=== PATIENT | female | born 1990 | race Caucasian/White ===

== ENCOUNTER 2020-04-24 14:05 | Outpatient (REF) | payer OTHER, SELFPAY ==
[2020-04-24 15:01] LABS: MANUAL DIFF FLAG NO
[2020-04-24 15:06] LABS: Basophils Absolute Auto 0.1 X10*3/uL (0.0-0.2); Basophils Percent Auto 0.7 % (0-2); Eosinophils Absolute Auto 0.4 X10*3/uL (0.0-0.4); Eosinophils Percent Auto 3.7 % (0-4); Hematocrit 41.1 % (37-47); Hemoglobin 13.4 g/dl (12.0-16.0); Imm Gran Abs Auto 0.06 X10*3/uL (0.00-0.03); Imm Gran Pct Auto 0.6 % (0.0-0.4); Lymphocytes Absolute Auto 2.8 X10*3/uL (1.2-4.9); Lymphocytes Percent Auto 29.5 % (20-40); Mean Corpuscular HGB Conc 32.6 g/dl (31.0-35.0); Mean Corpuscular Hemoglobin 29.7 pg (27.0-33.0); Mean Corpuscular Volume 91.1 fL (80-98); Mean Platelet Volume 9.8 fL (9.4-12.3); Monocytes Absolute Auto 0.6 X10*3/uL (0.1-1.2); Monocytes Percent Auto 6.4 % (2-11); Neutrophils Absolute Auto 5.5 X10*3/uL (2.0-8.3); Neutrophils Percent Auto 59.1 % (45-73); Platelet Count 357 X10*3/uL (160-400); Red Blood Count 4.51 X10*6/uL (4.20-5.50); Red Cell Distribution Width 13.2 % (11.0-16.0); White Blood Count 9.4 X10*3/uL (4.8-10.8)
[2020-04-24 15:32] LABS: Alanine Aminotransferase 37 U/L (0-31); Albumin Level 4.8 g/dL (3.5-5.0); Alkaline Phosphatase 95 U/L (39-117); Anion Gap 15 (12-20); Aspartate Amino Transferase 26 U/L (5-31); Bilirubin Total 0.5 mg/dL (0.0-1.0); Blood Urea Nitrogen 17 mg/dL (9-16); Calcium 9.4 mg/dL (8.4-10.2); Carbon Dioxide 27 mmol/L (22-29); Chloride 101 mmol/L (96-108); Estimated Glomerular Filt Rate 59; Glucose Random 101 mg/dL (60-115); Potassium 4.6 mmol/l (3.3-5.1); Sodium 138 mmol/L (135-145); Total Protein 7.6 g/dL (6.5-8.0)
[2020-04-24 15:53] LABS: TSH reflex Free T4 91.36 mIU/mL (0.32-4.0)
[2020-04-24 16:41] LABS: Free T4 (Free Thyroxine) 0.96 ng/dL (0.71-1.85)
== END 2020-04-24 14:06 | disposition home or self-care (01) ==
LOC: HO.LAB 14:05
PROVIDERS: PCP Nurse Practitioner Family; Visit Provider Nurse Practitioner Family
DX: L65.9 Nonscarring hair loss, unspecified (principal)
CPT/HCPCS: 36415; 80053; 84439; 84443; 85025

== ENCOUNTER 2020-05-12 08:46 | Outpatient (REF) | payer OTHER, SELFPAY ==
--- NOTE | 2020-05-12 09:09 | US_ITS ---
EXAMINATION: US SOFT TISSUE HEAD/NECK CLINICAL INFORMATION: Papillary microcarcinoma of thyroid. History of thyroidectomy. COMPARISON: Ultrasound thyroid soft tissue dated 08/04/2017 TECHNIQUE: Ultrasound of the thyroid bed FINDINGS: No residual thyroid tissue is identified in the region of the thyroid bed. No prominent or abnormal lymph nodes are seen within the neck. US/US soft tiss head and/or neck IMPRESSION: No residual thyroid tissue seen within the thyroid bed status post total thyroidectomy. No lymphadenopathy appreciated.
== END 2020-05-12 08:47 | disposition home or self-care (01) ==
LOC: HO.HMGCX 08:46
PROVIDERS: PCP Nurse Practitioner Family; Visit Provider Nurse Practitioner Family
DX: Z85.850 Personal history of malignant neoplasm of thyroid (principal)
CPT/HCPCS: 76536

== ENCOUNTER 2020-05-30 10:58 | Outpatient (REF) | payer OTHER, SELFPAY ==
[2020-05-30 12:47] LABS: TSH reflex Free T4 0.13 mIU/mL (0.32-4.0)
[2020-05-30 14:11] LABS: Free T4 (Free Thyroxine) 1.67 ng/dL (0.71-1.85)
== END 2020-05-30 10:59 | disposition home or self-care (01) ==
LOC: HO.LAB 10:58
PROVIDERS: PCP Nurse Practitioner Family; Visit Provider Nurse Practitioner Family
DX: R94.6 Abnormal results of thyroid function studies (principal)
CPT/HCPCS: 36415; 84439; 84443

== ENCOUNTER 2020-07-03 09:06 | Emergency (ER) | payer OTHER, SELFPAY ==
--- NOTE | ~2020-07-03 | XR_ITS ---
EXAMINATION: XR CHEST CLINICAL INFORMATION: Left upper quadrant pain. Possible pneumonia. COMPARISON: Chest radiographs 05/26/2019 TECHNIQUE: Portable upright AP view of the chest was obtained. FINDINGS: There are low lung volumes. The lungs are clear. The vascularity is normal. There is no airspace consolidation, groundglass opacity, or effusion. The heart is normal in size. The hilar and mediastinal contours and visualized bony structures are unremarkable. XR/XR chest 1V IMPRESSION: Unremarkable examination.
--- NOTE | ~2020-07-03 | CT_ITS ---
EXAMINATION: CT ABDOMEN AND PELVIS WITHOUT CONTRAST CLINICAL INFORMATION: Left upper quadrant abdominal pain/question mass COMPARISON: None TECHNIQUE: Multidetector volumetric imaging was performed from the superior aspect of the liver through the pubic symphysis. Sagittal and coronal reformatted images were obtained on the technologist's workstation. This CT examination was performed using dose optimization techniques as appropriate, variously including the following: *Automated exposure control *Adjustment of mA and/or kV according to patient size (this includes techniques or standardized protocols for targeted exams where dose is matched to indication/reason for exam; i.e. extremities or head) *Use of iterative reconstruction technique DLP: 1055 mGy-cm FINDINGS: LUNG BASES: The heart size is normal. The lung bases are clear. LIVER, GALLBLADDER, AND BILIARY TREE: The liver is normal in size, shape, and attenuation. No focal hepatic lesion or biliary ductal dilatation is present. The gallbladder has been surgically removed PANCREAS: Unremarkable. SPLEEN: Unremarkable. ADRENAL GLANDS: Unremarkable. KIDNEYS AND URETERS: The kidneys are normal in size, shape, and attenuation. No hydronephrosis, hydroureter, or calculi seen. No perinephric stranding. BLADDER: Unremarkable. GASTROINTESTINAL TRACT: There is scattered stool and gas seen throughout the colon without any significant distention. The small bowel loops are normal caliber. The stomach is nondistended. There is no free air or free fluid. Solitary surgical staple is seen in the lower anterior abdomen a clinical migrated stable from right upper quadrant ABDOMINAL WALL: No significant hernia is appreciated. LYMPH NODES: Normal. VASCULAR: Unremarkable. PELVIC VISCERA: There is a 2.7 x 2.8 cm left ovarian cyst. The uterus is anteverted and appears unremarkable. No free fluid seen. No abnormal pelvic or inguinal lymph nodes. OSSEOUS STRUCTURES: Unremarkable. CT/CT abdomen pelvis wo con IMPRESSION: No acute intra-abdominal process seen. Minimal constipation. No radiopaque urolith or hydroureteronephrosis.
[2020-07-03 09:10] VITALS: BP 129/83; PULSE 118; RESP 18; TEMP 36.4; O2SAT 98; BMI 49.6
--- NOTE | 2020-07-03 09:32 | ECG_ITS ---
Test Reason : ABDOMINAL PAIN Blood Pressure : / mmHG Vent. Rate : 099 BPM Atrial Rate : 099 BPM P-R Int : 148 ms QRS Dur : 078 ms QT Int : 370 ms P-R-T Axes : 047 024 018 degrees QTc Int : 474 ms Normal sinus rhythm Normal ECG When compared with ECG of 26-MAY-2019 13:32, Nonspecific T wave abnormality, improved in Anterior leads Referred By: Dino Mar Electronically Signed By:NILSA POLLARD MD
[2020-07-03 09:57] LABS: MANUAL DIFF FLAG NO
[2020-07-03 09:58] LABS: Basophils Percent Auto 0.3 % (0-2); Eosinophils Absolute Auto 0.1 X10*3/uL (0.0-0.4); Eosinophils Percent Auto 1.1 % (0-4); Hematocrit 37.6 % (37-47); Hemoglobin 12.6 g/dl (12.0-16.0); Imm Gran Abs Auto 0.01 X10*3/uL (0.00-0.03); Imm Gran Pct Auto 0.2 % (0.0-0.4); Lymphocytes Absolute Auto 1.5 X10*3/uL (1.2-4.9); Lymphocytes Percent Auto 23.3 % (20-40); Mean Corpuscular HGB Conc 33.5 g/dl (31.0-35.0); Mean Corpuscular Hemoglobin 27.6 pg (27.0-33.0); Mean Corpuscular Volume 82.5 fL (80-98); Mean Platelet Volume 9.4 fL (9.4-12.3); Monocytes Absolute Auto 0.6 X10*3/uL (0.1-1.2); Monocytes Percent Auto 9.2 % (2-11); Neutrophils Absolute Auto 4.2 X10*3/uL (2.0-8.3); Neutrophils Percent Auto 65.9 % (45-73); Platelet Count 313 X10*3/uL (160-400); Red Blood Count 4.56 X10*6/uL (4.20-5.50); Red Cell Distribution Width 11.7 % (11.0-16.0); White Blood Count 6.3 X10*3/uL (4.8-10.8)
[2020-07-03] MEDS: oxyCODONE HCl Immed Release 5 MG TABLET PO (10:01)
[2020-07-03 10:06] LABS: Prothrombin Time 12.1 SEC (10.8-13.0)
--- NOTE | 2020-07-03 10:07 | ED_ITS ---
HPI - General Adult General Chief complaint: General Medical Stated complaint: ABD PAIN Time Seen by Provider: 07/03/20 09:22 Source: patient Mode of arrival: ambulatory Limitations: no limitations History of Present Illness HPI narrative: Patient presents to ED for painful lump and left upper abdomen. Patient states this has been occurring for a while. Patient states sometime when she moved she see a bulging mass in left upper abdomen. Patient states no fever, chills, chest pain, or shortness of breath. Patient denies any recent trauma to the abdomen. Patient states no dysuria or hematuria. Patient denies any breast pain, breast swelling, or nipple discharge. Patient denies any chest pain on inspiration, leg swelling, calf pain, coughing up blood Related Data Home Medications Medication Instructions Recorded Confirmed amitriptyline 150 mg tablet 75 mg PO DAILY tab 07/02/20 07/02/20 cholecalciferol (vitamin D3) 50 50 mcg PO DAILY 07/02/20 07/02/20 mcg (2,000 unit) tablet Previous Rx's Medication Instructions Recorded amitriptyline 150 mg tablet 150 mg PO BEDTIME 90 Days #90 tab 03/10/20 tizanidine 4 mg tablet 4 mg PO BID PRN #60 tab 05/22/20 [id number]-xrpyyjvksbfrf-srrgkfat 1 cap PO .12 hrs PRN 15 Days #30 05/30/20 50 mg-300 mg-40 mg capsule cap cholecalciferol (vitamin D3) 50 50 mcg PO DAILY 90 Days #90 tab 06/23/20 mcg (2,000 unit) tablet clonazepam 1 mg tablet 1 mg PO BEDTIME PRN 30 Days #30 tab 07/02/20 levothyroxine 200 mcg capsule 200 mcg PO DAILY 90 Days #90 cap 07/02/20 levothyroxine 75 mcg capsule 75 mcg PO DAILY 90 Days #90 cap 07/02/20 oxycodone-acetaminophen [Percocet] 1 tab PO TID PRN #9 tab 07/03/20 Allergies Allergy/AdvReac Type Severity Reaction Status Date / Time bee pollen [BEE STINGS] Allergy Severe ANAPHYLAXIS Verified 07/02/20 16:25 NSAIDS (Non-Steroidal Allergy Intermediate HIVES Verified 07/02/20 16:25 Anti-Inflamma [NSAIDS (NON-STEROIDAL ANTI-INFLAMMA] Penicillins Allergy Intermediate HIVES Verified 07/02/20 16:25 ibuprofen Allergy Unknown unknown Verified 07/02/20 16:25 latex Allergy Unknown unknown Verified 07/02/20 16:25 Motrin Allergy Unknown hives Verified 07/02/20 16:25 penicillin V Allergy Unknown unknown Verified 07/02/20 16:25 latex [LATEX] AdvReac Intermediate RASH Verified 07/02/20 16:25 bee Allergy Unknown unknown Uncoded 07/02/20 16:25 bee sting Allergy Unknown unknown Uncoded 07/02/20 16:25 Penicillin Allergy Unknown unknown Uncoded 07/02/20 16:25 From Ortho Tri-Cyclen () AdvReac Intermediate DVT (BLOOD Uncoded 07/02/20 16:25 CLOT) Review of Systems Review of Systems: Yes all other systems are reviewed and are negative Constitutional: Constitutional: Reports as per HPI and Reports no additional constitutional complaints Eyes: Eyes: Reports as per HPI and Reports no additional eye complaints ENT: Reports system reviewed and no additional complaints, except as documented and Reports as per HPI Cardiovascular: Cardiovascular: Reports as per HPI and Reports no additional cardiovascular complaints Respiratory: Respiratory: Reports as per HPI and Reports no additional respiratory complaints Gastrointestinal: Gastrointestinal: Reports as per HPI, Reports no additional gastrointestinal complaints and Reports abdominal pain (Left upper abdominal pain) Genitourinary: Genitourinary: Reports no additional female genitourinary complaints and Reports as per HPI Musculoskeletal: Musculoskeletal: Reports no additional musculoskeletal complaints and Reports as per HPI Neurologic: Reports system reviewed and no additional complaints, except as documented and Reports as per HPI Psychiatric: Psychiatric: Reports no additional psychiatric complaints and Reports as per HPI [facility] Past Medical History Medical History (Updated 07/03/20 @ 12:45 by CAM Shannon) Hx of papillary thyroid carcinoma Social History Social History Alcohol intake: current Alcohol intake frequency: holidays/special occasions only Smoking Status: Never smoker Advance Directives: No Advance Directives Information Provided: No Physical Exam Vital Signs: Vital Signs: Last Vital Signs Temp 97.5 F 07/03/20 09:10 Pulse 118 H 07/03/20 09:10 Resp 18 07/03/20 09:10 BP 129/83 07/03/20 09:10 Pulse Ox 98 07/03/20 09:10 Body Mass Index 49.6 Const: General: cooperative, healthy appearing, comfortable, no acute distress, well developed, alert and awake Orientation/consciousness: patient oriented x3 HENMT: Head: Yes normal to inspection, Yes No palpable skull fracture present, Yes normocephalic, Yes atraumatic and No abrasion Eyes: General: appearance normal, both eyes and all related structures Neck: Neck: Yes normal visual inspection, Yes full ROM, Yes no lymphadenopathy, Yes no meningeal signs, Yes trachea midline, Yes supple and No tender Chest: Chest palpation & inspection: normal inspection of the chest and normal palpation of entire chest wall Breast/axilla inspection: normal inspection of the breasts Resp: Effort & Inspection: normal respiratory effort and able to speak in complete sentences Auscultation: clear to auscultation bilaterally Cardio: Jugular venous distension: no JVD Heart sounds: S1 normal heart sound present and S2 normal heart sound present GI: Other: Left upper abdomen is tender, but negative for any obvious lump, mass, erythema, or fluctuance. Patient is obese and have a large obese abdomen. Possible small hiatal hernia Inspection: Yes normal to inspection and No abdominal wall ecchymosis Palpation (GI): not soft, not firm, Tenderness to palpation present (GI) in the LUQ and no guarding : General: No CVA tenderness and Yes no CVA tenderness Back/Spine/Pelvis: Back: no CVA tenderness, No CVA tenderness and No back tenderness Skin: General skin exam: no rashes or lesions noted and elasticity normal Neuro: General: patient oriented x3, no meningeal signs and CN's II-XI intact bilaterally Cranial nerves: Yes CN's II-XII intact bilaterally Extrem: General: Yes normal to inspection and Yes full ROM Psych: Appearance: grossly normal, well kempt and not disheveled Course Course Course Narrative: Due to patient having left upper abdominal pain. Will do EKG and troponin to make sure there is no cardiac issue. Left upper abdominal pain could also be pneumonia patient will be sent for chest x-ray. Will send patient for abdominal CT scan to evaluate for possible hiatal hernia due to history of left upper abdominal pain with bulging mass. No indication for CT contrast with IV. Not suspecting incarcerated hernia. Pain is not out of proportion. Also negative for any palpable of visual mass on palpation Reevaluation(s) Reevaluation #1: Patient sleeping comfortably in bed and not in any distress. Awaiting results of abdominal CT scan. Time: 09:40 Reevaluation #2: Abdominal CT scan negative for any intra-abdominal process. Negative for any mass or hernia. Patient is safe for discharge. EKG normal. Chest x-ray normal. Troponin negative after having symptoms for 1 week. Patient passed p.o. challenge Time: 12:42 Medical Decision Making MDM Narrative Medical decision making narrative: Abdominal pain Lab Data Result diagrams: 07/03/20 09:48 07/03/20 09:48 Labs: Lab Results 07/03/20 07/03/20 07/03/20 Range/Units 09:43 09:48 09:48 WBC 6.3 (4.8-10.8) X10*3/uL RBC 4.56 (4.20-5.50) X10*6/uL Hgb 12.6 (12.0-16.0) g/dl Hct 37.6 (37-47) % MCV 82.5 (80-98) fL MCH 27.6 (27.0-33.0) pg MCHC 33.5 (31.0-35.0) g/dl RDW 11.7 (11.0-16.0) % Plt Count 313 (160-400) X10*3/uL MPV 9.4 (9.4-12.3) fL Immature Gran % (Auto) 0.2 (0.0-0.4) % Neut % (Auto) 65.9 (45-73) % Lymph % (Auto) 23.3 (20-40) % [place] % (Auto) 9.2 (2-11) % Eos % (Auto) 1.1 (0-4) % Baso % (Auto) 0.3 (0-2) % Lymph # (Auto) 1.5 (1.2-4.9) X10*3/uL [place] # (Auto) 0.6 (0.1-1.2) X10*3/uL Eos # (Auto) 0.1 (0.0-0.4) X10*3/uL Baso # (Auto) 0.0 (0.0-0.2) X10*3/uL Abs Immat Gran (auto) 0.01 (0.00-0.03) X10*3/uL Absolute Neuts (auto) 4.2 (2.0-8.3) X10*3/uL Absolute Nucleated RBC 0.000 (0.0-0.012) X10*3/uL Nucleated RBC % (auto) 0.0 (0.0-0.2) /100WBC PT (10.8-13.0) SEC INR (0.9-1.1) APTT (24.1-38.0) SEC Sodium 137 (135-145) mmol/L Potassium 4.1 (3.3-5.1) mmol/L Chloride 102 (96-108) mmol/L Carbon Dioxide 29 (22-29) mmol/L Anion Gap 10 L (12-20) BUN 15 (9-16) mg/dL Creatinine 0.66 (0.5-1.4) mg/dL Estim Creat Clear Calc 141.7 Estimated GFR > 60 Random Glucose 120 H (60-115) mg/dL Calcium 8.5 D (8.4-10.2) mg/dL Total Bilirubin 0.5 (0.0-1.0) mg/dL Direct Bilirubin 0.2 (0.0-0.5) mg/dL AST 21 (5-31) U/L ALT 37 H (0-31) U/L Alkaline Phosphatase 73 D (39-117) U/L Troponin I High Sens (<3.5-17.0) ng/L Total Protein 6.0 L D (6.5-8.0) g/dL Albumin 3.8 D (3.5-5.0) g/dL Urine Color COLORLESS Urine Appearance CLEAR Urine pH 7.0 (5.0-8.0) Ur Specific [place] <= 1.005 (1.005-1.025) Urine Protein NEG (NEG-TRACE) MG/DL Urine Glucose (UA) NEG (NEG) MG/DL Urine Ketones NEG (NEG) MG/DL Urine Blood NEG (NEG) Urine Nitrite NEG (NEG) Ur Leukocyte Esterase NEG (NEG) Urine Test NEGATIVE (NEGATIVE) 07/03/20 07/03/20 Range/Units 09:48 09:48 WBC (4.8-10.8) X10*3/uL RBC (4.20-5.50) X10*6/uL Hgb (12.0-16.0) g/dl Hct (37-47) % MCV (80-98) fL MCH (27.0-33.0) pg MCHC (31.0-35.0) g/dl RDW (11.0-16.0) % Plt Count (160-400) X10*3/uL MPV (9.4-12.3) fL Immature Gran % (Auto) (0.0-0.4) % Neut % (Auto) (45-73) % Lymph % (Auto) (20-40) % [place] % (Auto) (2-11) % Eos % (Auto) (0-4) % Baso % (Auto) (0-2) % Lymph # (Auto) (1.2-4.9) X10*3/uL [place] # (Auto) (0.1-1.2) X10*3/uL Eos # (Auto) (0.0-0.4) X10*3/uL Baso # (Auto) (0.0-0.2) X10*3/uL Abs Immat Gran (auto) (0.00-0.03) X10*3/uL Absolute Neuts (auto) (2.0-8.3) X10*3/uL Absolute Nucleated RBC (0.0-0.012) X10*3/uL Nucleated RBC % (auto) (0.0-0.2) /100WBC PT 12.1 (10.8-13.0) SEC INR 1.0 (0.9-1.1) APTT 31.7 (24.1-38.0) SEC Sodium (135-145) mmol/L Potassium (3.3-5.1) mmol/L Chloride (96-108) mmol/L Carbon Dioxide (22-29) mmol/L Anion Gap (12-20) BUN (9-16) mg/dL Creatinine (0.5-1.4) mg/dL Estim Creat Clear Calc Estimated GFR Random Glucose (60-115) mg/dL Calcium (8.4-10.2) mg/dL Total Bilirubin (0.0-1.0) mg/dL Direct Bilirubin (0.0-0.5) mg/dL AST (5-31) U/L ALT (0-31) U/L Alkaline Phosphatase (39-117) U/L Troponin I High Sens < 3.5 (<3.5-17.0) ng/L Total Protein (6.5-8.0) g/dL Albumin (3.5-5.0) g/dL Urine Color Urine Appearance Urine pH (5.0-8.0) Ur Specific [place] (1.005-1.025) Urine Protein (NEG-TRACE) MG/DL Urine Glucose (UA) (NEG) MG/DL Urine Ketones (NEG) MG/DL Urine Blood (NEG) Urine Nitrite (NEG) Ur Leukocyte Esterase (NEG) Urine Test (NEGATIVE) ECG Data Interpretation: Normal sinus rhythm. Normal EKG. Negative STEMI. Ventricular rate 99. SD interval 148. QRS 78. QTC 474 Discharge Plan Discharge Clinical Impression: Abdominal pain Patient Disposition: Home, Self-Care Instructions: Acute Abdominal Pain (ED) Additional Instructions: Return to the ED for chest pain, shortness of breath, worsening abdominal pain, nausea, vomiting, fever, chills, coughing up blood, chest pain on inspiration, calf pain, or any other concerning symptoms. Prescriptions: New oxycodone-acetaminophen [Percocet] 5-325 mg tablet 1 tab PO TID PRN (Reason: pain) Qty: 9 RF: 0 No Action amitriptyline 150 mg tablet 150 mg PO BEDTIME 90 Days Qty: 90 RF: 1 tizanidine 4 mg tablet 4 mg PO BID PRN (Reason: for muscle spasm) Qty: 60 RF: 1 jfycqcezru-tknfiokjbvsgv-vraf [Fioricet] 50-300-40 mg capsule 1 cap PO .12 hrs PRN (Reason: migraine) 15 Days Qty: 30 RF: 0 cholecalciferol (vitamin D3) 50 mcg (2,000 unit) tablet 50 mcg PO DAILY 90 Days Qty: 90 RF: 0 cholecalciferol (vitamin D3) 50 mcg (2,000 unit) tablet 50 mcg PO DAILY RF: 0 amitriptyline 150 mg tablet 75 mg PO DAILY RF: 0 clonazepam 1 mg tablet 1 mg PO BEDTIME PRN (Reason: anxiety) 30 Days Qty: 30 RF: 0 levothyroxine [Tirosint] 200 mcg capsule 200 mcg PO DAILY 90 Days Qty: 90 RF: 0 levothyroxine [Tirosint] 75 mcg capsule 75 mcg PO DAILY 90 Days Qty: 90 RF: 0 Referrals: Elan Terry, [employer] [facility] [Primary Care Provider] - 2 days (Abdominal CT scan n egative for any hernia or mass. Abdominal CT negative for any acute abdominal processes. Chest x-ray normal. Troponin was negative. EKG normal.) Interventions: ED Discharge Assessment Last Done: 07/03/20 12:57 Discharge Date/Time: 07/03/20 13:05 Print Language: Israeli
[2020-07-03 10:09] LABS: Partial Thromboplastin Time 31.7 SEC (24.1-38.0)
[2020-07-03 10:14] LABS: Glucose Urine UA NEG (NEG); Leukocyte Esterase Urine NEG (NEG); Nitrite Urine NEG (NEG); Specific Gravity - Urine <= 1.005 (1.005-1.025); Urine Blood NEG (NEG); Urine Ketones NEG (NEG); Urine Protein NEG (NEG-TRACE)
[2020-07-03 10:27] LABS: Alanine Aminotransferase 37 U/L (0-31); Albumin Level 3.8 g/dL (3.5-5.0); Alkaline Phosphatase 73 U/L (39-117); Anion Gap 10 (12-20); Aspartate Amino Transferase 21 U/L (5-31); Bilirubin Direct 0.2 mg/dL (0.0-0.5); Bilirubin Total 0.5 mg/dL (0.0-1.0); Blood Urea Nitrogen 15 mg/dL (9-16); Calcium 8.5 mg/dL (8.4-10.2); Carbon Dioxide 29 mmol/L (22-29); Chloride 102 mmol/L (96-108); Creatinine Clr Calc Pharmacy 141.7; Estimated Glomerular Filt Rate > 60; Glucose Random 120 mg/dL (60-115); Potassium 4.1 mmol/L (3.3-5.1); Sodium 137 mmol/L (135-145)
[2020-07-03 10:30] LABS: Troponin-I High Sensitivity < 3.5 ng/L (<3.5-17.0)
[2020-07-03 10:34] LABS: Appearance Urine CLEAR; Color Urine COLORLESS; UPreg QC Valid YES; Urine Pregnancy NEGATIVE (NEGATIVE)
== END 2020-07-03 13:05 | disposition home or self-care (01) ==
PROVIDERS: Physician Assistant; Emergency Provider Internal Medicine; PCP Nurse Practitioner Family
DX: R10.12 Left upper quadrant pain (principal); Z79.899 Other long term (current) drug therapy
CPT/HCPCS: 36415; 71045; 74176; 80053; 80076; 81003; 81025; 82248; 84484; 85025; 85610; 85730; 93005; 99284

== ENCOUNTER 2020-10-15 08:43 | Emergency (ER) | payer OTHER, SELFPAY ==
--- NOTE | ~2020-10-15 | CT_ITS ---
EXAMINATION: CT ANGIOGRAM OF THE CHEST WITH AND WITHOUT CONTRAST (CT PULMONARY ANGIOGRAM FOR PE) CLINICAL INFORMATION: Reason for Exam positive ddimer COMPARISON: Previous chest x-ray most recent June 2020 and CTA of the chest April 2017 TECHNIQUE: Prior to contrast administration, noncontrast localization images were obtained. Subsequently, multidetector volumetric imaging was performed from the thoracic inlet to below the diaphragms following the administration of 71 mL Omnipaque 350 intravenous contrast. No contrast reaction reported Sagittal, coronal, and MIP oblique sagittal reformatted images were obtained on the CT workstation, uploaded to PACS, and reviewed. This CT examination was performed using dose optimization techniques as appropriate, variously including the following: *Automated exposure control *Adjustment of mA and/or kV according to patient size (this includes techniques or standardized protocols for targeted exams where dose is matched to indication/reason for exam; i.e. extremities or head) *Use of iterative reconstruction technique Total exam dose-length product 475 mGy-cm FINDINGS: QUALITY OF STUDY/CONTRAST BOLUS: Satisfactory. PULMONARY ARTERIES: No central or segmental pulmonary emboli. THORACIC AORTA: No aneurysm or dissection. LUNG: No focal consolidation, nodules or masses. PLEURA: No pleural effusion or pneumothorax. MEDIASTINUM: Normal heart size. No pericardial effusion. No hilar or mediastinal lymphadenopathy. No evidence of septal bowing or right heart strain. CHEST WALL/AXILLA: No axillary or internal mammary lymphadenopathy. OSSEOUS STRUCTURES: No acute or suspicious osseous abnormality. UPPER ABDOMEN: Unremarkable. No reflux of contrast into the hepatic veins to suggest elevated right heart pressures. CT/CT angio chest PE protocol IMPRESSION: Unremarkable exam. No pulmonary embolism seen. VTE: negative
[2020-10-15 08:52] VITALS: BP 126/86; PULSE 101; RESP 16; TEMP 36.1; O2SAT 98; BMI 48.8
--- NOTE | 2020-10-15 08:59 | ED.GENADULT ---
HPI - General Adult General Chief complaint: General Medical Stated complaint: SOB Time Seen by Provider: 10/15/20 08:59 Source: patient Mode of arrival: ambulatory Limitations: no limitations History of Present Illness HPI narrative: patient feels short of breath with leg swelling ever since getting COVID shot. Patient had pfizer 2 weeks ago Onset (ago): week(s) Severity: mild Related Data Previous Rx's Medication Instructions Recorded levothyroxine 200 mcg capsule 200 mcg PO DAILY 90 Days #90 cap 07/02/20 levothyroxine 75 mcg capsule 75 mcg PO DAILY 90 Days #90 cap 07/02/20 oxycodone-acetaminophen [Percocet] 1 tab PO TID PRN #9 tab 07/03/20 ondansetron HCl 4 mg tablet 4 mg PO Q8H PRN #14 tab 07/04/20 clonazepam 1 mg tablet 1 mg PO BEDTIME PRN 30 Days #30 tab 07/24/20 tizanidine 4 mg tablet 4 mg PO BID PRN #60 tab 07/24/20 amitriptyline 150 mg tablet 150 mg PO BEDTIME #30 tab 09/19/20 cholecalciferol (vitamin D3) 50 50 mcg PO DAILY #30 tab 09/19/20 mcg (2,000 unit) tablet lgvwewugtl-qeuaxzlpdcwqg-spniocik 1 tab PO DAILY PRN 10 Days #10 tab 09/23/20 50 mg-325 mg-40 mg tablet levothyroxine 200 mcg tablet 200 mcg PO DAILY 90 Days #90 tab 09/23/20 levothyroxine 75 mcg tablet 75 mcg PO DAILY 90 Days #90 tab 09/23/20 suvorexant 10 mg tablet 10 mg PO BEDTIME 30 Days #30 tab 09/23/20 Allergies Allergy/AdvReac Type Severity Reaction Status Date / Time bee pollen [BEE STINGS] Allergy Severe ANAPHYLAXIS Verified 07/24/20 16:13 NSAIDS (Non-Steroidal Allergy Intermediate HIVES Verified 07/24/20 16:13 Anti-Inflamma [NSAIDS (NON-STEROIDAL ANTI-INFLAMMA] Penicillins Allergy Intermediate HIVES Verified 07/24/20 16:13 ibuprofen Allergy Unknown unknown Verified 07/24/20 16:13 latex Allergy Unknown unknown Verified 07/24/20 16:13 Motrin Allergy Unknown hives Verified 07/24/20 16:13 penicillin V Allergy Unknown unknown Verified 03/04/21 16:13 latex [LATEX] AdvReac Intermediate RASH Verified 07/24/20 16:13 From Ortho Tri-Cyclen (21) AdvReac Intermediate DVT (BLOOD Uncoded 07/24/20 16:13 CLOT) Review of Systems Constitutional: Constitutional: Reports no additional constitutional complaints Eyes: Eyes: Reports no additional eye complaints ENT: Denies dizziness Cardiovascular: Cardiovascular: Reports no additional cardiovascular complaints Respiratory: Respiratory: Reports as per HPI Gastrointestinal: Gastrointestinal: Reports no additional gastrointestinal complaints Genitourinary: Genitourinary: Reports no additional female genitourinary complaints Musculoskeletal: Musculoskeletal: Reports no additional musculoskeletal complaints Integumentary/Breasts: Skin/Breast: Denies rash Neurologic: Reports system reviewed and no additional complaints, except as documented, Denies dizziness and Denies Sensory deficit (Neuro) Psychiatric: Psychiatric: Denies anxiety PMFSH Past Medical History Medical History Hx of papillary thyroid carcinoma Surgical History Bilateral carpal tunnel syndrome History of section History of thyroidectomy History of tubal ligation History of umbilical hernia repair Hx of cholecystectomy Family History Family History Father History of heart attack Mother Hypothyroidism Sister Anxiety Migraine Low blood pressure Son Epilepsy Daughter No problems noted. Maternal Grandmother Breast cancer Paternal Grandmother Breast cancer Social History Social History Alcohol intake: current Alcohol intake frequency: holidays/special occasions only Advance Directives: Yes Advance Directives Information Provided: Yes Advance Directives on File: No Patient : No Physical Exam Vital Signs: Vital Signs: Last Vital Signs Temp 97.0 F 10/15/20 08:52 Pulse 98 10/15/20 12:20 Resp 18 10/15/20 12:20 BP 113/79 10/15/20 12:20 Pulse Ox 96 10/15/20 12:20 Body Mass Index 48.8 Const: Other: resting comfortably Nutritional Appearance: obese Orientation/consciousness: oriented to person and patient oriented x3 Limitations: no limitations HENMT: Head: Yes normal to inspection Ears: external ears normal General nose exam: Normal external nose present Mouth: Normal oral and palatal mucosa present and oropharynx normal Throat: Yes posterior oropharynx normal Eyes: General: appearance normal, both eyes and all related structures Neck: Other: supple Neck: Yes normal visual inspection Chest: Chest palpation & inspection: normal inspection of the chest Resp: Auscultation: clear to auscultation bilaterally Cardio: Jugular venous distension: no JVD Rate: regular rate Rhythm: regular rhythm Heart sounds: S1 normal heart sound present and S2 normal heart sound present GI: Inspection: Yes normal to inspection Palpation (GI): Soft to palpation, nontender and No hepatosplenomegaly present Auscultation: normal bowel sounds : General: Yes no CVA tenderness Back/Spine/Pelvis: Back: no CVA tenderness Skin: General skin exam: no rashes or lesions noted Neuro: General: oriented to person and patient oriented x3 Cranial nerves: Yes CN's II-XII intact bilaterally Motor exam (neuro): 5/5 motor strength present throughout Sensory Exam: No Sensory deficit (Neuro) Extrem: Other: obese legs no edema, good dp and PT pulses bilaterally Psych: Appearance: grossly normal Course Course Course Narrative: Labs, EKG, Chest CT all negative will dc home. No evidence of PE on CT Medical Decision Making Lab Data Result diagrams: 10/15/20 09:08 10/15/20 09:08 Labs: Lab Results 10/15/20 10/15/20 10/15/20 Range/Units 09:08 09:08 09:08 WBC 7.0 (4.8-10.8) X10*3/uL RBC 4.61 (4.20-5.50) X10*6/uL Hgb 13.2 (12.0-16.0) g/dl Hct 39.0 (37-47) % MCV 84.6 (80-98) fL MCH 28.6 (27.0-33.0) pg MCHC 33.8 (31.0-35.0) g/dl RDW 13.3 (11.0-16.0) % Plt Count 309 (160-400) X10*3/uL MPV 9.4 (9.4-12.3) fL Immature Gran % (Auto) 0.4 (0.0-0.4) % Neut % (Auto) 67.5 (45-73) % Lymph % (Auto) 22.3 (20-40) % [place] % (Auto) 8.3 (2-11) % Eos % (Auto) 0.9 (0-4) % Baso % (Auto) 0.6 (0-2) % Lymph # (Auto) 1.6 (1.2-4.9) X10*3/uL [place] # (Auto) 0.6 (0.1-1.2) X10*3/uL Eos # (Auto) 0.1 (0.0-0.4) X10*3/uL Baso # (Auto) 0.0 (0.0-0.2) X10*3/uL Abs Immat Gran (auto) 0.03 (0.00-0.03) X10*3/uL Absolute Neuts (auto) 4.8 (2.0-8.3) X10*3/uL Absolute Nucleated RBC 0.000 (0.0-0.012) X10*3/uL Nucleated RBC % (auto) 0.0 (0.0-0.2) /100WBC D-Dimer 248 NG/ML Sodium (135-145) mmol/L Potassium (3.3-5.1) mmol/L Chloride (96-108) mmol/L Carbon Dioxide (22-29) mmol/L Anion Gap (12-20) BUN (9-16) mg/dL Creatinine (0.5-1.4) mg/dL Estim Creat Clear Calc Estimated GFR Random Glucose (60-115) mg/dL Calcium (8.4-10.2) mg/dL Troponin I High Sens (<3.5-17.0) ng/L B-Natriuretic Peptide < 10 (<100) pg/mL Urine Test (NEGATIVE) 10/15/20 10/15/20 10/15/20 Range/Units 09:08 09:08 12:38 WBC (4.8-10.8) X10*3/uL RBC (4.20-5.50) X10*6/uL Hgb (12.0-16.0) g/dl Hct (37-47) % MCV (80-98) fL MCH (27.0-33.0) pg MCHC (31.0-35.0) g/dl RDW (11.0-16.0) % Plt Count (160-400) X10*3/uL MPV (9.4-12.3) fL Immature Gran % (Auto) (0.0-0.4) % Neut % (Auto) (45-73) % Lymph % (Auto) (20-40) % [place] % (Auto) (2-11) % Eos % (Auto) (0-4) % Baso % (Auto) (0-2) % Lymph # (Auto) (1.2-4.9) X10*3/uL [place] # (Auto) (0.1-1.2) X10*3/uL Eos # (Auto) (0.0-0.4) X10*3/uL Baso # (Auto) (0.0-0.2) X10*3/uL Abs Immat Gran (auto) (0.00-0.03) X10*3/uL Absolute Neuts (auto) (2.0-8.3) X10*3/uL Absolute Nucleated RBC (0.0-0.012) X10*3/uL Nucleated RBC % (auto) (0.0-0.2) /100WBC D-Dimer NG/ML Sodium 137 (135-145) mmol/L Potassium 4.5 (3.3-5.1) mmol/L Chloride 101 (96-108) mmol/L Carbon Dioxide 28 (22-29) mmol/L Anion Gap 13 (12-20) BUN 12 (9-16) mg/dL Creatinine 0.76 (0.5-1.4) mg/dL Estim Creat Clear Calc 121.9 Estimated GFR > 60 Random Glucose 120 H (60-115) mg/dL Calcium 9.0 (8.4-10.2) mg/dL Troponin I High Sens < 3.5 (<3.5-17.0) ng/L B-Natriuretic Peptide (<100) pg/mL Urine Test NEGATIVE (NEGATIVE) Imaging Data CT scan - chest: Radiologist's impression: IMPRESSION: Unremarkable exam. No pulmonary embolism seen. VTE: negative Discharge Plan Discharge Clinical Impression: Shortness of breath Patient Disposition: Home, Self-Care Instructions: Shortness of Breath (ED) Prescriptions: No Action ondansetron HCl 4 mg tablet 4 mg PO Q8H PRN (Reason: nausea and vomiting) Qty: 14 RF: 0 tizanidine 4 mg tablet 4 mg PO BID PRN (Reason: for muscle spasm) Qty: 60 RF: 1 cholecalciferol (vitamin D3) 50 mcg (2,000 unit) tablet 50 mcg PO DAILY Qty: 30 RF: 5 amitriptyline 150 mg tablet 150 mg PO BEDTIME Qty: 30 RF: 5 levothyroxine [Synthroid] 75 mcg tablet 75 mcg PO DAILY 90 Days Qty: 90 RF: 0 levothyroxine [Synthroid] 200 mcg tablet 200 mcg PO DAILY 90 Days Qty: 90 RF: 0 xltgdpjotb-cnjsleuqqbcth-xtow 50-325-40 mg tablet 1 tab PO DAILY PRN (Reason: pain) 10 Days Qty: 10 RF: 1 Belsomra 10 mg tablet 10 mg PO BEDTIME 30 Days Qty: 30 RF: 1 oxycodone-acetaminophen [Percocet] 5-325 mg tablet 1 tab PO TID PRN (Reason: pain) Qty: 9 RF: 0 clonazepam 1 mg tablet 1 mg PO BEDTIME PRN (Reason: anxiety) 30 Days Qty: 30 RF: 0 levothyroxine [Tirosint] 200 mcg capsule 200 mcg PO DAILY 90 Days Qty: 90 RF: 0 levothyroxine [Tirosint] 75 mcg capsule 75 mcg PO DAILY 90 Days Qty: 90 RF: 0 Referrals: Elan Terry, [facility] [Primary Care Provider] - 1 week
--- NOTE | 2020-10-15 09:02 | ECG_ITS ---
Test Reason : SOB Blood Pressure : / mmHG Vent. Rate : 098 BPM Atrial Rate : 098 BPM P-R Int : 138 ms QRS Dur : 082 ms QT Int : 362 ms P-R-T Axes : 031 029 014 degrees QTc Int : 462 ms Normal sinus rhythm Low voltage QRS Nonspecific ST and T wave abnormality Borderline ECG When compared with ECG of 03-JUL-2020 09:44, No significant change was found Referred By: Thom Campa Electronically Signed By:AMAURY JARAMILLO
[2020-10-15 09:19] LABS: Basophils Percent Auto 0.6 % (0-2); Eosinophils Absolute Auto 0.1 X10*3/uL (0.0-0.4); Eosinophils Percent Auto 0.9 % (0-4); Hemoglobin 13.2 g/dl (12.0-16.0); Imm Gran Abs Auto 0.03 X10*3/uL (0.00-0.03); Imm Gran Pct Auto 0.4 % (0.0-0.4); Lymphocytes Absolute Auto 1.6 X10*3/uL (1.2-4.9); Lymphocytes Percent Auto 22.3 % (20-40); MANUAL DIFF FLAG NO; Mean Corpuscular HGB Conc 33.8 g/dl (31.0-35.0); Mean Corpuscular Hemoglobin 28.6 pg (27.0-33.0); Mean Corpuscular Volume 84.6 fL (80-98); Mean Platelet Volume 9.4 fL (9.4-12.3); Monocytes Absolute Auto 0.6 X10*3/uL (0.1-1.2); Monocytes Percent Auto 8.3 % (2-11); Neutrophils Absolute Auto 4.8 X10*3/uL (2.0-8.3); Neutrophils Percent Auto 67.5 % (45-73); Platelet Count 309 X10*3/uL (160-400); Red Blood Count 4.61 X10*6/uL (4.20-5.50); Red Cell Distribution Width 13.3 % (11.0-16.0)
[2020-10-15 09:42] LABS: D Dimer 248 NG/ML
[2020-10-15 10:00] VITALS: BP 121/85; PULSE 98; RESP 20; O2SAT 96
[2020-10-15 10:08] LABS: Anion Gap 13 (12-20); Blood Urea Nitrogen 12 mg/dL (9-16); Carbon Dioxide 28 mmol/L (22-29); Chloride 101 mmol/L (96-108); Creatinine Clr Calc Pharmacy 121.9; Estimated Glomerular Filt Rate > 60; Glucose Random 120 mg/dL (60-115); Potassium 4.5 mmol/L (3.3-5.1); Sodium 137 mmol/L (135-145)
[2020-10-15 10:11] LABS: Troponin-I High Sensitivity < 3.5 ng/L (<3.5-17.0)
[2020-10-15 10:12] LABS: B Type Natriuretic Peptide < 10 pg/mL (<100)
[2020-10-15 12:20] VITALS: BP 113/79; PULSE 98; RESP 18; O2SAT 96
[2020-10-15] MEDS: LORazepam 1 MG TABLET PO (12:36)
[2020-10-15 12:49] LABS: UPreg QC Valid YES; Urine Pregnancy NEGATIVE (NEGATIVE)
[2020-10-15] MEDS: iohexoL 350 MG/ML 100 ML INFUS..BTL 71 ML IV (13:28)
--- NOTE | 2020-10-15 14:34 | ED.GENADULT ---
HPI - General Adult General Chief complaint: General Medical Stated complaint: SOB Time Seen by Provider: 10/15/20 08:59 Source: patient Mode of arrival: ambulatory Limitations: no limitations Related Data Previous Rx's Medication Instructions Recorded levothyroxine 200 mcg capsule 200 mcg PO DAILY 90 Days #90 cap 07/02/20 levothyroxine 75 mcg capsule 75 mcg PO DAILY 90 Days #90 cap 07/02/20 oxycodone-acetaminophen [Percocet] 1 tab PO TID PRN #9 tab 07/03/20 ondansetron HCl 4 mg tablet 4 mg PO Q8H PRN #14 tab 07/04/20 clonazepam 1 mg tablet 1 mg PO BEDTIME PRN 30 Days #30 tab 07/24/20 tizanidine 4 mg tablet 4 mg PO BID PRN #60 tab 07/24/20 amitriptyline 150 mg tablet 150 mg PO BEDTIME #30 tab 09/19/20 cholecalciferol (vitamin D3) 50 50 mcg PO DAILY #30 tab 09/19/20 mcg (2,000 unit) tablet qfpnupfusr-qmlrpiosgvqah-bubgwrao 1 tab PO DAILY PRN 10 Days #10 tab 09/23/20 50 mg-325 mg-40 mg tablet levothyroxine 200 mcg tablet 200 mcg PO DAILY 90 Days #90 tab 09/23/20 levothyroxine 75 mcg tablet 75 mcg PO DAILY 90 Days #90 tab 09/23/20 suvorexant 10 mg tablet 10 mg PO BEDTIME 30 Days #30 tab 09/23/20 Allergies Allergy/AdvReac Type Severity Reaction Status Date / Time bee pollen [BEE STINGS] Allergy Severe ANAPHYLAXIS Verified 07/24/20 16:13 NSAIDS (Non-Steroidal Allergy Intermediate HIVES Verified 07/24/20 16:13 Anti-Inflamma [NSAIDS (NON-STEROIDAL ANTI-INFLAMMA] Penicillins Allergy Intermediate HIVES Verified 07/24/20 16:13 ibuprofen Allergy Unknown unknown Verified 07/24/20 16:13 latex Allergy Unknown unknown Verified 07/24/20 16:13 Motrin Allergy Unknown hives Verified 07/24/20 16:13 penicillin V Allergy Unknown unknown Verified 07/24/20 16:13 latex [LATEX] AdvReac Intermediate RASH Verified 07/24/20 16:13 From Ortho Tri-Cyclen () AdvReac Intermediate DVT (BLOOD Uncoded 07/24/20 16:13 CLOT) PMFSH Past Medical History Medical History Hx of papillary thyroid carcinoma Surgical History Bilateral carpal tunnel syndrome History of section History of thyroidectomy History of tubal ligation History of umbilical hernia repair Hx of cholecystectomy Family History Family History Father History of heart attack Mother Hypothyroidism Sister Anxiety Migraine Low blood pressure Son Epilepsy Daughter No problems noted. Maternal Grandmother Breast cancer Paternal Grandmother Breast cancer Social History Social History Alcohol intake: current Alcohol intake frequency: holidays/special occasions only Advance Directives: Yes Advance Directives Information Provided: Yes Advance Directives on File: No Patient : No Physical Exam Vital Signs: Vital Signs: Last Vital Signs Temp 97.0 F 10/15/20 08:52 Pulse 98 10/15/20 12:20 Resp 18 10/15/20 12:20 BP 113/79 10/15/20 12:20 Pulse Ox 96 10/15/20 12:20 Body Mass Index 48.8 Medical Decision Making Lab Data Result diagrams: 10/15/20 09:08 10/15/20 09:08 Labs: Lab Results 10/15/20 10/15/20 10/15/20 Range/Units 09:08 09:08 09:08 WBC 7.0 (4.8-10.8) X10*3/uL RBC 4.61 (4.20-5.50) X10*6/uL Hgb 13.2 (12.0-16.0) g/dl Hct 39.0 (37-47) % MCV 84.6 (80-98) fL MCH 28.6 (27.0-33.0) pg MCHC 33.8 (31.0-35.0) g/dl RDW 13.3 (11.0-16.0) % Plt Count 309 (160-400) X10*3/uL MPV 9.4 (9.4-12.3) fL Immature Gran % (Auto) 0.4 (0.0-0.4) % Neut % (Auto) 67.5 (45-73) % Lymph % (Auto) 22.3 (20-40) % [place] % (Auto) 8.3 (2-11) % Eos % (Auto) 0.9 (0-4) % Baso % (Auto) 0.6 (0-2) % Lymph # (Auto) 1.6 (1.2-4.9) X10*3/uL [place] # (Auto) 0.6 (0.1-1.2) X10*3/uL Eos # (Auto) 0.1 (0.0-0.4) X10*3/uL Baso # (Auto) 0.0 (0.0-0.2) X10*3/uL Abs Immat Gran (auto) 0.03 (0.00-0.03) X10*3/uL Absolute Neuts (auto) 4.8 (2.0-8.3) X10*3/uL Absolute Nucleated RBC 0.000 (0.0-0.012) X10*3/uL Nucleated RBC % (auto) 0.0 (0.0-0.2) /100WBC D-Dimer 248 NG/ML Sodium (135-145) mmol/L Potassium (3.3-5.1) mmol/L Chloride (96-108) mmol/L Carbon Dioxide (22-29) mmol/L Anion Gap (12-20) BUN (9-16) mg/dL Creatinine (0.5-1.4) mg/dL Estim Creat Clear Calc Estimated GFR Random Glucose (60-115) mg/dL Calcium (8.4-10.2) mg/dL Troponin I High Sens (<3.5-17.0) ng/L B-Natriuretic Peptide < 10 (<100) pg/mL Urine Test (NEGATIVE) 10/15/20 10/15/20 10/15/20 Range/Units 09:08 09:08 12:38 WBC (4.8-10.8) X10*3/uL RBC (4.20-5.50) X10*6/uL Hgb (12.0-16.0) g/dl Hct (37-47) % MCV (80-98) fL MCH (27.0-33.0) pg MCHC (31.0-35.0) g/dl RDW (11.0-16.0) % Plt Count (160-400) X10*3/uL MPV (9.4-12.3) fL Immature Gran % (Auto) (0.0-0.4) % Neut % (Auto) (45-73) % Lymph % (Auto) (20-40) % [place] % (Auto) (2-11) % Eos % (Auto) (0-4) % Baso % (Auto) (0-2) % Lymph # (Auto) (1.2-4.9) X10*3/uL [place] # (Auto) (0.1-1.2) X10*3/uL Eos # (Auto) (0.0-0.4) X10*3/uL Baso # (Auto) (0.0-0.2) X10*3/uL Abs Immat Gran (auto) (0.00-0.03) X10*3/uL Absolute Neuts (auto) (2.0-8.3) X10*3/uL Absolute Nucleated RBC (0.0-0.012) X10*3/uL Nucleated RBC % (auto) (0.0-0.2) /100WBC D-Dimer NG/ML Sodium 137 (135-145) mmol/L Potassium 4.5 (3.3-5.1) mmol/L Chloride 101 (96-108) mmol/L Carbon Dioxide 28 (22-29) mmol/L Anion Gap 13 (12-20) BUN 12 (9-16) mg/dL Creatinine 0.76 (0.5-1.4) mg/dL Estim Creat Clear Calc 121.9 Estimated GFR > 60 Random Glucose 120 H (60-115) mg/dL Calcium 9.0 (8.4-10.2) mg/dL Troponin I High Sens < 3.5 (<3.5-17.0) ng/L B-Natriuretic Peptide (<100) pg/mL Urine Test NEGATIVE (NEGATIVE) ECG Data Attestation: I personally reviewed and interpreted this ECG as follows: Interpretation: normal sinus rate 95, no st or twave changes Discharge Plan Discharge Clinical Impression: Shortness of breath Patient Disposition: Home, Self-Care Instructions: Shortness of Breath (ED) Prescriptions: No Action ondansetron HCl 4 mg tablet 4 mg PO Q8H PRN (Reason: nausea and vomiting) Qty: 14 RF: 0 tizanidine 4 mg tablet 4 mg PO BID PRN (Reason: for muscle spasm) Qty: 60 RF: 1 cholecalciferol (vitamin D3) 50 mcg (2,000 unit) tablet 50 mcg PO DAILY Qty: 30 RF: 5 amitriptyline 150 mg tablet 150 mg PO BEDTIME Qty: 30 RF: 5 levothyroxine [Synthroid] 75 mcg tablet 75 mcg PO DAILY 90 Days Qty: 90 RF: 0 levothyroxine [Synthroid] 200 mcg tablet 200 mcg PO DAILY 90 Days Qty: 90 RF: 0 bancgvlmrc-bbmywhbnwkdlm-stah 50-325-40 mg tablet 1 tab PO DAILY PRN (Reason: pain) 10 Days Qty: 10 RF: 1 Belsomra 10 mg tablet 10 mg PO BEDTIME 30 Days Qty: 30 RF: 1 oxycodone-acetaminophen [Percocet] 5-325 mg tablet 1 tab PO TID PRN (Reason: pain) Qty: 9 RF: 0 clonazepam 1 mg tablet 1 mg PO BEDTIME PRN (Reason: anxiety) 30 Days Qty: 30 RF: 0 levothyroxine [Tirosint] 200 mcg capsule 200 mcg PO DAILY 90 Days Qty: 90 RF: 0 levothyroxine [Tirosint] 75 mcg capsule 75 mcg PO DAILY 90 Days Qty: 90 RF: 0 Referrals: Elan Terry, [employer]MINISTR[employer]-[facility] [Primary Care Provider] - 1 week
== END 2020-10-15 14:52 | disposition home or self-care (01) ==
PROVIDERS: Emergency Provider Emergency Medicine; PCP Nurse Practitioner Family
DX: R06.02 Shortness of breath (principal); Z79.899 Other long term (current) drug therapy
CPT/HCPCS: 36415; 71275; 80048; 81025; 83880; 84484; 85025; 85379; 93005; 99285; Q9967

== ENCOUNTER 2020-11-03 16:08 | Outpatient (REF) | payer OTHER, SELFPAY ==
--- NOTE | ~2020-11-03 | XR_ITS ---
EXAMINATION: XR FINGER, RIGHT CLINICAL INFORMATION: Pain right fifth finger. COMPARISON: Radiographs right hand 12/23/2016 TECHNIQUE: AP view right hand and 2 views right fifth finger are obtained for 3 views.. FINDINGS: There is no visible acute or healing fracture, dislocation, or destructive process. No gas tracking in soft tissues. No focal joint narrowing or erosive change. XR/XR finger RT min 2V IMPRESSION: Unremarkable exam.
== END 2020-11-03 16:09 | disposition home or self-care (01) ==
LOC: HO.HMGCX 16:08
PROVIDERS: PCP Nurse Practitioner Family; Visit Provider Hospitalist
DX: M79.645 Pain in left finger(s) (principal)
CPT/HCPCS: 73140

== ENCOUNTER 2020-12-31 16:31 | Outpatient (REF) | payer OTHER, SELFPAY | END 2020-12-31 16:32 | disposition home or self-care (01) | LOC: HO.LNP 16:31 | PROVIDERS: Visit Provider Internal Medicine | DX: Z20.822 Contact with and (suspected) exposure to COVID-19 (principal) | CPT/HCPCS: U0003; U0005 ==

== ENCOUNTER 2021-01-05 19:45 | Emergency (ER) | payer OTHER, SELFPAY ==
[2021-01-05 19:48] VITALS: BP 134/89; PULSE 120; RESP 22; TEMP 36.7; O2SAT 96; BMI 48.8
--- NOTE | 2021-01-05 20:06 | ED.ALLEREA ---
HPI - Allergic Reaction General Chief complaint: Allergic Reaction Stated complaint: Allergic reaction Time Seen by Provider: 01/05/21 20:01 Source: patient Mode of arrival: ambulatory Limitations: no limitations History of Present Illness MD complaint: allergic reaction Onset (ago): minute(s) Exposure: unknown Symptoms: itching, lip swelling, difficulty swallowing and difficulty breathing Severity: moderate Treatment prior to arrival: epinephrine Previous Allergic Reaction History: anaphylaxis Related Data Home Medications Medication Instructions Recorded Confirmed amitriptyline 150 mg tablet See Rx Instructions PO BEDTIME tab 11/06/20 11/06/20 Previous Rx's Medication Instructions Recorded oxycodone-acetaminophen 5 mg-325 1 tab PO TID PRN #9 tab 07/03/20 mg tablet (Percocet) ondansetron HCl 4 mg tablet 4 mg PO Q8H PRN #14 tab 07/04/20 cholecalciferol (vitamin D3) 50 50 mcg PO DAILY #30 tab 09/19/20 mcg (2,000 unit) tablet levothyroxine 75 mcg tablet 75 mcg PO DAILY 90 Days #90 tab 09/23/20 (Synthroid) oxycodone-acetaminophen 5 mg-325 1 tab PO Q6H PRN #14 tab 11/03/20 mg tablet (Percocet) prednisone 20 mg tablet 20 mg PO .COMPLEX #18 tab 11/03/20 duloxetine 40 mg capsule,delayed 40 mg PO DAILY 90 Days #90 cap 11/06/20 release prazosin 2 mg capsule 2 mg PO BEDTIME 90 Days #90 cap 11/06/20 tizanidine 4 mg tablet 4 mg PO BID PRN #60 tab 11/06/20 dnbbjsdspu-juttrzvrtcgqv-jwoumhvg 1 tab PO DAILY PRN 10 Days #10 tab 12/20/20 50 mg-325 mg-40 mg tablet clonazepam 1 mg tablet 1 mg PO BEDTIME PRN 30 Days #30 tab 12/20/20 levothyroxine 200 mcg tablet 200 mcg PO DAILY 90 Days #90 tab 12/20/20 (Synthroid) suvorexant 10 mg tablet (Belsomra) 10 mg PO BEDTIME 30 Days #30 tab 12/20/20 epinephrine 0.3 mg/0.3 mL 0.3 mg IM Q10M PRN #2 ea 01/05/21 injection, auto-injector prednisone 20 mg tablet 40 mg PO DAILY 4 Days #8 tab 01/05/21 Allergies Allergy/AdvReac Type Severity Reaction Status Date / Time bee pollen [BEE STINGS] Allergy Severe ANAPHYLAXIS Verified 01/05/21 19:47 NSAIDS (Non-Steroidal Allergy Intermediate HIVES Verified 01/05/21 19:47 Anti-Inflamma [NSAIDS (NON-STEROIDAL ANTI-INFLAMMA] Penicillins Allergy Intermediate HIVES Verified 01/05/21 19:47 ibuprofen Allergy Unknown unknown Verified 01/05/21 19:47 latex Allergy Unknown unknown Verified 01/05/21 19:47 Motrin Allergy Unknown hives Verified 01/05/21 19:47 penicillin V Allergy Unknown unknown Verified 01/05/21 19:47 latex [LATEX] AdvReac Intermediate RASH Verified 01/05/21 19:47 From Ortho Tri-Cyclen () AdvReac Intermediate DVT (BLOOD Uncoded 11/06/20 17:54 CLOT) Review of Systems Review of Systems: Constitutional : No Fever, No Chills ENT/Mouth : positive oral tingling, No Hoarseness, No Swallowing Difficulty Eyes: No Eye Pain, No Swelling, No Redness Cardiovascular : No Chest Pain, No SOB Respiratory : No Cough, No Sputum, No Wheezing, No Smoke Exposure, pos Dyspnea Gastrointestinal : No Nausea, No Vomiting, No Diarrhea, No abdominal Pain Genitourinary : No Dysuria, No Urinary Frequency, No Hematuria Musculoskeletal : No joint pain, No Myalgias, No Joint Swelling Skin : No Skin Lesions, positive rash Neuro : No Weakness, No Numbness, No Headache Psych : No Anxiety/Panic, No Depression Heme/Lymph: No Bruising, No Lymphadenopathy Endocrine : No Polyuria, No Polydipsia All other systems reviewed and are negative PMFSH Past Medical History Attestation statement: The following information was validated with the patient. Medical History Hx of papillary thyroid carcinoma Surgical History Bilateral carpal tunnel syndrome History of section History of thyroidectomy History of tubal ligation History of umbilical hernia repair Hx of cholecystectomy Family History Family History Father History of heart attack Mental health disorder Mother Hypothyroidism Sister Anxiety Migraine Low blood pressure Mental health disorder Son Epilepsy Daughter No problems noted. Maternal Grandmother Breast cancer Paternal Grandmother Breast cancer Social History Social History Housing: Apartment Alcohol intake: current Alcohol intake frequency: holidays/special occasions only Patient Tobacco Use Status: Never used Tobacco e-Cigarette/Vaping Use: Never Used Second Hand Smoke Exposure: Yes Advance Directives: No Current occupational status: employed Physical Exam Vital Signs: Vital Signs: Last Vital Signs Temp 98.6 F 01/05/21 22:00 Pulse 107 H 01/05/21 22:00 Resp 18 01/05/21 22:00 BP 126/71 01/05/21 22:00 Pulse Ox 98 01/05/21 22:00 Body Mass Index 48.8 Appearance: Alert. Oriented X3. No acute distress. Anxiety Eyes: Pupils equal, round and reactive to light. ENT: Pharynx normal. No swelling no stridor Neck: Normal inspection. Neck supple. CVS: tachycardic heart rate and rhythm. Pulses normal. Respiratory: No respiratory distress. Breath sounds normal. Abdomen: Soft and nontender. Skin: Skin warm and dry. Normal skin color. Normal skin turgor. Extremities: No lower extremity edema. No calf ttp Neuro: Oriented X 3. No motor deficit. No sensory deficit. Course Course Course Narrative: observed for almost 2 hours doing well symptoms resolved. MDM - Allergic Reaction MDM Narrative Medical decision making narrative: 30 yo female with hx of unknown precipiting anaphylactic type reactions - today felt short of breath, throat closing, swelling of hands - self administered IM epi currently normal sats, no airway swelling, will give steroids/benadryl and reassess. Discharge Plan Discharge Clinical Impression: Anaphylaxis Qualifiers: Encounter type: initial encounter Qualified Code(s): T78.2XXA - Anaphylactic shock, unspecified, initial encounter Patient Disposition: Home, Self-Care Instructions: Anaphylaxis (ED) Additional Instructions: return to ED for any worsening symptoms or concerns you should see an administrative assistant office manager at this point given unknown allergy Prescriptions: New prednisone 20 mg tablet 40 mg PO DAILY 4 Days Qty: 8 RF: 0 epinephrine 0.3 mg/0.3 mL auto-injector 0.3 mg IM Q10M PRN (Reason: anaphylaxis) Qty: 2 RF: 0 No Action ondansetron HCl 4 mg tablet 4 mg PO Q8H PRN (Reason: nausea and vomiting) Qty: 14 RF: 0 cholecalciferol (vitamin D3) 50 mcg (2,000 unit) tablet 50 mcg PO DAILY Qty: 30 RF: 5 levothyroxine [Synthroid] 75 mcg tablet 75 mcg PO DAILY 90 Days Qty: 90 RF: 0 levothyroxine [Synthroid] 200 mcg tablet 200 mcg PO DAILY 90 Days Qty: 90 RF: 0 dvdmautdpq-ljdewtwbjpfos-jbwc 50-325-40 mg tablet 1 tab PO DAILY PRN (Reason: pain) 10 Days Qty: 10 RF: 1 clonazepam 1 mg tablet 1 mg PO BEDTIME PRN (Reason: anxiety) 30 Days Qty: 30 RF: 0 Belsomra 10 mg tablet 10 mg PO BEDTIME 30 Days Qty: 30 RF: 1 oxycodone-acetaminophen [Percocet] 5-325 mg tablet 1 tab PO TID PRN (Reason: pain) Qty: 9 RF: 0 amitriptyline 150 mg tablet See Rx Instructions PO BEDTIME RF: 0 prazosin 2 mg capsule 2 mg PO BEDTIME 90 Days Qty: 90 RF: 1 duloxetine 40 mg capsule,delayed release(DR/EC) 40 mg PO DAILY 90 Days Qty: 90 RF: 1 tizanidine 4 mg tablet 4 mg PO BID PRN (Reason: for muscle spasm) Qty: 60 RF: 1 prednisone 20 mg tablet 20 mg PO .COMPLEX Qty: 18 RF: 0 oxycodone-acetaminophen [Percocet] 5-325 mg tablet 1 tab PO Q6H PRN (Reason: pain) Qty: 14 RF: 0 Interventions: ED Discharge Assessment Last Done: 01/05/21 22:15 Discharge Date/Time: 01/05/21 22:15
[2021-01-05] MEDS: diphenhydrAMINE HCL 25 MG TABLET PO (20:33)
[2021-01-05] MEDS: predniSONE 20 MG TABLET 60 MG PO (20:33)
[2021-01-05] MEDS: Famotidine 20 MG TABLET PO (20:33)
[2021-01-05 22:00] VITALS: BP 126/71; PULSE 101; PULSE 107; RESP 18; TEMP 37; O2SAT 98
--- NOTE | 2021-01-05 22:13 | PC.NURSE ---
pt is talking in full sentences, no resp distress, oral away no swelling, pt is alert and orientedx3 with steady gait.
== END 2021-01-05 22:15 | disposition home or self-care (01) ==
LOC: HO.ED 20:12
PROVIDERS: Emergency Provider Emergency Medicine; PCP Nurse Practitioner Family
DX: T78.2XXA Anaphylactic shock, unspecified, initial encounter (principal); X58.XXXA Exposure to other specified factors, initial encounter
CPT/HCPCS: 99283; Q0163

== ENCOUNTER 2021-01-07 08:02 | Outpatient (REF) | payer OTHER, SELFPAY ==
--- NOTE | 2021-01-07 15:21 | MHC.AU.AEV ---
Adult Audiological Evaluation Date of Visit: 01/07/21 Reason for Appointment: Patient has been experiencing increased hearing difficulty since her last evaluation in 2018. Since then, she has developed constant tinnitus in both ears which sounds like when a seashell is held up to the ear. She reports that she is always saying what? and has difficulty following along in conversation. She feels the hearing difficulty is affecting daily quality of life. Has hearing been tested previously?: Yes Previous Hearing Test Results: At this clinic on 01/24/2018- Mostly normal hearing bilaterally, with a dip to mild sensorineural hearing loss at 6000 Hz bilaterally. Patient had pronounced difficulty understanding speech in noise. She was able to repeat 92% of words presented in quiet bilaterally. In noise, she was able to repeat 56% in the right ear and 72% in the left ear. Ear History: Ear Deformity: None Reported Recent Ear Infections: None Reported Ear Infections in Childhood: Both Ears History of Ear Wax Buildup: None Reported Previous Ear Surgery: None Reported Bothersome Tinnitus/Ringing/Noises in Ears: Both Ears Medical History: Medical History: Thyroid Cancer, which was treated with surgical removal of the thyroid. Fibromyalgia, Vitiligo, Migraines, IBS, Asthma Otoscopy: Right Ear: Unremarkable Left Ear: Unremarkable Tympanometry: Tympanometry performed due to: To assess integrity of the middle ear system Right Ear: Hypercompliant Middle Ear System (Type Ad) Left Ear: Normal Middle Ear System (Type A) Otoacoustic Emissions Frequency Range Used: 1.6-8 kHz Right Ear Results: Present 8843-3441 Hz, Reduced 4373-4626 Hz Analysis: Reduced/Absent emissions suggest cochlear dysfunction Left Ear Results: Present 1236-0919 Hz, Reduced 8000 Hz Analysis: Reduced/Absent emissions suggest cochlear dysfunction Hearing Evaluation: Transducer(s) Used: Insert Earphones Method: Conventional Audiometry Stimuli Used: Pure Tones Right Ear: Description of Hearing: Overall mild sensorineural hearing loss Left Ear: Description of Hearing: Overall mild sensorineural hearing loss Speech Recognition Threshold (SRT): Method Used: Recorded Lists Stimuli Used: Spondee Words Right Ear: 40 dBHL Left Ear: 45 dBHL Word Discrimination: Method: Recorded Lists Word Lists Used:: W-22 Right Ear: 68% at 70 dBHL Left Ear: 88% at 70 dBHL Most Comfortable Level (MCL): Right Ear: 70 dBHL Left Ear: 70 dBHL Comparison: Compared to the most recent evaluation: Thresholds have decreased bilaterally. Recommendations: Audiological re-evaluation in one year. Trial with amplification is recommended. Medical clearance from a physician is required before fitting. See Hearing Aid Evaluation report for more information. Referral to Ear, Nose, and Throat may be warranted to discuss change in hearing, as well as newly developed tinnitus. Diagnosis: Primary Diagnosis: H90.3 Bilateral Sensorineural Hearing Loss Signature: Provider: Meli Meeks, TRISHA-A
--- NOTE | 2021-01-07 15:35 | MHC.AU.HAS ---
Hearing Aid Evaluation Date of Visit: 01/07/21 Historical Information: Description of Hearing: Overall mild sensorineural hearing loss bilaterally Summary: Patient was seen today for audiological evaluation (see separate report for details). Her hearing difficulties have been impacting her daily life, and she feels she is ready to try amplification. Hearing Aid Prescription: Based on the individual?s shared listening needs, communication environments, dexterity, desire for connectivity, and personal preferences, the following prescription for amplification has been made: Right ear: Automation Technician: Phonak Model: Audeo P70-R Battery Size: Rechargeable Color: P8 Safety Patrol Officer: 1M Left ear: Automation Technician: Phonak Model: Audeo P70-R Battery Size: Rechargeable Color: P8 Safety Patrol Officer: 1M Action Taken/Action Needed: Medical Clearance to be requested from PCP/ENT Hearing Instrument Fitting to be scheduled when materials arrive Primary Diagnosis: H90.3 Bilateral Sensorineural Hearing Loss Signature: Provider: Meli Meeks, TRISHA-A
--- NOTE | 2021-01-07 15:36 | MHC.AU.MED ---
Medical Clearance for Hearing Instrumentation Date: 01/07/21 Patient Name: Jing Guillory Date of : 1990 Referring Provider: [facility]an Terry [facility] We have seen your patient on 01/07/21 and have determined that they are a candidate for amplification (See accompanying report). Specifically, they would benefit from: Hearing aid use in both ears There is a statute that addresses Medical Evaluation Requirements prior to fitting a patient with a hearing aid. According to [place] statute 265 CMR:6.03(1), (a) General. Except as provided in 265 CMR 6.03(1)(b), a laborer concrete plant shall not sell a hearing aid unless the prospective user has presented to the laborer concrete plant a written statement signed by a licensed physician that states that the patient's hearing loss has been medically evaluated and the patient may be considered a candidate for a hearing aid. The medical evaluation must have taken place within the preceding six months. Please note: Due to the [place] Statute referenced above, we cannot accept a signature other than that of a licensed physician. DOG OBEDIENCE INSTRUCTOR and PA signatures cannot be accepted. I am in agreement with the above recommendation. There is no medical contraindication for hearing instrumentation. Physician Signature Date Physician Name (Printed)
== END 2021-01-07 08:03 | disposition home or self-care (01) ==
LOC: HO.SH 08:02
PROVIDERS: Visit Provider Nurse Practitioner Family
DX: Z46.1 Encounter for fitting and adjustment of hearing aid (principal); H90.3 Sensorineural hearing loss, bilateral
CPT/HCPCS: 92557; 92567; 92587; 92591

== ENCOUNTER 2021-02-11 14:33 | Outpatient (REF) | payer OTHER, SELFPAY ==
--- NOTE | 2021-02-13 08:03 | MHC.AU.HFA ---
Hearing Instrument Fitting- Adult- Binaural Date of Visit: 02/04/21 Hearing Instruments Dispensed: Right Ear: Account Development Specialist: Phonak Model: Audeo P70-R Serial Number: [id number] Repair Warranty: 05/05/2024 Loss and Damage Warranty: 05/05/2024 Battery Size: Rechargeable Color: P8 Potato Chip Packaging Machine Operator: 1M Type of Dome: Small Open Dome Type of Wax Guard: CeruShield Left Ear: Account Development Specialist: Phonak Model: Audeo P70-R Serial Number: [id number] Repair Warranty: 05/05/2024 Loss and Damage Warranty: 05/05/2024 Battery Size: Rechargeable Color: P8 Potato Chip Packaging Machine Operator: 1M Type of Dome: Small Open Dome Type of Wax Guard: CeruShield Summary of Fitting: Feedback radiation oncology manager run. Verifit performed and levels adjusted to better reach targets. Patient initially felt sound was too loud. Target gain lowered to 85%, which improved the perception of her voice. She reported that the sound quality was good. Tap control deactivated. Volume control switch activated. Hearing aid care and maintenance were discussed and practiced. Hearing aids paired to the phone and nathalia. Recommendations: A hearing instrument follow-up was scheduled. Please call our clinic with any questions or concerns. Diagnosis Code(s): Primary Diagnosis: H90.3 Bilateral Sensorineural Hearing Loss Signature: Provider: Meli Meeks, [facility]
== END 2021-02-11 14:34 | disposition home or self-care (01) ==
LOC: HO.HAP 14:33
PROVIDERS: Visit Provider Nurse Practitioner Family
DX: Z46.1 Encounter for fitting and adjustment of hearing aid (principal); H90.3 Sensorineural hearing loss, bilateral
CPT/HCPCS: V5011; V5020; V5160; V5261

== ENCOUNTER → 2021-02-13 11:13 | Outpatient (REF) | payer OTHER, SELFPAY ==
--- NOTE | 2021-02-13 11:18 | ECG_ITS ---
Hook-up date: 2021-02-13 11:25:00 Duration: 47:59:00 Test Indications: PALPITATIONS Medications: [id number] QRS complexes 1 Ventricular ectopics which represent <1 % of total QRS comp. 19 Supraventricular ectopics which represent <1 % of total QRS comp. * Paced QRS complexs which represent % of total QRS comp. VENTRICULAR ECTOPY 1 Isolated 0 Bigeminal Cycles 0 Couplets 0 Runs 0 Beats in Runs * Beats LONGEST at * BPM at :: -- * Beats FASTEST at * BPM at :: -- SUPRAVENTRICULAR ECTOPY 34 Isolated 2 Couplets 0 Runs 0 Beats in Runs * Beats LONGEST at * BPM at :: -- * Beats FASTEST at * BPM at :: -- HEART RATES 65 MIN at 17:26:59 2021-02-13 94 AVG 149 MAX at 21:48:44 2021-02-13 LONGEST RR 0.8480 secs at 06:24:22 2021-02-14 S-T LEVELS Channel 1 - 128 mm at 11:25:00 2021-02-13 - 128 mm at 11:25:00 2021-02-13 Channel 2 - 128 mm at 11:25:00 2021-02-13 - 128 mm at 11:25:00 2021-02-13 Channel 3 - 128 mm at 03:04:41 -- - 128 mm at 03:04:41 Basic rhythm Normal sinus rhythm No long pause or profound bradycardia Frequent Sinus tachycardia , 27% of total time HR > 100 bpm Rare Premature atrial complexes Patient did not report any symptoms in the diary Referred By: Elan Terry Overread By: NILSA POLLARD MD
== END ==
LOC: HO.CARD 11:13
PROVIDERS: Visit Provider Nurse Practitioner Family
DX: R00.2 Palpitations (principal)
CPT/HCPCS: 93225; 93226

== ENCOUNTER 2021-03-06 11:51 | Outpatient (REF) | payer OTHER, SELFPAY ==
--- NOTE | 2021-03-06 14:47 | MHC.AU.HFU ---
Hearing Instrument Follow-Up- Binaural Date of Visit: 03/06/21 Right Ear: Termite Control Technician: Phonak Model: Audeo P70-R Serial Number: [id number] Repair Warranty: 05/05/2024 Loss and Damage Warranty: 05/05/2024 Battery Size: Rechargeable Color: P8 Manufacturing Leader: 1M Type of Dome: Small Open Dome Type of Wax Guard: CeruShield Dispensed By: [facility] Date of Fittin02/11/2021 Left Ear: Termite Control Technician: Phonak Model: Audeo P70-R Serial Number: [id number] Repair Warranty: 05/05/2024 Loss and Damage Warranty: 05/05/2024 Battery Size: Rechargeable Color: P8 Manufacturing Leader: 1M Type of Dome: Small Open Dome Type of Wax Guard: CeruShield Dispensed By: [facility] Date of Fittin02/11/2021 Follow-Up Summary: Patient was scheduled for remote support follow-up. Upon attempting to initiate the call, patient discovered her normalizer had become unplugged, and the hearing aids were . Tried to let them charge for 15 minutes and call back. The charge was not enough for the nathalia to detect them. Patient discussed over the phone that it's been a process adjusting to the sound. She feels she has a headache most days by the end of the day. At the next appointment, adjustments can be made to help with comfort. Recommendations: Patient was transferred to the desktop support associate to schedule remote follow-up. Diagnosis Code(s): Primary Diagnosis: H90.3 Bilateral Sensorineural Hearing Loss Signature: Provider: Meli Meeks, [facility]
== END 2021-03-06 11:52 | disposition home or self-care (01) ==
LOC: HO.HAP 11:51
PROVIDERS: Visit Provider Nurse Practitioner Family
DX: Z13.89 Encounter for screening for other disorder (principal)

== ENCOUNTER 2021-08-04 19:30 | Emergency (ER) | payer OTHER, SELFPAY ==
--- NOTE | 2021-08-04 | ECG_ITS ---
Test Reason : CHEST PAIN Blood Pressure : / mmHG Vent. Rate : 092 BPM Atrial Rate : 092 BPM P-R Int : 146 ms QRS Dur : 082 ms QT Int : 364 ms P-R-T Axes : 029 022 005 degrees QTc Int : 450 ms Normal sinus rhythm Low voltage QRS Nonspecific T wave abnormality Abnormal ECG When compared with ECG of 15-OCT-2020 09:13, No significant change was found Referred By: Corry Parmar Electronically Signed By:AMAURY JARAMILLO
[2021-08-04 19:39] VITALS: BP 131/52; PULSE 96; PULSE 98; RESP 16; TEMP 37.1; O2SAT 97; O2SAT 98
[2021-08-04 20:06] LABS: MANUAL DIFF FLAG NO
[2021-08-04 20:08] LABS: Basophils Percent Auto 0.3 % (0-2); Eosinophils Absolute Auto 0.1 X10*3/uL (0.0-0.4); Eosinophils Percent Auto 0.7 % (0-4); Hematocrit 39.2 % (37.0-47.0); Hemoglobin 13.6 g/dl (12.0-16.0); Imm Gran Abs Auto 0.02 X10*3/uL (0.00-0.03); Imm Gran Pct Auto 0.2 % (0.0-0.4); Lymphocytes Percent Auto 23.1 % (20-40); Mean Corpuscular HGB Conc 34.7 g/dl (31.0-35.0); Mean Corpuscular Hemoglobin 28.9 pg (27.0-33.0); Mean Corpuscular Volume 83.4 fL (80.0-98.0); Mean Platelet Volume 9.6 fL (9.4-12.3); Monocytes Absolute Auto 0.7 X10*3/uL (0.1-1.2); Monocytes Percent Auto 7.7 % (2-11); Platelet Count 329 X10*3/uL (160-400); White Blood Count 8.8 X10*3/uL (4.8-10.8)
[2021-08-04 20:23] LABS: Anion Gap 12 (12-20); Blood Urea Nitrogen 13 mg/dL (9-16); Calcium 8.7 mg/dL (8.4-10.2); Carbon Dioxide 26 mmol/L (22-29); Chloride 103 mmol/L (96-108); Creatinine Clr Calc Pharmacy 3.7; Estimated Glomerular Filt Rate > 60; Glucose Random 162 mg/dL (60-115); Potassium 3.9 mmol/L (3.3-5.1); Sodium 137 mmol/L (135-145)
[2021-08-04 20:26] LABS: Troponin-I High Sensitivity < 3.5 ng/L (<3.5-17.0)
--- NOTE | 2021-08-04 20:26 | ED.CHESTPAIN ---
HPI - Chest Pain General Chief Complaint: Chest Pain Stated Complaint: CHEST PAIN Time Seen by Provider: 08/04/21 19:39 Source: patient Mode of arrival: ambulatory Limitations: no limitations History of Present Illness HPI narrative: Patient comes to emergency room complaining of chest pain. Patient states that earlier today she had a panic attack, took clonidine, the chest pain did not subside. Patient states that she is feeling very anxious at this time. Related Data Previous Rx's Medication Instructions Recorded ondansetron HCl 4 mg tablet 4 mg PO Q8H PRN #14 tab 07/04/20 cholecalciferol (vitamin D3) 50 50 mcg PO DAILY #30 tab 09/19/20 mcg (2,000 unit) tablet levothyroxine 75 mcg tablet 75 mcg PO DAILY 90 Days #90 tab 09/23/20 (Synthroid) prednisone 20 mg tablet 20 mg PO .COMPLEX #18 tab 11/03/20 epinephrine 0.3 mg/0.3 mL 0.3 mg (0.3 mL) IM Q10M PRN #2 ea 01/05/21 injection, auto-injector prednisone 20 mg tablet 40 mg PO DAILY 4 Days #8 tab 01/05/21 duloxetine 40 mg capsule,delayed 40 mg PO DAILY 90 Days #90 cap 04/30/21 release prazosin 2 mg capsule 2 mg PO BEDTIME 90 Days #90 cap 04/30/21 cvwghmyykx-tgakkmrhdjyem-xxqgzbxz 1 tab PO BID PRN 10 Days #20 tab 06/25/21 50 mg-325 mg-40 mg tablet clonazepam 1 mg tablet 1 mg PO BEDTIME PRN 30 Days #30 tab 07/23/21 suvorexant 10 mg tablet (Belsomra) 10 mg PO BEDTIME 30 Days #30 tab 07/23/21 tizanidine 4 mg tablet 4 mg PO BID PRN #60 tab 07/26/21 amitriptyline 150 mg tablet 150 mg PO BEDTIME 90 Days #90 tab 07/28/21 levothyroxine 200 mcg tablet 200 mcg PO DAILY 90 Days #90 tab 07/28/21 (Synthroid) Allergies Allergy/AdvReac Type Severity Reaction Status Date / Time bee pollen [BEE STINGS] Allergy Severe ANAPHYLAXIS Verified 01/05/21 19:47 NSAIDS (Non-Steroidal Allergy Intermediate HIVES Verified 01/05/21 19:47 Anti-Inflamma [NSAIDS (NON-STEROIDAL ANTI-INFLAMMA] Penicillins Allergy Intermediate HIVES Verified 01/05/21 19:47 ibuprofen Allergy Unknown unknown Verified 01/05/21 19:47 latex Allergy Unknown unknown Verified 01/05/21 19:47 Motrin Allergy Unknown hives Verified 01/05/21 19:47 penicillin V Allergy Unknown unknown Verified 01/05/21 19:47 latex [LATEX] AdvReac Intermediate RASH Verified 01/05/21 19:47 From Ortho Tri-Cyclen (21) AdvReac Intermediate DVT (BLOOD Uncoded 11/06/20 17:54 CLOT) Review of Systems Review of Systems: Constitutional : No Weight loss, No Fever, No Chills, No Night Sweats, No Fatigue, No Malaise ENT/Mouth : No Hearing loss, No Ear Pain, No Nasal Congestion, No Sinus Pain, No Hoarseness, No sore throat, No Rhinorrhea, No Swallowing Difficulty Eyes: No Eye Pain, No Swelling, No Redness, No Foreign Body, No Discharge, No Vision Changes Cardiovascular : Complaining of Chest Pain, No SOB, No Dyspnea on Exertion, No Orthopnea, No Edema, No Palpitations Respiratory : No Cough, No Sputum, No Wheezing, No Smoke Exposure, No Dyspnea Gastrointestinal : No Nausea, No Vomiting, No Diarrhea, No Constipation, No abdominal Pain, No Hematochezia, No Melena Genitourinary : no irregular bleeding, No Dysuria, No Urinary Frequency, No Hematuria, No Urinary Incontinence, No Urgency, No Flank Pain, No Urinary Flow Changes, No Hesitancy Musculoskeletal : No joint pain, No Myalgias, No Joint Swelling Skin : No Skin Lesions, No rash Neuro : No Weakness, No Numbness, No Paresthesias, No Loss of Consciousness, No Dizziness, No Headache Psych : No Anxiety/Panic, No Depression, No SI/HI/AH/VH, No Social Issues, Heme/Lymph: No Bruising, No Bleeding,No Lymphadenopathy Endocrine : No Polyuria, No Polydipsia, No Temperature Intolerance PMFSH Past Medical History Medical History Hx of papillary thyroid carcinoma Surgical History Bilateral carpal tunnel syndrome History of section History of thyroidectomy History of tubal ligation History of umbilical hernia repair Hx of cholecystectomy Family History Family History Father History of heart attack Mental health disorder Mother Hypothyroidism Sister Anxiety Migraine Low blood pressure Mental health disorder Son Epilepsy Daughter No problems noted. Maternal Grandmother Breast cancer Paternal Grandmother Breast cancer Social History Social History Housing: Apartment Alcohol intake: current Alcohol intake frequency: holidays/special occasions only Patient Tobacco Use Status: Never used Tobacco e-Cigarette/Vaping Use: Never Used Second Hand Smoke Exposure: Yes Advance Directives: No Advance Directives Information Provided: No Patient : No Current occupational status: employed Physical Exam Vital Signs: Vital Signs: Last Vital Signs Temp 98.8 F 08/04/21 19:39 Pulse 96 08/04/21 19:39 Resp 16 08/04/21 19:39 Pulse Ox 98 08/04/21 19:39 BMI result Body Mass Index 0.9 Const: Other: Appearance: Alert. Oriented X3. No acute distress. Anxious, well-appearing Eyes: Pupils equal, round and reactive to light. ENT: Pharynx normal. Neck: Normal inspection. Neck supple. No lymph nodes noted. No crepitus CVS: Normal heart rate and rhythm. Pulses normal. Normal S1 and S2, reproducible chest pain to palpation Respiratory: No respiratory distress. Breath sounds normal. No Wheezing. No rales Abdomen: Soft and nontender. No rigidity. No distention. Skin: Skin warm and dry. Normal skin color. Normal skin turgor. Extremities: No lower extremity edema. No Lacerations. No Rash Neuro: Oriented X 3. No motor deficit. No sensory deficit. Moving all extremities. No slurred speech. CN 2 through 12 grossly intact Psych: calm, cooperative, normal affect Course Course Course Narrative: Patient's EKG shows nonspecific T-wave abnormalities. However, these are old, no EKG changes since 2020. I discussed the labs with the patient, no acute findings. Patient states that she feels very anxious, requesting Ativan. Patient's chest pain likely musculoskeletal versus anxiety driven. Patient states she has enough Klonopin tablets at home. Patient was given 1 dose of lorazepam in the emergency room p.o. MDM - Chest Pain Lab Data Result diagrams: 08/04/21 20:02 08/04/21 20:02 Labs: Lab Results 08/04/21 08/04/21 08/04/21 Range/Units 20:02 20:02 20:02 WBC 8.8 (4.8-10.8) X10*3/uL RBC 4.70 (4.20-5.50) X10*6/uL Hgb 13.6 (12.0-16.0) g/dl Hct 39.2 (37.0-47.0) % MCV 83.4 (80.0-98.0) fL MCH 28.9 (27.0-33.0) pg MCHC 34.7 (31.0-35.0) g/dl RDW 12.0 (11.0-16.0) % Plt Count 329 (160-400) X10*3/uL MPV 9.6 (9.4-12.3) fL Immature Gran % (Auto) 0.2 (0.0-0.4) % Neut % (Auto) 68.0 (45-73) % Lymph % (Auto) 23.1 (20-40) % [place] % (Auto) 7.7 (2-11) % Eos % (Auto) 0.7 (0-4) % Baso % (Auto) 0.3 (0-2) % Lymph # (Auto) 2.0 (1.2-4.9) X10*3/uL [place] # (Auto) 0.7 (0.1-1.2) X10*3/uL Eos # (Auto) 0.1 (0.0-0.4) X10*3/uL Baso # (Auto) 0.0 (0.0-0.2) X10*3/uL Abs Immat Gran (auto) 0.02 (0.00-0.03) X10*3/uL Absolute Neuts (auto) 6.0 (2.0-8.3) x10*3/uL Absolute Nucleated RBC 0.000 (0.0-0.012) X10*3/uL Nucleated RBC % (auto) 0.0 (0.0-0.2) /100WBC Sodium 137 (135-145) mmol/L Potassium 3.9 (3.3-5.1) mmol/L Chloride 103 (96-108) mmol/L Carbon Dioxide 26 (22-29) mmol/L Anion Gap 12 (12-20) BUN 13 (9-16) mg/dL Creatinine 0.76 (0.5-1.4) mg/dL Estim Creat Clear Calc 3.7 Estimated GFR > 60 Random Glucose 162 H (60-115) mg/dL Calcium 8.7 (8.4-10.2) mg/dL Troponin I High Sens < 3.5 (<3.5-17.0) ng/L ECG Data ECG #1: Attestation: I personally reviewed and interpreted this ECG as follows: (Sinus rhythm, heart rate 92, nonspecific T-wave abnormalities, QTC 450, no EKG changes since 2020) Discharge Plan Discharge Clinical Impression: Anxiety, Atypical chest pain Patient Disposition: Home, Self-Care Instructions: Chest Pain (ED), Anxiety (ED) Additional Instructions: Please follow-up with your primary care physician tomorrow. If you have any worsening or new symptoms, please return to the emergency room or call 911 Prescriptions: No Action ondansetron HCl 4 mg tablet 4 mg PO Q8H PRN (Reason: nausea and vomiting) Qty: 14 0RF cholecalciferol (vitamin D3) 50 mcg (2,000 unit) tablet 50 mcg PO DAILY Qty: 30 5RF levothyroxine [Synthroid] 75 mcg tablet 75 mcg PO DAILY 90 Days Qty: 90 0RF duloxetine 40 mg capsule,delayed release(DR/EC) 40 mg PO DAILY 90 Days Qty: 90 1RF prazosin 2 mg capsule 2 mg PO BEDTIME 90 Days Qty: 90 1RF vothtlgwta-ekaerwlpshutc-rszy 50-325-40 mg tablet 1 tab PO BID PRN (Reason: pain) 10 Days Qty: 20 1RF clonazepam 1 mg tablet 1 mg PO BEDTIME PRN (Reason: anxiety) 30 Days Qty: 30 2RF Rx Instructions: administer 30 minutes before bedtime Belsomra 10 mg tablet 10 mg PO BEDTIME 30 Days Qty: 30 2RF tizanidine 4 mg tablet 4 mg PO BID PRN (Reason: for muscle spasm) Qty: 60 1RF levothyroxine [Synthroid] 200 mcg tablet 200 mcg PO DAILY 90 Days Qty: 90 0RF amitriptyline 150 mg tablet 150 mg PO BEDTIME 90 Days Qty: 90 0RF prednisone 20 mg tablet 40 mg PO DAILY 4 Days Qty: 8 0RF epinephrine 0.3 mg/0.3 mL auto-injector 0.3 mg IM Q10M PRN (Reason: anaphylaxis) Qty: 2 0RF Rx Instructions: for 2 doses prednisone 20 mg tablet 20 mg PO .COMPLEX Qty: 18 0RF Rx Instructions: 20 mg PO 3 p.o. daily for 3 days followed by 2 p.o. daily for 3 days followed by 1 p.o. daily for 3 days;
[2021-08-04] MEDS: LORazepam 1 MG TABLET PO (21:40)
[2021-08-04 21:42] VITALS: BP 141/92; PULSE 87; RESP 20; TEMP 37.3; O2SAT 97
--- NOTE | 2021-08-04 21:52 | PC.NURSE ---
Pt a&o, no sob or chest pain . Pt medicated per Jul. Reviewed discharge instructions . Pt verbalized understanding.
== END 2021-08-04 21:56 | disposition home or self-care (01) ==
PROVIDERS: Emergency Provider Emergency Medicine; PCP Nurse Practitioner Family
DX: F41.9 Anxiety disorder, unspecified (principal); R07.89 Other chest pain
CPT/HCPCS: 36415; 80048; 84484; 85025; 93005; 99283; 99285

== ENCOUNTER → 2021-08-27 09:43 | Outpatient (BNVA) | payer OTHER, SELFPAY | PROVIDERS: PCP Nurse Practitioner Family; Visit Provider Nurse Practitioner Family | DX: G43.909 Migraine, unspecified, not intractable, without status migrainosus (principal); M54.2 Cervicalgia; R06.83 Snoring; R53.83 Other fatigue; G47.19 Other hypersomnia; Z88.0 Allergy status to penicillin; Z88.8 Allergy status to other drugs, medicaments and biological substances; Z88.6 Allergy status to analgesic agent; Z88.1 Allergy status to other antibiotic agents; Z91.030 Bee allergy status; Z91.040 Latex allergy status; Z79.899 Other long term (current) drug therapy | CPT/HCPCS: 99202 ==

== ENCOUNTER 2021-09-14 18:39 | Outpatient (REF) | payer OTHER, SELFPAY | END 2021-09-14 18:40 | disposition home or self-care (01) | LOC: HO.MRI 18:39 | PROVIDERS: Visit Provider Nurse Practitioner Family | DX: Z13.89 Encounter for screening for other disorder (principal) ==

== ENCOUNTER 2021-09-25 18:39 | Outpatient (REF) | payer OTHER, SELFPAY ==
--- NOTE | ~2021-09-25 | MR_ITS ---
EXAMINATION: MR BRAIN WITHOUT AND WITH CONTRAST CLINICAL INFORMATION: Migraine. COMPARISON: Head CT August 11, 2017. TECHNIQUE: Multiplanar, multisequence imaging of the brain was performed before and after the intravenous administration of 10 mL of Gadavist. FINDINGS: There is no acute infarction, mass, hemorrhage, or extra-axial collection. No abnormal or unexpected intracranial enhancement is seen. The ventricles, sulci, and basilar cisterns are normal in size and configuration. The cerebellar tonsils are normally positioned above the foramen magnum. The flow voids of the major intracranial arteries appear intact. The bones and extracranial soft tissues are within normal limits. The orbital contents are normal. MR/MR head/brain wo/w con IMPRESSION: No mass lesion, acute infarction, or abnormal intracranial enhancement.
== END 2021-09-25 18:40 | disposition home or self-care (01) ==
LOC: HO.MRI 18:39
PROVIDERS: PCP Nurse Practitioner Family; Visit Provider Nurse Practitioner Family
DX: G43.909 Migraine, unspecified, not intractable, without status migrainosus (principal); H91.90 Unspecified hearing loss, unspecified ear; R53.1 Weakness
CPT/HCPCS: 70553; A9585

== ENCOUNTER 2022-02-02 11:22 | Outpatient (REF) | payer OTHER, SELFPAY ==
[2022-02-02 13:45] LABS: MANUAL DIFF FLAG NO
[2022-02-02 13:53] LABS: Appearance Urine Clear; Color Urine Yellow; Glucose Urine UA Negative (Negative); Leukocyte Esterase Urine Small (1+) (Negative); Nitrite Urine Negative (Negative); PH 6.5 (5.0-9.0); Specific Gravity - Urine <= 1.005 (1.005-1.025); UMIC TRIGGER UACC YES; Urine Blood Negative (Negative); Urine Ketones Negative (Negative); Urine Protein Negative (Neg-Trace)
[2022-02-02 14:01] LABS: Bacteria Urine Trace (None Seen); Basophils Percent Auto 0.2 % (0-2); Eosinophils Absolute Auto 0.1 X10*3/uL (0.0-0.4); Eosinophils Percent Auto 1.6 % (0-4); Hematocrit 40.3 % (37.0-47.0); Hemoglobin 13.8 g/dl (12.0-16.0); Hyaline Casts Urine 0-2 /LPF (0-2); Imm Gran Abs Auto 0.02 X10*3/uL (0.00-0.03); Imm Gran Pct Auto 0.3 % (0.0-0.4); Lymphocytes Absolute Auto 1.8 X10*3/uL (1.2-4.9); Lymphocytes Percent Auto 28.3 % (20-40); Mean Corpuscular HGB Conc 34.2 g/dl (31.0-35.0); Mean Corpuscular Hemoglobin 29.8 pg (27.0-33.0); Mean Platelet Volume 10.3 fL (9.4-12.3); Monocytes Absolute Auto 0.4 X10*3/uL (0.1-1.2); Monocytes Percent Auto 6.9 % (2-11); Neutrophils Percent Auto 62.7 % (45-73); Platelet Count 341 X10*3/uL (160-400); RBC Urine 0-2 /HPF (0-2); Red Blood Count 4.63 X10*6/uL (4.20-5.50); Red Cell Distribution Width 12.3 % (11.0-16.0); Squamous Epithelial Cell Urine 0-2 /HPF (0-2); UACC Culture Trigger YES; WBC Urine 0-5 /HPF (0-5); White Blood Count 6.4 X10*3/uL (4.8-10.8)
[2022-02-02 14:07] LABS: Cholesterol 169 mg/dL; HDL Cholesterol 32 mg/dL; LDL Cholesterol Calculated 61 mg/dl; Triglycerides 384 mg/dL
[2022-02-02 14:30] LABS: TSH reflex Free T4 0.35 uIU/mL (0.32-4.0)
[2022-02-07 03:57] LABS: Thyroglobulin Antibody <1 IU/mL (<=1); Thyroglobulin Level <0.1 ng/mL
== END 2022-02-02 11:23 | disposition home or self-care (01) ==
LOC: HO.HMGCLDS 11:22
PROVIDERS: PCP Nurse Practitioner Family; Visit Provider Nurse Practitioner Family
DX: M79.7 Fibromyalgia (principal); R79.89 Other specified abnormal findings of blood chemistry
CPT/HCPCS: 36415; 80061; 81001; 84432; 84443; 85025; 86800; 87086

== ENCOUNTER 2022-05-27 13:01 | Outpatient (REF) | payer OTHER, SELFPAY ==
[2022-05-27 14:13] LABS: Appearance Urine Clear; Color Urine Yellow; Glucose Urine UA Negative (Negative); Leukocyte Esterase Urine Moderate (2+) (Negative); Nitrite Urine Negative (Negative); PH 5.5 (5.0-9.0); UMIC TRIGGER UACC YES; Urine Blood Negative (Negative); Urine Ketones Negative (Negative); Urine Protein Negative (Neg-Trace)
[2022-05-27 14:19] LABS: Bacteria Urine None Seen (None Seen); Hyaline Casts Urine 0-2 /LPF (0-2); RBC Urine 0-2 /HPF (0-2); UACC Culture Trigger YES
== END 2022-05-27 13:02 | disposition home or self-care (01) ==
LOC: HO.HMGCLDS 13:01
PROVIDERS: PCP Nurse Practitioner Family; Visit Provider Nurse Practitioner Family
DX: R30.0 Dysuria (principal)
CPT/HCPCS: 81001; 87086

== ENCOUNTER 2022-12-07 19:35 | Emergency (ER) | payer OTHER, SELFPAY ==
--- NOTE | ~2022-12-07 | XR_ITS ---
EXAMINATION: XR WRIST, LEFT XR HAND, LEFT CLINICAL INFORMATION: Fall with hand pain COMPARISON: None available. TECHNIQUE: PA, lateral, and oblique views of the left wrist and PA, lateral, and oblique views of the left hand FINDINGS: LEFT WRIST: The bones and soft tissues are normal. No fracture. Alignment is anatomic. Joint spaces are maintained. No erosions or soft tissue calcifications. LEFT HAND: The bones and soft tissues are normal. No fracture. Alignment is anatomic. Joint spaces are maintained. No erosions or soft tissue calcifications. XR/XR hand wrist LT IMPRESSION: Normal left hand and wrist.
[2022-12-07 20:07] VITALS: BP 144/84; PULSE 87; RESP 18; TEMP 36.1; O2SAT 100; BMI 49.6
--- NOTE | 2022-12-07 21:46 | ED.UPPEXIN ---
HPI - Extremity Injury (Upper) General Chief Complaint: Extremity Injury, Lower Stated Complaint: left hand wrist broken? Time Seen by Provider: 12/07/22 20:39 Source: patient Mode of arrival: ambulatory Limitations: no limitations History of Present Illness HPI narrative: Patient comes to the emergency room complaining of left wrist pain. Patient states that she was at work, fell forward with both extended arms. Patient denies any other injuries, denies hitting her head or lost consciousness, not on blood thinners. Related Data Previous Rx's Medication Instructions Recorded epinephrine 0.3 mg/0.3 mL 0.3 mg (0.3 mL) IM Q10M PRN 01/05/21 injection, auto-injector anaphylaxis #2 ea magnesium oxide 400 mg (241.3 mg 400 mg PO BEDTIME 30 days #30 tabs 08/27/21 magnesium) tablet riboflavin (vitamin B2) 400 mg 400 mg PO DAILY 30 days #30 tabs 08/27/21 tablet rizatriptan 10 mg tablet 5 - 10 mg PO Q2H PRN migraine 08/27/21 headache 30 days #12 tabs fremanezumab-vfrm 225 mg/1.5 mL 675 mg (4.5 mL) subcut [id number] 12/03/21 subcutaneous auto-injector (Ajovy) days #4.5 mL zolmitriptan 5 mg tablet 5 mg PO Q2H PRN migraine headache 01/01/22 30 days #12 tabs albuterol sulfate 90 mcg/actuation 2 puff inhalation Q6H PRN 03/04/22 aerosol inhaler shortness of breath or wheezing #8.5 grams prednisone 50 mg tablet 50 mg PO DAILY 6 days #6 tabs 03/04/22 Ventolin HFA 90 mcg/actuation 2 puff inhalation Q6H PRN 03/08/22 aerosol inhaler (albuterol sulfate) shortness of breath or wheezing #18 grams phenazopyridine 200 mg tablet 200 mg PO TID PRN pain 4 days #12 05/28/22 (Pyridium) tabs duloxetine 40 mg capsule,delayed 40 mg PO DAILY 90 days #90 caps 06/17/22 release eluhhvhbpw-wqqgwdrjjinny-vauwfmpr 1 tab PO BID PRN pain 10 days #20 07/29/22 50 mg-325 mg-40 mg tablet tabs suvorexant 10 mg tablet (Belsomra) 10 mg PO BEDTIME 30 days #30 tabs 08/04/22 carvedilol 3.125 mg tablet (Coreg) 3.125 mg PO BID #180 tabs 08/21/22 prazosin 2 mg capsule 2 mg PO BEDTIME 90 days #90 caps 09/09/22 tizanidine 4 mg tablet 4 mg PO BID PRN for muscle spasm 11/14/22 #60 tabs clonazepam 1 mg tablet 1 mg PO BEDTIME PRN anxiety 30 11/18/22 days #30 tabs fluoxetine 10 mg tablet 10 mg PO DAILY #90 tabs 11/18/22 levothyroxine 200 mcg tablet 200 mcg PO DAILY 90 days #90 tabs 11/18/22 (Synthroid) acetaminophen 500 mg tablet 500 mg PO Q6H PRN fever or pain 12/07/22 #14 tabs Allergies Allergy/AdvReac Type Severity Reaction Status Date / Time bee pollen [BEE STINGS] Allergy Severe ANAPHYLAXIS Verified 09/08/21 07:56 NSAIDS (Non-Steroidal Allergy Intermediate HIVES Verified 09/08/21 07:56 Anti-Inflamma [NSAIDS (NON-STEROIDAL ANTI-INFLAMMA] Penicillins Allergy Intermediate HIVES Verified 09/08/21 07:56 ibuprofen [From Motrin] Allergy Unknown Hives Verified 06/25/22 12:39 penicillin V Allergy Unknown unknown Verified 09/08/21 07:56 latex [LATEX] AdvReac Intermediate RASH Verified 09/08/21 07:56 sulfamethoxazole AdvReac Hives Verified 06/25/22 12:39 [From Bactrim] trimethoprim [From Bactrim] AdvReac Hives Verified 06/25/22 12:39 From Ortho Tri-Cyclen (21) AdvReac Intermediate DVT (BLOOD Uncoded 09/08/21 07:56 CLOT) Review of Systems Review of Systems: Constitutional : No Weight loss, No Fever, No Chills, No Night Sweats, No Fatigue, No Malaise ENT/Mouth : No Hearing loss, No Ear Pain, No Nasal Congestion, No Sinus Pain, No Hoarseness, No sore throat, No Rhinorrhea, No Swallowing Difficulty Eyes: No Eye Pain, No Swelling, No Redness, No Foreign Body, No Discharge, No Vision Changes Cardiovascular : No Chest Pain, No SOB, No Dyspnea on Exertion, No Orthopnea, No Edema, No Palpitations Respiratory : No Cough, No Sputum, No Wheezing, No Smoke Exposure, No Dyspnea Gastrointestinal : No Nausea, No Vomiting, No Diarrhea, No Constipation, No abdominal Pain, No Hematochezia, No Melena Genitourinary : no irregular bleeding, No Dysuria, No Urinary Frequency, No Hematuria, No Urinary Incontinence, No Urgency, No Flank Pain, No Urinary Flow Changes, No Hesitancy Musculoskeletal : Complaining of left wrist pain, No Myalgias, No Joint Swelling Skin : No Skin Lesions, No rash Neuro : No Weakness, No Numbness, No Paresthesias, No Loss of Consciousness, No Dizziness, No Headache Psych : No Anxiety/Panic, No Depression, No SI/HI/AH/VH, No Social Issues, Heme/Lymph: No Bruising, No Bleeding,No Lymphadenopathy Endocrine : No Polyuria, No Polydipsia, No Temperature Intolerance PMFSH Past Medical History Medical History Hx of papillary thyroid carcinoma Surgical History Bilateral carpal tunnel syndrome History of section History of thyroidectomy History of tubal ligation History of umbilical hernia repair Hx of cholecystectomy Family History Family History Father History of heart attack Mental health disorder Mother Hypothyroidism Sister Anxiety Migraine Low blood pressure Mental health disorder Son Epilepsy Daughter No problems noted. Maternal Grandmother Breast cancer Paternal Grandmother Breast cancer Social History Social History Housing: Apartment Alcohol intake: current Alcohol intake frequency: does not drink Patient Tobacco Use Status: Never used Tobacco e-Cigarette/Vaping Use: Never Used Second Hand Smoke Exposure: Yes Advance Directives: No Advance Directives Information Provided: No Current occupational status: employed Cognitive needs: No Hearing needs: No Vision needs: No Physical Exam Vital Signs: Vital Signs: Last Vital Signs Temp 97.0 F 12/07/22 20:07 Pulse 87 12/07/22 20:07 Resp 18 12/07/22 20:07 BP 144/84 H 12/07/22 20:07 Pulse Ox 100 12/07/22 20:07 O2 Del Method Room Air 12/07/22 20:07 BMI result Body Mass Index 49.6 Const: Other: Appearance: Alert. Oriented X3. No acute distress. Eyes: Pupils equal, round and reactive to light. ENT: Pharynx normal. Neck: Normal inspection. Neck supple. No lymph nodes noted. No crepitus CVS: Normal heart rate and rhythm. Pulses normal. Normal S1 and S2 Respiratory: No respiratory distress. Breath sounds normal. No Wheezing. No rales Abdomen: Soft and nontender. No rigidity. No distention. Skin: Skin warm and dry. Normal skin color. Normal skin turgor. Extremities: No lower extremity edema. No Lacerations. No Rash, patient able to flex and extend all fingers of the hand, oppose the thumb, pain with flexion extension of the wrist. No deformity, no ecchymosis, normal alignment Neuro: Oriented X 3. No motor deficit. No sensory deficit. Moving all extremities. No slurred speech. CN 2 through 12 grossly intact Psych: calm, cooperative, normal affect Medical Decision Making Medical Decision Making MDM Narrative: -my interpretation of x-ray of the wrist: No fracture, normal alignment -patient's arm has been Bhupinder wrapped, given p.o. Tylenol. -patient likely has a wrist sprain. Patient will follow up with work connections Differential Diagnosis Differential Diagnoses: The differential diagnosis associated with the presentation includes (Wrist contusion, sprain, fracture) Independent Interpretation I performed an independent interpretation of an: Plain X-Ray Radiology Impression Discussion of test interpretation with radiology: I have reviewed the radiologist's reading. Radiologist Impression: FINDINGS: LEFT WRIST: The bones and soft tissues are normal. No fracture. Alignment is anatomic. Joint spaces are maintained. No erosions or soft tissue calcifications.? LEFT HAND: The bones and soft tissues are normal. No fracture. Alignment is anatomic. Joint spaces are maintained. No erosions or soft tissue calcifications.? XR/XR hand wrist LT IMPRESSION: Normal left hand and wrist. Discharge Plan Discharge Clinical Impression: Sprain of left wrist Patient Disposition: Home, Self-Care Instructions: Wrist Sprain (ED) Additional Instructions: Please follow-up with your primary care physician tomorrow. If you have any worsening or new symptoms, please return to the emergency room or call 911 Prescriptions: New acetaminophen 500 mg tablet 500 mg PO Q6H PRN (Reason: fever or pain) Qty: 14 0RF No Action Ajovy Autoinjector 225 mg/1.5 mL auto-injector 675 mg subcut [id number] 90 Days Qty: 4.5 1RF Rx Instructions: administer as 3 consecutive 225 mg injections zolmitriptan 5 mg tablet 5 mg PO Q2H PRN (Reason: migraine headache) 30 Days Qty: 12 3RF Rx Instructions: do not exceed 2 doses per 24 hrs prednisone 50 mg tablet 50 mg PO DAILY 6 Days Qty: 6 0RF albuterol sulfate 90 mcg/actuation HFA aerosol inhaler 2 puff inhalation Q6H PRN (Reason: shortness of breath or wheezing) Qty: 8.5 0RF albuterol sulfate [Ventolin HFA] 90 mcg/actuation HFA aerosol inhaler 2 puff inhalation Q6H PRN (Reason: shortness of breath or wheezing) Qty: 18 2RF phenazopyridine [Pyridium] 200 mg tablet 200 mg PO TID PRN (Reason: pain) 4 Days Qty: 12 0RF duloxetine 40 mg capsule,delayed release(DR/EC) 40 mg PO DAILY 90 Days Qty: 90 1RF pwgqynwggy-taykweiwcqtvw-lisz 50-325-40 mg tablet 1 tab PO BID PRN (Reason: pain) 10 Days Qty: 20 1RF Belsomra 10 mg tablet 10 mg PO BEDTIME 30 Days Qty: 30 2RF carvedilol [Coreg] 3.125 mg tablet 3.125 mg PO BID Qty: 180 1RF Rx Instructions: must administer with a meal/food prazosin 2 mg capsule 2 mg PO BEDTIME 90 Days Qty: 90 1RF tizanidine 4 mg tablet 4 mg PO BID PRN (Reason: for muscle spasm) Qty: 60 1RF levothyroxine [Synthroid] 200 mcg tablet 200 mcg PO DAILY 90 Days Qty: 90 1RF fluoxetine 10 mg tablet 10 mg PO DAILY Qty: 90 1RF clonazepam 1 mg tablet 1 mg PO BEDTIME PRN (Reason: anxiety) 30 Days Qty: 30 0RF Rx Instructions: administer 30 minutes before bedtime epinephrine 0.3 mg/0.3 mL auto-injector 0.3 mg IM Q10M PRN (Reason: anaphylaxis) Qty: 2 0RF Rx Instructions: for 2 doses magnesium oxide 400 mg (241.3 mg magnesium) tablet 400 mg PO BEDTIME 30 Days Qty: 30 0RF riboflavin (vitamin B2) 400 mg tablet 400 mg PO DAILY 30 Days Qty: 30 6RF rizatriptan 10 mg tablet 5 - 10 mg PO Q2H PRN (Reason: migraine headache) 30 Days Qty: 12 6RF Rx Instructions: max 2 tabs per day or 4 tabs per week Referrals: Niraj Boyd MD [Physician] - 12/08/22 Stand Alone Forms: Work/School Release
[2022-12-07] MEDS: Acetaminophen 325 MG TABLET 975 MG PO (21:55)
[2022-12-07 21:57] VITALS: BP 122/81; PULSE 72; RESP 16; TEMP 36.9; O2SAT 98
== END 2022-12-07 22:05 | disposition home or self-care (01) ==
PROVIDERS: Emergency Provider Emergency Medicine; PCP Nurse Practitioner Family
DX: S63.502A Unspecified sprain of left wrist, initial encounter (principal); M25.532 Pain in left wrist; X58.XXXA Exposure to other specified factors, initial encounter; Y93.9 Activity, unspecified; Y92.9 Unspecified place or not applicable; Y99.9 Unspecified external cause status
CPT/HCPCS: 73110; 73130; 99283; 99284

== ENCOUNTER → 2022-12-28 12:30 | Outpatient (BNVA) | payer OTHER, SELFPAY | PROVIDERS: PCP Nurse Practitioner Family; Visit Provider Physician Assistant Medical | DX: S70.371A Other superficial bite of right thigh, initial encounter (principal); W54.0XXA Bitten by dog, initial encounter; Z20.3 Contact with and (suspected) exposure to rabies | CPT/HCPCS: 90715; 99203 ==

== ENCOUNTER → 2022-12-30 11:14 | Outpatient (BNVA) | payer OTHER, SELFPAY | PROVIDERS: PCP Nurse Practitioner Family; Visit Provider Physician Assistant | DX: S80.871A Other superficial bite, right lower leg, initial encounter (principal); W54.0XXA Bitten by dog, initial encounter; R50.9 Fever, unspecified; R11.2 Nausea with vomiting, unspecified | CPT/HCPCS: 99214 ==

== ENCOUNTER 2022-12-30 11:55 | Emergency (ER) | payer OTHER, SELFPAY ==
[2022-12-30 12:10] VITALS: BP 123/94; PULSE 90; RESP 18; TEMP 37; O2SAT 98; BMI 44.9
--- NOTE | 2022-12-30 12:17 | ED.GENADULT ---
HPI - General Adult General Chief complaint: Animal Bite Stated complaint: dog bite Time Seen by Provider: 12/30/22 18:42 Source: patient, RN notes reviewed and old records reviewed Mode of arrival: ambulatory Limitations: no limitations History of Present Illness HPI narrative: 32-year-old male presents for evaluation of a dog bite to the right calf. Patient reports that she was bit by a dog 2 days ago on the right calf. She went to work connections the same day and was prescribed doxycycline but no other medications She did not get rabies vaccine at the time The patient has not been able to determine the rabies status of the dog in question The patient reports that she has had fevers at home but did not take a temperature She reports oozing from the right calf Related Data Previous Rx's Medication Instructions Recorded epinephrine 0.3 mg/0.3 mL 0.3 mg (0.3 mL) IM Q10M PRN 01/05/21 injection, auto-injector anaphylaxis #2 ea magnesium oxide 400 mg (241.3 mg 400 mg PO BEDTIME 30 days #30 tabs 08/27/21 magnesium) tablet riboflavin (vitamin B2) 400 mg 400 mg PO DAILY 30 days #30 tabs 08/27/21 tablet rizatriptan 10 mg tablet 5 - 10 mg PO Q2H PRN migraine 08/27/21 headache 30 days #12 tabs fremanezumab-vfrm 225 mg/1.5 mL 675 mg (4.5 mL) subcut [id number] 12/03/21 subcutaneous auto-injector (Ajovy) days #4.5 mL zolmitriptan 5 mg tablet 5 mg PO Q2H PRN migraine headache 01/01/22 30 days #12 tabs albuterol sulfate 90 mcg/actuation 2 puff inhalation Q6H PRN 03/04/22 aerosol inhaler shortness of breath or wheezing #8.5 grams prednisone 50 mg tablet 50 mg PO DAILY 6 days #6 tabs 03/04/22 Ventolin HFA 90 mcg/actuation 2 puff inhalation Q6H PRN 03/08/22 aerosol inhaler (albuterol sulfate) shortness of breath or wheezing #18 grams phenazopyridine 200 mg tablet 200 mg PO TID PRN pain 4 days #12 05/28/22 (Pyridium) tabs duloxetine 40 mg capsule,delayed 40 mg PO DAILY 90 days #90 caps 06/17/22 release aadwxzyavu-gniiypaujfzkz-fvqtmchc 1 tab PO BID PRN pain 10 days #20 07/29/22 50 mg-325 mg-40 mg tablet tabs suvorexant 10 mg tablet (Belsomra) 10 mg PO BEDTIME 30 days #30 tabs 08/04/22 carvedilol 3.125 mg tablet (Coreg) 3.125 mg PO BID #180 tabs 08/21/22 prazosin 2 mg capsule 2 mg PO BEDTIME 90 days #90 caps 09/09/22 tizanidine 4 mg tablet 4 mg PO BID PRN for muscle spasm 11/14/22 #60 tabs clonazepam 1 mg tablet 1 mg PO BEDTIME PRN anxiety 30 11/18/22 days #30 tabs fluoxetine 10 mg tablet 10 mg PO DAILY #90 tabs 11/18/22 levothyroxine 200 mcg tablet 200 mcg PO DAILY 90 days #90 tabs 11/18/22 (Synthroid) acetaminophen 500 mg tablet 500 mg PO Q6H PRN fever or pain 12/07/22 #14 tabs doxycycline monohydrate 100 mg 100 mg PO BID 5 days #10 caps 12/28/22 capsule ondansetron 4 mg disintegrating 4 mg PO TID PRN nausea and 12/28/22 tablet vomiting #30 tabs metronidazole 500 mg tablet 500 mg PO TID #20 tabs 12/30/22 Allergies Allergy/AdvReac Type Severity Reaction Status Date / Time bee pollen [BEE STINGS] Allergy Severe ANAPHYLAXIS Verified 09/08/21 07:56 NSAIDS (Non-Steroidal Allergy Intermediate HIVES Verified 09/08/21 07:56 Anti-Inflamma [NSAIDS (NON-STEROIDAL ANTI-INFLAMMA] Penicillins Allergy Intermediate HIVES Verified 09/08/21 07:56 ibuprofen [From Motrin] Allergy Unknown Hives Verified 06/25/22 12:39 penicillin V Allergy Unknown unknown Verified 09/08/21 07:56 latex [LATEX] AdvReac Intermediate RASH Verified 09/08/21 07:56 sulfamethoxazole AdvReac Hives Verified 06/25/22 12:39 [From Bactrim] trimethoprim [From Bactrim] AdvReac Hives Verified 06/25/22 12:39 From Ortho Tri-Cyclen (21) AdvReac Intermediate DVT (BLOOD Uncoded 09/08/21 07:56 CLOT) Review of Systems Constitutional: Constitutional: Reports body ache(s), Reports chills, Reports fever(s) and Reports malaise Cardiovascular: Cardiovascular: Denies chest pain and Denies dyspnea Respiratory: Respiratory: Denies dyspnea Gastrointestinal: Gastrointestinal: Denies abdominal pain, Reports nausea and Reports vomiting Musculoskeletal: Comments: Right calf pain PMFSH Past Medical History Medical History Hx of papillary thyroid carcinoma Surgical History Bilateral carpal tunnel syndrome History of section History of thyroidectomy History of tubal ligation History of umbilical hernia repair Hx of cholecystectomy Family History Family History Father History of heart attack Mental health disorder Mother Hypothyroidism Sister Anxiety Migraine Low blood pressure Mental health disorder Son Epilepsy Daughter No problems noted. Maternal Grandmother Breast cancer Paternal Grandmother Breast cancer Social History Social History Housing: Apartment Alcohol intake: current Alcohol intake frequency: does not drink Patient Tobacco Use Status: Never used Tobacco e-Cigarette/Vaping Use: Never Used Second Hand Smoke Exposure: Yes Advance Directives: No Current occupational status: employed Cognitive needs: No Hearing needs: No Vision needs: No Physical Exam ED Vital Signs: Vital Signs - 24 hr 12/30/22 12:10 Temperature 98.6 F Pulse Rate 90 Respiratory Rate 18 Blood Pressure 123/94 H Pulse Oximetry 98 Oxygen Delivery Method Room Air BMI result Body Mass Index 44.9 Const General: healthy appearing, comfortable, no acute distress, alert and awake Nutritional Appearance: well nourished Orientation/consciousness: patient oriented x3 HENMT Head: Yes normocephalic and Yes atraumatic Eyes Eyelids: Yes eyelids normal Conjunctivae: conjunctivae normal Sclerae: sclerae normal Corneas: corneas normal Pupils: Equal, round and reactive pupils present EOM: EOMs intact bilaterally Neck Neck: Yes full ROM Resp Effort & Inspection: normal respiratory effort, able to speak in complete sentences and not labored Skin General skin exam: elasticity normal Neuro General: patient oriented x3 Cranial nerves: Yes Equal, round and reactive pupils present and Yes Bilaterally intact EOM present Cognition (Neuro): normal cognition Extrem Other: Moving all extremities well without any obvious deformities. Patient has 1 small healing puncture wound to the right posterior calf. There are surrounding ecchymotic changes but no erythema, no fluctuance compilation, no drainage from the wound Course Course Course Narrative: This is an RME: Additional HPI, ROS, PE not included below will be deferred to primary provider. This is a 32-year-old female presenting to the emergency department with complaints of dog bite. Patient states that 2 days ago she was bit by a friend's dog in the back of her leg. She states that that evening she developed fevers of 101 it through 102. She states that she has had intermittent nausea and 2 episodes of vomiting. She was seen by work connection and was started on doxycycline 2 days ago which she has been taking. She is unsure the vaccine status of this dog. She did not get the rabies series. She does report that she has been go bowling her symptoms and appears anxious in triage. She admits to having a headache, and reports that this morning she felt as though she was confused. She is fully neurologically intact. Vital signs stable. Plan: Start with labs, viral swabs Medications Administered Discontinued Medications Generic Name Dose Route Start Last Admin Trade Name Bernadette PRN Reason Stop Dose Admin Acetaminophen 650 mg 12/30/22 18:52 12/30/22 20:13 Acetaminophen 325 Mg Tablet PO 12/30/22 18:53 650 mg ONCE ONE Administration Metronidazole 500 mg 12/30/22 18:52 12/30/22 20:15 Metronidazole 500 Mg Tablet PO 12/30/22 18:53 500 mg ONCE ONE Administration Oxycodone HCl 5 mg 12/30/22 18:52 12/30/22 20:13 Oxycodone Hcl Immed Release 5 Mg Tablet PO 12/30/22 18:53 5 mg ONCE ONE Administration Rabies Immune Globulin 2,086.52 unit 12/30/22 18:52 12/30/22 20:12 Rabies Immune Globulin/Pf 900 Unit/3 Ml Vial 20 unit/kg (2086.52 unit) 12/30/22 18:53 2,086.52 unit IM Administration ONCE ONE Rabies Vaccine Human Diploid Cell 1 ml 12/30/22 18:52 12/30/22 20:14 Rabies Vaccine, Human Diploid (Imovax) 1 Ml Vial IM 12/30/22 18:53 1 ml .ONCE ONE Administration Medical Decision Making Medical Decision Making [facility] Narrative: 32-year-old female presents for evaluation of dog bite to her right calf. She is already on doxycycline, it is unclear why she was not prescribed Flagyl or clindamycin in addition she has a penicillin allergy cannot take Augmentin. Will add Flagyl as she is reporting subjective fevers but she is afebrile here, she has no leukocytosis and her wound does not appear to show any evidence of active infection or abscess. The patient is requesting rabies vaccine which will be administered Differential Diagnosis Differential Diagnoses: The differential diagnosis associated with the presentation includes Dog bite Cellulitis Abscess Rabies exposure Reviewed vaccine Lab Data [facility] Lab Attestation statement: I reviewed the patient's lab results. No leukocytosis with a white count of 8.2, no significant anemia with a hemoglobin of 14.5 and hematocrit 42.6. Normal platelet count. Electrolytes within normal limits. Renal function within normal limits. 12/30/22 12:55 12/30/22 12:55 Labs: Lab Results 12/30/22 12/30/22 12/30/22 Range/Units 12:55 12:55 12:55 WBC 8.2 (4.8-10.8) X10*3/uL RBC 4.87 (4.20-5.50) X10*6/uL Hgb 14.5 (12.0-16.0) g/dl Hct 42.6 (37.0-47.0) % MCV 87.5 (80.0-98.0) fL MCH 29.8 (27.0-33.0) pg MCHC 34.0 (31.0-35.0) g/dl RDW 12.0 (11.0-16.0) % Plt Count 287 (160-400) X10*3/uL MPV 9.8 (9.4-12.3) fL Immature Gran % (Auto) 0.4 (0.0-0.4) % Neut % (Auto) 66.5 (45-73) % Lymph % (Auto) 22.3 (20-40) % [place] % (Auto) 9.9 (2-11) % Eos % (Auto) 0.7 (0-4) % Baso % (Auto) 0.2 (0-2) % Lymph # (Auto) 1.8 (1.2-4.9) X10*3/uL [place] # (Auto) 0.8 (0.1-1.2) X10*3/uL Eos # (Auto) 0.1 (0.0-0.4) X10*3/uL Baso # (Auto) 0.0 (0.0-0.2) X10*3/uL Abs Immat Gran (auto) 0.03 (0.00-0.03) X10*3/uL Absolute Neuts (auto) 5.4 (2.0-8.3) x10*3/uL Absolute Nucleated RBC 0.000 (0.0-0.012) X10*3/uL Nucleated RBC % (auto) 0.0 (0.0-0.2) /100WBC Sodium 138 (135-145) mmol/L Potassium 3.9 (3.3-5.1) mmol/L Chloride 104 (96-108) mmol/L Carbon Dioxide 26 (22-29) mmol/L Anion Gap 12 (12-20) BUN 14 (9-16) mg/dL Creatinine 0.78 (0.5-1.4) mg/dL Estim Creat Clear Calc 110.7 Estimated GFR > 60 Random Glucose 136 H (60-115) mg/dL Calcium 8.9 (8.4-10.2) mg/dL Magnesium 1.9 (1.6-2.6) mg/dL Total Bilirubin 0.6 (0.0-1.0) mg/dL Direct Bilirubin 0.2 (0.0-0.5) mg/dL AST 11 (5-31) U/L ALT 19 (0-31) U/L Alkaline Phosphatase 91 (39-117) U/L Total Protein 6.8 (6.5-8.0) g/dL Albumin 4.1 (3.5-5.0) g/dL COVID-19 ([facility]) (Negative) COVID-19 Clin Com Influenza Type A ([facility]ENIA) Negative (Negative) Influenza Type B ([facility]) Negative (Negative) Influenza A & B Note See Note 12/30/22 Range/Units 12:55 WBC (4.8-10.8) X10*3/uL RBC (4.20-5.50) X10*6/uL Hgb (12.0-16.0) g/dl Hct (37.0-47.0) % MCV (80.0-98.0) fL MCH (27.0-33.0) pg MCHC (31.0-35.0) g/dl RDW (11.0-16.0) % Plt Count (160-400) X10*3/uL MPV (9.4-12.3) fL Immature Gran % (Auto) (0.0-0.4) % Neut % (Auto) (45-73) % Lymph % (Auto) (20-40) % [place] % (Auto) (2-11) % Eos % (Auto) (0-4) % Baso % (Auto) (0-2) % Lymph # (Auto) (1.2-4.9) X10*3/uL [place] # (Auto) (0.1-1.2) X10*3/uL Eos # (Auto) (0.0-0.4) X10*3/uL Baso # (Auto) (0.0-0.2) X10*3/uL Abs Immat Gran (auto) (0.00-0.03) X10*3/uL Absolute Neuts (auto) (2.0-8.3) x10*3/uL Absolute Nucleated RBC (0.0-0.012) X10*3/uL Nucleated RBC % (auto) (0.0-0.2) /100WBC Sodium (135-145) mmol/L Potassium (3.3-5.1) mmol/L Chloride (96-108) mmol/L Carbon Dioxide (22-29) mmol/L Anion Gap (12-20) BUN (9-16) mg/dL Creatinine (0.5-1.4) mg/dL Estim Creat Clear Calc Estimated GFR Random Glucose (60-115) mg/dL Calcium (8.4-10.2) mg/dL Magnesium (1.6-2.6) mg/dL Total Bilirubin (0.0-1.0) mg/dL Direct Bilirubin (0.0-0.5) mg/dL AST (5-31) U/L ALT (0-31) U/L Alkaline Phosphatase (39-117) U/L Total Protein (6.5-8.0) g/dL Albumin (3.5-5.0) g/dL COVID-19 ([facility]) Negative (Negative) COVID-19 Clin Com See Note Influenza Type A ([facility]IA) (Negative) Influenza Type B ([facility]) (Negative) Influenza A & B Note Discharge Plan Discharge Clinical Impression: Dog bite of right calf Patient Disposition: Home, Self-Care Instructions: Animal Bite (ED) Additional Instructions: Your wound does not appear acutely infected. However to adequately treat for a dog bite, you to start taking metronidazole as well in addition to the doxycycline You were given your 1st dose of the rabies series and will have to return in 3, 7 and 14 days for the remainder of the rabies vaccine series Take the antibiotics with food as they are likely to cause upset stomach. You may use the Zofran you have at home prior to taking the antibiotic Prescriptions: New metronidazole 500 mg tablet 500 mg PO TID Qty: 20 0RF No Action Ajovy Autoinjector 225 mg/1.5 mL auto-injector 675 mg subcut [id number] 90 Days Qty: 4.5 1RF Rx Instructions: administer as 3 consecutive 225 mg injections zolmitriptan 5 mg tablet 5 mg PO Q2H PRN (Reason: migraine headache) 30 Days Qty: 12 3RF Rx Instructions: do not exceed 2 doses per 24 hrs prednisone 50 mg tablet 50 mg PO DAILY 6 Days Qty: 6 0RF albuterol sulfate 90 mcg/actuation HFA aerosol inhaler 2 puff inhalation Q6H PRN (Reason: shortness of breath or wheezing) Qty: 8.5 0RF albuterol sulfate [Ventolin HFA] 90 mcg/actuation HFA aerosol inhaler 2 puff inhalation Q6H PRN (Reason: shortness of breath or wheezing) Qty: 18 2RF phenazopyridine [Pyridium] 200 mg tablet 200 mg PO TID PRN (Reason: pain) 4 Days Qty: 12 0RF duloxetine 40 mg capsule,delayed release(DR/EC) 40 mg PO DAILY 90 Days Qty: 90 1RF rjxsekrzlk-nunjsmrcnozsu-dvpy 50-325-40 mg tablet 1 tab PO BID PRN (Reason: pain) 10 Days Qty: 20 1RF Belsomra 10 mg tablet 10 mg PO BEDTIME 30 Days Qty: 30 2RF carvedilol [Coreg] 3.125 mg tablet 3.125 mg PO BID Qty: 180 1RF Rx Instructions: must administer with a meal/food prazosin 2 mg capsule 2 mg PO BEDTIME 90 Days Qty: 90 1RF tizanidine 4 mg tablet 4 mg PO BID PRN (Reason: for muscle spasm) Qty: 60 1RF levothyroxine [Synthroid] 200 mcg tablet 200 mcg PO DAILY 90 Days Qty: 90 1RF fluoxetine 10 mg tablet 10 mg PO DAILY Qty: 90 1RF clonazepam 1 mg tablet 1 mg PO BEDTIME PRN (Reason: anxiety) 30 Days Qty: 30 0RF Rx Instructions: administer 30 minutes before bedtime epinephrine 0.3 mg/0.3 mL auto-injector 0.3 mg IM Q10M PRN (Reason: anaphylaxis) Qty: 2 0RF Rx Instructions: for 2 doses acetaminophen 500 mg tablet 500 mg PO Q6H PRN (Reason: fever or pain) Qty: 14 0RF magnesium oxide 400 mg (241.3 mg magnesium) tablet 400 mg PO BEDTIME 30 Days Qty: 30 0RF riboflavin (vitamin B2) 400 mg tablet 400 mg PO DAILY 30 Days Qty: 30 6RF rizatriptan 10 mg tablet 5 - 10 mg PO Q2H PRN (Reason: migraine headache) 30 Days Qty: 12 6RF Rx Instructions: max 2 tabs per day or 4 tabs per week ondansetron 4 mg tablet,disintegrating 4 mg PO TID PRN (Reason: nausea and vomiting) Qty: 30 2RF doxycycline monohydrate 100 mg capsule 100 mg PO BID 5 Days Qty: 10 0RF
[2022-12-30 13:18] LABS: MANUAL DIFF FLAG NO
[2022-12-30 13:32] LABS: COVID-19 Test Negative (Negative); IDNOW Serial# 08D9AD1C; IDNOW Serial# BCCEAD1C; Influenza A Negative (Negative); Influenza B2 Negative (Negative)
[2022-12-30 13:36] LABS: Basophils Percent Auto 0.2 % (0-2); Eosinophils Absolute Auto 0.1 X10*3/uL (0.0-0.4); Eosinophils Percent Auto 0.7 % (0-4); Hematocrit 42.6 % (37.0-47.0); Hemoglobin 14.5 g/dl (12.0-16.0); Imm Gran Abs Auto 0.03 X10*3/uL (0.00-0.03); Imm Gran Pct Auto 0.4 % (0.0-0.4); Lymphocytes Absolute Auto 1.8 X10*3/uL (1.2-4.9); Lymphocytes Percent Auto 22.3 % (20-40); Mean Corpuscular Hemoglobin 29.8 pg (27.0-33.0); Mean Corpuscular Volume 87.5 fL (80.0-98.0); Mean Platelet Volume 9.8 fL (9.4-12.3); Monocytes Absolute Auto 0.8 X10*3/uL (0.1-1.2); Monocytes Percent Auto 9.9 % (2-11); Neutrophils Absolute Auto 5.4 x10*3/uL (2.0-8.3); Neutrophils Percent Auto 66.5 % (45-73); Platelet Count 287 X10*3/uL (160-400); Red Blood Count 4.87 X10*6/uL (4.20-5.50); White Blood Count 8.2 X10*3/uL (4.8-10.8)
[2022-12-30 13:45] LABS: Alanine Aminotransferase 19 U/L (0-31); Albumin Level 4.1 g/dL (3.5-5.0); Alkaline Phosphatase 91 U/L (39-117); Anion Gap 12 (12-20); Aspartate Amino Transferase 11 U/L (5-31); Bilirubin Direct 0.2 mg/dL (0.0-0.5); Bilirubin Total 0.6 mg/dL (0.0-1.0); Blood Urea Nitrogen 14 mg/dL (9-16); Calcium 8.9 mg/dL (8.4-10.2); Carbon Dioxide 26 mmol/L (22-29); Chloride 104 mmol/L (96-108); Creatinine Clr Calc Pharmacy 110.7; Estimated Glomerular Filt Rate > 60; Glucose Random 136 mg/dL (60-115); Magnesium 1.9 mg/dL (1.6-2.6); Potassium 3.9 mmol/L (3.3-5.1); Sodium 138 mmol/L (135-145); Total Protein 6.8 g/dL (6.5-8.0)
[2022-12-30] MEDS: Rabies Immune Globulin/PF 900 UNIT/3 ML VIAL 2086.52 UNIT IM (20:12)
[2022-12-30] MEDS: Acetaminophen 325 MG TABLET 650 MG PO (20:13)
[2022-12-30] MEDS: oxyCODONE HCl Immed Release 5 MG TABLET PO (20:13)
[2022-12-30] MEDS: Rabies Vaccine, Human Diploid (Imovax) 1 ML VIAL IM (20:14)
[2022-12-30] MEDS: metroNIDAZOLE 500 MG TABLET PO (20:15)
== END 2022-12-30 21:03 | disposition home or self-care (01) ==
PROVIDERS: Physician Assistant Medical; Emergency Provider Emergency Medicine Emergency Medical Services; PCP Nurse Practitioner Family
DX: S81.851A Open bite, right lower leg, initial encounter (principal); M79.604 Pain in right leg; W54.0XXA Bitten by dog, initial encounter; Y93.9 Activity, unspecified; Y92.9 Unspecified place or not applicable; Y99.9 Unspecified external cause status; R50.9 Fever, unspecified; R11.2 Nausea with vomiting, unspecified; Z20.822 Contact with and (suspected) exposure to COVID-19; Z20.828 Contact with and (suspected) exposure to other viral communicable diseases; Z20.3 Contact with and (suspected) exposure to rabies; Z29.14 Encounter for prophylactic rabies immune globulin; Z79.899 Other long term (current) drug therapy; Z23 Encounter for immunization
CPT/HCPCS: 36415; 80048; 80076; 83735; 85025; 87502; 87635; 90375; 90471; 90675; 96372; 99283; 99284

== ENCOUNTER 2023-01-02 09:08 | Outpatient (REF) | payer OTHER, SELFPAY | END 2023-01-02 09:09 | disposition home or self-care (01) | LOC: HO.MDS 09:08 | PROVIDERS: Visit Provider Physician Assistant | DX: Z20.3 Contact with and (suspected) exposure to rabies (principal); S81.851D Open bite, right lower leg, subsequent encounter; W54.0XXD Bitten by dog, subsequent encounter | CPT/HCPCS: 90471; 90675 ==

== ENCOUNTER → 2023-01-06 14:00 | Outpatient (BNVA) | payer OTHER, SELFPAY | PROVIDERS: PCP Nurse Practitioner Family; Visit Provider Physician Assistant | DX: S80.871A Other superficial bite, right lower leg, initial encounter (principal); W54.0XXA Bitten by dog, initial encounter; Z23 Encounter for immunization | CPT/HCPCS: 99214 ==

== ENCOUNTER → 2023-01-13 14:05 | Outpatient (BNVA) | payer OTHER, SELFPAY | PROVIDERS: PCP Nurse Practitioner Family; Visit Provider Internal Medicine | DX: S80.871A Other superficial bite, right lower leg, initial encounter (principal); W54.0XXA Bitten by dog, initial encounter; Z20.3 Contact with and (suspected) exposure to rabies | CPT/HCPCS: 99213 ==

== ENCOUNTER 2023-01-18 07:29 | Outpatient (REF) | payer OTHER, SELFPAY ==
[2023-01-18 11:31] LABS: MANUAL DIFF FLAG NO
[2023-01-18 11:35] LABS: Appearance Urine Cloudy; Color Urine Yellow; Glucose Urine UA Negative (Negative); Leukocyte Esterase Urine Small (1+) (Negative); Nitrite Urine Negative (Negative); Specific Gravity - Urine 1.025 (1.005-1.025); UMIC TRIGGER UA YES; UMIC TRIGGER UACC YES; Urine Blood Negative (Negative); Urine Ketones Negative (Negative); Urine Protein Negative (Neg-Trace)
[2023-01-18 11:52] LABS: Bacteria Urine 1+ (None Seen); Calcium Oxalate Crystals Urine Present; Hyaline Casts Urine 0-2 /LPF (0-2); UACC Culture Trigger YES; WBC Urine 21-50 /HPF (0-5)
[2023-01-18 11:55] LABS: Basophils Percent Auto 0.4 % (0-2); Eosinophils Absolute Auto 0.2 X10*3/uL (0.0-0.4); Eosinophils Percent Auto 2.4 % (0-4); Hematocrit 40.8 % (37.0-47.0); Hemoglobin 13.8 g/dl (12.0-16.0); Imm Gran Abs Auto 0.03 X10*3/uL (0.00-0.03); Imm Gran Pct Auto 0.4 % (0.0-0.4); Lymphocytes Absolute Auto 1.9 X10*3/uL (1.2-4.9); Lymphocytes Percent Auto 23.8 % (20-40); Mean Corpuscular HGB Conc 33.8 g/dl (31.0-35.0); Mean Corpuscular Hemoglobin 30.1 pg (27.0-33.0); Mean Corpuscular Volume 89.1 fL (80.0-98.0); Mean Platelet Volume 9.9 fL (9.4-12.3); Monocytes Absolute Auto 0.6 X10*3/uL (0.1-1.2); Monocytes Percent Auto 7.2 % (2-11); Neutrophils Absolute Auto 5.2 x10*3/uL (2.0-8.3); Neutrophils Percent Auto 65.8 % (45-73); Platelet Count 372 X10*3/uL (160-400); Red Blood Count 4.58 X10*6/uL (4.20-5.50); Red Cell Distribution Width 12.5 % (11.0-16.0); White Blood Count 7.8 X10*3/uL (4.8-10.8)
[2023-01-18 12:06] LABS: Estimated Average Glucose 103 mg/dL; Hemoglobin A1c % 5.2 % (<6.0)
[2023-01-18 12:13] LABS: Alanine Aminotransferase 20 U/L (0-31); Alkaline Phosphatase 82 U/L (39-117); Anion Gap 12 (12-20); Aspartate Amino Transferase 14 U/L (5-31); Bilirubin Total 0.4 mg/dL (0.0-1.0); Blood Urea Nitrogen 15 mg/dL (9-16); Calcium 9.1 mg/dL (8.4-10.2); Carbon Dioxide 26 mmol/L (22-29); Chloride 105 mmol/L (96-108); Cholesterol 147 mg/dL (<200); Estimated Glomerular Filt Rate > 60; Glucose Fasting 127 mg/dL (60-99); HDL Cholesterol 34 mg/dL (>40); LDL Cholesterol Calculated 66 mg/dL (<100); Potassium 4.1 mmol/L (3.3-5.1); Sodium 139 mmol/L (135-145); Total Protein 6.4 g/dL (6.5-8.0); Triglycerides 236 mg/dL (<150)
[2023-01-18 12:30] LABS: TSH reflex Free T4 0.13 uIU/mL (0.32-4.0)
[2023-01-18 13:02] LABS: Free T4 (Free Thyroxine) 1.15 ng/dL (0.71-1.85)
== END 2023-01-18 07:30 | disposition home or self-care (01) ==
LOC: HO.HMGCLDS 07:29
PROVIDERS: PCP Nurse Practitioner Family; Visit Provider Nurse Practitioner Family
DX: R30.0 Dysuria (principal); F32.A Depression, unspecified; R73.01 Impaired fasting glucose; R79.89 Other specified abnormal findings of blood chemistry
CPT/HCPCS: 36415; 80053; 80061; 81001; 81003; 83036; 84439; 84443; 85025; 87086

== ENCOUNTER 2023-02-05 11:08 | Emergency (ER) | payer OTHER, SELFPAY ==
[2023-02-05 11:12] VITALS: BP 90/50; PULSE 82; O2SAT 97
[2023-02-05 11:16] VITALS: BP 139/90; PULSE 75; RESP 11; TEMP 36.9; O2SAT 99; BMI 50.2
--- NOTE | 2023-02-05 11:41 | ED.ALLEREA ---
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 She reports she has had bad anaphylactic reactions to bees in the past so she is afraid it might happen again. Patient states the stinger is still inside. Denies chest pain, nausea, vomiting, abdominal pain, headache, vision changes, dizziness and weakness. There is no epi administered prior to arrival. Doesnt have an epipen at home Related Data Previous Rx's Medication Instructions Recorded epinephrine 0.3 mg/0.3 mL 0.3 mg (0.3 mL) IM Q10M PRN 01/05/21 injection, auto-injector anaphylaxis #2 ea magnesium oxide 400 mg (241.3 mg 400 mg PO BEDTIME 30 days #30 tabs 08/27/21 magnesium) tablet riboflavin (vitamin B2) 400 mg 400 mg PO DAILY 30 days #30 tabs 08/27/21 tablet rizatriptan 10 mg tablet 5 - 10 mg (0.5 - 1 x 10 mg) PO Q2H 08/27/21 PRN migraine headache 30 days #12 tabs fremanezumab-vfrm 225 mg/1.5 mL 675 mg (4.5 mL) subcut [id number] 12/03/21 subcutaneous auto-injector (Ajovy) days #4.5 mL zolmitriptan 5 mg tablet 5 mg PO Q2H PRN migraine headache 01/01/22 30 days #12 tabs albuterol sulfate 90 mcg/actuation 2 puff inhalation Q6H PRN 03/04/22 aerosol inhaler shortness of breath or wheezing #8.5 grams prednisone 50 mg tablet 50 mg PO DAILY 6 days #6 tabs 03/04/22 Ventolin HFA 90 mcg/actuation 2 puff inhalation Q6H PRN 10/17/22 aerosol inhaler (albuterol sulfate) shortness of breath or wheezing #18 grams phenazopyridine 200 mg tablet 200 mg PO TID PRN pain 4 days #12 05/28/22 (Pyridium) tabs prazosin 2 mg capsule 2 mg PO BEDTIME 90 days #90 caps 09/09/22 clonazepam 1 mg tablet 1 mg PO BEDTIME PRN anxiety 30 11/18/22 days #30 tabs levothyroxine 200 mcg tablet 200 mcg PO DAILY 90 days #90 tabs 11/18/22 (Synthroid) acetaminophen 500 mg tablet 500 mg PO Q6H PRN fever or pain 12/07/22 #14 tabs doxycycline monohydrate 100 mg 100 mg PO BID 5 days #10 caps 12/28/22 capsule ondansetron 4 mg disintegrating 4 mg PO TID PRN nausea and 12/28/22 tablet vomiting #30 tabs metronidazole 500 mg tablet 500 mg PO TID #20 tabs 12/30/22 qxmeryvvfw-arbkwubwqaxlx-cxwoorsf 1 tab PO BID PRN pain 10 days #20 01/15/23 50 mg-325 mg-40 mg tablet tabs suvorexant 10 mg tablet (Belsomra) 10 mg PO BEDTIME 30 days #30 tabs 01/15/23 tizanidine 4 mg tablet 4 mg PO BID PRN for muscle spasm 01/15/23 #60 tabs carvedilol 3.125 mg tablet (Coreg) 3.125 mg PO BID #180 tabs 01/16/23 fluoxetine 20 mg tablet 20 mg PO DAILY 90 days #90 tabs 01/17/23 phenazopyridine 100 mg tablet 100 mg PO TID PRN pain 4 days #12 01/17/23 (Pyridium) tabs Alcohol Pads (alcohol swabs) 1 pad topical .TID #100 ea 01/19/23 FreeStyle Lancets 28 gauge #100 ea 01/19/23 (lancets) FreeStyle Lite Meter #1 ea 01/19/23 (blood-glucose meter) FreeStyle Lite Strips (blood sugar #100 ea 01/19/23 diagnostic) nitrofurantoin macrocrystal 100 mg 100 mg PO BID 5 days #10 caps 01/19/23 capsule amitriptyline 50 mg tablet 50 mg PO BEDTIME #30 tabs 01/20/23 diphenhydramine HCl 25 mg capsule 25 mg PO TID PRN allergic reaction 02/05/23 (Benadryl) #20 caps epinephrine 0.3 mg/0.3 mL 0.3 mg (0.3 mL) IM Q4H PRN 02/05/23 injection, auto-injector (EpiPen anaphylaxis #2 ea 2-Lee) prednisone 50 mg tablet 50 mg PO DAILY 5 days #5 tabs 02/05/23 Allergies Allergy/AdvReac Type Severity Reaction Status Date / Time bee pollen [BEE STINGS] Allergy Severe ANAPHYLAXIS Verified 09/08/21 07:56 NSAIDS (Non-Steroidal Allergy Intermediate HIVES Verified 09/08/21 07:56 Anti-Inflamma [NSAIDS (NON-STEROIDAL ANTI-INFLAMMA] Penicillins Allergy Intermediate HIVES Verified 09/08/21 07:56 ibuprofen [From Motrin] Allergy Unknown Hives Verified 06/25/22 12:39 penicillin V Allergy Unknown unknown Verified 09/08/21 07:56 latex [LATEX] AdvReac Intermediate RASH Verified 09/08/21 07:56 sulfamethoxazole AdvReac Hives Verified 06/25/22 12:39 [From Bactrim] trimethoprim [From Bactrim] AdvReac Hives Verified 06/25/22 12:39 From Ortho Tri-Cyclen (21) AdvReac Intermediate DVT (BLOOD Uncoded 09/08/21 07:56 CLOT) Review of Systems Review of Systems: Constitutional : No Weight loss, No Fever, No Chills, No Fatigue, No Malaise ENT/Mouth : No sore throat, No Rhinorrhea Eyes: No Eye Pain, No Swelling, No Redness Cardiovascular : No Chest Pain, + SOB, No Dyspnea on Exertion, No Orthopnea, No Edema, No Palpitations Respiratory : No Cough, No Sputum, No Wheezing Gastrointestinal : No Nausea, No Vomiting, No Diarrhea, No Constipation, No abdominal Pain, No Hematochezia, No Melena Genitourinary : No Dysuria, No Urinary Frequency, No Hematuria, Musculoskeletal : No joint pain, No Myalgias, No Joint Swelling Skin : No Skin Lesions, + rash Neuro : No Weakness, No Numbness, No Dizziness, No Headache Psych : No Anxiety/Panic, No Depression All other systems reviewed and are negative Yes all other systems are reviewed and are negative PMFSH Past Medical History Attestation statement: The following information was validated with the patient. Source: old records reviewed and nursing notes reviewed Medical History Insomnia Hx of papillary thyroid carcinoma Surgical History History of umbilical hernia repair Bilateral carpal tunnel syndrome Hx of cholecystectomy History of tubal ligation History of section History of thyroidectomy Family History Family History Father History of heart attack Mental health disorder Mother Hypothyroidism Sister Anxiety Migraine Low blood pressure Mental health disorder Son Epilepsy Daughter No problems noted. Maternal Grandmother Breast cancer Paternal Grandmother Breast cancer Social History Social History Housing: Apartment Alcohol intake: current Alcohol intake frequency: does not drink Patient Tobacco Use Status: Never used Tobacco e-Cigarette/Vaping Use: Never Used Second Hand Smoke Exposure: Yes Advance Directives: No Advance Directives Information Provided: Yes Current occupational status: employed Cognitive needs: No Hearing needs: No Vision needs: No Physical Exam ED Vital Signs: Vital Signs - 24 hr 02/05/23 11:16 02/05/23 13:09 02/05/23 14:24 Temperature 98.4 F 98.4 F 98.0 F Pulse Rate 75 73 75 Respiratory Rate 11 L 14 15 Blood Pressure 139/90 H 113/62 115/71 Pulse Oximetry 99 97 97 Oxygen Delivery Method Room Air Room Air Room Air BMI result Body Mass Index 50.2 vss Appearance: Alert.? Oriented X3.? No acute distress.? Head: Normocephalic, atraumatic, no step-offs or deformities. Flushed cheeks b/l. Throat: patent airway, midline uvula w/o edema. No edema to hard/soft palate, tongue, uvula, tonsils, lips or face. Eyes: Pupils equal, round and reactive to light.? CVS: Normal heart rate and rhythm.? Pulses normal.? Respiratory: No respiratory distress.? Breath sounds normal.?No stridor Abdomen: Soft and nontender.? Skin: Skin warm and dry.? Normal skin color.? Normal skin turgor.? + urticaria / sting site to R axilla w/ overlying errythema Extremities: No lower extremity edema.? No calf ttp. 5/5 strength to bilateral upper and lower extremities Back: No midline tenderness, no C-spine tenderness, full range of motion, no CVA tenderness bilaterally Neuro: Oriented X 3.? No motor deficit.? No sensory deficit. CN 2-12 intact Course Reevaluation(s) Reevaluation #1: Patient feeling much better. No longer having itchiness, she is no longer feeling short of breath. Vital signs are stable, the airway remains patent, patient is saturating 99% on room air. Patient feeling well will discharge her home with an EpiPen and allergy follow-up as patient does not have an EpiPen and has not been seen by an allergy doctor. Educated patient on diagnosis and treatment plan, answered all question, patient verbalizes understanding. At this time patient will be discharged home, advised to return with new or worsening symptoms. Educated on worrisome signs and symptoms and when to return. At this time I feel comfortable discharge home. Time: 14:32 Medications Administered Discontinued Medications Generic Name Dose Route Start Last Admin Trade Name Freq PRN Reason Stop Dose Admin Dexamethasone Sodium Phosphate 10 mg 02/05/23 11:30 02/05/23 11:48 Dexamethasone Sod Phosphate 10 Mg/Ml Vial IVPUSH 02/05/23 11:31 10 mg ONCE ONE Administration Famotidine 20 mg 02/05/23 11:30 02/05/23 11:48 Famotidine/Pf 20 Mg/2 Ml Vial IVPUSH 02/05/23 11:31 20 mg ONCE ONE Administration Medical Decision Making Medical Decision Making [facility] Narrative: 1151 33 yo f presents w/ bee sting to r. axilla now complaining of wierd sensation in throat and sob PE- benign Likely allergic reaction, at this time no signs of anaphylaxis, airway compromise. Plan close observation will give Decadron, Pepcid, patient just received 50 mg of IV Benadryl will hold on Benadryl at this time. No indication for epinephrine. 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 Differential Diagnosis Differential Diagnoses: The differential diagnosis associated with the presentation includes Likely allergic reaction, at this time no signs of anaphylaxis, airway compromise. Admission/Observation Consideration of admission/observation: Escalation of care including admission/observation considered Critical Care Time Critical Care Time Critical Care Time: No Discharge Plan Discharge Clinical Impression: Allergic reaction Patient Disposition: Home, Self-Care Instructions: Epinephrine (By injection), General Allergic Reaction (ED), Allergy Testing (ED) Additional Instructions: Take your medications as prescribed. If you were prescribed antibiotics today, it is important that you take your medication to their entirety, do not skip any doses, do not finish them early. Follow-up with your primary care provider this week. Return to the emergency department with new or worsening symptoms. Such as fevers, chills, chest pain, shortness of breath, nausea, vomiting, dizziness, headache, vision changes, lethargy In case of emergency call 911 If you use your EpiPen you should seek medical attention immediately after. Please follow-up with an allergy doctor information below. Prescriptions: New diphenhydramine HCl [Benadryl] 25 mg capsule 25 mg PO TID PRN (Reason: allergic reaction) Qty: 20 0RF epinephrine [EpiPen 2-Lee] 0.3 mg/0.3 mL auto-injector 0.3 mg IM Q4H PRN (Reason: anaphylaxis) Qty: 2 0RF prednisone 50 mg tablet 50 mg PO DAILY 5 Days Qty: 5 0RF No Action Ajovy Autoinjector 225 mg/1.5 mL auto-injector 675 mg subcut [id number] 90 Days Qty: 4.5 1RF Rx Instructions: administer as 3 consecutive 225 mg injections zolmitriptan 5 mg tablet 5 mg PO Q2H PRN (Reason: migraine headache) 30 Days Qty: 12 3RF Rx Instructions: do not exceed 2 doses per 24 hrs prednisone 50 mg tablet 50 mg PO DAILY 6 Days Qty: 6 0RF albuterol sulfate 90 mcg/actuation HFA aerosol inhaler 2 puff inhalation Q6H PRN (Reason: shortness of breath or wheezing) Qty: 8.5 0RF albuterol sulfate [Ventolin HFA] 90 mcg/actuation HFA aerosol inhaler 2 puff inhalation Q6H PRN (Reason: shortness of breath or wheezing) Qty: 18 2RF phenazopyridine [Pyridium] 200 mg tablet 200 mg PO TID PRN (Reason: pain) 4 Days Qty: 12 0RF prazosin 2 mg capsule 2 mg PO BEDTIME 90 Days Qty: 90 1RF levothyroxine [Synthroid] 200 mcg tablet 200 mcg PO DAILY 90 Days Qty: 90 1RF clonazepam 1 mg tablet 1 mg PO BEDTIME PRN (Reason: anxiety) 30 Days Qty: 30 0RF Rx Instructions: administer 30 minutes before bedtime tizanidine 4 mg tablet 4 mg PO BID PRN (Reason: for muscle spasm) Qty: 60 1RF mdaoverham-zksajkhclvyao-mxci 50-325-40 mg tablet 1 tab PO BID PRN (Reason: pain) 10 Days Qty: 20 1RF Belsomra 10 mg tablet 10 mg PO BEDTIME 30 Days Qty: 30 2RF carvedilol [Coreg] 3.125 mg tablet 3.125 mg PO BID Qty: 180 1RF Rx Instructions: must administer with a meal/food phenazopyridine [Pyridium] 100 mg tablet 100 mg PO TID PRN (Reason: pain) 4 Days Qty: 12 0RF fluoxetine 20 mg tablet 20 mg PO DAILY 90 Days Qty: 90 2RF alcohol swabs [Alcohol Pads] Pads, Medicated 1 pad topical .TID Qty: 100 0RF (DME) lancets [FreeStyle Lancets] 28 gauge misc See Rx Instructions .Route Qty: 100 0RF Rx Instructions: TID testing (DME) blood-glucose meter [FreeStyle Lite Meter] Kit See Rx Instructions .Route Qty: 1 0RF Rx Instructions: TID testing (DME) FreeStyle Lite Strips Strip See Rx Instructions .Route Qty: 100 0RF Rx Instructions: TID testing nitrofurantoin macrocrystal 100 mg capsule 100 mg PO BID 5 Days Qty: 10 0RF Rx Instructions: must administer with a meal/food amitriptyline 50 mg tablet 50 mg PO BEDTIME Qty: 30 1RF epinephrine 0.3 mg/0.3 mL auto-injector 0.3 mg IM Q10M PRN (Reason: anaphylaxis) Qty: 2 0RF Rx Instructions: for 2 doses acetaminophen 500 mg tablet 500 mg PO Q6H PRN (Reason: fever or pain) Qty: 14 0RF metronidazole 500 mg tablet 500 mg PO TID Qty: 20 0RF magnesium oxide 400 mg (241.3 mg magnesium) tablet 400 mg PO BEDTIME 30 Days Qty: 30 0RF riboflavin (vitamin B2) 400 mg tablet 400 mg PO DAILY 30 Days Qty: 30 6RF rizatriptan 10 mg tablet 5 - 10 mg PO Q2H PRN (Reason: migraine headache) 30 Days Qty: 12 6RF Rx Instructions: max 2 tabs per day or 4 tabs per week ondansetron 4 mg tablet,disintegrating 4 mg PO TID PRN (Reason: nausea and vomiting) Qty: 30 2RF doxycycline monohydrate 100 mg capsule 100 mg PO BID 5 Days Qty: 10 0RF Referrals: [facility] [Outside] - 2 days ED Physician,Generic [Physician] - 2 days Stand Alone Forms: Work/School Release
[2023-02-05] MEDS: Famotidine/PF 20 MG/2 ML VIAL IVPUSH (11:48)
[2023-02-05] MEDS: dexAMETHasone sod phosphate 10 MG/ML VIAL IVPUSH (11:48)
[2023-02-05 13:09] VITALS: BP 113/62; PULSE 73; RESP 14; TEMP 36.9; O2SAT 97
--- NOTE | 2023-02-05 13:39 | PC.NURSE ---
PT WITHOUT AIRWAY INVOLVEMENT , SHE HAS TOLERATED PO INTAKE, REPORTS FEELING TIRED FROM BENADRYL OTHERWISE NO COMPLAINTS
[2023-02-05 14:24] VITALS: BP 115/71; PULSE 75; RESP 15; TEMP 36.7; O2SAT 97
== END 2023-02-05 14:50 | disposition home or self-care (01) ==
PROVIDERS: Emergency Provider Student in an Organized Health Care Education/Training Program; PCP Nurse Practitioner Family
DX: T63.441A Toxic effect of venom of bees, accidental (unintentional), initial encounter (principal); R07.0 Pain in throat; R21 Rash and other nonspecific skin eruption; R06.02 Shortness of breath; Y92.9 Unspecified place or not applicable
CPT/HCPCS: 96374; 96375; 99284; J1100

== ENCOUNTER 2023-02-05 20:47 | Emergency (ER) | payer OTHER, SELFPAY ==
--- NOTE | ~2023-02-05 | XR_ITS ---
EXAMINATION: PORTABLE CHEST 1 VIEW CLINICAL INFORMATION: SOB. COMPARISON: 07/03/2020. TECHNIQUE: Portable frontal view of the chest was obtained. FINDINGS: The lungs are well expanded. No focal infiltrate, effusion, edema, or pneumothorax. Cardiac and mediastinal silhouettes are within normal limits for technique. No acute bony abnormality seen. XR/XR chest 1V IMPRESSION: No evidence of acute disease.
--- NOTE | 2023-02-05 20:55 | ECG_ITS ---
Test Reason : CP Blood Pressure : / mmHG Vent. Rate : 080 BPM Atrial Rate : 080 BPM P-R Int : 148 ms QRS Dur : 086 ms QT Int : 396 ms P-R-T Axes : 053 025 011 degrees QTc Int : 456 ms Normal sinus rhythm Low voltage QRS Borderline ECG When compared with ECG of 04-AUG-2021 19:42, No significant change was found Referred By: Zayra Ye Electronically Signed By:ILDA BEARDEN
[2023-02-05 21:11] VITALS: BP 122/75; BP 134/86; PULSE 86; PULSE 90; RESP 18; TEMP 37.2; O2SAT 96; O2SAT 98; BMI 49.3
[2023-02-05 21:48] LABS: Hematocrit 40.6 % (37.0-47.0); Hemoglobin 14.6 g/dl (12.0-16.0); Mean Corpuscular Volume 86.2 fL (80.0-98.0); Mean Platelet Volume 9.6 fL (9.4-12.3); Platelet Count 387 X10*3/uL (160-400); Red Blood Count 4.71 X10*6/uL (4.20-5.50); Red Cell Distribution Width 12.4 % (11.0-16.0); White Blood Count 11.2 X10*3/uL (4.8-10.8)
[2023-02-05 22:03] LABS: Alanine Aminotransferase 24 U/L (0-31); Albumin Level 4.2 g/dL (3.5-5.0); Alkaline Phosphatase 84 U/L (39-117); Anion Gap 13 (12-20); Aspartate Amino Transferase 16 U/L (5-31); Bilirubin Total 0.3 mg/dL (0.0-1.0); Blood Urea Nitrogen 12 mg/dL (9-16); Carbon Dioxide 21 mmol/L (22-29); Chloride 110 mmol/L (96-108); Creatinine Clr Calc Pharmacy 124.1; Estimated Glomerular Filt Rate > 60; Glucose Random 153 mg/dL (60-115); Potassium 4.3 mmol/L (3.3-5.1); Sodium 140 mmol/L (135-145); Total Protein 6.8 g/dL (6.5-8.0)
[2023-02-05 22:10] LABS: Troponin-I High Sensitivity < 2.7 ng/L (<3.5-17.0)
--- NOTE | 2023-02-05 22:49 | ED.GENADULT ---
HPI - General Adult General Chief complaint: General Medical Stated complaint: chest pain Time Seen by Provider: 02/05/23 21:55 History of Present Illness HPI narrative: Patient is a 33-year-old female with a history borderline diabetes history of palpitation patient had some nonspecific chest pain was seen earlier today for an allergic reaction to bees. Had some tingling sensation to her lips. Patient denies any diaphoresis. Denies any fever chills. Denies any coughing congestion. Denies any abdominal pain nausea vomiting. Denies any rash. Denies any leg swelling. Denies any history of blood clots. Denies any history of being on control pills. No history of traveling. Related Data Previous Rx's Medication Instructions Recorded epinephrine 0.3 mg/0.3 mL 0.3 mg (0.3 mL) IM Q10M PRN 01/05/21 injection, auto-injector anaphylaxis #2 ea magnesium oxide 400 mg (241.3 mg 400 mg PO BEDTIME 30 days #30 tabs 08/27/21 magnesium) tablet riboflavin (vitamin B2) 400 mg 400 mg PO DAILY 30 days #30 tabs 08/27/21 tablet rizatriptan 10 mg tablet 5 - 10 mg (0.5 - 1 x 10 mg) PO Q2H 08/27/21 PRN migraine headache 30 days #12 tabs fremanezumab-vfrm 225 mg/1.5 mL 675 mg (4.5 mL) subcut [id number] 90 12/03/21 subcutaneous auto-injector (Ajovy) days #4.5 mL zolmitriptan 5 mg tablet 5 mg PO Q2H PRN migraine headache 01/01/22 30 days #12 tabs albuterol sulfate 90 mcg/actuation 2 puff inhalation Q6H PRN 03/04/22 aerosol inhaler shortness of breath or wheezing #8.5 grams prednisone 50 mg tablet 50 mg PO DAILY 6 days #6 tabs 03/04/22 Ventolin HFA 90 mcg/actuation 2 puff inhalation Q6H PRN 03/08/22 aerosol inhaler (albuterol sulfate) shortness of breath or wheezing #18 grams phenazopyridine 200 mg tablet 200 mg PO TID PRN pain 4 days #12 05/28/22 (Pyridium) tabs prazosin 2 mg capsule 2 mg PO BEDTIME 90 days #90 caps 09/09/22 clonazepam 1 mg tablet 1 mg PO BEDTIME PRN anxiety 30 11/18/22 days #30 tabs levothyroxine 200 mcg tablet 200 mcg PO DAILY 90 days #90 tabs 11/18/22 (Synthroid) acetaminophen 500 mg tablet 500 mg PO Q6H PRN fever or pain 12/07/22 #14 tabs doxycycline monohydrate 100 mg 100 mg PO BID 5 days #10 caps 12/28/22 capsule ondansetron 4 mg disintegrating 4 mg PO TID PRN nausea and 12/28/22 tablet vomiting #30 tabs metronidazole 500 mg tablet 500 mg PO TID #20 tabs 12/30/22 qplpecphae-bvcibwsbczzkp-gvfpucug 1 tab PO BID PRN pain 10 days #20 01/15/23 50 mg-325 mg-40 mg tablet tabs suvorexant 10 mg tablet (Belsomra) 10 mg PO BEDTIME 30 days #30 tabs 01/15/23 tizanidine 4 mg tablet 4 mg PO BID PRN for muscle spasm 01/15/23 #60 tabs carvedilol 3.125 mg tablet (Coreg) 3.125 mg PO BID #180 tabs 01/16/23 fluoxetine 20 mg tablet 20 mg PO DAILY 90 days #90 tabs 01/17/23 phenazopyridine 100 mg tablet 100 mg PO TID PRN pain 4 days #12 01/17/23 (Pyridium) tabs Alcohol Pads (alcohol swabs) 1 pad topical .TID #100 ea 01/19/23 FreeStyle Lancets 28 gauge #100 ea 01/19/23 (lancets) FreeStyle Lite Meter #1 ea 01/19/23 (blood-glucose meter) FreeStyle Lite Strips (blood sugar #100 ea 01/19/23 diagnostic) nitrofurantoin macrocrystal 100 mg 100 mg PO BID 5 days #10 caps 01/19/23 capsule amitriptyline 50 mg tablet 50 mg PO BEDTIME #30 tabs 01/20/23 diphenhydramine HCl 25 mg capsule 25 mg PO TID PRN allergic reaction 02/05/23 (Benadryl) #20 caps epinephrine 0.3 mg/0.3 mL 0.3 mg (0.3 mL) IM Q4H PRN 02/05/23 injection, auto-injector (EpiPen anaphylaxis #2 ea 2-Lee) prednisone 50 mg tablet 50 mg PO DAILY 5 days #5 tabs 02/05/23 Allergies Allergy/AdvReac Type Severity Reaction Status Date / Time bee pollen [BEE STINGS] Allergy Severe ANAPHYLAXIS Verified 02/05/23 21:28 NSAIDS (Non-Steroidal Allergy Intermediate HIVES Verified 02/05/23 21:28 Anti-Inflamma [NSAIDS (NON-STEROIDAL ANTI-INFLAMMA] Penicillins Allergy Intermediate HIVES Verified 02/05/23 21:28 ibuprofen [From Motrin] Allergy Unknown Hives Verified 02/05/23 21:28 penicillin V Allergy Unknown unknown Verified 02/05/23 21:28 latex [LATEX] AdvReac Intermediate RASH Verified 02/05/23 21:28 sulfamethoxazole AdvReac Hives Verified 02/05/23 21:28 [From Bactrim] trimethoprim [From Bactrim] AdvReac Hives Verified 02/05/23 21:28 From Ortho Tri-Cyclen (21) AdvReac Intermediate DVT (BLOOD Uncoded 02/05/23 21:28 CLOT) Review of Systems Review of Systems: Positive chest pain Yes all other systems are reviewed and are negative PMFSH Past Medical History Attestation statement: The following information was validated with the patient. Medical History Insomnia Hx of papillary thyroid carcinoma Surgical History History of umbilical hernia repair Bilateral carpal tunnel syndrome Hx of cholecystectomy History of tubal ligation History of section History of thyroidectomy Family History Family History Father History of heart attack Mental health disorder Mother Hypothyroidism Sister Anxiety Migraine Low blood pressure Mental health disorder Son Epilepsy Daughter No problems noted. Maternal Grandmother Breast cancer Paternal Grandmother Breast cancer Social History Social History Housing: Apartment Alcohol intake: current Alcohol intake frequency: holidays/special occasions only Patient Tobacco Use Status: Never used Tobacco Smoked in Last 30 Days: No e-Cigarette/Vaping Use: Never Used Second Hand Smoke Exposure: Yes Use of substances other than those prescribed or required for medical reasons: No Advance Directives: No Advance Directives Information Provided: No Patient : No Current occupational status: employed Cognitive needs: No Hearing needs: No Vision needs: No Physical Exam ED Vital Signs: Vital Signs - 24 hr 02/05/23 21:11 Temperature 98.9 F Pulse Rate 86 Respiratory Rate 18 Blood Pressure 122/75 Pulse Oximetry 96 Oxygen Delivery Method Room Air BMI result Body Mass Index 49.3 Appearance: Alert. Oriented X3. No acute distress. Eyes: Pupils equal, round and reactive to light. ENT: Pharynx normal. Neck: Normal inspection. Neck supple. No lymph nodes noted. No crepitus CVS: Normal heart rate and rhythm. Pulses normal. Normal S1 and S2 Respiratory: No respiratory distress. Breath sounds normal. No Wheezing. No rales Abdomen: Soft and nontender. No rigidity. No distention. good BS x4 Skin: Skin warm and dry. Normal skin color. Normal skin turgor. Extremities: No lower extremity edema. Neurovascular intact to all extremities. No Lacerations. No Rash Neuro: Oriented X 3. No motor deficit. No sensory deficit. Moving all extermities. No slurred speech Medical Decision Making Medical Decision Making [facility] Narrative: the patient's chest pain atypical. Cardiac enzymes negative. O2 sat is normal . History and exam not consistent with PE. Symptom has since resolved. Patient given reassurance will have patient follow-up on an outpatient basis Differential Diagnosis Differential Diagnoses: The differential diagnosis associated with the presentation includes chest pain, pneumonia, ACS, PE, pneumothorax Admission/Observation Consideration of admission/observation: Escalation of care including admission/observation considered heart score is less than 3 patient well-appearing will d Lab Data [facility] Lab Attestation statement: I reviewed the patient's lab results. 02/05/23 21:41 02/05/23 21:41 Labs: Lab Results 02/05/23 Range/Units 21:41 WBC 11.2 H (4.8-10.8) X10*3/uL RBC 4.71 (4.20-5.50) X10*6/uL Hgb 14.6 (12.0-16.0) g/dl Hct 40.6 (37.0-47.0) % MCV 86.2 (80.0-98.0) fL MCH 31.0 (27.0-33.0) pg MCHC 36.0 H (31.0-35.0) g/dl RDW 12.4 (11.0-16.0) % Plt Count 387 (160-400) X10*3/uL MPV 9.6 (9.4-12.3) fL Absolute Nucleated RBC 0.000 (0.0-0.012) X10*3/uL Nucleated RBC % (auto) 0.0 (0.0-0.2) /100WBC Sodium 140 (135-145) mmol/L Potassium 4.3 (3.3-5.1) mmol/L Chloride 110 H (96-108) mmol/L Carbon Dioxide 21 L (22-29) mmol/L Anion Gap 13 (12-20) BUN 12 (9-16) mg/dL Creatinine 0.73 (0.5-1.4) mg/dL Estim Creat Clear Calc 124.1 Estimated GFR > 60 Random Glucose 153 H (60-115) mg/dL Calcium 9.0 (8.4-10.2) mg/dL Total Bilirubin 0.3 (0.0-1.0) mg/dL AST 16 (5-31) U/L ALT 24 (0-31) U/L Alkaline Phosphatase 84 (39-117) U/L Troponin I High Sens < 2.7 (<3.5-17.0) ng/L Total Protein 6.8 (6.5-8.0) g/dL Albumin 4.2 (3.5-5.0) g/dL Independent Interpretation I performed an independent interpretation of an: EKG ( sinus heart rate is 80 DC QRS QTC within normal limits there is no acute ST segment elevation noted.) and Plain X-Ray ( The my interpretation patient's chest x-ray showed no focal infiltrates. No pneumothorax) Radiology Impression Discussion of test interpretation with radiology: I have reviewed the radiologist's reading. External Record Review External record reviewed: Inpatient record previous inpatient record review Chronic Conditions Patient?s care impacted by: Diabetes Discharge Plan Discharge Clinical Impression: Chest pain Patient Disposition: Home, Self-Care Instructions: Chest Pain (ED) Prescriptions: No Action Ajovy Autoinjector 225 mg/1.5 mL auto-injector 675 mg subcut [id number] 90 Days Qty: 4.5 1RF Rx Instructions: administer as 3 consecutive 225 mg injections zolmitriptan 5 mg tablet 5 mg PO Q2H PRN (Reason: migraine headache) 30 Days Qty: 12 3RF Rx Instructions: do not exceed 2 doses per 24 hrs prednisone 50 mg tablet 50 mg PO DAILY 6 Days Qty: 6 0RF albuterol sulfate 90 mcg/actuation HFA aerosol inhaler 2 puff inhalation Q6H PRN (Reason: shortness of breath or wheezing) Qty: 8.5 0RF albuterol sulfate [Ventolin HFA] 90 mcg/actuation HFA aerosol inhaler 2 puff inhalation Q6H PRN (Reason: shortness of breath or wheezing) Qty: 18 2RF phenazopyridine [Pyridium] 200 mg tablet 200 mg PO TID PRN (Reason: pain) 4 Days Qty: 12 0RF prazosin 2 mg capsule 2 mg PO BEDTIME 90 Days Qty: 90 1RF levothyroxine [Synthroid] 200 mcg tablet 200 mcg PO DAILY 90 Days Qty: 90 1RF clonazepam 1 mg tablet 1 mg PO BEDTIME PRN (Reason: anxiety) 30 Days Qty: 30 0RF Rx Instructions: administer 30 minutes before bedtime tizanidine 4 mg tablet 4 mg PO BID PRN (Reason: for muscle spasm) Qty: 60 1RF ccxabqbjkq-kuhjjnrihjlmb-ksah 50-325-40 mg tablet 1 tab PO BID PRN (Reason: pain) 10 Days Qty: 20 1RF Belsomra 10 mg tablet 10 mg PO BEDTIME 30 Days Qty: 30 2RF carvedilol [Coreg] 3.125 mg tablet 3.125 mg PO BID Qty: 180 1RF Rx Instructions: must administer with a meal/food phenazopyridine [Pyridium] 100 mg tablet 100 mg PO TID PRN (Reason: pain) 4 Days Qty: 12 0RF fluoxetine 20 mg tablet 20 mg PO DAILY 90 Days Qty: 90 2RF alcohol swabs [Alcohol Pads] Pads, Medicated 1 pad topical .TID Qty: 100 0RF (DME) lancets [FreeStyle Lancets] 28 gauge misc See Rx Instructions .Route Qty: 100 0RF Rx Instructions: TID testing (DME) blood-glucose meter [FreeStyle Lite Meter] Kit See Rx Instructions .Route Qty: 1 0RF Rx Instructions: TID testing (DME) FreeStyle Lite Strips Strip See Rx Instructions .Route Qty: 100 0RF Rx Instructions: TID testing nitrofurantoin macrocrystal 100 mg capsule 100 mg PO BID 5 Days Qty: 10 0RF Rx Instructions: must administer with a meal/food amitriptyline 50 mg tablet 50 mg PO BEDTIME Qty: 30 1RF epinephrine 0.3 mg/0.3 mL auto-injector 0.3 mg IM Q10M PRN (Reason: anaphylaxis) Qty: 2 0RF Rx Instructions: for 2 doses acetaminophen 500 mg tablet 500 mg PO Q6H PRN (Reason: fever or pain) Qty: 14 0RF metronidazole 500 mg tablet 500 mg PO TID Qty: 20 0RF diphenhydramine HCl [Benadryl] 25 mg capsule 25 mg PO TID PRN (Reason: allergic reaction) Qty: 20 0RF epinephrine [EpiPen 2-Lee] 0.3 mg/0.3 mL auto-injector 0.3 mg IM Q4H PRN (Reason: anaphylaxis) Qty: 2 0RF prednisone 50 mg tablet 50 mg PO DAILY 5 Days Qty: 5 0RF magnesium oxide 400 mg (241.3 mg magnesium) tablet 400 mg PO BEDTIME 30 Days Qty: 30 0RF riboflavin (vitamin B2) 400 mg tablet 400 mg PO DAILY 30 Days Qty: 30 6RF rizatriptan 10 mg tablet 5 - 10 mg PO Q2H PRN (Reason: migraine headache) 30 Days Qty: 12 6RF Rx Instructions: max 2 tabs per day or 4 tabs per week ondansetron 4 mg tablet,disintegrating 4 mg PO TID PRN (Reason: nausea and vomiting) Qty: 30 2RF doxycycline monohydrate 100 mg capsule 100 mg PO BID 5 Days Qty: 10 0RF Referrals: Elan Terry, [employer] [Primary Care Provider] - 02/07/23
== END 2023-02-05 23:02 | disposition home or self-care (01) ==
PROVIDERS: Emergency Provider Emergency Medicine Emergency Medical Services; PCP Nurse Practitioner Family
DX: R07.9 Chest pain, unspecified (principal); Z79.899 Other long term (current) drug therapy
CPT/HCPCS: 36415; 71045; 80053; 84484; 85027; 93005; 99284

== ENCOUNTER 2023-02-08 09:10 | Emergency (ER) | payer OTHER, SELFPAY ==
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
[2023-02-08 09:16] VITALS: BP 110/70; PULSE 87; RESP 18; TEMP 36.7; O2SAT 97; BMI 49.0
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
[2023-02-08] MEDS: Cyclobenzaprine HCl 10 MG TABLET PO (10:59)
[2023-02-08] MEDS: Lidocaine 4 % Patch ADH..PATCH 1 PATCH TRANSDERMA (10:59)
--- NOTE | 2023-02-08 11:03 | PC.NURSE ---
Re: late admin of lido 4% patch and flexeril 10mg: this nurse assumed care of pt at 1057- med administered for 8/10 mid back and left arm pain
== END 2023-02-08 11:06 | disposition home or self-care (01) ==
PROVIDERS: Emergency Provider Emergency Medicine; PCP Nurse Practitioner Family
DX: Z04.1 Encounter for examination and observation following transport accident (principal); M54.50 Low back pain, unspecified; M79.632 Pain in left forearm
CPT/HCPCS: 72100; 73090; 99283

== ENCOUNTER 2023-02-22 07:35 | Outpatient (AMB) | payer OTHER, SELFPAY ==
[2023-02-22 07:56] VITALS: BP 100/68; PULSE 96; O2SAT 97; BMI 49.6
--- NOTE | 2023-02-22 07:56 | MHC.PC.OV ---
Vital Signs 02/22/23 07:56 Height 5 ft Weight 254 lb 4 oz BMI 49.6 BP 100/68 Blood Pressure Location Rt brachial Position Sitting Pulse 96 Pulse Source Pulse Oximeter Pulse Oximetry (%) 97 Oxygen Delivery Method Room Air Intake Visit Reasons: PE Allergies bee pollen [BEE STINGS] Allergy (Severe, Verified 02/22/23 12:32) ANAPHYLAXIS NSAIDS (Non-Steroidal Anti-Inflamma [NSAIDS (NON-STEROIDAL ANTI-INFLAMMA] Allergy (Intermediate, Verified 02/22/23 12:32) HIVES Penicillins Allergy (Intermediate, Verified 02/22/23 12:32) HIVES ibuprofen [From Motrin] Allergy (Unknown, Verified 02/22/23 12:32) Hives penicillin V Allergy (Unknown, Verified 02/22/23 12:32) unknown latex [LATEX] Adverse Reaction (Intermediate, Verified 02/22/23 12:32) RASH sulfamethoxazole [From Bactrim] Adverse Reaction (Verified 02/22/23 12:32) Hives trimethoprim [From Bactrim] Adverse Reaction (Verified 02/22/23 12:32) Hives From Ortho Tri-Cyclen (21) Adverse Reaction (Intermediate, Uncoded 02/22/23 12:32) DVT (BLOOD CLOT) Medication List - Last Reconciled 02/22/23 by CARLOTA Harrell- acetaminophen 500 mg PO Q6H PRN acetaminophen (Tylenol Extra Strength) 500 mg PO Q6H PRN Alcohol Pads (alcohol swabs) 1 pad topical .TID NS amitriptyline 50 mg PO DAILY 90 days dtjtexvffe-xzazdevpbakxp-glth 50-325-40 mg 1 tab PO BID PRN 10 days carvedilol (Coreg) 3.125 mg PO BID clonazepam 1 mg PO BID PRN 30 days diphenhydramine HCl (Benadryl) 25 mg PO TID PRN epinephrine (EpiPen 2-Lee) 0.3 mg (0.3 mL) IM Q4H PRN fluoxetine 20 mg PO DAILY 90 days FreeStyle Lancets (lancets) TID testing NS FreeStyle Lite Meter (blood-glucose meter) TID testing NS FreeStyle Lite Strips (blood sugar diagnostic) TID testing NS levothyroxine (Synthroid) 200 mcg PO DAILY 90 days lidocaine 5% (Lidoderm) 1 patch topical DAILY PRN MDD remove after 12 hours Tobacco use date assessed: 02/22/23 Dental Screening Dental Screen Date: 02/22/23 Did you have a dental visit in the last 12 months?: No Did you have a dental problem in the last 6 months where you did not have access to dental care?: No Was dental information given to patient?: Patient has dentist HPI PE HPI Details Pt is here for a PE. 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 Will order labs. Pt is a newly-diagnosed diabetic, last A1C was 5.2. Due for microalbumin, will order. Denies polyuria, polydipsia, and neuropathy. Pt denies any signs and symptoms of hypoglycemia and does know how to correct it. She has been working on her diet. Pt will schedule her own eye exam. Will start atorvastatin 10mg. Pt is interested in a glucose sensor/transmitter. Will work on this. Will not start KAIA/ARB due to low blood pressure. low tsh recently, will recheck [facility] Medical History Insomnia Hx of papillary thyroid carcinoma Surgical History History of umbilical hernia repair Bilateral carpal tunnel syndrome Hx of cholecystectomy History of tubal ligation History of section History of thyroidectomy Family History Father History of heart attack Mental health disorder Mother Hypothyroidism Sister Anxiety Migraine Low blood pressure Mental health disorder Son Epilepsy Daughter No problems noted. Maternal Grandmother Breast cancer Paternal Grandmother Breast cancer Social History Housing: Apartment Alcohol intake: current Alcohol intake frequency: holidays/special occasions only Patient Tobacco Use Status: Never used Tobacco e-Cigarette/Vaping Use: Never Used Second Hand Smoke Exposure: Yes Current occupational status: employed Cognitive needs: No Hearing needs: No Vision needs: No Questionnaire Thrive Questionnaire Date Thrive assessed: 09/08/21 LISSETH-7 AMB Questionnaire LISSETH-7 Date LISSETH - 7 assessed: 09/08/21 Source: Developed by Drs. Keven Salas, Christina Lake, Jeffrey Landis and colleagues, with an educational carlos from [employer]. Review of Systems Const Denies chills and Denies fever(s) Eyes Denies blurry vision ENT Denies vertigo, Denies dizziness and Denies sore throat Card Denies chest pain at rest, Denies chest pain with activity, Denies diaphoresis, Denies dyspnea and Denies dyspnea on exertion Resp Denies cough, Denies dyspnea, Denies dyspnea on exertion and Denies wheezing GI Denies abdominal pain, Denies melena, Denies hematochezia, Denies constipation, Denies diarrhea and Denies loose stools Denies hematuria Musc Denies numbness and Denies tingling Skin/Breast Denies lesions Neuro Denies vertigo, Denies dizziness, Denies numbness and Denies tingling Psych Denies anxiety, Denies depression, Denies homicidal ideation, Denies suicidal ideation and Denies other (substance abuse) Aller/Immun Denies wheezing Physical exam (Primary Care) Vital Signs: Last Vital Signs Pulse 96 02/22/23 07:56 BP 100/68 02/22/23 07:56 Pulse Ox 97 02/22/23 07:56 Oxygen Delivery Method Room Air 02/22/23 07:56 BMI result Body Mass Index 49.6 Tobacco/Smoking Status: Tobacco use Status Tobacco use date assessed 02/22/23 02/22/23 08:04 Patient Tobacco Use Status Never used Tobacco 02/22/23 08:04 e-Cigarette/Vaping Use Never Used 02/22/23 08:04 Thrive Assessment: Date of Thrive Assessment Date Thrive assessed 09/08/21 02/22/23 08:04 Const General: cooperative Nutritional Appearance: obese morbidly obese Orientation/consciousness: patient oriented x3 HENMT Head: Yes normal to inspection, Yes normocephalic and Yes atraumatic Ears: TM's normal bilaterally Eyes General: appearance normal, both eyes and all related structures Alignment and Position: alignment normal and position normal Neck Neck: Yes normal visual inspection and Yes no lymphadenopathy Thyroid: Thyroid normal Resp Effort & Inspection: normal respiratory effort Auscultation: clear to auscultation bilaterally Cardio Rate: regular rate Rhythm: regular rhythm Heart sounds: S1 normal heart sound present, S2 normal heart sound present and no murmurs GI Palpation (GI): Soft to palpation and nontender Auscultation: normal bowel sounds Skin Other: vitiligo noted throughout Rashes: no rashes Neuro General: patient oriented x3, moves all extremities, no focal motor deficits and deep tendon reflexes 2+ bilaterally Romberg Test: Negative Extrem Other: bilat feet: + sensation with use of monofilament, feet intact without lesions, onychomycosis noted to left big toenail Psych Appearance: grossly normal Mental Status: mental status grossly normal Speech and movement: Normal speech and movement present Affect: normal affect Attitude: cooperative Thought process: Normal thought process present Thought content: Normal thought content present Insight: Good insight present (Psych) Judgement: Good judgement present (Psych) Assessment and Plan Assessment & Plan (1) Newly diagnosed diabetes: Code(s): E11.9 - Type 2 diabetes mellitus without complications Plan: Labs ordered (2) Low TSH level: Code(s): R79.89 - Other specified abnormal findings of blood chemistry Plan: Labs ordered Plan The patient agreed to the use of a medical lab director for this encounter. Scribed for CARLOTA Ascencio-BC by Maryan Angela medical lab director, on 02/22/2023 at 08:05 EST Orders: Orders UA CC w/rflx Micro + Cult Today E11.9 - Type 2 diabetes mellitus without complications, R79.89 - Other specified abnormal findings of blood chemistry Complete Blood Count Auto Diff Today E11.9 - Type 2 diabetes mellitus without complications, R79.89 - Other specified abnormal findings of blood chemistry Comprehensive Met. Panel Today E11.9 - Type 2 diabetes mellitus without complications, R79.89 - Other specified abnormal findings of blood chemistry TSH reflex Free T4 Today E11.9 - Type 2 diabetes mellitus without complications, R79.89 - Other specified abnormal findings of blood chemistry Medications: New atorvastatin 10 mg PO BEDTIME 90 tabs 0RF Coding Level of Care Code Est Pt Prev Care 18-39y(39556) Diagnoses Newly diagnosed diabetes E11.9 Low TSH level R79.89
== END 2023-02-22 08:35 | disposition home or self-care (01) ==
PROVIDERS: Visit Provider Nurse Practitioner Family
DX: Z00.00 Encounter for general adult medical examination without abnormal findings (principal); E11.9 Type 2 diabetes mellitus without complications; R79.89 Other specified abnormal findings of blood chemistry
CPT/HCPCS: 99395

== ENCOUNTER 2023-03-15 11:34 | Outpatient (REF) | payer OTHER, SELFPAY ==
[2023-03-15 13:29] LABS: Appearance Urine Cloudy; Color Urine Yellow; Glucose Urine UA Negative (Negative); Leukocyte Esterase Urine Large (3+) (Negative); Nitrite Urine Negative (Negative); PH 5.5 (5.0-9.0); UMIC TRIGGER UACC YES; Urine Blood Trace (Negative); Urine Ketones Negative (Negative); Urine Protein Negative (Neg-Trace)
[2023-03-15 13:34] LABS: MANUAL DIFF FLAG NO
[2023-03-15 13:38] LABS: Bacteria Urine None Seen (None Seen); Hyaline Casts Urine 0-2 /LPF (0-2); RBC Urine 0-2 /HPF (0-2); UACC Culture Trigger YES; WBC Urine >50 /HPF (0-5)
[2023-03-15 13:53] LABS: Basophils Percent Auto 0.3 % (0-2); Eosinophils Absolute Auto 0.2 X10*3/uL (0.0-0.4); Eosinophils Percent Auto 1.9 % (0-4); Hematocrit 42.2 % (37.0-47.0); Hemoglobin 14.6 g/dl (12.0-16.0); Imm Gran Abs Auto 0.05 X10*3/uL (0.00-0.03); Imm Gran Pct Auto 0.6 % (0.0-0.4); Lymphocytes Absolute Auto 2.4 X10*3/uL (1.2-4.9); Lymphocytes Percent Auto 26.8 % (20-40); Mean Corpuscular HGB Conc 34.6 g/dl (31.0-35.0); Mean Corpuscular Hemoglobin 30.4 pg (27.0-33.0); Mean Corpuscular Volume 87.9 fL (80.0-98.0); Mean Platelet Volume 9.5 fL (9.4-12.3); Monocytes Absolute Auto 0.7 X10*3/uL (0.1-1.2); Monocytes Percent Auto 7.7 % (2-11); Neutrophils Absolute Auto 5.6 x10*3/uL (2.0-8.3); Neutrophils Percent Auto 62.7 % (45-73); Platelet Count 392 X10*3/uL (160-400); Red Cell Distribution Width 12.2 % (11.0-16.0); White Blood Count 8.9 X10*3/uL (4.8-10.8)
[2023-03-15 14:36] LABS: Alanine Aminotransferase 26 U/L (0-31); Albumin Level 4.4 g/dL (3.5-5.0); Alkaline Phosphatase 99 U/L (39-117); Anion Gap 13 (12-20); Aspartate Amino Transferase 19 U/L (5-31); Bilirubin Total 0.4 mg/dL (0.0-1.0); Blood Urea Nitrogen 11 mg/dL (9-16); Calcium 9.5 mg/dL (8.4-10.2); Carbon Dioxide 28 mmol/L (22-29); Chloride 103 mmol/L (96-108); Estimated Glomerular Filt Rate > 60; Glucose Random 121 mg/dL (60-115); Iron 80 mcg/dL (30-160); Percent Iron Saturation 28 % (15-50); Potassium 3.9 mmol/L (3.3-5.1); Sodium 140 mmol/L (135-145); Total Iron Binding Capacity 282 mcg/dL (228-428); Total Protein 7.1 g/dL (6.5-8.0); Unsaturated Iron Binding 202 ug/dL
[2023-03-15 14:44] LABS: Folate 11.6 ng/mL (> or = 4.0); Vitamin B12 < 148 pg/mL (200-900)
[2023-03-15 14:54] LABS: Ferritin 104 ng/mL (10-122); TSH reflex Free T4 0.32 uIU/mL (0.32-4.0)
== END 2023-03-15 11:35 | disposition home or self-care (01) ==
LOC: HO.HMGCLDS 11:34
PROVIDERS: PCP Nurse Practitioner Family; Visit Provider Nurse Practitioner Family
DX: R94.6 Abnormal results of thyroid function studies (principal)
CPT/HCPCS: 36415; 80053; 81001; 82607; 82728; 82746; 83540; 84443; 85025; 87086

== ENCOUNTER 2023-06-08 08:12 | Outpatient (AMB) | payer OTHER, SELFPAY ==
--- NOTE | 2023-06-08 08:20 | MHC.PC.OV ---
Vital Signs 06/08/23 08:23 Height 5 ft Weight 259 lb BMI 50.6 BP 114/78 Blood Pressure Location Rt brachial Position Sitting Pulse 78 Pulse Source Pulse Oximeter Pulse Oximetry (%) 98 Oxygen Delivery Method Room Air Intake Visit Reasons: 3 month fu Intake Note: Patient here for diabetes F/U. Pt states sugars at home have been fine . would like to talk about feet turning blue Allergies bee pollen [BEE STINGS] Allergy (Severe, Verified 06/08/23 08:24) ANAPHYLAXIS NSAIDS (Non-Steroidal Anti-Inflamma [NSAIDS (NON-STEROIDAL ANTI-INFLAMMA] Allergy (Intermediate, Verified 06/08/23 08:24) HIVES Penicillins Allergy (Intermediate, Verified 06/08/23 08:24) HIVES ibuprofen [From Motrin] Allergy (Unknown, Verified 06/08/23 08:24) Hives penicillin V Allergy (Unknown, Verified 06/08/23 08:24) unknown latex [LATEX] Adverse Reaction (Intermediate, Verified 06/08/23 08:24) RASH sulfamethoxazole [From Bactrim] Adverse Reaction (Verified 06/08/23 08:24) Hives trimethoprim [From Bactrim] Adverse Reaction (Verified 06/08/23 08:24) Hives From Ortho Tri-Cyclen (21) Adverse Reaction (Intermediate, Uncoded 06/08/23 08:24) DVT (BLOOD CLOT) Medication List - Last Reconciled 06/08/23 by CARLOTA Harrell- acetaminophen (Tylenol Extra Strength) 500 mg PO Q6H PRN Alcohol Pads (alcohol swabs) 1 pad topical .TID NS amitriptyline 50 mg PO DAILY 90 days atorvastatin 10 mg PO BEDTIME pyknfwdqfc-kmqhqzatoeeoq-gzgy 50-325-40 mg 1 tab PO BID PRN 10 days carvedilol (Coreg) 3.125 mg PO BID clonazepam 1 mg PO BID PRN 30 days cyanocobalamin (vitamin B-12) 1,000 mcg IM QWEEK 4 weeks diphenhydramine HCl (Benadryl) 25 mg PO TID PRN epinephrine (EpiPen 2-Lee) 0.3 mg (0.3 mL) IM Q4H PRN fluoxetine 20 mg PO DAILY 90 days FreeStyle Lancets (lancets) TID testing NS FreeStyle Lite Meter (blood-glucose meter) TID testing NS FreeStyle Lite Strips (blood sugar diagnostic) TID testing NS levothyroxine (Synthroid) 200 mcg PO DAILY 90 days lidocaine 5% (Lidoderm) 1 patch topical DAILY PRN MDD remove after 12 hours syringe with needle (BD SafetyGlide Syringe) As directed to injection B-12 weekly tizanidine 4 mg PO BID PRN 90 days Tobacco use date assessed: 06/08/23 Dental Screening Dental Screen Date: 06/08/23 Did you have a dental visit in the last 12 months?: Yes Did you have a dental problem in the last 6 months where you did not have access to dental care?: No Was dental information given to patient?: Patient has dentist HPI 3 month fu HPI Details Pt is a diabetic, on a statin. A1C in office today is 5.8. Due for microalbumin, will order. Denies polyuria, polydipsia, and neuropathy. Pt denies any signs and symptoms of hypoglycemia and does know how to correct it. Pt reports that her blood sugar has been under 200. Pt has a B12 deficiency. She is receiving injections at home. Will order labs (repeat b12 with intrinsic/paretial cell Ab). Pt c/o left foot pain (mostly to heal). She is wearing unsupportive footwear, highly recommend she starts wearing sneakers. Will order XR, recommended looking up [employer] on you tube for exercises. [facility] Medical History Insomnia Hx of papillary thyroid carcinoma Surgical History History of umbilical hernia repair Bilateral carpal tunnel syndrome Hx of cholecystectomy History of tubal ligation History of section History of thyroidectomy Family History Father History of heart attack Mental health disorder Mother Hypothyroidism Sister Anxiety Migraine Low blood pressure Mental health disorder Son Epilepsy Daughter No problems noted. Maternal Grandmother Breast cancer Paternal Grandmother Breast cancer Social History Housing: Apartment Alcohol intake: current Alcohol intake frequency: holidays/special occasions only Patient Tobacco Use Status: Never used Tobacco e-Cigarette/Vaping Use: Never Used Second Hand Smoke Exposure: Yes Current occupational status: employed Cognitive needs: No Hearing needs: No Vision needs: Yes Questionnaire PHQ-9 Over the last 2 weeks, how often have you been bothered by any of the following problems? 54115 - PHQ-9 Billing: Patient declined-do not bill Source: Developed by Drs. Keven Salas, Christina Lake, Jeffrey Landis and colleagues, with an educational carlos from [employer]. Thrive Questionnaire Date Thrive assessed: 06/08/23 What is your living situation today?: I choose not to answer this question Within the past 12 months, did the food you bought not last and you didn't have the money to get more?: I choose not to answer this question Within the past 12 months, did you worry whether your food would run out before you got money to buy more?: I choose not to answer this question Do you have trouble paying for medicines?: I choose not to answer this question Do you have trouble getting transportation to medical appointments?: I choose not to answer this question Do you have trouble paying your heating and electricity bill?: I choose not to answer this question Do you have trouble taking care of your child, family member or friend?: I choose not to answer this question Do you have trouble with day-to-day activities such as bathing, preparing meals, shopping, managing finances, etc.?: I choose not to answer this question Are you currently unemployed and looking for a job?: I choose not to answer this question Are you interested in more education?: I choose not to answer this question LISSETH-7 AMB Questionnaire LISSETH-7 Date LISSETH - 7 assessed: 06/08/23 Source: Developed by Drs. Keven Salas, Christina Lake, Jeffrey Landis and colleagues, with an educational carlos from [employer]. LISSETH-7 Assessment Billing LISSETH-7 Assessment Tool: pt declined-do not bill Review of Systems Const Reports as per HPI Physical exam (Primary Care) Vital Signs: Last Vital Signs Pulse 78 06/08/23 08:23 BP 114/78 06/08/23 08:23 Pulse Ox 98 06/08/23 08:23 Oxygen Delivery Method Room Air 06/08/23 08:23 BMI result Body Mass Index 50.6 Tobacco/Smoking Status: Tobacco use Status Tobacco use date assessed 06/08/23 06/08/23 08:30 Patient Tobacco Use Status Never used Tobacco 06/08/23 08:22 e-Cigarette/Vaping Use Never Used 06/08/23 08:22 Thrive Assessment: Date of Thrive Assessment Date Thrive assessed 06/08/23 06/08/23 08:35 Const General: cooperative Nutritional Appearance: obese morbidly obese Orientation/consciousness: patient oriented x3 Resp Effort & Inspection: normal respiratory effort Auscultation: clear to auscultation bilaterally Cardio Rate: regular rate Rhythm: regular rhythm Heart sounds: S1 normal heart sound present and S2 normal heart sound present Neuro General: patient oriented x3 Extrem Other: left foot lack of sensation with use of monofilament, pain noted with dorsi flexion of toes and palpation of heel, right foot + sensation, weak DP bilat Psych Appearance: grossly normal Mental Status: mental status grossly normal Speech and movement: Normal speech and movement present Affect: normal affect Attitude: cooperative Thought process: Normal thought process present Thought content: Normal thought content present Insight: Good insight present (Psych) Judgement: Good judgement present (Psych) Results AMB Hemoglobin A1c AMB Hemoglobin A1c 5.8 % Last Edit by TOSHIA Calvillo on 06/08/23 08:59 Results Reviewed Results Reviewed: Laboratory Last Values Hgb A1c (Clinic) 5.8 % (4.0-6.0) 06/08/23 08:58 Assessment and Plan Assessment & Plan (1) B12 deficiency: Code(s): E53.8 - Deficiency of other specified B group vitamins Plan: Labs ordered (2) Intractable left heel pain: Code(s): M79.672 - Pain in left foot Plan: XR ordered exercises (3) Newly diagnosed diabetes: Code(s): E11.9 - Type 2 diabetes mellitus without complications Plan: continue working on diet, DM stable currently Plan The patient agreed to the use of a director biomedical engineering for this encounter. Scribed for UMBERTO Ascencio by Maryan Angela director biomedical engineering, on 06/08/2023 at 08:40 EST. Orders: Orders Transglutaminase IgA Today E53.8 - Deficiency of other specified B group vitamins Microalbumin, Random (w Creat) Today E11.9 - Type 2 diabetes mellitus without complications Vitamin B12 and Folate Today E53.8 - Deficiency of other specified B group vitamins Endomysial IgA rflx Titer Today E53.8 - Deficiency of other specified B group vitamins XR foot LT 2V Today M79.672 - Pain in left foot AMB Hemoglobin A1c Today Z13.9 - Encounter for screening, unspecified Medications: Refilled cyanocobalamin (vitamin B-12) 1,000 mcg IM QWEEK 4 mL 3RF 4 weeks Coding Level of Care Code Est Pt Level 3 ([id number]) Diagnoses B12 deficiency E53.8 Intractable left heel pain M79.672 Newly diagnosed diabetes E11.9
[2023-06-08 08:23] VITALS: BP 114/78; PULSE 78; O2SAT 98; BMI 50.6
== END 2023-06-08 09:26 | disposition home or self-care (01) ==
PROVIDERS: PCP Nurse Practitioner Family; Visit Provider Nurse Practitioner Family
DX: E11.9 Type 2 diabetes mellitus without complications (principal); M79.672 Pain in left foot; E53.8 Deficiency of other specified B group vitamins
CPT/HCPCS: 83036; 99213

== ENCOUNTER 2023-08-02 10:17 | Observation (INO) | payer OTHER, SELFPAY ==
[2023-08-02] VITALS (7 sets, daily range): BP systolic 104–118; BP diastolic 73–82; PULSE 79–110; RESP 14–21; TEMP 36.9; O2SAT 90–98; BMI 44.9
--- NOTE | ~2023-08-02 | XR_ITS ---
EXAMINATION: XR CHEST CLINICAL INFORMATION: Shortness of breath COMPARISON: 02/05/2023 TECHNIQUE: Frontal view of the chest was obtained. FINDINGS: No significant abnormality is noted involving the heart, lungs, mediastinum, bony thorax or soft tissues. XR/XR chest 1V IMPRESSION: Unremarkable examination with no interval change.
[2023-08-02 10:56] LABS: MANUAL DIFF FLAG NO
[2023-08-02 10:57] LABS: Basophils Percent Auto 0.4 % (0-2); Eosinophils Absolute Auto 0.1 X10*3/uL (0.0-0.4); Hematocrit 37.8 % (37.0-47.0); Hemoglobin 13.3 g/dl (12.0-16.0); Imm Gran Abs Auto 0.03 X10*3/uL (0.00-0.03); Imm Gran Pct Auto 0.4 % (0.0-0.4); Lymphocytes Percent Auto 23.9 % (20-40); Mean Corpuscular HGB Conc 35.2 g/dl (31.0-35.0); Mean Corpuscular Hemoglobin 29.6 pg (27.0-33.0); Mean Corpuscular Volume 84.2 fL (80.0-98.0); Mean Platelet Volume 9.4 fL (9.4-12.3); Monocytes Absolute Auto 0.5 X10*3/uL (0.1-1.2); Monocytes Percent Auto 6.1 % (2-11); Neutrophils Absolute Auto 5.7 x10*3/uL (2.0-8.3); Neutrophils Percent Auto 68.2 % (45-73); Platelet Count 328 X10*3/uL (160-400); Red Blood Count 4.49 X10*6/uL (4.20-5.50); Red Cell Distribution Width 11.4 % (11.0-16.0); White Blood Count 8.4 X10*3/uL (4.8-10.8)
--- NOTE | 2023-08-02 11:00 | ED_ITS ---
HPI - SOB/Dyspnea General Chief Complaint: Dyspnea Stated Complaint: LOW ABD PAIN,N/V,NO BM X4 DAYS PER EMS Time Seen by Provider: 08/02/23 10:42 Source: patient and EMS Mode of arrival: EMS Limitations: no limitations History of Present Illness HPI Narrative: This is a 33-year-old female history of obesity, migraine with aura, fibromyalgia, diabetes, atrial fibrillation, presenting to the emergency department from work with complaints of shortness of breath, wheezing, fatigue, malaise, dry cough ongoing for the past week. Patient feels like it has been worsening over the past day. Initially thought this was just asthma however this feels different and is not going away. No known sick contacts. Patient was given Solu-Medrol, 100 of IV fluids and DuoNeb prior to arrival she was saturating 90% on room air is now on 3 L on arrival. Patient denies chest pain, fevers, chills, nausea, vomiting, diarrhea, abdominal pain, headache, vision changes, dizziness and weakness Related Data Previous Rx's Medication Instructions Recorded Alcohol Pads (alcohol swabs) 1 pad topical .TID #100 ea 01/19/23 FreeStyle Lite Meter #1 ea 01/19/23 (blood-glucose meter) diphenhydramine HCl 25 mg capsule 25 mg PO TID PRN allergic reaction 02/05/23 (Benadryl) #20 caps epinephrine 0.3 mg/0.3 mL 0.3 mg (0.3 mL) IM Q4H PRN 02/05/23 injection, auto-injector (EpiPen anaphylaxis #2 ea 2-Ele) acetaminophen 500 mg tablet 500 mg PO Q6H PRN fever or pain 02/08/23 (Tylenol Extra Strength) #14 tabs lidocaine 5 % topical patch 1 patch topical DAILY PRN pain #30 02/08/23 (Lidoderm) ea FreeStyle Lite Strips (blood sugar #100 ea 02/16/23 diagnostic) FreeStyle Lancets 28 gauge #300 ea 04/06/23 (lancets) atorvastatin 10 mg tablet 10 mg PO BEDTIME #90 tabs 04/06/23 bloisxngto-ruiheyeqowbbg-dxjaiysq 1 tab PO BID PRN pain 10 days #20 04/26/23 50 mg-325 mg-40 mg tablet tabs clonazepam 1 mg tablet 1 mg PO BID PRN anxiety 30 days 04/26/23 #60 tabs syringe with needle 3 mL 23 x 1 #50 ea 04/26/23 (BD SafetyGlide Syringe) tizanidine 4 mg capsule 4 mg PO BID PRN muscle spasticity 04/26/23 90 days #180 caps cyanocobalamin (vitamin B-12) 1,000 mcg IM .Q month 3 months #10 06/17/23 1,000 mcg/mL injection solution mL levothyroxine 200 mcg tablet 200 mcg PO DAILY 90 days #90 tabs 07/17/23 (Synthroid) amitriptyline 50 mg tablet 50 mg PO DAILY 90 days #90 tabs 07/25/23 carvedilol 3.125 mg tablet (Coreg) 3.125 mg PO BID #180 tabs 07/25/23 fluoxetine 20 mg tablet 20 mg PO DAILY 90 days #90 tabs 07/25/23 Allergies Allergy/AdvReac Type Severity Reaction Status Date / Time bee pollen [BEE STINGS] Allergy Severe ANAPHYLAXIS Verified 06/08/23 08:24 NSAIDS (Non-Steroidal Allergy Intermediate HIVES Verified 06/08/23 08:24 Anti-Inflamma [NSAIDS (NON-STEROIDAL ANTI-INFLAMMA] Penicillins Allergy Intermediate HIVES Verified 06/08/23 08:24 ibuprofen [From Motrin] Allergy Unknown Hives Verified 06/08/23 08:24 penicillin V Allergy Unknown unknown Verified 06/08/23 08:24 latex [LATEX] AdvReac Intermediate RASH Verified 06/08/23 08:24 sulfamethoxazole AdvReac Hives Verified 06/08/23 08:24 [From Bactrim] trimethoprim [From Bactrim] AdvReac Hives Verified 06/08/23 08:24 From Ortho Tri-Cyclen (21) AdvReac Intermediate DVT (BLOOD Uncoded 06/08/23 08:24 CLOT) Review of Systems 2 Review of Systems: Yes all other systems are reviewed and are negative PMFSH Past Medical History Attestation statement: The following information was validated with the patient. Source: old records reviewed and nursing notes reviewed Medical History Insomnia Hx of papillary thyroid carcinoma Surgical History History of umbilical hernia repair Bilateral carpal tunnel syndrome Hx of cholecystectomy History of tubal ligation History of section History of thyroidectomy Family History Family History Father History of heart attack Mental health disorder Mother Hypothyroidism Sister Anxiety Migraine Low blood pressure Mental health disorder Son Epilepsy Daughter No problems noted. Maternal Grandmother Breast cancer Paternal Grandmother Breast cancer Social History Social History Housing: Apartment Alcohol intake: current Alcohol intake frequency: holidays/special occasions only Patient Tobacco Use Status: Never used Tobacco e-Cigarette/Vaping Use: Never Used Second Hand Smoke Exposure: Yes Advance Directives: No Advance Directives Information Provided: Yes Current occupational status: employed Cognitive needs: No Hearing needs: No Vision needs: Yes Physical Exam 2 Vital Signs: Vital Signs: Last Vital Signs Temp 98.5 F 08/02/23 10:37 Pulse 94 08/02/23 12:50 Resp 17 08/02/23 12:50 BP 104/82 08/02/23 10:37 Pulse Ox 94 08/02/23 12:55 O2 Del Method Room Air 08/02/23 12:55 Oxygen Flow Rate 2 08/02/23 10:37 BMI result Body Mass Index 44.9 vss Appearance: Alert.? Oriented X3.? No acute distress.? Head: Normocephalic, atraumatic, no step-offs or deformities Eyes: Pupils equal, round and reactive to light.? CVS: Normal heart rate and rhythm.? Pulses normal.? Respiratory: No respiratory distress.? Breath sounds normal.? Abdomen: Soft and nontender.? Skin: Skin warm and dry.? Normal skin color.? Normal skin turgor.? Extremities: No lower extremity edema.? No calf ttp. 5/5 strength to bilateral upper and lower extremities Back: No midline tenderness, no C-spine tenderness, full range of motion, no CVA tenderness bilaterally Neuro: Oriented X 3.? No motor deficit.? No sensory deficit. CN 2-12 intact Course Reevaluation(s) Reevaluation #1: Patient's CBC unremarkable. Chemistry no acute findings requiring intervention. Influenza, RSV and COVID negative. Time: 11:00 Reevaluation #2: Chest x-ray unremarkable. Patient did have an ambulatory trial patient went from 96% on room air to 92% with ambulation. Time: 12:40 Reevaluation #3: I did go in to re-evaluate patient she still tells me she is having significant discomfort with breathing, still having wheezing bilateral lung morrissey. She is 90% on room air. Time: 13:32 Medications Administered Discontinued Medications Generic Name Dose Route Start Last Admin Trade Name Bernadette PRN Reason Stop Dose Admin Albuterol Sulfate 2.5 mg 08/02/23 12:44 08/02/23 12:50 Albuterol Sulfate (0.083%) 2.5 Mg/3 Ml Vial.Neb INHALE 08/02/23 12:45 2.5 mg ONCE ONE Administration Albuterol Sulfate 2.5 mg/ 0 mg 08/02/23 11:50 08/02/23 11:55 Albuterol/Ipratropium 3 ml INHALE 08/02/23 11:51 5 dose ONCE ONE Administration Magnesium Sulfate 2 gm in 50 mls @ 25 mls/hr 08/02/23 11:09 08/02/23 11:36 Magnesium Sulfate/H2o IV 08/02/23 13:08 25 mls/hr ONCE ONE Administration Medical Decision Making Medical Decision Making [facility] Narrative: 1103 33 year old female presents w/ uri sx X 1 week PE wheezing on expiration b/l. Hx and pe concerning for asthma versus COPD versus viral illness. Unlikely pneumonia, PE, ACS, dissection, pneumothorax. Plan at this time viral test, x-ray, basic labs. Differential Diagnosis Differential Diagnoses: The differential diagnosis associated with the presentation includes Hx and pe concerning for asthma versus COPD versus viral illness. Unlikely pneumonia, PE, ACS, dissection, pneumothorax. Admission/Observation Consideration of admission/observation: Escalation of care including admission/observation considered Lab Data [facility] Lab Attestation statement: I reviewed the patient's lab results. 08/02/23 10:51 08/02/23 10:51 Labs: Lab Results 08/02/23 08/02/23 Range/Units 10:49 10:51 WBC 8.4 (4.8-10.8) X10*3/uL RBC 4.49 (4.20-5.50) X10*6/uL Hgb 13.3 (12.0-16.0) g/dl Hct 37.8 (37.0-47.0) % MCV 84.2 (80.0-98.0) fL MCH 29.6 (27.0-33.0) pg MCHC 35.2 H (31.0-35.0) g/dl RDW 11.4 (11.0-16.0) % Plt Count 328 (160-400) X10*3/uL MPV 9.4 (9.4-12.3) fL Immature Gran % (Auto) 0.4 (0.0-0.4) % Neut % (Auto) 68.2 (45-73) % Lymph % (Auto) 23.9 (20-40) % [place] % (Auto) 6.1 (2-11) % Eos % (Auto) 1.0 (0-4) % Baso % (Auto) 0.4 (0-2) % Lymph # (Auto) 2.0 (1.2-4.9) X10*3/uL [place] # (Auto) 0.5 (0.1-1.2) X10*3/uL Eos # (Auto) 0.1 (0.0-0.4) X10*3/uL Baso # (Auto) 0.0 (0.0-0.2) X10*3/uL Abs Immat Gran (auto) 0.03 (0.00-0.03) X10*3/uL Absolute Neuts (auto) 5.7 (2.0-8.3) x10*3/uL Absolute Nucleated RBC 0.000 (0.0-0.012) X10*3/uL Nucleated RBC % (auto) 0.0 (0.0-0.2) /100WBC Sodium 138 (135-145) mmol/L Potassium 4.1 (3.3-5.1) mmol/L Chloride 105 (96-108) mmol/L Carbon Dioxide 27 (22-29) mmol/L Anion Gap 10 L (12-20) BUN 10 (9-16) mg/dL Creatinine 0.68 (0.5-1.4) mg/dL Estim Creat Clear Calc 125.8 Estimated GFR > 60 Random Glucose 151 H (60-115) mg/dL Calcium 8.7 D (8.4-10.2) mg/dL Magnesium 2.1 (1.6-2.6) mg/dL Total Bilirubin 0.4 (0.0-1.0) mg/dL AST 13 (5-31) U/L ALT 26 (0-31) U/L Alkaline Phosphatase 98 (39-117) U/L Total Protein 6.8 (6.5-8.0) g/dL Albumin 3.9 (3.5-5.0) g/dL Influenza Type A (PCR) NEGATIVE (Negative) Influenza Type B (PCR) NEGATIVE (Negative) RSV RNA Qual (PCR) NEGATIVE (Negative) SARS-CoV-2 RNA (RT-PCR) NEGATIVE (Negative) Independent Interpretation I performed an independent interpretation of an: EKG and Plain X-Ray Radiology Impression Discussion of test interpretation with radiology: I have reviewed the radiologist's reading. External Record Review External record reviewed: Inpatient record, Office record, Outpatient record, Prior outpatient labs, Prior outpatient radiology, Primary care record and Outside ED record Critical Care Time Critical Care Time Critical Care Time: Yes Total Critical Care Time: 35 Attestation: I attest to this time spent taking care of the patient, obtaining history, physical, reviewing labs, imaging, IV meds Discharge Plan Discharge Clinical Impression: Viral illness, Asthma, Hypoxia Patient Disposition: Admitted As Inpatient Prescriptions: No Action alcohol swabs [Alcohol Pads] Pads, Medicated 1 pad topical .TID Qty: 100 0RF (DME) blood-glucose meter [FreeStyle Lite Meter] Kit See Rx Instructions .Route Qty: 1 0RF Rx Instructions: TID testing (DME) FreeStyle Lite Strips Strip See Rx Instructions .Route Qty: 100 5RF Rx Instructions: TID testing atorvastatin 10 mg tablet 10 mg PO BEDTIME Qty: 90 1RF (DME) lancets [FreeStyle Lancets] 28 gauge misc See Rx Instructions .Route Qty: 300 1RF Rx Instructions: TID testing dxnnsfslsr-irmvbvaaeelae-usyv 50-325-40 mg tablet 1 tab PO BID PRN (Reason: pain) 10 Days Qty: 20 1RF clonazepam 1 mg tablet 1 mg PO BID PRN (Reason: anxiety) 30 Days Qty: 60 0RF tizanidine 4 mg capsule 4 mg PO BID PRN (Reason: muscle spasticity) 90 Days Qty: 180 0RF Rx Instructions: DO NOT TAKE CONCURRENTLY WITH CIPRO (DME) BD SafetyGlide Syringe 3 mL 23 x 1 syringe See Rx Instructions .Route Qty: 50 0RF Rx Instructions: As directed to injection B-12 weekly cyanocobalamin (vitamin B-12) 1,000 mcg/mL solution 1,000 mcg IM .Q month 90 Days Qty: 10 0RF levothyroxine [Synthroid] 200 mcg tablet 200 mcg PO DAILY 90 Days Qty: 90 1RF carvedilol [Coreg] 3.125 mg tablet 3.125 mg PO BID Qty: 180 1RF Rx Instructions: must administer with a meal/food amitriptyline 50 mg tablet 50 mg PO DAILY 90 Days Qty: 90 1RF fluoxetine 20 mg tablet 20 mg PO DAILY 90 Days Qty: 90 1RF diphenhydramine HCl [Benadryl] 25 mg capsule 25 mg PO TID PRN (Reason: allergic reaction) Qty: 20 0RF epinephrine [EpiPen 2-Lee] 0.3 mg/0.3 mL auto-injector 0.3 mg IM Q4H PRN (Reason: anaphylaxis) Qty: 2 0RF acetaminophen [Tylenol Extra Strength] 500 mg tablet 500 mg PO Q6H PRN (Reason: fever or pain) Qty: 14 0RF lidocaine [Lidoderm] 5 % adhesive patch,medicated 1 patch topical DAILY MDD remove after 12 hours PRN (Reason: pain) Qty: 30 0RF Rx Instructions: leave on most painful area for up to 12 hrs
--- NOTE | 2023-08-02 11:04 | ECG_ITS ---
Test Reason : dyspnea Blood Pressure : / mmHG Vent. Rate : 088 BPM Atrial Rate : 088 BPM P-R Int : 144 ms QRS Dur : 092 ms QT Int : 382 ms P-R-T Axes : 050 031 007 degrees QTc Int : 462 ms Normal sinus rhythm Low voltage QRS Nonspecific T wave abnormality Prolonged QT Abnormal ECG When compared with ECG of 05-FEB-2023 21:24, No significant change was found Referred By: Trace Sanchez Electronically Signed By:NILSA POLLARD MD
[2023-08-02 11:19] LABS: Alanine Aminotransferase 26 U/L (0-31); Albumin Level 3.9 g/dL (3.5-5.0); Alkaline Phosphatase 98 U/L (39-117); Anion Gap 10 (12-20); Aspartate Amino Transferase 13 U/L (5-31); Bilirubin Total 0.4 mg/dL (0.0-1.0); Blood Urea Nitrogen 10 mg/dL (9-16); Calcium 8.7 mg/dL (8.4-10.2); Carbon Dioxide 27 mmol/L (22-29); Chloride 105 mmol/L (96-108); Creatinine Clr Calc Pharmacy 125.8; Estimated Glomerular Filt Rate > 60; Glucose Random 151 mg/dL (60-115); Magnesium 2.1 mg/dL (1.6-2.6); Potassium 4.1 mmol/L (3.3-5.1); Sodium 138 mmol/L (135-145); Total Protein 6.8 g/dL (6.5-8.0)
[2023-08-02] MEDS: Magnesium Sulfate/H2O 2 GM/50 ML PIGGYBACK IV (11:36)
[2023-08-02] MEDS: Albuterol Sulfate 2.5 MG, Albuterol/Iprat 2.5/0.5MG 3 ML 3 ML INHALE (11:55)
[2023-08-02 12:33] LABS: Influenza A PCR NEGATIVE (Negative); Influenza B PCR NEGATIVE (Negative); Resp Syncy Virus RNA Qual PCR NEGATIVE (Negative); SARS COV2 PCR INHOUSE NEGATIVE (Negative)
[2023-08-02] MEDS: Albuterol Sulfate (0.083%) 2.5 MG/3 ML VIAL.NEB INHALE (12:50)
--- NOTE | 2023-08-02 13:42 | PC.NURSE ---
pt a&o x4 pleasant, calm, and cooperative. pt sts has been sick x1 week with no improvement. while at work today felt worsening sob and called 911. pt given duoneb and solumedrol per EMS with little improvement. pt medicated with magnesium in [facility], ambulation trial. pt sating 90% on room air. was placed on 2L O2 via NC with EMS sating 96%. pt with hx of asthma. pt currently resting quietly on stretcher. rr even/unlabored. on bedside monitor. labs drawn and sent, breathing treatment completed. pt pending admission. ambulatory, 20G IV to LAC. call sr within reach. plan of care ongoing.
--- NOTE | 2023-08-02 14:03 | P.HPHOSP_ITS ---
<Statement entered by Mikki Jack MD - 08/02/23 17:36> The patient was seen and evaluated with CAM Sargent. I agree with her note, assessment and plan with the following. A 33 years old male with intermittent asthma presenting with SOB and wheezing. # Asthma exacerbation Viral panel Steroids Albuterol O2 as needed Rest of evaluations by PA note. 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 Reports productive cough with yellow sputum production, wheezing, dyspnea, nausea, pleuritic chest pain ongoing for the last 4 days. Denies any fevers, shaking chills, sore throat, congestion, abdominal pain, vomiting, urinary symptoms, lightheadedness, chest pressure. sick with similar symptoms. Has been using albuterool q4h with limited relief. Per EMS, desatted to 90% on RA, but on exam patient is 95% on RA and O2 is removed. Vitals otherwise stable. Renal function electrolyte levels normal. Negative for influenza, RSV chest x-ray unremarkable. Given IV Solu-Medrol, and multiple DuoNeb treatments without improvement in the ED. Review of Systems 2 Review of Systems: General: No fevers, malaise, unintentional weight loss HEENT: No blurred vision, diplopia. No sore throat, nasal congestion, rhinorrhea, sinus pain, ear pain Cardiovascular: +chest pain. No palpitations, or leg edema Respiratory: +shortness of breath, +wheezing, +cough GI: No abdominal pain, nausea, vomiting, diarrhea, constipation, melena, hematochezia : No dysuria, hematuria, increased urinary frequency, decreased urinary output MSK: No myalgia, back pain Neuro: No headaches, weakness, paresthesias Skin: No rashes or lesions [facility] Medical History HLD (hyperlipidemia) HTN (hypertension) Type 2 diabetes mellitus Depression Migraine with aura Fibromyalgia Insomnia Hx of papillary thyroid carcinoma Family History Father History of heart attack Mental health disorder Mother Hypothyroidism Sister Anxiety Migraine Low blood pressure Mental health disorder Son Epilepsy Daughter No problems noted. Maternal Grandmother Breast cancer Paternal Grandmother Breast cancer Surgical History History of umbilical hernia repair Bilateral carpal tunnel syndrome Hx of cholecystectomy History of tubal ligation History of section History of thyroidectomy Social History Housing: Apartment Alcohol intake: current Alcohol intake frequency: holidays/special occasions only Patient Tobacco Use Status: Never used Tobacco Smoked in Last 30 Days: No e-Cigarette/Vaping Use: Never Used Second Hand Smoke Exposure: Yes Advance Directives: No Advance Directives Information Provided: Yes Current occupational status: employed Cognitive needs: No Hearing needs: No Vision needs: Yes Meds Allergies Allergy/AdvReac Type Severity Reaction Status Date / Time bee pollen [BEE STINGS] Allergy Severe ANAPHYLAXIS Verified 06/08/23 08:24 NSAIDS (Non-Steroidal Allergy Intermediate HIVES Verified 06/08/23 08:24 Anti-Inflamma [NSAIDS (NON-STEROIDAL ANTI-INFLAMMA] Penicillins Allergy Intermediate HIVES Verified 06/08/23 08:24 ibuprofen [From Motrin] Allergy Unknown Hives Verified 06/08/23 08:24 penicillin V Allergy Unknown unknown Verified 06/08/23 08:24 latex [LATEX] AdvReac Intermediate RASH Verified 06/08/23 08:24 sulfamethoxazole AdvReac Hives Verified 06/08/23 08:24 [From Bactrim] trimethoprim [From Bactrim] AdvReac Hives Verified 06/08/23 08:24 From Ortho Tri-Cyclen (21) AdvReac Intermediate DVT (BLOOD Uncoded 06/08/23 08:24 CLOT) Home Medications Medication Instructions Recorded Confirmed Last Taken Type albuterol sulfate 90 mcg/actuation 2 puff inhalation Q6H wheezing 08/02/23 08/02/23 08/02/23 History aerosol inhaler (Ventolin HFA) amitriptyline 50 mg tablet 50 mg PO BEDTIME 03/05/1508/02/23 08/01/23 History carvedilol 3.125 mg tablet (Coreg) 6.25 mg PO BEDTIME 08/02/23 08/02/23 08/01/23 History fluoxetine 20 mg tablet 20 mg PO BEDTIME 08/02/23 08/02/23 08/01/23 History levothyroxine 200 mcg tablet 200 mcg PO BEDTIME 08/02/23 08/02/23 08/01/23 History (Synthroid) tizanidine 4 mg capsule 4 mg PO BID PRN muscle spasticity 08/02/23 08/02/23 08/01/23 History Physical Exam 2 Vital Signs and Narrative: Vital Signs: Last Vital Signs Temp 98.5 F 08/02/23 10:37 Pulse 110 H 08/02/23 13:40 Resp 17 08/02/23 12:50 BP 104/82 08/02/23 10:37 Pulse Ox 90 L 08/02/23 13:40 O2 Del Method Room Air 08/02/23 13:40 Oxygen Flow Rate 2 08/02/23 10:37 BMI result Body Mass Index 44.9 Constitutional - Awake and Alert, No apparent distress Eyes - PERRL Cardiovascular - S1S2, RRR, No edema Respiratory - Normal lung expansion, Normal respiratory effort, No respiratory distress, diminished bilaterally with scattered faint expiratory wheezing Gastrointestinal - NT / ND; +BS; No rebound or guarding Extremities - no calf tenderness bilaterally, no swelling Skin - Warm/Dry Neurological - Alert & oriented x3 Psychological - Appropriate affect Results Labs 08/02/23 10:51 08/02/23 10:51 Labs: Laboratory Results - last 24 hr 08/02/23 08/02/23 10:49 10:51 MCV 84.2 MCH 29.6 MCHC 35.2 H RDW 11.4 Plt Count 328 MPV 9.4 Immature Gran % (Auto) 0.4 Neut % (Auto) 68.2 Lymph % (Auto) 23.9 [place] % (Auto) 6.1 Eos % (Auto) 1.0 Baso % (Auto) 0.4 Lymph # (Auto) 2.0 [place] # (Auto) 0.5 Eos # (Auto) 0.1 Baso # (Auto) 0.0 Abs Immat Gran (auto) 0.03 Absolute Neuts (auto) 5.7 Absolute Nucleated RBC 0.000 Nucleated RBC % (auto) 0.0 Anion Gap 10 L Estim Creat Clear Calc 125.8 Estimated GFR > 60 Random Glucose 151 H Calcium 8.7 D Magnesium 2.1 Total Bilirubin 0.4 AST 13 ALT 26 Alkaline Phosphatase 98 Total Protein 6.8 Albumin 3.9 Influenza Type A (PCR) NEGATIVE Influenza Type B (PCR) NEGATIVE RSV RNA Qual (PCR) NEGATIVE SARS-CoV-2 RNA (RT-PCR) NEGATIVE Imaging Radiologist's Impressions: Impressions Chest X-Ray 08/02/23 11:03 IMPRESSION: Unremarkable examination with no interval change. 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, history of thyroid cancer s/p total thyroidectomy, mild intermittent asthma, oif-freygal-lsuwsnsvw type 2 diabetes, anxiety, fibromyalgia who is morbidly obese with BMI greater than 44 to be observed for acute asthma exacerbation secondary to URI #Acute asthma exacerbation due to presumed viral URI -CXR negative, negative for Covid fly rsv -Check viral respiratory panel -iv solumedrol 40mg bid -duonebs q4h while awake, albuterol prn -robittusin ac prn -no hypoxia # [id number]-qsjmylmbf type 2 diabetes -POC glucose, diabetic diet -Humalog on sliding scale # hypertension -continue carvedilol # postoperative hypothyroidism -history of papillary thyroid cancer -continue levothyroxine # mood disorder -continue fluoxetine, clonazepam #Morbid obesity with BMI greater than 45 -weight loss efforts encouraged DVT prophylaxis-early ambulation, SCPs Full code Quality Stroke Does the patient have a stroke diagnosis?: No VTE Prior VTE?: No VTE Risk Level:: Medical - low VTE Device Contraindication: N/A - Device Ordered VTE Drug Contraindication: Treatment Not Indicated
--- NOTE | 2023-08-02 14:23 | PHA.MEDREC ---
Addendum entered by Rosie Enrique RPh 08/02/23 14:30: Informed Sandra about the carvedilol, per provider request put in home list as how patient should be taking it (3.125 mg BID) instead of how she is taking it (2 tablets at bedime) Original Note: Pharmacy Consult ? Medication Reconciliation Pharmacy has completed the medication reconciliation.Confirmed medication with patient and through claim history. Patient reports she takes most of her medication at night including both doses of carvedilol.
[2023-08-02] MEDS: guaiFEN/Codeine SF 200/20/10ML 10 ML LIQUID PO ×2 (15:02→19:32)
[2023-08-02 19:02] LABS: Glucose, Whole Blood 259 mg/dL (60-115)
[2023-08-02] MEDS: Insulin Lispro 100 UNIT/ML 3 ML VIAL SUBCUT ×2 (19:15→21:35)
[2023-08-02] MEDS: Acetaminophen 325 MG TABLET 650 MG PO (19:32)
[2023-08-02] MEDS: Albuterol/Iprat 2.5/0.5MG 3 ML AMPUL.NEB INHALE (20:22)
[2023-08-02 21:08] LABS: Glucose, Whole Blood 286 mg/dL (60-115)
[2023-08-02] MEDS: carvediloL 3.125 MG TABLET PO (21:21)
[2023-08-02] MEDS: FLUoxetine HCl 20 MG CAPSULE PO (21:22)
[2023-08-02] MEDS: Butalb/Acetamin/Caff 50/325/40 TABLET 1 TAB PO (21:22)
[2023-08-02] MEDS: clonazePAM 1 MG TABLET PO (21:22)
[2023-08-02] MEDS: Atorvastatin Calcium 10 MG TABLET PO (21:22)
[2023-08-02] MEDS: diphenhydrAMINE HCL 25 MG CAPSULE PO (21:22)
[2023-08-02] MEDS: Prazosin HCL 1 MG CAPSULE 2 MG PO (21:22)
[2023-08-02] MEDS: TiZANidine HCL 4 MG TABLET PO (21:22)
[2023-08-02] MEDS: Amitriptyline HCl 50 MG TABLET PO (21:22)
[2023-08-02] MEDS: methylPREDNISolone Sod Succ 40 MG/ML VIAL IVPUSH (21:23)
--- NOTE | 2023-08-02 21:36 | PC.NURSE ---
1630 iNSULIN DOSE GIVEN BY PRIOR rn LATE, VERIFIED 2100 DOSE OPK TO GIVE PER md Tanner
[2023-08-02] MEDS: Levothyroxine Sodium 200 MCG TABLET PO (21:42)
[2023-08-02] MEDS: Albuterol Sulfate 90 MCG 8 GM INHALER 2 PUFF INHALE (22:55)
--- NOTE | 2023-08-03 03:07 | PC.NURSE ---
Resumed care of pt. Pt eyes closed, respirations even and unlabored, no acute distress. Continuing plan of care.
[2023-08-03 05:40] VITALS: BP 116/58; PULSE 80; RESP 19; TEMP 36.7; O2SAT 93
[2023-08-03 06:49] LABS: MANUAL DIFF FLAG NO
[2023-08-03 07:05] LABS: Basophils Percent Auto 0.2 % (0-2); Hematocrit 37.1 % (37.0-47.0); Hemoglobin 13.2 g/dl (12.0-16.0); Imm Gran Abs Auto 0.09 X10*3/uL (0.00-0.03); Imm Gran Pct Auto 0.7 % (0.0-0.4); Lymphocytes Absolute Auto 1.7 X10*3/uL (1.2-4.9); Lymphocytes Percent Auto 12.6 % (20-40); Mean Corpuscular HGB Conc 35.6 g/dl (31.0-35.0); Mean Corpuscular Hemoglobin 29.8 pg (27.0-33.0); Mean Corpuscular Volume 83.7 fL (80.0-98.0); Mean Platelet Volume 9.5 fL (9.4-12.3); Monocytes Absolute Auto 0.6 X10*3/uL (0.1-1.2); Monocytes Percent Auto 4.4 % (2-11); Neutrophils Absolute Auto 10.9 x10*3/uL (2.0-8.3); Neutrophils Percent Auto 82.1 % (45-73); Platelet Count 389 X10*3/uL (160-400); Red Blood Count 4.43 X10*6/uL (4.20-5.50); Red Cell Distribution Width 11.2 % (11.0-16.0); White Blood Count 13.3 X10*3/uL (4.8-10.8)
[2023-08-03 07:11] LABS: Anion Gap 11 (12-20); Blood Urea Nitrogen 11 mg/dL (9-16); Calcium 8.6 mg/dL (8.4-10.2); Carbon Dioxide 25 mmol/L (22-29); Chloride 105 mmol/L (96-108); Creatinine Clr Calc Pharmacy 127.7; Estimated Glomerular Filt Rate > 60; Glucose Random 173 mg/dL (60-115); Potassium 4.3 mmol/L (3.3-5.1); Sodium 137 mmol/L (135-145)
[2023-08-03] MEDS: Albuterol/Iprat 2.5/0.5MG 3 ML AMPUL.NEB INHALE ×2 (07:53→11:26)
[2023-08-03 07:54] VITALS: PULSE 80; RESP 19; O2SAT 95
[2023-08-03 08:05] VITALS: BP 108/64; PULSE 88; RESP 20; TEMP 36.4; O2SAT 91
[2023-08-03] MEDS: Insulin Lispro 100 UNIT/ML 3 ML VIAL SUBCUT ×2 (08:09→12:02)
[2023-08-03] MEDS: methylPREDNISolone Sod Succ 40 MG/ML VIAL IVPUSH (08:10)
[2023-08-03] MEDS: carvediloL 3.125 MG TABLET PO (08:10)
[2023-08-03] MEDS: guaiFEN/Codeine SF 200/20/10ML 10 ML LIQUID PO (08:14)
--- NOTE | 2023-08-03 08:16 | PC.NURSE ---
patient sitting up in bed, eating breakfast. respirations equal and unlabored, patient has non productive cough, requested cough medicine, medicated per mar with prn. patient VSS, skin PWD and intact. alert and oriented x 3.
[2023-08-03 08:40] LABS: Glucose, Whole Blood 162 mg/dL (60-115)
--- NOTE | 2023-08-03 10:00 | PC.NURSE ---
patient ambulated with steady gait to the bathroom
[2023-08-03 10:13] LABS: Adenovirus PCR Not Detected (Not Detect.); Bordetella parapertussis PCR Not Detected (Not Detect.); Bordetella pertussis PCR Not Detected (Not Detect.); Chlamydia pneumoniae PCR Not Detected (Not Detect.); Coronavirus 229E PCR Not Detected (Not Detect.); Coronavirus HKU1 PCR Not Detected (Not Detect.); Coronavirus NL63 PCR Not Detected (Not Detect.); Coronavirus OC43 PCR Not Detected (Not Detect.); Human metapneumovirus PCR Not Detected (Not Detect.); Influenza A PCR Not Detected (Not Detect.); Influenza B PCR Not Detected (Not Detect.); Mycoplasma pneumoniae PCR Not Detected (Not Detect.); Parainfluenza 1 PCR Not Detected (Not Detect.); Parainfluenza 2 PCR Not Detected (Not Detect.); Parainfluenza 3 PCR Not Detected (Not Detect.); Parainfluenza 4 PCR Not Detected (Not Detect.); RSV PCR Not Detected (Not Detect.); Rhino/Enterovirus PCR Not Detected (Not Detect.)
[2023-08-03 10:59] LABS: SARS-CoV-2 PCR Not Detected (Not Detect.)
--- NOTE | 2023-08-03 11:07 | P.DS_ITS ---
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 Reports productive cough with yellow sputum production, wheezing, dyspnea, nausea, pleuritic chest pain ongoing for the last 4 days. Denies any fevers, shaking chills, sore throat, congestion, abdominal pain, vomiting, urinary symptoms, lightheadedness, chest pressure. sick with similar symptoms. Has been using albuterool q4h with limited relief. Per EMS, desatted to 90% on RA, but on exam patient is 95% on RA and O2 is removed. Vitals otherwise stable. Renal function electrolyte levels normal. Negative for influenza, RSV chest x-ray unremarkable. Given IV Solu-Medrol, and multiple DuoNeb treatments without improvement in the ED. hospital course: Patient was admitted for mild intermittent asthma complicated by acute decompensation of the due viral upper respiratory tract infection. She was treated with IV steroids and bronchodilators. Symptoms significantly. Patient was able to ambulate with minimal shortness breath, she is good air entry bilaterally and is no longer wheezing. Viral positive. She will be discharged home on 5 more days of prednisone. For diabetes was continued on insulin slid ing scale. For hypertension continue on carvedilol. For postoperative hypothyroidism was continued on levothyroxine. For mood disorder was continue fluoxetine and clonazepam. Morbid obesity weight loss is recommended. Patient is feeling better will be discharged home. Time Attestation Discharge Coordination Time (in mins): 35 Quality: Safe Use of Opioids Does Pt have an Active Cancer Diagnosis on the Problem List?: No Quality: Stroke Does the patient have a stroke diagnosis?: No Physical Exam Vital Signs: Vital Signs: Last Vital Signs Temp 97.6 F 08/03/23 08:05 Pulse 88 08/03/23 08:05 Resp 20 08/03/23 08:05 BP 108/64 08/03/23 08:05 Pulse Ox 91 L 08/03/23 08:05 O2 Del Method Room Air 08/03/23 08:05 Oxygen Flow Rate 2 08/02/23 10:37 BMI result Body Mass Index 44.9 General: AO X 3, no acute distress Resp: CTA bilateral, no accessory muscles used CVS: S1,S2,RRR GI: soft, non tender, non distended Neuro: motor grossly intact, alert Psych: appropriate affect, appropriate insight DS: Data Data Completed and Pending Labs on day of discharge: Laboratory Results - last 24 hr 08/02/23 08/02/23 08/02/23 10:49 10:51 18:57 WBC RBC Hgb Hct MCV MCH MCHC RDW Plt Count MPV Immature Gran % (Auto) Neut % (Auto) Lymph % (Auto) [place] % (Auto) Eos % (Auto) Baso % (Auto) Lymph # (Auto) [place] # (Auto) Eos # (Auto) Baso # (Auto) Abs Immat Gran (auto) Absolute Neuts (auto) Absolute Nucleated RBC Nucleated RBC % (auto) Sodium 138 Potassium 4.1 Chloride 105 Carbon Dioxide 27 Anion Gap 10 L BUN 10 Creatinine 0.68 Estim Creat Clear Calc 125.8 Estimated GFR > 60 POC Glucose 259 H Random Glucose 151 H Calcium 8.7 D Magnesium 2.1 Total Bilirubin 0.4 AST 13 ALT 26 Alkaline Phosphatase 98 Total Protein 6.8 Albumin 3.9 Respiratory Panel Rodriguez Adenovirus (Rapid PCR) B.pert (TEM-PCR) B.parapertussis DNA PCR C. pneumoniae DNA (PCR) Coronavirus OC43 (PCR) Coronavirus HKU1 (PCR) Coronavirus 229E (PCR) Coronavirus NL63 (PCR) Human Metapneumovir PCR Influenza A (RT-PCR) Influenza Type A (PCR) NEGATIVE Influenza B (RT-PCR) Influenza Type B (PCR) NEGATIVE M. pneumoniae (PCR) Parainfluenza 1 (PCR) Parainfluenza 2 (PCR) Parainfluenza 3 (PCR) Parainfluenza 4 (PCR) RSV (PCR) RSV RNA Qual (PCR) NEGATIVE Entero/Rhino (PCR) SARS-CoV-2 RNA (RT-PCR) NEGATIVE 03/05/1508/02/23 08/03/23 19:16 21:02 06:36 WBC 13.3 H RBC 4.43 Hgb 13.2 Hct 37.1 MCV 83.7 MCH 29.8 MCHC 35.6 H RDW 11.2 Plt Count 389 MPV 9.5 Immature Gran % (Auto) 0.7 H Neut % (Auto) 82.1 H Lymph % (Auto) 12.6 L [place] % (Auto) 4.4 Eos % (Auto) 0.0 Baso % (Auto) 0.2 Lymph # (Auto) 1.7 [place] # (Auto) 0.6 Eos # (Auto) 0.0 Baso # (Auto) 0.0 Abs Immat Gran (auto) 0.09 H Absolute Neuts (auto) 10.9 H Absolute Nucleated RBC 0.000 Nucleated RBC % (auto) 0.0 Sodium 137 Potassium 4.3 Chloride 105 Carbon Dioxide 25 Anion Gap 11 L BUN 11 Creatinine 0.67 Estim Creat Clear Calc 127.7 Estimated GFR > 60 POC Glucose 286 H Random Glucose 173 H Calcium 8.6 Magnesium Total Bilirubin AST ALT Alkaline Phosphatase Total Protein Albumin Respiratory Panel Rodriguez See Note Adenovirus (Rapid PCR) Not Detected B.pert (TEM-PCR) Not Detected B.parapertussis DNA PCR Not Detected C. pneumoniae DNA (PCR) Not Detected Coronavirus OC43 (PCR) Not Detected Coronavirus HKU1 (PCR) Not Detected Coronavirus 229E (PCR) Not Detected Coronavirus NL63 (PCR) Not Detected Human Metapneumovir PCR Not Detected Influenza A (RT-PCR) Not Detected Influenza Type A (PCR) Influenza B (RT-PCR) Not Detected Influenza Type B (PCR) M. pneumoniae (PCR) Not Detected Parainfluenza 1 (PCR) Not Detected Parainfluenza 2 (PCR) Not Detected Parainfluenza 3 (PCR) Not Detected Parainfluenza 4 (PCR) Not Detected RSV (PCR) Not Detected RSV RNA Qual (PCR) Entero/Rhino (PCR) Not Detected SARS-CoV-2 RNA (RT-PCR) Not Detected 08/03/23 07:42 WBC RBC Hgb Hct MCV MCH MCHC RDW Plt Count MPV Immature Gran % (Auto) Neut % (Auto) Lymph % (Auto) [place] % (Auto) Eos % (Auto) Baso % (Auto) Lymph # (Auto) [place] # (Auto) Eos # (Auto) Baso # (Auto) Abs Immat Gran (auto) Absolute Neuts (auto) Absolute Nucleated RBC Nucleated RBC % (auto) Sodium Potassium Chloride Carbon Dioxide Anion Gap BUN Creatinine Estim Creat Clear Calc Estimated GFR POC Glucose 162 H Random Glucose Calcium Magnesium Total Bilirubin AST ALT Alkaline Phosphatase Total Protein Albumin Respiratory Panel Rodriguez Adenovirus (Rapid PCR) B.pert (TEM-PCR) B.parapertussis DNA PCR C. pneumoniae DNA (PCR) Coronavirus OC43 (PCR) Coronavirus HKU1 (PCR) Coronavirus 229E (PCR) Coronavirus NL63 (PCR) Human Metapneumovir PCR Influenza A (RT-PCR) Influenza Type A (PCR) Influenza B (RT-PCR) Influenza Type B (PCR) M. pneumoniae (PCR) Parainfluenza 1 (PCR) Parainfluenza 2 (PCR) Parainfluenza 3 (PCR) Parainfluenza 4 (PCR) RSV (PCR) RSV RNA Qual (PCR) Entero/Rhino (PCR) SARS-CoV-2 RNA (RT-PCR) Discharge Plan Discharge Anticipated Discharge Date/Time: 08/03/23 11:03 Patient Disposition: Home, Self-Care Discharge Diagnosis: asthma Referrals: Elan Terry [employer] [facility] [Primary Care Provider] - 1 Week Discharge Medications: New codeine-guaifenesin 10-100 mg/5 mL Liquid 10 ml PO Q6H PRN (Reason: Cough) 10 Days Qty: 118 0RF prednisone 20 mg tablet 40 mg PO DAILY Qty: 10 0RF Continued (DME) blood-glucose meter [FreeStyle Lite Meter] Kit See Rx Instructions .Route Qty: 1 0RF Rx Instructions: TID testing (DME) FreeStyle Lite Strips Strip See Rx Instructions .Route Qty: 100 5RF Rx Instructions: TID testing atorvastatin 10 mg tablet 10 mg PO BEDTIME Qty: 90 1RF (DME) lancets [FreeStyle Lancets] 28 gauge misc See Rx Instructions .Route Qty: 300 1RF Rx Instructions: TID testing bddgawcffu-ruiwiphcsouep-hici 50-325-40 mg tablet 1 tab PO BID PRN (Reason: pain) 10 Days Qty: 20 1RF clonazepam 1 mg tablet 1 mg PO BID PRN (Reason: anxiety) 30 Days Qty: 60 0RF (DME) BD SafetyGlide Syringe 3 mL 23 x 1 syringe See Rx Instructions .Route Qty: 50 0RF Rx Instructions: As directed to injection B-12 weekly cyanocobalamin (vitamin B-12) 1,000 mcg/mL solution 1,000 mcg IM .Q month 90 Days Qty: 10 0RF Rx Instructions: of the month diphenhydramine HCl [Benadryl] 25 mg capsule 25 mg PO TID PRN (Reason: allergic reaction) Qty: 20 0RF epinephrine [EpiPen 2-Lee] 0.3 mg/0.3 mL auto-injector 0.3 mg IM Q4H PRN (Reason: anaphylaxis) Qty: 2 0RF albuterol sulfate [Ventolin HFA] 90 mcg/actuation HFA aerosol inhaler 2 puff INHALATION Q6H PRN (Reason: wheezing) amitriptyline 50 mg tablet 50 mg PO BEDTIME carvedilol [Coreg] 3.125 mg tablet 3.125 mg PO BID Rx Instructions: must administer with a meal/food fluoxetine 20 mg tablet 20 mg PO BEDTIME levothyroxine [Synthroid] 200 mcg tablet 200 mcg PO BEDTIME tizanidine 4 mg capsule 4 mg PO BID PRN (Reason: muscle spasticity) Rx Instructions: DO NOT TAKE CONCURRENTLY WITH CIPRO prazosin 2 mg capsule 2 mg PO BEDTIME acetaminophen [Tylenol Extra Strength] 500 mg tablet 500 mg PO Q6H PRN (Reason: fever or pain) Qty: 14 0RF Discharge Orders: Discharge Order (Routine); Ordered 08/03/23 Ordered By: Jozef Nguyen Diet: Advance to usual diet Activity on Discharge: As tolerated Stand Alone Forms: Patient Portal Discharge page, Work/School Release Care Plan Goals: recovery Health Concerns: asthma Plan of Treatment: 5 days prednsione Assessment: see above
[2023-08-03 11:26] VITALS: PULSE 88; RESP 20; O2SAT 96
[2023-08-03 11:33] LABS: Glucose, Whole Blood 204 mg/dL (60-115)
[2023-08-03 11:40] VITALS: BP 91/51; PULSE 86; RESP 20; TEMP 36.6; O2SAT 91
--- NOTE | 2023-08-03 13:31 | MHC.CM.PN ---
Patient d/c'd home before being seen by case management.
== END 2023-08-03 12:44 | disposition home or self-care (01) ==
LOC: HO.ED 13:34 → HO.EDOVER 14:07
PROVIDERS: Physician Assistant; Student in an Organized Health Care Education/Training Program; Admitting Provider Physician Assistant; Emergency Provider Emergency Medicine Emergency Medical Services; PCP Nurse Practitioner Family; Visit Provider Internal Medicine
DX: J45.901 Unspecified asthma with (acute) exacerbation (principal); B34.9 Viral infection, unspecified; R06.02 Shortness of breath; M79.7 Fibromyalgia; I48.91 Unspecified atrial fibrillation; R05.9 Cough, unspecified; R53.83 Other fatigue; E11.9 Type 2 diabetes mellitus without complications; R09.02 Hypoxemia; I10 Essential (primary) hypertension; E66.01 Morbid (severe) obesity due to excess calories; Z68.41 Body mass index [BMI] 40.0-44.9, adult; F39 Unspecified mood [affective] disorder; E89.0 Postprocedural hypothyroidism; Z86.16 Personal history of COVID-19; Z11.52 Encounter for screening for COVID-19; Z20.828 Contact with and (suspected) exposure to other viral communicable diseases
CPT/HCPCS: 0241U; 36415; 71045; 80048; 80053; 82947; 83735; 85025; 87633; 93005; 94640; 96365; 96366; 96375; 99221; 99285; J2920; J3475

== ENCOUNTER → 2023-08-02 11:04 | Outpatient (BNV) | payer OTHER, SELFPAY | PROVIDERS: Admitting Provider Physician Assistant; Emergency Provider Emergency Medicine Emergency Medical Services; PCP Nurse Practitioner Family; Visit Provider Internal Medicine Cardiovascular Disease | DX: R06.00 Dyspnea, unspecified (principal) | CPT/HCPCS: 93010 ==

== ENCOUNTER → 2023-08-02 14:00 | Outpatient (BNV) | payer OTHER, SELFPAY | PROVIDERS: Admitting Provider Physician Assistant; Emergency Provider Emergency Medicine Emergency Medical Services; PCP Nurse Practitioner Family; Visit Provider Physician Assistant | DX: J45.21 Mild intermittent asthma with (acute) exacerbation (principal); J06.9 Acute upper respiratory infection, unspecified | CPT/HCPCS: 99222; 99239 ==

== ENCOUNTER 2023-09-06 08:32 | Outpatient (REF) | payer OTHER, SELFPAY ==
--- NOTE | ~2023-09-06 | MM_ITS ---
EXAMINATION: MM DIAGNOSTIC DIGITAL BREAST TOMOSYNTHESIS, BILATERAL US BREAST LIMITED, LEFT MAMMOGRAPHY: CLINICAL INFORMATION: The patient presents for evaluation of a palpable lump in the 3:00 position of the left breast. COMPARISON: Mammography: There are no prior mammograms for comparison. This is a baseline mammogram. TECHNIQUE: Digital breast tomosynthesis is performed in both the craniocaudal and mediolateral oblique views along with computer-aided detection (CAD). Synthesized 2D images are generated from the tomosynthesis. CC and MLO spot compression of the left breast and a full lateral view of the left breast are obtained. FINDINGS: There are scattered areas of fibroglandular density (ACR BI-RADS breast composition Category b). There are no significant masses, abnormal calcifications, or other abnormalities. There is no mammographic abnormality in the area of patient concern at the 3:00 region of the left breast. ULTRASOUND: CLINICAL INFORMATION: The patient presents for evaluation of a palpable lump in the 3:00 position of the left breast. COMPARISON: None TECHNIQUE: Targeted sonographic evaluation of the 1-5 o'clock regions of the left breast was performed using a high frequency linear transducer. Selected archived documentation. FINDINGS: LEFT BREAST: No suspicious mass is seen. There is no pathologic acoustic shadowing. MM/MM tomosynthesis diagnostic BI IMPRESSION: There are no significant changes from prior study. OVERALL ASSESSMENT: Mammography: BI-RADS 1 - Negative Ultrasound: BI-RADS 1 - Negative RECOMMENDATION: 1. Patient should be managed based on the clinical impression. 2. Otherwise, routine annual screening mammography. Results were provided to the patient at time of visit by the technologist. This patient's information was entered into a reminder system with a target due date for their next mammogram.
== END 2023-09-06 08:33 | disposition home or self-care (01) ==
LOC: HO.MAMMO 08:32
PROVIDERS: PCP Nurse Practitioner Family; Visit Provider Nurse Practitioner Family
DX: N63.25 Unspecified lump in the left breast, overlapping quadrants (principal)
CPT/HCPCS: 76642; 77062; 77066

== ENCOUNTER → 2023-09-06 09:00 | Outpatient (BNV) | payer OTHER, SELFPAY | PROVIDERS: PCP Nurse Practitioner Family; Visit Provider Radiology Diagnostic Radiology | DX: N63.25 Unspecified lump in the left breast, overlapping quadrants (principal) | CPT/HCPCS: 76642; 77062; 77066 ==

== ENCOUNTER 2023-11-22 06:53 | Outpatient (REF) | payer OTHER, SELFPAY ==
[2023-11-22 11:52] LABS: Estimated Average Glucose 117 mg/dL; Hemoglobin A1c % 5.7 % (<6.0)
[2023-11-22 11:53] LABS: Alanine Aminotransferase 24 U/L (0-31); Albumin Level 4.1 g/dL (3.5-5.0); Alkaline Phosphatase 80 U/L (39-117); Anion Gap 13 (12-20); Aspartate Amino Transferase 20 U/L (5-31); Bilirubin Total 0.4 mg/dL (0.0-1.0); Blood Urea Nitrogen 15 mg/dL (9-16); Calcium 9.4 mg/dL (8.4-10.2); Carbon Dioxide 26 mmol/L (22-29); Chloride 101 mmol/L (96-108); Cholesterol 189 mg/dL (<200); Estimated Glomerular Filt Rate > 60; Glucose Fasting 133 mg/dL (60-99); HDL Cholesterol 34 mg/dL (>40); Potassium 3.9 mmol/L (3.3-5.1); Sodium 136 mmol/L (135-145); Total Protein 6.8 g/dL (6.5-8.0); Triglycerides 541 mg/dL (<150)
[2023-11-22 12:08] LABS: Creatinine Urine 176.35 mg/dL; Microalbum/Creatinine Ratio Ur 4.5 ug/mg cr (<30)
[2023-11-22 12:48] LABS: Folate 8.6 ng/mL (> or = 4.0); Vitamin B12 < 148 pg/mL (200-900)
[2023-11-24 00:03] LABS: Transglutaminase IgA <1.0 U/mL
[2023-12-01 12:27] LABS: Endomysial IgA Antibody Negative (Negative)
== END 2023-11-22 06:54 | disposition home or self-care (01) ==
LOC: HO.HMGCLDS 06:53
PROVIDERS: PCP Nurse Practitioner Family; Visit Provider Nurse Practitioner Family
DX: E11.9 Type 2 diabetes mellitus without complications (principal); E53.8 Deficiency of other specified B group vitamins
CPT/HCPCS: 36415; 80053; 80061; 82043; 82570; 82607; 82746; 83036; 86231; 86364

== ENCOUNTER 2023-11-23 07:46 | Outpatient (AMB) | payer OTHER, SELFPAY ==
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
== END 2023-11-23 08:14 | disposition home or self-care (01) ==
LOC: HO.HMGC 07:46
PROVIDERS: PCP Nurse Practitioner Family; Visit Provider Nurse Practitioner Family
DX: E78.1 Pure hyperglyceridemia (principal); R13.10 Dysphagia, unspecified; F43.9 Reaction to severe stress, unspecified; F32.A Depression, unspecified; F41.9 Anxiety disorder, unspecified; Z23 Encounter for immunization
CPT/HCPCS: 90471; 90677; 99214

== ENCOUNTER 2023-12-06 10:11 | Outpatient (REF) | payer OTHER, SELFPAY ==
--- NOTE | ~2023-12-06 | US_ITS ---
EXAMINATION: US SOFT TISSUE HEAD/NECK CLINICAL INFORMATION: Dysphagia, unspecified. History of thyroid cancer. Thyroidectomy 2015. COMPARISON: Ultrasound soft tissue head/neck 05/12/2020 and 08/04/2017. TECHNIQUE: Linear transducer leigh-scale and color Doppler examination with attention to the region of the thyroid bed and surrounding tissue. FINDINGS: Within the thyroidectomy bed, no residual or recurrent lesion is seen. Within the left submandibular region, a 0.9 x 0.9 x 0.6 cm reniform lymph node is seen, with normal architectural features. In the mid left cervical region, a 0.7 x 0.3 x 0.3 cm reniform lymph node is seen, with normal architectural features. In the upper right cervical region, a 1.7 x 0.6 x 0.9 cm reniform lymph node is seen, with normal architectural features. No sizable lymphadenopathy is seen. There is no mass or fluid collection. US/US soft tiss head and/or neck IMPRESSION: 1. The thyroid gland is surgically absent. No abnormal mass or fluid collection is seen within the former thyroid bed. 2. There are nonpathologically enlarged bilateral cervical lymph nodes, as detailed. No sizable lymphadenopathy is noted.
== END 2023-12-06 10:12 | disposition home or self-care (01) ==
LOC: HO.HMGCX 10:11
PROVIDERS: PCP Nurse Practitioner Family; Visit Provider Nurse Practitioner Family
DX: R13.10 Dysphagia, unspecified (principal)
CPT/HCPCS: 76536

== ENCOUNTER 2023-12-20 12:06 | Outpatient (REF) | payer OTHER, SELFPAY ==
[2023-12-20 13:31] LABS: MANUAL DIFF FLAG NO
[2023-12-20 13:37] LABS: Appearance Urine Clear; Color Urine Yellow; Glucose Urine UA Negative (Negative); Leukocyte Esterase Urine Trace (Negative); Nitrite Urine Negative (Negative); Specific Gravity - Urine <= 1.005 (1.005-1.025); UMIC TRIGGER UACC YES; Urine Blood Negative (Negative); Urine Ketones Negative (Negative); Urine Protein Negative (Neg-Trace)
[2023-12-20 13:47] LABS: Bacteria Urine 1+ (None Seen); Hyaline Casts Urine 0-2 /LPF (0-2); RBC Urine 0-2 /HPF (0-2); UACC Culture Trigger YES
[2023-12-20 13:58] LABS: Creatinine Urine 25.09 mg/dL; Microalbumin Urine < 5.0 mg/L
[2023-12-20 14:12] LABS: Basophils Absolute Auto 0.1 X10*3/uL (0.0-0.2); Basophils Percent Auto 0.6 % (0-2); Eosinophils Absolute Auto 0.1 X10*3/uL (0.0-0.4); Eosinophils Percent Auto 1.3 % (0-4); Hematocrit 43.6 % (37.0-47.0); Hemoglobin 15.2 g/dl (12.0-16.0); Imm Gran Abs Auto 0.03 X10*3/uL (0.00-0.03); Imm Gran Pct Auto 0.4 % (0.0-0.4); Lymphocytes Percent Auto 23.6 % (20-40); Mean Corpuscular HGB Conc 34.9 g/dl (31.0-35.0); Mean Corpuscular Hemoglobin 29.2 pg (27.0-33.0); Mean Corpuscular Volume 83.7 fL (80.0-98.0); Mean Platelet Volume 9.7 fL (9.4-12.3); Monocytes Absolute Auto 0.6 X10*3/uL (0.1-1.2); Monocytes Percent Auto 6.6 % (2-11); Neutrophils Absolute Auto 5.7 x10*3/uL (2.0-8.3); Neutrophils Percent Auto 67.5 % (45-73); Platelet Count 373 X10*3/uL (160-400); Red Blood Count 5.21 X10*6/uL (4.20-5.50); White Blood Count 8.5 X10*3/uL (4.8-10.8)
[2023-12-20 14:55] LABS: TSH reflex Free T4 1.06 uIU/mL (0.32-4.0)
[2023-12-20 15:16] LABS: Erythrocyte Sedimentation Rate 5 MM/HR (0-20)
[2023-12-22 01:18] LABS: A. Phagocytphilium DNA,RT-PCR NOT DETECTED (NOT DETECTED); Babesia Microti DNA, RT-PCR NOT DETECTED (NOT DETECTED); Borrelia Miyamotoi,DNA RT-PCR NOT DETECTED (NOT DETECTED); E.Chaffeensis DNA RT-PCR NOT DETECTED (NOT DETECTED); Lyme(Borrelia ssp)DNA RT-PCR NOT DETECTED (NOT DETECTED)
[2023-12-23 15:58] LABS: Intrinsic Factor Antibodies Equivocal (Negative)
[2023-12-30 15:37] LABS: Parietal Cell Antibody 24.2 Unit (<=20.0)
== END 2023-12-20 12:07 | disposition home or self-care (01) ==
LOC: HO.HMGCLDS 12:06
PROVIDERS: PCP Nurse Practitioner Family; Visit Provider Nurse Practitioner Family
DX: M79.7 Fibromyalgia (principal); E53.8 Deficiency of other specified B group vitamins; E11.9 Type 2 diabetes mellitus without complications; R79.89 Other specified abnormal findings of blood chemistry
CPT/HCPCS: 36415; 81001; 82570; 83516; 84443; 85025; 85652; 86140; 86340; 87086; 87468; 87469; 87478; 87484; 87798

== ENCOUNTER 2023-12-21 07:44 | Outpatient (AMB) | payer OTHER, SELFPAY ==
--- NOTE | 2023-12-21 07:11 | MHC.PC.OV ---
Intake Visit Reasons: FMLA for mental health-[employer] Allergies bee pollen [BEE STINGS] Allergy (Severe, Verified 12/21/23 07:58) ANAPHYLAXIS NSAIDS (Non-Steroidal Anti-Inflamma [NSAIDS (NON-STEROIDAL ANTI-INFLAMMA] Allergy (Intermediate, Verified 12/21/23 07:58) HIVES Penicillins Allergy (Intermediate, Verified 12/21/23 07:58) HIVES ibuprofen [From Motrin] Allergy (Unknown, Verified 12/21/23 07:58) Hives penicillin V Allergy (Unknown, Verified 12/21/23 07:58) unknown latex [LATEX] Adverse Reaction (Intermediate, Verified 12/21/23 07:58) RASH sulfamethoxazole [From Bactrim] Adverse Reaction (Verified 12/21/23 07:58) Hives trimethoprim [From Bactrim] Adverse Reaction (Verified 12/21/23 07:58) Hives From Ortho Tri-Cyclen (21) Adverse Reaction (Intermediate, Uncoded 12/21/23 07:58) DVT (BLOOD CLOT) Medication List - Last Reconciled 12/21/23 by CARLOTA Harrell- acetaminophen (Tylenol Extra Strength) 500 mg PO Q6H PRN albuterol sulfate 90 mcg/actuation (Ventolin HFA) 2 puffs inhalation Q6H PRN amitriptyline 50 mg PO BEDTIME atorvastatin 10 mg PO BEDTIME azvbtnsikt-asbubtcgxapow-aatx 50-325-40 mg 1 tab PO BID PRN 10 days carvedilol (Coreg) 3.125 mg PO BID clonazepam 1 mg PO BID PRN 30 days codeine-guaifenesin 10-100 mg/5 mL 10 mL PO Q6H PRN 10 days cyanocobalamin (vitamin B-12) 1,000 mcg IM QWEEK 1 month diphenhydramine HCl (Benadryl) 25 mg PO TID PRN epinephrine (EpiPen 2-Lee) 0.3 mg (0.3 mL) IM Q4H PRN fenofibrate 54 mg PO DAILY fluoxetine 20 mg PO BEDTIME FreeStyle Lancets (lancets) TID testing NS FreeStyle Lite Meter (blood-glucose meter) TID testing NS FreeStyle Lite Strips (blood sugar diagnostic) TID testing NS levothyroxine (Synthroid) 200 mcg PO BEDTIME prazosin 2 mg PO BEDTIME prednisone 40 mg (2 x 20 mg) PO DAILY syringe with needle (BD SafetyGlide Syringe) As directed to injection B-12 weekly tizanidine 4 mg PO BID PRN 30 days Tobacco use date assessed: 06/08/23 Dental Screening Dental Screen Date: 06/08/23 HPI [place] for mental health-[place] HPI Details Pt c/o ongoing dysphagia. She reports difficulty swallowing liquids and solids. She reports choking on air as well. Pt reports sore throat as well. She feels like there is a lump in her throat. Pt had an US which showed: The thyroid gland is surgically absent. No abnormal mass or fluid collection is seen within the former thyroid bed. There are nonpathologically enlarged bilateral cervical lymph nodes, as detailed. No sizable lymphadenopathy is noted. Barium swallow study was ordered earlier this month but pt has not hear anything, will check on this. Will also order CT. No leukocytosis on lab work, pt denies swollen tonsils. fevers (up to 100.0), does get the chills, and denies dizziness. She denies any hot potato voice. Pt knows to go to the ER with any worsening symptoms or seek urgent care. [facility] Medical History HLD (hyperlipidemia) HTN (hypertension) Type 2 diabetes mellitus Depression Migraine with aura Fibromyalgia Insomnia Hx of papillary thyroid carcinoma Surgical History History of umbilical hernia repair Bilateral carpal tunnel syndrome Hx of cholecystectomy History of tubal ligation History of section History of thyroidectomy Family History Father History of heart attack Mental health disorder Mother Hypothyroidism Sister Anxiety Migraine Low blood pressure Mental health disorder Son Epilepsy Daughter No problems noted. Maternal Grandmother Breast cancer Paternal Grandmother Breast cancer Social History Housing: Apartment Alcohol intake: current Alcohol intake frequency: holidays/special occasions only Patient Tobacco Use Status: Never used Tobacco e-Cigarette/Vaping Use: Never Used Second Hand Smoke Exposure: Yes Current occupational status: employed Cognitive needs: No Hearing needs: No Vision needs: Yes Questionnaire Thrive Questionnaire Date Thrive assessed: 06/08/23 LISSETH-7 AMB Questionnaire LISSETH-7 Date LISSETH - 7 assessed: 06/08/23 Source: Developed by Drs. Keven Salas, Christina Lake, Jeffrey Landis and colleagues, with an educational carlos from [employer]. Review of Systems Const Reports as per HPI Physical exam (Primary Care) Tobacco/Smoking Status: Tobacco use Status Tobacco use date assessed 06/08/23 12/21/23 07:12 Patient Tobacco Use Status Never used Tobacco 12/21/23 07:12 e-Cigarette/Vaping Use Never Used 12/21/23 07:12 Thrive Assessment: Date of Thrive Assessment Date Thrive assessed 06/08/23 12/21/23 07:12 Const General: cooperative Orientation/consciousness: patient oriented x3 Neuro General: patient oriented x3 Psych Appearance: grossly normal Mental Status: mental status grossly normal Speech and movement: Clear speech present Affect: normal affect Attitude: cooperative Thought process: Normal thought process present Thought content: Normal thought content present Insight: Good insight present (Psych) Judgement: Good judgement present (Psych) Telehealth Telehealth Telehealth Platform: [facility] Location of provider rendering services: practice address Location of patient: address on file Patient Identification confirmed using: Name, : Yes Telehealth method: video Patient verbally consented to treatment: Yes Patient verbally consented to billing insurance company: Yes Patient informed of any privacy concerns related to visit: Yes Minutes spent on Phone/Video with Pt.: 10 Assessment and Plan Assessment & Plan (1) Dysphagia: Code(s): R13.10 - Dysphagia, unspecified Plan: Will check on barium swallow study, CT ordered (2) Hoarseness of voice: Code(s): R49.0 - Dysphonia Plan: CT ordered (3) Cervical lymphadenopathy: Code(s): R59.0 - Localized enlarged lymph nodes Plan: CT ordered Plan The patient agreed to the use of a durable medical equipment repairer for this encounter. Scribed for UMBERTO Ascencio by Maryan Angela durable medical equipment repairer, on 12/21/2023 at 07:15 EST. Orders: Orders CT soft tissue neck wo/w IVcon Today R13.10 - Dysphagia, unspecified, R49.0 - Dysphonia, R59.0 - Localized enlarged lymph nodes Coding Level of Care Code Tele Est Pt Level 3 (77077) Diagnoses Dysphagia R13.10 Hoarseness of voice R49.0 Cervical lymphadenopathy R59.0
== END 2023-12-21 09:22 | disposition home or self-care (01) ==
LOC: HO.HMGC 07:44
PROVIDERS: PCP Nurse Practitioner Family; Visit Provider Nurse Practitioner Family
DX: R13.10 Dysphagia, unspecified (principal); R49.0 Dysphonia; R59.0 Localized enlarged lymph nodes
CPT/HCPCS: 99213

== ENCOUNTER 2024-01-03 08:00 | Outpatient (AMB) | payer OTHER, SELFPAY ==
--- NOTE | 2024-01-03 07:48 | A.OFFPC_ITS ---
Intake Visit Reasons: questions about labs Allergies bee pollen [BEE STINGS] Allergy (Severe, Verified 12/21/23 07:58) ANAPHYLAXIS NSAIDS (Non-Steroidal Anti-Inflamma [NSAIDS (NON-STEROIDAL ANTI-INFLAMMA] Allergy (Intermediate, Verified 12/21/23 07:58) HIVES Penicillins Allergy (Intermediate, Verified 12/21/23 07:58) HIVES ibuprofen [From Motrin] Allergy (Unknown, Verified 12/21/23 07:58) Hives penicillin V Allergy (Unknown, Verified 12/21/23 07:58) unknown latex [LATEX] Adverse Reaction (Intermediate, Verified 12/21/23 07:58) RASH sulfamethoxazole [From Bactrim] Adverse Reaction (Verified 12/21/23 07:58) Hives trimethoprim [From Bactrim] Adverse Reaction (Verified 12/21/23 07:58) Hives From Ortho Tri-Cyclen (21) Adverse Reaction (Intermediate, Uncoded 12/21/23 07:58) DVT (BLOOD CLOT) Tobacco use date assessed: 06/08/23 Dental Screening Dental Screen Date: 06/08/23 HPI questions about labs HPI Details Dyslipidemia: Pt is taking atorvastatin 10mg and fenofibrate 54mg. Will repeat labs in approximately 1 month from now. Denies chest pain, shortness of breath, and dizziness. Hx of B12 deficiency. She is having B12 injections. Does report fatigue. [facility] Medical History HLD (hyperlipidemia) HTN (hypertension) Type 2 diabetes mellitus Depression Migraine with aura Fibromyalgia Insomnia Hx of papillary thyroid carcinoma Surgical History History of umbilical hernia repair Bilateral carpal tunnel syndrome Hx of cholecystectomy History of tubal ligation History of section History of thyroidectomy Family History Father History of heart attack Mental health disorder Mother Hypothyroidism Sister Anxiety Migraine Low blood pressure Mental health disorder Son Epilepsy Daughter No problems noted. Maternal Grandmother Breast cancer Paternal Grandmother Breast cancer Social History Housing: Apartment Alcohol intake: current Alcohol intake frequency: holidays/special occasions only Patient Tobacco Use Status: Never used Tobacco e-Cigarette/Vaping Use: Never Used Second Hand Smoke Exposure: Yes Current occupational status: employed Cognitive needs: No Hearing needs: No Vision needs: Yes Questionnaire Thrive Questionnaire Date Thrive assessed: 06/08/23 LISSETH-7 AMB Questionnaire LISSETH-7 Date LISSETH - 7 assessed: 06/08/23 Source: Developed by Drs. Keven Salas, Christina Lake, Jeffrey Landis and colleagues, with an educational carlos from [employer]. Review of Systems Const Reports as per HPI Physical exam (Primary Care) Tobacco/Smoking Status: Tobacco use Status Tobacco use date assessed 06/08/23 01/03/24 07:51 Patient Tobacco Use Status Never used Tobacco 01/03/24 07:51 e-Cigarette/Vaping Use Never Used 01/03/24 07:51 Thrive Assessment: Date of Thrive Assessment Date Thrive assessed 06/08/23 01/03/24 07:51 Const General: cooperative Orientation/consciousness: patient oriented x3 Neuro General: patient oriented x3 Psych Appearance: grossly normal Mental Status: mental status grossly normal Speech and movement: Clear speech present Affect: normal affect Attitude: cooperative Thought process: Normal thought process present Thought content: Normal thought content present Insight: Good insight present (Psych) Judgement: Good judgement present (Psych) Telehealth Telehealth Telehealth Platform: [facility] Location of provider rendering services: practice address Location of patient: address on file Patient Identification confirmed using: Name, : Yes Telehealth method: video Patient verbally consented to treatment: Yes Patient verbally consented to billing insurance company: Yes Patient informed of any privacy concerns related to visit: Yes Minutes spent on Phone/Video with Pt.: 10 Assessment and Plan Assessment & Plan (1) B12 deficiency: Code(s): E53.8 - Deficiency of other specified B group vitamins Plan: cont injections (2) Dyslipidemia: Code(s): E78.5 - Hyperlipidemia, unspecified Plan: will cont to monitor, statin and fenofibrate recently started. Plan The patient agreed to the use of a medical operations supervisor for this encounter. Scribed for UMBERTO Ascencio by chang Hall scribe, on 01/03/2024 at 07:45 EST. Coding Level of Care Code Tele Est Pt Level 3 (89342) Diagnoses B12 deficiency E53.8 Dyslipidemia E78.5
== END 2024-01-03 09:14 | disposition home or self-care (01) ==
LOC: HO.HMGC 08:00
PROVIDERS: PCP Nurse Practitioner Family; Visit Provider Nurse Practitioner Family
DX: E53.8 Deficiency of other specified B group vitamins (principal); E78.5 Hyperlipidemia, unspecified
CPT/HCPCS: 99213

== ENCOUNTER 2024-01-18 10:22 | Outpatient (REF) | payer OTHER, SELFPAY ==
--- NOTE | ~2024-01-18 | FL_ITS ---
EXAMINATION: Modified Barium Swallow CLINICAL INFORMATION: Dysphagia COMPARISON: None TECHNIQUE: Modified barium swallow was performed under lateral fluoroscopy with patient in standing position. Barium mixed with solids and liquids of different consistencies was administered by the speech pathologist. Examination was recorded in the fluoroscopy suite. FINDINGS: No laryngeal penetration or aspiration was observed during this examination. FLUOROSCOPY TIME: 44 seconds Number of Spot Images: N/A DOSE AREA PRODUCT: 397.2 uGy-m2 (microgray-meter squared) FL/FL Modified Barium Swallow IMPRESSION: No laryngeal penetration or aspiration was observed during this examination. Refer to the speech therapy report for further clarification This procedure was performed by Kiran Ramsey PA-C, and supervised by Dr. Knight Electronically signed by: Lionel Knight MD 01/19/2024 03:44 PM EDT
--- NOTE | 2024-02-01 13:03 | MHC.SL.IMP ---
Date of Plan of Treatment: 01/18/24 Onset of Symptoms/Illness: 12/21/23 Date Treatment Started: 01/18/24 Admitting Diagnosis: Dysphagia Primary Speech & Language Diagnosis: R13.19 Other Dysphagia Secondary Speech & Language Diagnosis: Reason for Today's Visit: 56052 Modified Barium Swallow Study Comments: Pre-evaluation Dietary Consistencies: Regular Pre-evaluation Liquid Consistency: Thin Pre-evaluation Medication Administration: Whole with Liquid Medical History: HLD (hyperlipidemia) HTN (hypertension) Health Information Management [id number] [facility] Patient name: Jing Guillory Type 2 diabetes mellitus Depression Migraine with aura Fibromyalgia Insomnia Hx of papillary thyroid carcinoma Surgical History History of umbilical hernia repair Bilateral carpal tunnel syndrome Hx of cholecystectomy History of tubal ligation History of section History of thyroidectomy [facility] Fall Risk Assessment Score: Low risk Oral Motor Exam Facial Symmetry: Normal for Patient Symmetrical Mouth Occlusion: Normal Oral-Facial Teeth Characteristics: Intact/Normal Oral-Facial Teeth Miscellaneous Observation: Oral Expression Ability: No Impairment Is patient able to manage secretions?: Yes Is patient able to produce volitional cough?: Yes Food and Liquid Trials: Oral Impairment: Lip Closure: 1=Interlabial escape; no progression to anterior tip Oral Impairment: Tongue Control During Bolus Hold: 0=Cohesive bolus between tongue to palatal seal Oral Impairment: Bolus Preparation/Mastication: 0=Timely and efficient chewing and mashing Oral Impairment: Bolus Transport/Lingual Motion: 0=Brisk tongue motion Oral Impairment: Oral Residue: 0=Complete oral clearance Oral Impairment:Initiation of Pharyngeal Swallow: 1=Bolus head in valleculae Pharyngeal Impairment: Soft Palate Elevation: 0=No bolus between soft palate (SP)/pharyngeal wall (PW) Pharyngeal Impairment: Laryngeal Elevation: 0=Complete superior movement of thyroid cartilage (see description) Pharyngeal Impairment: Anterior Hyoid Excursion: 0=Complete anterior movement Pharyngeal Impairment: Epiglottic Movement: 0=Complete inversion Pharyngeal Impairment: Laryngeal Vestibular Closure:: 0=Complete: no air/contrast in laryngeal vestibule Pharyngeal Impairment: Pharyngeal Stripping Wave: 0=Present: complete Pharyngeal Impairment: Pharyngeal Contraction: 0=Complete Pharyngeal Impairment: Pharyngoesophageal Segment Openin=Complete distension and complete duration: no obstruction of flow Pharyngeal Impairment: Tongue Base (TB) Retraction: 1=Trace column of contrast/air between TB and posterior PW Pharyngeal Impairment: Pharyngeal Residue: 1=Trace residue within or on pharyngeal structures Pharyngeal Impairment: Esophageal Clearance Upright Position: 0=Complete clearance: esophageal coating Impressions and Recommendations Current (pre-evaluation) Intake/Diet: Route: PO Diet Grade: Regular Liquid Consistencies: Thin Pre-Study Functional Oral Intake Scale (FOIS): 7- Total oral intake with no restrictions Pain: None reported at time of study SUBJECTIVE: Pt c/o ongoing dysphagia. She reports difficulty swallowing liquids and solids. She reports choking on air as well. Pt reports sore throat as well. She feels like there is a lump in her throat. Recent ultrasound of the head and neck found: ? 1. The thyroid gland is surgically absent. No abnormal mass or fluid collection is seen within the former thyroid bed. 2. There are nonpathologically enlarged bilateral cervical lymph nodes, as detailed. No sizable lymphadenopathy is noted.? On the day of the study she presents as cooperative and well-kempt, but anxious about the possible results. OBJECTIVE: Time-out: performed at 10:25 Evaluation Start: 10:30; Stop: 10:45 Patient Positioning: Standing Viewing Planes: LATERAL ONLY Contrast: MBSImP? Standardized Protocol using commercially prepared, standardized Barium viscosities, including: Varibar? THIN LIQUID (40% w/v, <15 cps) , Varibar? PUDDING (40% w/v, <9615-0572 cps) , 1/2 Shortbread Cookie (1 x1 x.25 ) MBSImP ID: [id number] MBSImP Results: Lip closure for intraoral bolus containment resulted in interlabial escape, without progression to the anterior lip. Tongue control during bolus hold maintained a cohesive bolus held between tongue to palate seal. Bolus preparation and mastication resulted in timely and efficient chewing and mashing. Bolus transport/lingual motion was with brisk tongue motion. Oral residue was not observed. There was complete oral clearance. Initiation of the pharyngeal swallow occurred when the bolus head was in the valleculae. Soft palate elevation resulted in no bolus between the soft palate and the pharyngeal wall. Laryngeal elevation demonstrated complete superior movement of the thyroid cartilage with complete approximation of the arytenoids to the epiglottic petiole. Anterior hyoid excursion demonstrated complete anterior movement. Epiglottic movement resulted in complete inversion. Laryngeal vestibular closure was complete, as indicated by no air or contrast within the laryngeal vestibule at the height of the swallow. Pharyngeal stripping wave was present and complete. Pharyngeal contraction could not be determined due to logistical reasons not related to physiologic impairment. Pharyngoesophageal segment opening was completely distended for complete duration with no obstruction of bolus flow. Tongue base retraction allowed a trace column of contrast or air between the retracted tongue base and the posterior pharyngeal wall. Pharyngeal residue was a trace within or on pharyngeal structures. Esophageal clearance in the upright position was complete, with only a coating of contrast, if any. Oral Impairment Score: 1 Pharyngeal Impairment Score: 0 (absence of score, component 13) Esophageal Impairment Score: 0 Laryngeal Penetration and Aspiration: Neither penetration nor aspiration was observed in today's study with Cookie, Pudding-thick, Thin. ASSESSMENT: No discernable difficulty swallowing observed. No residue present in the larynx or pharynx across consistencies. This is in contrast to her report of feeling a lump at the base of her neck. Recommend she follow-up with PCP and GI. Pt counselled that globus pharyngus can also have a mental health component. Pt verbalized understanding and exited without further questions. Liquid Intake Recommendation: Thin Liquid Intake Strategies: Unrestricted Dietary Recommendations: Regular Medication Administration: Whole with Liquid Please contact the pharmacy regarding appropriate crushable or liquid drug formulations that are available whenever modified delivery is recommended. Compensatory Strategies Recommended: Sitting Upright (90 deg) Small Bites and Sips Alternate Liquids/Solids Rate of Ingestion Change Supervision during eating and or drinking: None Needed Recommended Treatments: Compens. Strategy Educat. Recommendation for Speech Therapy: NA:Typical Evaluation Timeline to reassess: PRN Top Spotter Clinician/Clinical Fellow: No Supervisory Statement: N/A Speech Language Pathologist: Santino Lopez M.A., CCC-BOTTLER
== END 2024-01-18 10:23 | disposition home or self-care (01) ==
LOC: HO.XRAY 10:22
PROVIDERS: Visit Provider Nurse Practitioner Family
DX: R13.10 Dysphagia, unspecified (principal)
CPT/HCPCS: 74230; 92611

== ENCOUNTER → 2024-01-18 10:30 | Outpatient (BNV) | payer OTHER, SELFPAY | PROVIDERS: Visit Provider Radiology Diagnostic Radiology | DX: R13.10 Dysphagia, unspecified (principal) | CPT/HCPCS: 74230 ==

== ENCOUNTER 2024-03-23 07:52 | Outpatient (REF) | payer OTHER, SELFPAY ==
[2024-03-23 11:37] LABS: Alanine Aminotransferase 42 U/L (0-31); Albumin Level 4.2 g/dL (3.5-5.0); Alkaline Phosphatase 80 U/L (39-117); Anion Gap 14 (12-20); Aspartate Amino Transferase 34 U/L (5-31); Bilirubin Total 0.4 mg/dL (0.0-1.0); Blood Urea Nitrogen 14 mg/dL (9-16); Calcium 9.2 mg/dL (8.4-10.2); Carbon Dioxide 25 mmol/L (22-29); Chloride 105 mmol/L (96-108); Cholesterol 191 mg/dL (<200); Estimated Glomerular Filt Rate > 60; Glucose Fasting 129 mg/dL (60-99); Glucose Random 129 mg/dL (60-115); HDL Cholesterol 42 mg/dL (>40); LDL Cholesterol Calculated 74 mg/dL (<100); Potassium 4.5 mmol/L (3.3-5.1); Sodium 139 mmol/L (135-145); Total Protein 6.8 g/dL (6.5-8.0); Triglycerides 375 mg/dL (<150)
[2024-03-23 11:40] LABS: Folate 8.7 ng/mL (> or = 4.0); Vitamin B12 295 pg/mL (200-900)
== END 2024-03-23 07:53 | disposition home or self-care (01) ==
LOC: HO.HMGCLDS 07:52
PROVIDERS: PCP Nurse Practitioner Family; Visit Provider Nurse Practitioner Family
DX: Z00.00 Encounter for general adult medical examination without abnormal findings (principal); E78.5 Hyperlipidemia, unspecified; G43.109 Migraine with aura, not intractable, without status migrainosus; E07.9 Disorder of thyroid, unspecified; E66.01 Morbid (severe) obesity due to excess calories; Z68.43 Body mass index [BMI] 50.0-59.9, adult; R60.0 Localized edema; E53.8 Deficiency of other specified B group vitamins; E78.1 Pure hyperglyceridemia
CPT/HCPCS: 36415; 80053; 80061; 82607; 82746; 96127

== ENCOUNTER 2024-03-23 15:19 | Outpatient (AMB) | payer OTHER, SELFPAY ==
[2024-03-23 15:23] VITALS: BP 112/66; PULSE 86; O2SAT 96; BMI 55.1
--- NOTE | 2024-03-23 15:23 | A.OFFPC_ITS ---
Vital Signs 03/23/24 15:23 Height 5 ft Weight 282 lb BMI 55.1 BP 112/66 Blood Pressure Location Rt brachial Position Sitting Pulse 86 Pulse Source Pulse Oximeter Pulse Oximetry (%) 96 Intake Visit Reasons: Annual PE Intake Note: pt is here for annual exam Spindle Tester Required: No Accompanied by: Self / Same As Patient Allergies bee pollen [BEE STINGS] Allergy (Severe, Verified 03/23/24 15:23) ANAPHYLAXIS NSAIDS (Non-Steroidal Anti-Inflamma [NSAIDS (NON-STEROIDAL ANTI-INFLAMMA] Allergy (Intermediate, Verified 03/23/24 15:23) HIVES Penicillins Allergy (Intermediate, Verified 03/23/24 15:23) HIVES ibuprofen [From Motrin] Allergy (Unknown, Verified 03/23/24 15:23) Hives penicillin V Allergy (Unknown, Verified 03/23/24 15:23) unknown latex [LATEX] Adverse Reaction (Intermediate, Verified 03/23/24 15:23) RASH sulfamethoxazole [From Bactrim] Adverse Reaction (Verified 03/23/24 15:23) Hives trimethoprim [From Bactrim] Adverse Reaction (Verified 03/23/24 15:23) Hives From Ortho Tri-Cyclen (21) Adverse Reaction (Intermediate, Uncoded 03/23/24 15:23) DVT (BLOOD CLOT) Medication List - Last Reconciled 03/23/24 by Alexandrea Galicia NP acetaminophen (Tylenol Extra Strength) 500 mg PO Q6H PRN albuterol sulfate 90 mcg/actuation (Ventolin HFA) 2 puffs inhalation Q6H PRN amitriptyline 50 mg PO BEDTIME atorvastatin 10 mg PO BEDTIME ujpcffdmog-qjmasgvusfkna-lzuu 50-325-40 mg 1 tab PO BID PRN 10 days carvedilol (Coreg) 3.125 mg PO BID clonazepam 1 mg PO BID PRN 30 days compr.stocking,knee,long,x-lrg KNEE HIGH EXTRA LARGE STOCKING X 2 20-30 MMHG cyanocobalamin (vitamin B-12) 1,000 mcg IM QWEEK 1 month epinephrine (EpiPen 2-Lee) 0.3 mg (0.3 mL) IM Q4H PRN fenofibrate 54 mg PO DAILY fluoxetine 20 mg PO BEDTIME FreeStyle Lancets (lancets) TID testing NS FreeStyle Lite Meter (blood-glucose meter) TID testing NS FreeStyle Lite Strips (blood sugar diagnostic) TID testing NS levothyroxine (Synthroid) 200 mcg PO BEDTIME prazosin 2 mg PO BEDTIME syringe with needle (BD SafetyGlide Syringe) As directed to injection B-12 weekly tizanidine 4 mg PO BID PRN 30 days Tobacco use date assessed: 03/23/24 Dental Screening Dental Screen Date: 06/08/23 HPI HPI Comments History of Present Illness Details 34 y/o female patient who presents to [facility] today for PE. Patient of Elan Julycedric. Pmhx significant for Migraines, Dyslipidemia, HTN, Anxiety, Morbid obesity. Pt c/o Bilateral LE swelling and B/L knee pain due to her weight. Pt is morbid obese, asking if there is anything she can do to help loose weight. States that whatever she is doing currently is not working. Asking to be referred for weight management. HCM: PAP: Needs to make an appointment. Mammo: Had Dx 2023. BI-RADS 1 Negative. PFSH Medical History HLD (hyperlipidemia) HTN (hypertension) Type 2 diabetes mellitus Depression Migraine with aura Fibromyalgia Insomnia Hx of papillary thyroid carcinoma Surgical History History of umbilical hernia repair Bilateral carpal tunnel syndrome Hx of cholecystectomy History of tubal ligation History of section History of thyroidectomy Family History Father History of heart attack Mental health disorder Mother Hypothyroidism Sister Anxiety Migraine Low blood pressure Mental health disorder Son Epilepsy Daughter No problems noted. Maternal Grandmother Breast cancer Paternal Grandmother Breast cancer Social History Housing: Apartment Alcohol intake: current Alcohol intake frequency: holidays/special occasions only Patient Tobacco Use Status: Never used Tobacco e-Cigarette/Vaping Use: Never Used Second Hand Smoke Exposure: Yes Current occupational status: employed Cognitive needs: No Hearing needs: No Vision needs: Yes Questionnaire PHQ-9 Over the last 2 weeks, how often have you been bothered by any of the following problems? 1. Little interest or pleasure in doing things: several days 2. Feeling down, depressed, or hopeless: several days 3. Trouble falling or staying asleep, or sleeping too much: several days 4. Feeling tired or having little energy: more than half the days 5. Poor appetite or overeating: several days 6. Feeling bad about yourself - or that you are a failure or have let yourself or your family down: not at all 7. Trouble concentrating on things, such as reading the newspaper or watching television: not at all 8. Moving or speaking so slowly that other people could have noticed. Or the opposite - being so fidgety or restless that you have been moving around a lot more than usual: several days 9. Thoughts that you would be better off or of hurting yourself in some way: not at all Total score: 7 Depression Screening Interpretation: Negative Depression Screening Done: Yes 35802 - PHQ-9 Billing: Yes Source: Developed by Drs. Keven Salas, Christina Lake, Jeffrey Landis and colleagues, with an educational carlos from [employer] Thrive Questionnaire Date Thrive assessed: 03/23/24 I am a: Patient What is your living situation today?: I have a steady place to live Within the past 12 months, did the food you bought not last and you didn't have the money to get more?: Never true Within the past 12 months, did you worry whether your food would run out before you got money to buy more?: Never true Do you have trouble paying for medicines?: No Do you have trouble getting transportation to medical appointments?: No Do you have trouble paying your heating and electricity bill?: No Do you have trouble taking care of your child, family member or friend?: No Do you have trouble with day-to-day activities such as bathing, preparing meals, shopping, managing finances, etc.?: No Are you currently unemployed and looking for a job?: No Are you interested in more education?: No Please select the resources that you would like help with: None Currently or been in a relationship where the following occur: No concerns reported THRIVE Score: 0 AUDIT C Alcohol Use Questionnaire (AUDIT-C) 1. How often do you have a drink containing alcohol?: Never 3. How often do you have six or more drinks on one occasion?: Never Total Score: 0 Score Reviewed/Action Taken: Yes LISSETH-7 AMB Questionnaire LISSETH-7 Date LISSETH - 7 assessed: 03/23/24 Feeling nervous, anxious, or on edge: 1 = Several days Not being able to stop or control worryin = Not at all Worrying too much about different things: 0 = Not at all Trouble relaxin = Several days Being so restless that it is hard to sit still: 0 = Not at all Becoming easily annoyed or irritable: 2 = More than half the days Feeling afraid as if something awful might happen: 0 = Not at all Total LISSETH-7 score (0-4 normal; 5-9 mild; 10-14 moderate; 15-21 severe): 4 Source: Developed by Drs. Keven Salas, Christina Lake, Jeffrey Landis and colleagues, with an educational carlos from [employer]. LISSETH-7 Assessment Billing LISSETH-7 Assessment Tool: LISSETH-7 Assessment 39420 Review of Systems Const All systems reviewed & are unremarkable except as noted in HPI and below Physical exam (Primary Care) Vital Signs: Last Vital Signs Pulse 86 03/23/24 15:23 BP 112/66 03/23/24 15:23 Pulse Ox 96 03/23/24 15:23 BMI result Body Mass Index 55.1 Tobacco/Smoking Status: Tobacco use Status Tobacco use date assessed 03/23/24 03/23/24 15:24 Patient Tobacco Use Status Never used Tobacco 03/23/24 15:24 e-Cigarette/Vaping Use Never Used 03/23/24 15:24 PHQ-9: PHQ-9 Score PHQ-9: Total score 7 03/23/24 15:40 Depression Screening Interpretation: Negative Thrive Assessment: Date of Thrive Assessment Date Thrive assessed 03/23/24 03/23/24 15:24 Currently or been in a relationship where the following occur: No concerns reported Const General: cooperative, comfortable and no acute distress Orientation/consciousness: patient oriented x3 HENMT Head: Yes normocephalic Ears: external ears normal and TM's normal bilaterally General nose exam: Normal external nose present and Normal nasal mucous membranes and turbinates present Face and sinus: Yes sinuses nontender Mouth: moist mucous membranes Throat: Yes tonsils normal and Yes uvula midline Eyes Pupils: Equal, round and reactive pupils present EOM: EOMs intact bilaterally Neck Neck: Yes full ROM and Yes no lymphadenopathy Resp Effort & Inspection: normal respiratory effort and able to speak in complete sentences Auscultation: clear to auscultation bilaterally, no crackles, no rales, no rhonchi and no wheezes Percussion: percussion normal Cardio Heart sounds: S1 normal heart sound present and S2 normal heart sound present GI Inspection: Yes Abdominal panniculus present and Yes obesity Palpation (GI): Soft to palpation, not firm, nontender, no guarding, not rigid and No hepatosplenomegaly present Auscultation: normal bowel sounds Rectal Exam - Female: deferred General: Yes no CVA tenderness Back/Spine/Pelvis Back: no CVA tenderness Skin General skin exam: no rashes or lesions noted Neuro General: patient oriented x3, gait normal and moves all extremities Cranial nerves: Yes Equal, round and reactive pupils present and Yes Bilaterally intact EOM present Motor exam (neuro): 5/5 motor strength present throughout Extrem Right upper extremity: normal to inspection and full ROM Left upper extremity: normal to inspection and full ROM Right lower extremity: lower leg Details: non-pitting edema; no ecchymosis and no crepitus Left lower extremity: lower leg Details: non-pitting edema Details: 1+; no erythema, no tenderness and no crepitus Psych Speech and movement: Normal speech and movement present Coding Level of Care Code Est Pt Prev Care 18-39y(13417) Diagnoses Dyslipidemia E78.5 Encounter for routine adult health examination without abnormal findings Z00.00 Migraine with aura and without status migrainosus, not intractable G43.109 Status migrainosus presence: without status migrainosus Intractability: not intractable Thyroid disease E07.9 Morbid obesity due to excess calories E66.01 Peripheral edema R60.0 Additional Codes LISSETH-7 Assessment Billing - LISSETH-7 Assessment Tool: LISSETH-7 Assessment [id number] ([id number]) Time Spent (min) 30 Assessment & Plan Assessment & Plan (1) Dyslipidemia: Code(s): E78.5 - Hyperlipidemia, unspecified Category: Medical Plan: Healthy diet and weight loss (2) Encounter for routine adult health examination without abnormal findings: Code(s): Z00.00 - Encounter for general adult medical examination without abnormal findings Plan: Examination WNL. (3) Migraine with aura: Code(s): G43.109 - Migraine with aura, not intractable, without status migrainosus Category: Medical Qualifiers: Status migrainosus presence: without status migrainosus Intractability: not intractable Qualified Code(s): G43.109 - Migraine with aura, not intractable, without status migrainosus Plan: Continue on current regiment. (4) Thyroid disease: Code(s): E07.9 - Disorder of thyroid, unspecified Plan: Continue on current regiment (5) Morbid obesity due to excess calories: Code(s): E66.01 - Morbid (severe) obesity due to excess calories Category: Medical Plan: Referred to weight management (6) Peripheral edema: Code(s): R60.0 - Localized edema Plan: Ordered Compression stockings Orders: Referrals Medical Weight Management Referral E66.01 - Morbid (severe) obesity due to excess calories Medications: New compr.stocking,knee,long,x-lrg KNEE HIGH EXTRA LARGE STOCKING X 2 20-30 MMHG 2 ea 0RF Z00.00 - Encounter for general adult medical examination without abnormal findings
== END 2024-03-23 16:29 | disposition home or self-care (01) ==
LOC: HO.HMCC 15:19
PROVIDERS: Visit Provider Nurse Practitioner Family
DX: Z00.00 Encounter for general adult medical examination without abnormal findings (principal); E78.5 Hyperlipidemia, unspecified; E66.01 Morbid (severe) obesity due to excess calories; Z68.43 Body mass index [BMI] 50.0-59.9, adult; G43.109 Migraine with aura, not intractable, without status migrainosus; E07.9 Disorder of thyroid, unspecified; R60.0 Localized edema

== ENCOUNTER 2024-04-05 14:58 | Emergency (ER) | payer OTHER, SELFPAY ==
--- NOTE | ~2024-04-05 | XR_ITS ---
EXAMINATION: XR CHEST CLINICAL INFORMATION: Chest pain COMPARISON: 08/02/2023 TECHNIQUE: 2 views of the chest were obtained. FINDINGS: No focal consolidation, pulmonary edema, or pleural effusion. Stable cardiomediastinal silhouette. XR/XR chest 2V IMPRESSION: No acute cardiopulmonary findings. Electronically signed by: Marco Davis MD 04/05/2024 04:57 PM [facility]
--- NOTE | 2024-04-05 14:59 | ECG_ITS ---
Test Reason : CHEST PAIN Blood Pressure : / mmHG Vent. Rate : 093 BPM Atrial Rate : 093 BPM P-R Int : 150 ms QRS Dur : 090 ms QT Int : 396 ms P-R-T Axes : 057 016 -82 degrees QTc Int : 492 ms Normal sinus rhythm Low voltage QRS Nonspecific T wave abnormality Prolonged QT Abnormal ECG When compared with ECG of 02-AUG-2023 11:11, Nonspecific T wave abnormality, worse in Lateral leads Referred By: Generic ED Physician Electronically Signed By:Hero Borja
[2024-04-05 15:21] VITALS: BP 149/83; PULSE 96; RESP 20; TEMP 37.2; O2SAT 99; BMI 50.8
--- NOTE | 2024-04-05 15:21 | ED.CHESTPAIN ---
HPI - Chest Pain General Chief Complaint: Chest Pain Stated Complaint: cp Related Data Home Medications ?Medication ?Instructions ?Recorded ?Confirmed albuterol sulfate 90 mcg/actuation 2 puff inhalation Q6H PRN wheezing 08/02/23 03/23/24 aerosol inhaler (Ventolin HFA) amitriptyline 50 mg tablet 50 mg PO BEDTIME 08/02/23 03/23/24 carvedilol 3.125 mg tablet (Coreg) 3.125 mg PO BID 08/02/23 03/23/24 fluoxetine 20 mg tablet 20 mg PO BEDTIME 08/02/23 03/23/24 levothyroxine 200 mcg tablet 200 mcg PO BEDTIME 08/02/23 03/23/24 (Synthroid) prazosin 2 mg capsule 2 mg PO BEDTIME 08/02/23 03/23/24 Previous Rx's ?Medication ?Instructions ?Recorded FreeStyle Lite Meter #1 ea 01/19/23 (blood-glucose meter) epinephrine 0.3 mg/0.3 mL 0.3 mg (0.3 mL) IM Q4H PRN 02/05/23 injection, auto-injector (EpiPen anaphylaxis #2 ea 2-Lee) acetaminophen 500 mg tablet 500 mg PO Q6H PRN fever or pain 02/08/23 (Tylenol Extra Strength) #14 tabs FreeStyle Lite Strips (blood sugar #100 ea 02/16/23 diagnostic) FreeStyle Lancets 28 gauge #300 ea 04/06/23 (lancets) vdkiqaeiim-iytpykzfhkpre-dxyhenhq 1 tab PO BID PRN pain 10 days #20 10/24/23 50 mg-325 mg-40 mg tablet tabs atorvastatin 10 mg tablet 10 mg PO BEDTIME #90 tabs 11/23/23 syringe with needle 3 mL 23 x 1 #50 ea 12/01/23 (BD SafetyGlide Syringe) compr.stocking,knee,long,x-lrg #2 ea 03/23/24 clonazepam 1 mg tablet 1 mg PO BID PRN anxiety 30 days 04/11/24 #60 tabs cyanocobalamin (vitamin B-12) 1,000 mcg IM QWEEK 1 month #5 mL 04/11/24 1,000 mcg/mL injection solution fenofibrate 54 mg tablet 54 mg PO DAILY #90 tabs 04/11/24 tizanidine 4 mg capsule 4 mg PO BID PRN muscle spasticity 04/11/24 30 days #60 caps Allergies Allergy/AdvReac Type Severity Reaction Status Date / Time bee pollen [BEE STINGS] Allergy Severe ANAPHYLAXIS Verified 04/05/24 15:23 NSAIDS (Non-Steroidal Allergy Intermediate HIVES Verified 04/05/24 15:23 Anti-Inflamma [NSAIDS (NON-STEROIDAL ANTI-INFLAMMA] Penicillins Allergy Intermediate HIVES Verified 04/05/24 15:23 ibuprofen [From Motrin] Allergy Unknown Hives Verified 04/05/24 15:23 penicillin V Allergy Unknown unknown Verified 04/05/24 15:23 latex [LATEX] AdvReac Intermediate RASH Verified 04/05/24 15:23 sulfamethoxazole AdvReac Hives Verified 04/05/24 15:23 [From Bactrim] trimethoprim [From Bactrim] AdvReac Hives Verified 04/05/24 15:23 From Ortho Tri-Cyclen (21) AdvReac Intermediate DVT (BLOOD Uncoded 04/05/24 15:23 CLOT) PMFSH Past Medical History Medical History (Updated 04/13/24 @ 16:56 by CAM Mccray) Morbid obesity due to excess calories HLD (hyperlipidemia) HTN (hypertension) Type 2 diabetes mellitus Depression Migraine with aura Fibromyalgia Insomnia Hx of papillary thyroid carcinoma Surgical History History of umbilical hernia repair Bilateral carpal tunnel syndrome Hx of cholecystectomy History of tubal ligation History of section History of thyroidectomy Family History Family History Father History of heart attack Mental health disorder Mother Hypothyroidism Sister Anxiety Migraine Low blood pressure Mental health disorder Son Epilepsy Daughter No problems noted. Maternal Grandmother Breast cancer Paternal Grandmother Breast cancer Social History Social History Housing: Apartment Alcohol intake: current Alcohol intake frequency: holidays/special occasions only Patient Tobacco Use Status: Never used Tobacco e-Cigarette/Vaping Use: Never Used Second Hand Smoke Exposure: Yes Advance Directives: No Advance Directives Information Provided: No Current occupational status: employed Cognitive needs: No Hearing needs: No Vision needs: Yes Physical Exam Vital Signs: Vital Signs: Last Vital Signs Temp 98.9 F 04/05/24 15:21 Pulse 96 04/05/24 15:21 Resp 20 04/05/24 15:21 BP 149/83 H 04/05/24 15:21 Pulse Ox 99 04/05/24 15:21 O2 Del Method Room Air 04/05/24 15:21 BMI result Body Mass Index 50.8 Course Course Course Narrative: This is a Rapid Medical Exam performed in triage by Jesi Ireland PA-C. Full HPI, ROS and PE to be performed by primary ED provider. 34yo F w/pmhx depression, fibromyalgia, obesity, presenting to the ED c/o muscle cramping/tensing w/weakness x 3 weeks w/chest pain x today. CP radiating down RUE. +SOB. PE: tearful, anxious, talking in complete sentences, nontoxic appearing Plan: EKG, labs, CXR, viral testing Medical Decision Making Lab Data 04/05/24 16:22 04/05/24 16:22 Labs: Lab Results 04/05/24 Range/Units 16:22 WBC 12.1 H (4.8-10.8) X10*3/uL RBC 5.23 (4.20-5.50) X10*6/uL Hgb 15.3 (12.0-16.0) g/dl Hct 44.8 (37.0-47.0) % MCV 85.7 (80.0-98.0) fL MCH 29.3 (27.0-33.0) pg MCHC 34.2 (31.0-35.0) g/dl RDW 12.6 (11.0-16.0) % Plt Count 357 (160-400) X10*3/uL MPV 9.8 (9.4-12.3) fL Immature Gran % (Auto) 0.4 (0.0-0.4) % Neut % (Auto) 70.6 (45-73) % Lymph % (Auto) 20.1 (20-40) % [place] % (Auto) 6.0 (2-11) % Eos % (Auto) 2.2 (0-4) % Baso % (Auto) 0.7 (0-2) % Lymph # (Auto) 2.4 (1.2-4.9) X10*3/uL [place] # (Auto) 0.7 (0.1-1.2) X10*3/uL Eos # (Auto) 0.3 (0.0-0.4) X10*3/uL Baso # (Auto) 0.1 (0.0-0.2) X10*3/uL Abs Immat Gran (auto) 0.05 H (0.00-0.03) X10*3/uL Absolute Neuts (auto) 8.5 H (2.0-8.3) x10*3/uL Absolute Nucleated RBC 0.000 (0.0-0.012) X10*3/uL Nucleated RBC % (auto) 0.0 (0.0-0.2) /100WBC Sodium 137 (135-145) mmol/L Potassium 3.9 (3.3-5.1) mmol/L Chloride 103 (96-108) mmol/L Carbon Dioxide 25 (22-29) mmol/L Anion Gap 13 (12-20) BUN 16 (9-16) mg/dL Creatinine 1.05 (0.5-1.4) mg/dL Estim Creat Clear Calc 87.0 Estimated GFR 59 Random Glucose 160 H (60-115) mg/dL Calcium 9.4 (8.4-10.2) mg/dL Magnesium 2.0 (1.6-2.6) mg/dL Total Bilirubin 0.5 (0.0-1.0) mg/dL Direct Bilirubin 0.1 (0.0-0.5) mg/dL AST 39 H (5-31) U/L ALT 62 H (0-31) U/L Alkaline Phosphatase 104 (39-117) U/L Total Creatine Kinase 368 H (26-140) U/L Troponin I High Sens < 2.7 (<3.5-17.0) ng/L Total Protein 7.7 (6.5-8.0) g/dL Albumin 4.8 (3.5-5.0) g/dL Influenza Type A (PCR) NEGATIVE (Negative) Influenza Type B (PCR) NEGATIVE (Negative) RSV RNA Qual (PCR) NEGATIVE (Negative) SARS-CoV-2 RNA (RT-PCR) NEGATIVE (Negative) Discharge Plan Discharge Clinical Impression: Atypical chest pain Patient Disposition: Left W/O Completing Treatment Prescriptions: No Action (DME) blood-glucose meter [FreeStyle Lite Meter] Kit See Rx Instructions .Route Qty: 1 0RF Rx Instructions: TID testing (DME) FreeStyle Lite Strips Strip See Rx Instructions .Route Qty: 100 5RF Rx Instructions: TID testing (DME) lancets [FreeStyle Lancets] 28 gauge misc See Rx Instructions .Route Qty: 300 1RF Rx Instructions: TID testing qiyhpdhixg-tdrjcefzidgsp-bnyc 50-325-40 mg tablet 1 tab PO BID PRN (Reason: pain) 10 Days Qty: 20 1RF (DME) BD SafetyGlide Syringe 3 mL 23 x 1 syringe See Rx Instructions .Route Qty: 50 0RF Rx Instructions: As directed to injection B-12 weekly cyanocobalamin (vitamin B-12) 1,000 mcg/mL solution 1,000 mcg IM QWEEK 30 Days Qty: 5 2RF Rx Instructions: of the fenofibrate 54 mg tablet 54 mg PO DAILY Qty: 90 0RF clonazepam 1 mg tablet 1 mg PO BID PRN (Reason: anxiety) 30 Days Qty: 60 0RF tizanidine 4 mg capsule 4 mg PO BID PRN (Reason: muscle spasticity) 30 Days Qty: 60 0RF epinephrine [EpiPen 2-Lee] 0.3 mg/0.3 mL auto-injector 0.3 mg IM Q4H PRN (Reason: anaphylaxis) Qty: 2 0RF albuterol sulfate [Ventolin HFA] 90 mcg/actuation HFA aerosol inhaler 2 puff INHALATION Q6H PRN (Reason: wheezing) amitriptyline 50 mg tablet 50 mg PO BEDTIME carvedilol [Coreg] 3.125 mg tablet 3.125 mg PO BID Rx Instructions: must administer with a meal/food fluoxetine 20 mg tablet 20 mg PO BEDTIME levothyroxine [Synthroid] 200 mcg tablet 200 mcg PO BEDTIME prazosin 2 mg capsule 2 mg PO BEDTIME acetaminophen [Tylenol Extra Strength] 500 mg tablet 500 mg PO Q6H PRN (Reason: fever or pain) Qty: 14 0RF atorvastatin 10 mg tablet 10 mg PO BEDTIME Qty: 90 1RF (DME) compr.stocking,knee,long,x-lrg Misc See Rx Instructions .Route Qty: 2 0RF Rx Instructions: KNEE HIGH EXTRA LARGE STOCKING X 2 20-30 MMHG Discharge Date/Time: 04/05/24 21:13
[2024-04-05 16:27] LABS: MANUAL DIFF FLAG NO
[2024-04-05 16:31] LABS: Basophils Absolute Auto 0.1 X10*3/uL (0.0-0.2); Basophils Percent Auto 0.7 % (0-2); Eosinophils Absolute Auto 0.3 X10*3/uL (0.0-0.4); Eosinophils Percent Auto 2.2 % (0-4); Hematocrit 44.8 % (37.0-47.0); Hemoglobin 15.3 g/dl (12.0-16.0); Imm Gran Abs Auto 0.05 X10*3/uL (0.00-0.03); Imm Gran Pct Auto 0.4 % (0.0-0.4); Lymphocytes Absolute Auto 2.4 X10*3/uL (1.2-4.9); Lymphocytes Percent Auto 20.1 % (20-40); Mean Corpuscular HGB Conc 34.2 g/dl (31.0-35.0); Mean Corpuscular Hemoglobin 29.3 pg (27.0-33.0); Mean Corpuscular Volume 85.7 fL (80.0-98.0); Mean Platelet Volume 9.8 fL (9.4-12.3); Monocytes Absolute Auto 0.7 X10*3/uL (0.1-1.2); Neutrophils Absolute Auto 8.5 x10*3/uL (2.0-8.3); Neutrophils Percent Auto 70.6 % (45-73); Platelet Count 357 X10*3/uL (160-400); Red Blood Count 5.23 X10*6/uL (4.20-5.50); Red Cell Distribution Width 12.6 % (11.0-16.0); White Blood Count 12.1 X10*3/uL (4.8-10.8)
[2024-04-05 16:49] LABS: Albumin Level 4.8 g/dL (3.5-5.0); Alkaline Phosphatase 104 U/L (39-117); Anion Gap 13 (12-20); Aspartate Amino Transferase 39 U/L (5-31); Bilirubin Direct 0.1 mg/dL (0.0-0.5); Bilirubin Total 0.5 mg/dL (0.0-1.0); Blood Urea Nitrogen 16 mg/dL (9-16); Calcium 9.4 mg/dL (8.4-10.2); Carbon Dioxide 25 mmol/L (22-29); Chloride 103 mmol/L (96-108); Estimated Glomerular Filt Rate 59; Glucose Random 160 mg/dL (60-115); Potassium 3.9 mmol/L (3.3-5.1); Sodium 137 mmol/L (135-145); Total Protein 7.7 g/dL (6.5-8.0)
[2024-04-05 16:57] LABS: Troponin-I High Sensitivity < 2.7 ng/L (<3.5-17.0)
[2024-04-05 17:01] LABS: Alanine Aminotransferase 62 U/L (0-31)
[2024-04-05 17:16] LABS: Influenza A PCR NEGATIVE (Negative); Influenza B PCR NEGATIVE (Negative); Resp Syncy Virus RNA Qual PCR NEGATIVE (Negative); SARS COV2 PCR INHOUSE NEGATIVE (Negative)
== END 2024-04-05 21:13 | disposition left against medical advice (07) ==
PROVIDERS: Physician Assistant; Emergency Provider Emergency Medicine; PCP Nurse Practitioner Family
DX: R07.89 Other chest pain (principal); Z03.818 Encounter for observation for suspected exposure to other biological agents ruled out; Z79.899 Other long term (current) drug therapy
CPT/HCPCS: 0241U; 71046; 80048; 80076; 82550; 83735; 84484; 85025; 93005; 99283

== ENCOUNTER → 2024-04-05 14:59 | Outpatient (BNV) | payer OTHER, SELFPAY | PROVIDERS: Emergency Provider Emergency Medicine; PCP Nurse Practitioner Family; Visit Provider Internal Medicine Cardiovascular Disease | DX: R94.31 Abnormal electrocardiogram [ECG] [EKG] (principal) | CPT/HCPCS: 93010 ==

== ENCOUNTER 2024-04-30 07:44 | Outpatient (AMB) | payer OTHER, SELFPAY ==
--- NOTE | 2024-04-30 07:51 | MHC.OFFVIS ---
Intake Visit Reasons: PFMLA paperwork Deric [phone] Allergies bee pollen [BEE STINGS] Allergy (Severe, Verified 04/05/24 15:23) ANAPHYLAXIS NSAIDS (Non-Steroidal Anti-Inflamma [NSAIDS (NON-STEROIDAL ANTI-INFLAMMA] Allergy (Intermediate, Verified 04/05/24 15:23) HIVES Penicillins Allergy (Intermediate, Verified 04/05/24 15:23) HIVES ibuprofen [From Motrin] Allergy (Unknown, Verified 04/05/24 15:23) Hives penicillin V Allergy (Unknown, Verified 04/05/24 15:23) unknown latex [LATEX] Adverse Reaction (Intermediate, Verified 04/05/24 15:23) RASH sulfamethoxazole [From Bactrim] Adverse Reaction (Verified 04/05/24 15:23) Hives trimethoprim [From Bactrim] Adverse Reaction (Verified 04/05/24 15:23) Hives From Ortho Tri-Cyclen (21) Adverse Reaction (Intermediate, Uncoded 04/05/24 15:23) DVT (BLOOD CLOT) Medication List - Last Reconciled 04/30/24 by CARLOTA Harrell- acetaminophen (Tylenol Extra Strength) 500 mg PO Q6H PRN albuterol sulfate 90 mcg/actuation (Ventolin HFA) 2 puffs inhalation Q6H PRN amitriptyline 50 mg PO BEDTIME atorvastatin 10 mg PO BEDTIME zcfyccjwuw-yhcoaucmqnnvv-xwlb 50-325-40 mg 1 tab PO BID PRN 10 days carvedilol (Coreg) 3.125 mg PO BID 90 days clonazepam 1 mg PO BID PRN 30 days compr.stocking,knee,long,x-lrg KNEE HIGH EXTRA LARGE STOCKING X 2 20-30 MMHG cyanocobalamin (vitamin B-12) 1,000 mcg IM QWEEK 1 month epinephrine (EpiPen 2-Lee) 0.3 mg (0.3 mL) IM Q4H PRN fenofibrate 54 mg PO DAILY fluoxetine 20 mg PO BEDTIME FreeStyle Lancets (lancets) TID testing NS FreeStyle Lite Meter (blood-glucose meter) TID testing NS FreeStyle Lite Strips (blood sugar diagnostic) TID testing NS levothyroxine (Synthroid) 200 mcg PO BEDTIME prazosin 2 mg PO BEDTIME syringe with needle (BD SafetyGlide Syringe) As directed to injection B-12 weekly tizanidine 4 mg PO BID PRN 30 days HPI HPI PFMLA paperwork iPhone : Details: History of Present Illness The patient is a 34-year-old female presenting with management of polypharmacy and muscle spasms. The patient is currently on fluoxetine and amitriptyline, which necessitates monitoring for QT prolongation. An EKG previously indicated some degree of QT prolongation, prompting a recommendation for future monitoring. Pt denies any SOB or CP. Her muscle spasms are widespread, occurring in areas such as the neck, legs, thighs, and ribcage, and severe enough to cause significant discomfort and functional impairment. The spasms are persistent and do not respond to acetaminophen. The patient has not had a rheumatology follow-up since the onset of COVID-19 pandemic. Additionally, the patient?s recent labs reported elevated CPK levels, indicative of muscle breakdown, though not extremely elevated. Her treatment history includes Tylenol arthritis, which provided no relief. The patient experiences Vitamin B12 deficiency, as highlighted by missed injections due to a lack of injectors. These will be sent Review of Systems as above Plan - QT Prolongation: Continue monitoring and prescribe EKG. Ensure fluoxetine and amitriptyline intake are spaced by 12 hours. - Muscle Spasms: Advise the use of magnesium oxide 400 mg [id number]-flmadoh for its beneficial properties. Vitamin B complex supplementation is optional, but reconsider due to absorption concerns. - Vitamin Deficiency: Arrange for additional needles to be sent to the pharmacy and continue with injections as per schedule. - Elevated Creatine Phosphokinase Levels: Order repeat blood work non-fasting to further evaluate etiology and assess any underlying rheumatological conditions. -pt knows to go to the ER with any worsening symptoms Patient was informed and verbally consented to the use of an ambient scribe for clinic note documentation during this visit. Discussion Notes During this visit, I discussed with the patient the current issues related to QT prolongation as a possible consequence of polypharmacy with fluoxetine and amitriptyline. It was emphasized to separate medication intake by 12 hours to minimize risks. The patient?s muscle spasms, reported as severe, have not improved with previous treatments. I recommended trying magnesium oxide due to its muscle-relaxant properties. We discussed her need for regular Vitamin B12 injections and addressed missteps that may have occurred with obtaining necessary injectors. Future monitoring via EKG and repeat labs were also discussed, underlining the importance of understanding any underlying conditions. 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 Patient Instructions - Separate intake of fluoxetine and amitriptyline by at least 12 hours. - Obtain and take magnesium oxide 400 mg daily per the recommendation. - Continue Vitamin B12 injections as scheduled once the new injectors are obtained. - Obtain EKG and repeat lab work as instructed, without the need for fasting. - Schedule follow-up with general utility worker as discussed. [facility] [place] Medical History (Updated 04/30/24 @ 07:47 by Elan Terry, [facility]) Morbid obesity due to excess calories HLD (hyperlipidemia) HTN (hypertension) Type 2 diabetes mellitus Depression Migraine with aura Fibromyalgia Insomnia Hx of papillary thyroid carcinoma Surgical History History of umbilical hernia repair Bilateral carpal tunnel syndrome Hx of cholecystectomy History of tubal ligation History of section History of thyroidectomy Family History Father History of heart attack Mental health disorder Mother Hypothyroidism Sister Anxiety Migraine Low blood pressure Mental health disorder Son Epilepsy Daughter No problems noted. Maternal Grandmother Breast cancer Paternal Grandmother Breast cancer Social History Housing: Apartment Alcohol intake: current Alcohol intake frequency: holidays/special occasions only Patient Tobacco Use Status: Never used Tobacco e-Cigarette/Vaping Use: Never Used Second Hand Smoke Exposure: Yes Current occupational status: employed Cognitive needs: No Hearing needs: No Vision needs: Yes Telehealth Telehealth Telehealth Platform: [employer] Location of provider rendering services: practice address Location of patient: address on file Patient Identification confirmed using: Name, : Yes Telehealth method: video Patient verbally consented to billing insurance company: Yes Patient informed of any privacy concerns related to visit: Yes Minutes spent on Phone/Video with Pt.: 15 Assessment & Plan Assessment & Plan (1) QT prolongation: Code(s): R94.31 - Abnormal electrocardiogram [ECG] [EKG] Category: Medical (2) Elevated CPK: Code(s): R74.8 - Abnormal levels of other serum enzymes Category: Medical Plan . Orders: Orders Creatine Kinase Total Today R74.8 - Abnormal levels of other serum enzymes Complete Blood Count Auto Diff Today R74.8 - Abnormal levels of other serum enzymes, R94.31 - Abnormal electrocardiogram [ECG] [EKG] ECG 12 lead EKG Today R94.31 - Abnormal electrocardiogram [ECG] [EKG] Comprehensive Met. Panel Today R74.8 - Abnormal levels of other serum enzymes Medications: Changed From amitriptyline 50 mg PO BEDTIME To amitriptyline 50 mg PO BEDTIME 90 tabs 0RF 90 days Refilled syringe with needle (BD SafetyGlide Syringe) As directed to injection B-12 weekly 50 ea 0RF E53.8 - Deficiency of other specified B group vitamins Coding Level of Care Code Tele Est Pt Level 3 (94697) Diagnoses QT prolongation R94.31 Elevated CPK R74.8
== END 2024-04-30 08:16 | disposition home or self-care (01) ==
PROVIDERS: PCP Nurse Practitioner Family; Visit Provider Nurse Practitioner Family
DX: R94.31 Abnormal electrocardiogram [ECG] [EKG] (principal); R74.8 Abnormal levels of other serum enzymes

== ENCOUNTER → 2024-04-30 07:44 | Outpatient (REF) | payer OTHER, SELFPAY ==
--- NOTE | 2024-04-30 10:48 | ECG_ITS ---
Test Reason : R94.31 ABNORMAL EKG Blood Pressure : / mmHG Vent. Rate : 085 BPM Atrial Rate : 085 BPM P-R Int : 154 ms QRS Dur : 078 ms QT Int : 380 ms P-R-T Axes : 049 046 -05 degrees QTc Int : 452 ms Normal sinus rhythm Low voltage QRS Nonspecific T wave abnormality Abnormal ECG When compared with ECG of 05-APR-2024 14:59, No significant change was found Referred By: Elan Terry Electronically Signed By:NILSA POLLARD MD
[2024-04-30 11:11] LABS: MANUAL DIFF FLAG NO
[2024-04-30 12:00] LABS: Basophils Absolute Auto 0.1 X10*3/uL (0.0-0.2); Basophils Percent Auto 0.6 % (0-2); Eosinophils Absolute Auto 0.2 X10*3/uL (0.0-0.4); Hematocrit 42.1 % (37.0-47.0); Hemoglobin 14.3 g/dl (12.0-16.0); Imm Gran Abs Auto 0.05 X10*3/uL (0.00-0.03); Imm Gran Pct Auto 0.6 % (0.0-0.4); Lymphocytes Absolute Auto 2.4 X10*3/uL (1.2-4.9); Lymphocytes Percent Auto 27.5 % (20-40); Mean Corpuscular Hemoglobin 29.5 pg (27.0-33.0); Mean Platelet Volume 9.9 fL (9.4-12.3); Monocytes Absolute Auto 0.6 X10*3/uL (0.1-1.2); Monocytes Percent Auto 6.8 % (2-11); Neutrophils Absolute Auto 5.4 x10*3/uL (2.0-8.3); Neutrophils Percent Auto 62.5 % (45-73); Platelet Count 337 X10*3/uL (160-400); Red Blood Count 4.84 X10*6/uL (4.20-5.50); Red Cell Distribution Width 12.8 % (11.0-16.0); White Blood Count 8.6 X10*3/uL (4.8-10.8)
[2024-04-30 12:21] LABS: Appearance Urine Clear; Color Urine Yellow; Glucose Urine UA Negative (Negative); Leukocyte Esterase Urine Small (1+) (Negative); Nitrite Urine Negative (Negative); PH 5.5 (5.0-9.0); UMIC TRIGGER UACC YES; Urine Blood Negative (Negative); Urine Ketones Negative (Negative); Urine Protein Negative (Neg-Trace)
[2024-04-30 12:25] LABS: Bacteria Urine 4+ (None Seen); Hyaline Casts Urine 0-2 /LPF (0-2); RBC Urine 0-2 /HPF (0-2); UACC Culture Trigger YES; WBC Urine 21-50 /HPF (0-5)
[2024-04-30 12:59] LABS: Alanine Aminotransferase 66 U/L (0-31); Albumin Level 4.8 g/dL (3.5-5.0); Alkaline Phosphatase 95 U/L (39-117); Anion Gap 11 (12-20); Aspartate Amino Transferase 51 U/L (5-31); Bilirubin Total 0.6 mg/dL (0.0-1.0); Blood Urea Nitrogen 13 mg/dL (9-16); Carbon Dioxide 28 mmol/L (22-29); Chloride 103 mmol/L (96-108); Estimated Glomerular Filt Rate > 60; Glucose Random 130 mg/dL (60-115); Potassium 4.1 mmol/L (3.3-5.1); Sodium 138 mmol/L (135-145); Total Protein 7.5 g/dL (6.5-8.0)
== END ==
LOC: HO.CARD 07:44
PROVIDERS: PCP Nurse Practitioner Family; Visit Provider Nurse Practitioner Family
DX: R94.31 Abnormal electrocardiogram [ECG] [EKG] (principal); R74.8 Abnormal levels of other serum enzymes; E11.9 Type 2 diabetes mellitus without complications; R82.90 Unspecified abnormal findings in urine
CPT/HCPCS: 36415; 80053; 81001; 82550; 85025; 87086; 93005

== ENCOUNTER → 2024-04-30 10:48 | Outpatient (BNV) | payer OTHER, SELFPAY | PROVIDERS: PCP Nurse Practitioner Family; Visit Provider Internal Medicine Cardiovascular Disease | DX: R94.31 Abnormal electrocardiogram [ECG] [EKG] (principal) | CPT/HCPCS: 93010 ==

== ENCOUNTER 2024-05-08 09:12 | Outpatient (AMB) | payer OTHER, SELFPAY ==
--- NOTE | 2024-05-08 09:24 | A.OFFPC_ITS ---
Vital Signs 05/08/24 09:30 Height 5 ft Weight 282 lb BMI 55.1 BP 132/82 Blood Pressure Location Rt brachial Position Sitting Pulse 86 Pulse Source Pulse Oximeter Pulse Oximetry (%) 97 Oxygen Delivery Method Room Air Intake Visit Reasons: Weight Management Intake Note: pt is here for weight management f/up Allergies bee pollen [BEE STINGS] Allergy (Severe, Verified 05/08/24 09:29) ANAPHYLAXIS NSAIDS (Non-Steroidal Anti-Inflamma [NSAIDS (NON-STEROIDAL ANTI-INFLAMMA] Allergy (Intermediate, Verified 05/08/24 09:29) HIVES Penicillins Allergy (Intermediate, Verified 05/08/24 09:29) HIVES ibuprofen [From Motrin] Allergy (Unknown, Verified 05/08/24 09:29) Hives penicillin V Allergy (Unknown, Verified 05/08/24 09:29) unknown latex [LATEX] Adverse Reaction (Intermediate, Verified 05/08/24 09:29) RASH sulfamethoxazole [From Bactrim] Adverse Reaction (Verified 05/08/24 09:29) Hives trimethoprim [From Bactrim] Adverse Reaction (Verified 05/08/24 09:29) Hives From Ortho Tri-Cyclen (21) Adverse Reaction (Intermediate, Uncoded 04/05/24 15:23) DVT (BLOOD CLOT) Medication List - Last Reconciled 05/08/24 by CARLOTA Harrell-KSENIA acetaminophen (Tylenol Extra Strength) 500 mg PO Q6H PRN albuterol sulfate 90 mcg/actuation (Ventolin HFA) 2 puffs inhalation Q6H PRN amitriptyline 50 mg PO BEDTIME 90 days atorvastatin 10 mg PO BEDTIME dltkxcogju-mqsouminkthey-wkri 50-325-40 mg 1 tab PO BID PRN 10 days carvedilol (Coreg) 3.125 mg PO BID 90 days clonazepam 1 mg PO BID PRN 30 days compr.stocking,knee,long,x-lrg KNEE HIGH EXTRA LARGE STOCKING X 2 20-30 MMHG cyanocobalamin (vitamin B-12) 1,000 mcg IM QWEEK 1 month epinephrine (EpiPen 2-Lee) 0.3 mg (0.3 mL) IM Q4H PRN fenofibrate 54 mg PO DAILY FreeStyle Lancets (lancets) TID testing NS FreeStyle Lite Meter (blood-glucose meter) TID testing NS FreeStyle Lite Strips (blood sugar diagnostic) TID testing NS levothyroxine (Synthroid) 200 mcg PO BEDTIME prazosin 2 mg PO BEDTIME semaglutide (Ozempic) 0.25 mg (0.368 mL) subcut QWEEK syringe with needle (BD SafetyGlide Syringe) As directed to injection B-12 weekly tizanidine 4 mg PO BID PRN 30 days Tobacco use date assessed: 03/23/24 Dental Screening Dental Screen Date: 06/08/23 HPI Weight Management HPI Details Chief Complaint The patient presents for management of diabetes, weight, syncope, and muscle cramps. History of Present Illness The patient is a 34-year-old female presenting with multiple health concerns primarily related to diabetes management, obesity, syncope episodes, and muscle cramps. She has been diagnosed with Type 2 Diabetes Mellitus for approximately one year and reports a concern about weight management, despite walking her dog twice daily. She denies consuming sugar and experiences muscle cramps, especially noted with increased activity. The patient has been informed about being a controlled diabetic, as indicated by her recent hemoglobin A1c levels. There are no reports of numbness or tingling in her feet. The patient has experienced syncope since her children were younger, with symptoms of heart rate drop upon standing. Past medical history is significant for an episode of Deep Vein Thrombosis as a teenager. She denies any compression sock use due to personal preference. 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 Concerns about medication include previously taking low-dose Fluoxetine, which she decided to discontinue due to side effects, and she currently takes Amitriptyline. elevated CPK above 300, referred to neuro. Her ykqzcp-gx-sxn, having lost significant weight, brings additional personal concern and motivation for the patient regarding weight management. Social History - Exercise: Walks the dog twice daily. - Diet: Avoids sugar, reports consuming fruits and vegetables, though prefers not consuming nuts. - Weight Management: Actively seeking we ight reduction strategies. - Pets: Owns a xekbp-bsq-u-pfow-qlqd-tny rivera dog. Health Maintenance - Refused flu and pneumonia vaccines dur ing this visit. - Recent eye examination revealed glauco matous changes in the left eye. Review of Systems - Cardiovascular: Reports episodes of sy ncope with heart rate drop. denies any sob or CP - Neurological: Denies numbness and ting ling in feet; reports episodes of fainting. - Musculoskeletal: Reports continued mus jaguar cramps despite magnesium supplementation. Physical Exam General: Cooperative, healthy appearing, comfortable, no acute distress and well developed, obese Orientation: Patient oriented x3 Limitations: No limitations Head: Normal to inspection Ears: Hearing grossly normal bilaterally Nose: Normal external nose present Face and sinus: Normal facial exam Eyes: Appearance normal, both eyes and all related structures. Very small glaucoma in the left eye Neck: Normal visual inspection and Yes full ROM Respiratory: Normal respiratory effort and able to speak in complete sentences. Clear to auscultation bilaterally Cardiovascular: Regular rate and rhythm. Normal S1 and S2. History of syncope with heart rate drop GI: Normal to inspection. Soft to palpation and nontender Skin: No rashes or lesions noted Neuro: Patient oriented x3 Extremities: Normal to inspection. Water retention noted in feet, no numbness or tingling. History of DVT as a teenager Results - Labs: Elevated Creatine Phosphokinase (CPK) suggesting muscle breakdown. - Eye Exam: Recent visit showed small gl aucoma in the left eye. - Cardiac Monitoring: Scheduled for a -day Holter monitor for syncope evaluation. Plan - Initiate once a week injectable GLP-1 agonist to assist with weight loss and improved glycemic control. - Syncope: Order three-day Holter monito r for further rhythms; syncope episodes upon standing suggest possible orthostic syncope. - Muscle Cramps: Continue magnesium supp lementation; evaluate muscle cramps with neurologist appointment scheduled next month for further diagnostics. - Adjustments made by reducing Fluoxetin e and continue with bedtime Amitriptyline. - No pancreatitis history; monitor gastr ointestinal effects of GLP-1 agonist due to possible severe constipation. Patient was informed and verbally consented to the use of an ambient scribe for clinic note documentation during this visit. Discussion Notes I discussed with the patient the plan to initiate a GLP-1 agonist to aid in weight management and improve blood sugar control, explaining its actions of delaying gastric emptying and possible side effects such as constipation. Since it is a once-a-week injection, we will start with a low dose and monitor its effects. The need to hydrate frequently was emphasized to counteract potential side effects. I informed her that further dose adjustments might be needed upon reviewing insurance coverage and effects. The patient understands the possible side effects and is amenable to starting this treatment option. I encouraged continuation of magnesium for muscle cramps until her scheduled appointment with the neurologist. Regarding syncope episodes, I plan to arrange a three-day Holter monitor to further assess cardiac activity during these events. The patient does not require current use of Fluoxetine due to observed side effects and acknowledged the discontinuation of the medication, mentioning continued use of Amitriptyline. Patient Instructions - Begin the prescribed weekly GLP-1 agon ist injection as directed to help manage weight and blood sugar levels. - Continue to hydrate daily to help miti gate potential gastrointestinal side effects. - Note episodes of syncope including tyron e and time for further assessment. - Continue magnesium supplementation as advised. - Attend neurologist appointment on the for further evaluation of muscle cramps. - Report any severe side effects or conc erns promptly through the patient portal. - Follow-up in four months for re-evalua tion and further guidance. [facility] Medical History (Updated 05/08/24 @ 12:39 by UMBERTO Harrell) Morbid obesity due to excess calories HLD (hyperlipidemia) HTN (hypertension) Type 2 diabetes mellitus Depression Migraine with aura Fibromyalgia Insomnia Hx of papillary thyroid carcinoma Surgical History History of umbilical hernia repair Bilateral carpal tunnel syndrome Hx of cholecystectomy History of tubal ligation History of section History of thyroidectomy Family History Father History of heart attack Mental health disorder Mother Hypothyroidism Sister Anxiety Migraine Low blood pressure Mental health disorder Son Epilepsy Daughter No problems noted. Maternal Grandmother Breast cancer Paternal Grandmother Breast cancer Social History Housing: Apartment Alcohol intake: current Alcohol intake frequency: holidays/special occasions only Patient Tobacco Use Status: Never used Tobacco e-Cigarette/Vaping Use: Never Used Second Hand Smoke Exposure: Yes Current occupational status: employed Cognitive needs: No Hearing needs: No Vision needs: Yes Questionnaire PHQ-9 Over the last 2 weeks, how often have you been bothered by any of the following problems? [id number] - PHQ-9 Billing: Patient declined-do not bill Source: Developed by Drs. Keven Salas, Christina Lake, Jeffrey Landis and colleagues, with an educational carlos from [employer]. Thrive Questionnaire Date Thrive assessed: 05/08/24 I am a: Patient What is your living situation today?: I have a steady place to live Within the past 12 months, did the food you bought not last and you didn't have the money to get more?: Never true Within the past 12 months, did you worry whether your food would run out before you got money to buy more?: Never true Do you have trouble paying for medicines?: No Do you have trouble getting transportation to medical appointments?: No Do you have trouble paying your heating and electricity bill?: No Do you have trouble taking care of your child, family member or friend?: No Do you have trouble with day-to-day activities such as bathing, preparing meals, shopping, managing finances, etc.?: No Are you currently unemployed and looking for a job?: No Are you interested in more education?: No Please select the resources that you would like help with: None Currently or been in a relationship where the following occur: No concerns reported THRIVE Score: 0 LISSETH-7 AMB Questionnaire LISSETH-7 Date LISSETH - 7 assessed: 03/23/24 Source: Developed by Drs. Keven Salas, Jeffrey Briseno and colleagues, with an educational carlos from [employer]. Physical exam (Primary Care) Vital Signs: Last Vital Signs Pulse 86 05/08/24 09:30 BP 132/82 05/08/24 09:30 Pulse Ox 97 05/08/24 09:30 Oxygen Delivery Method Room Air 05/08/24 09:30 BMI result Body Mass Index 55.1 Tobacco/Smoking Status: Tobacco use Status Tobacco use date assessed 03/23/24 05/08/24 09:25 Patient Tobacco Use Status Never used Tobacco 05/08/24 09:25 e-Cigarette/Vaping Use Never Used 05/08/24 09:25 Thrive Assessment: Date of Thrive Assessment Date Thrive assessed 05/08/24 05/08/24 09:30 Currently or been in a relationship where the following occur: No concerns reported Results AMB Hemoglobin A1c AMB Hemoglobin A1c 6.3 % Last Edit by Korey Catalan CMA on 05/08/24 10: 11 Results Reviewed Results Reviewed: Laboratory Last Values Hgb A1c (Clinic) 6.3 % (4.0-6.0) H 05/08/24 09:51 Coding Level of Care Code Est Pt Level 3 (56161) Diagnoses Fainting spell R55 QT prolongation R94.31 Elevated CPK R74.8 Type 2 diabetes mellitus E11.9 Assessment & Plan Assessment & Plan (1) Fainting spell: Code(s): R55 - Syncope and collapse Category: Medical (2) QT prolongation: Code(s): R94.31 - Abnormal electrocardiogram [ECG] [EKG] Category: Medical (3) Elevated CPK: Code(s): R74.8 - Abnormal levels of other serum enzymes Category: Medical (4) Type 2 diabetes mellitus: Code(s): E11.9 - Type 2 diabetes mellitus without complications Category: Medical Plan . Orders: Orders AMB Hemoglobin A1c Today Z13.9 - Encounter for screening, unspecified ECG 3 day holter monitor Today R55 - Syncope and collapse Medications: New semaglutide (Ozempic) for 4 weeks 0.25 mg (0.368 mL) subcut QWEEK 3 mL 0RF Refilled tizanidine 4 mg PO BID PRN 60 caps 0RF muscle spasticity 30 days
[2024-05-08 09:30] VITALS: BP 132/82; PULSE 86; O2SAT 97; BMI 55.1
== END 2024-05-08 10:44 | disposition home or self-care (01) ==
PROVIDERS: PCP Nurse Practitioner Family; Visit Provider Nurse Practitioner Family
DX: R55 Syncope and collapse (principal); R94.31 Abnormal electrocardiogram [ECG] [EKG]; R74.8 Abnormal levels of other serum enzymes; E11.9 Type 2 diabetes mellitus without complications; Z13.9 Encounter for screening, unspecified

== ENCOUNTER → 2024-05-08 09:12 | Outpatient (BNVA) | payer OTHER, SELFPAY | PROVIDERS: PCP Nurse Practitioner Family; Visit Provider Nurse Practitioner Family | DX: E11.9 Type 2 diabetes mellitus without complications (principal); E66.9 Obesity, unspecified; Z68.43 Body mass index [BMI] 50.0-59.9, adult; R55 Syncope and collapse; R94.31 Abnormal electrocardiogram [ECG] [EKG]; R74.8 Abnormal levels of other serum enzymes | CPT/HCPCS: 83036 ==

== ENCOUNTER → 2024-05-25 06:57 | Outpatient (REF) | payer OTHER, SELFPAY | LOC: HO.CARD 06:57 | PROVIDERS: PCP Nurse Practitioner Family; Visit Provider Nurse Practitioner Family | DX: R55 Syncope and collapse (principal) | CPT/HCPCS: 93242 ==

== ENCOUNTER → 2024-05-25 07:01 | Outpatient (BNV) | payer OTHER, SELFPAY | PROVIDERS: PCP Nurse Practitioner Family; Visit Provider Internal Medicine | DX: R07.9 Chest pain, unspecified (principal); R42 Dizziness and giddiness | CPT/HCPCS: 93244 ==

== ENCOUNTER 2024-05-31 13:03 | Emergency (ER) | payer OTHER, SELFPAY ==
--- NOTE | ~2024-05-31 | XR_ITS ---
EXAMINATION: XR KNEE, LEFT CLINICAL INFORMATION: fall, felt a pop, pain around patella COMPARISON: None available. TECHNIQUE: Four views of the left knee. FINDINGS: No acute cortical disruption or malalignment. No suprapatellar facet joint effusion. No lytic or blastic lesions. Marginal osteophyte formation in the medial femoral condyle. XR/XR knee LT 4V IMPRESSION: No acute fracture or dislocation. Electronically signed by: Roberto Carlos Lozada MD 05/31/2024 02:13 PM MICHELINE
[2024-05-31 13:53] VITALS: BP 169/73; PULSE 84; RESP 18; TEMP 36.2; O2SAT 100; BMI 41.4
--- NOTE | 2024-05-31 13:53 | ED.GENADULT ---
HPI - General Adult General Chief complaint: Extremity Injury, Lower Stated complaint: l knee inj fell at work Time Seen by Provider: 05/31/24 15:58 Source: patient, RN notes reviewed and old records reviewed Mode of arrival: ambulatory Limitations: no limitations History of Present Illness ED Provider: Kevin HPI narrative: Patient is a 34-year-old female with history of T2DM, morbid obesity, fibromyalgia, migraines presenting with complaint of left knee pain. States that she slipped on black ice this morning and twisted her knee, felt a pop. Did not take any OTC medications prior to arrival. MD complaint: knee pain Onset (ago): hour(s) Radiation: proximal Severity: severe Quality: aching Pain Consistency: constant Relieving factors: rest Exacerbating factors: movement Associated symptoms: denies other symptoms Treatments prior to arrival: none Related Data Home Medications ?Medication ?Instructions ?Recorded ?Confirmed albuterol sulfate 90 mcg/actuation 2 puff inhalation Q6H PRN wheezing 08/02/23 05/08/24 aerosol inhaler (Ventolin HFA) prazosin 2 mg capsule 2 mg PO BEDTIME 08/02/23 05/08/24 Previous Rx's ?Medication ?Instructions ?Recorded FreeStyle Lite Meter #1 ea 01/19/23 (blood-glucose meter) epinephrine 0.3 mg/0.3 mL 0.3 mg (0.3 mL) IM Q4H PRN 02/05/23 injection, auto-injector (EpiPen anaphylaxis #2 ea 2-Lee) acetaminophen 500 mg tablet 500 mg PO Q6H PRN fever or pain 02/08/23 (Tylenol Extra Strength) #14 tabs FreeStyle Lite Strips (blood sugar #100 ea 02/16/23 diagnostic) FreeStyle Lancets 28 gauge #300 ea 04/06/23 (lancets) bwnwzqigqf-doccqpzkcnuqi-yujcyljq 1 tab PO BID PRN pain 10 days #20 10/24/23 50 mg-325 mg-40 mg tablet tabs compr.stocking,knee,long,x-lrg #2 ea 03/23/24 clonazepam 1 mg tablet 1 mg PO BID PRN anxiety 30 days 04/11/24 #60 tabs cyanocobalamin (vitamin B-12) 1,000 mcg IM QWEEK 1 month #5 mL 04/11/24 1,000 mcg/mL injection solution fenofibrate 54 mg tablet 54 mg PO DAILY #90 tabs 04/11/24 carvedilol 3.125 mg tablet (Coreg) 3.125 mg PO BID 90 days #180 tabs 04/22/24 amitriptyline 50 mg tablet 50 mg PO BEDTIME 90 days #90 tabs 04/30/24 syringe with needle 3 mL 23 x 1 #50 ea 04/30/24 (BD SafetyGlide Syringe) semaglutide 0.25 mg or 0.5 mg (2 0.25 mg (0.368 mL) subcut QWEEK #3 05/08/24 mg/3 mL) subcutaneous pen injector mL (Ozempic) tizanidine 4 mg capsule 4 mg PO BID PRN muscle spasticity 05/08/24 30 days #60 caps atorvastatin 10 mg tablet 10 mg PO BEDTIME #90 tabs 05/22/24 levothyroxine 200 mcg tablet 200 mcg PO DAILY #90 tabs 05/22/24 Allergies Allergy/AdvReac Type Severity Reaction Status Date / Time bee pollen [BEE STINGS] Allergy Severe ANAPHYLAXIS Verified 05/31/24 13:54 NSAIDS (Non-Steroidal Allergy Intermediate HIVES Verified 05/31/24 13:54 Anti-Inflamma [NSAIDS (NON-STEROIDAL ANTI-INFLAMMA] Penicillins Allergy Intermediate HIVES Verified 05/31/24 13:54 ibuprofen [From Motrin] Allergy Unknown Hives Verified 05/31/24 13:54 penicillin V Allergy Unknown unknown Verified 05/31/24 13:54 latex [LATEX] AdvReac Intermediate RASH Verified 05/31/24 13:54 sulfamethoxazole AdvReac Hives Verified 05/31/24 13:54 [From Bactrim] trimethoprim [From Bactrim] AdvReac Hives Verified 05/31/24 13:54 From Ortho Tri-Cyclen (21) AdvReac Intermediate DVT (BLOOD Uncoded 04/05/24 15:23 CLOT) Review of Systems Review of Systems: As per HPI Yes all other systems are reviewed and are negative Constitutional: Constitutional: Reports as per HPI [facility] Past Medical History Medical History (Updated 05/31/24 @ 17:03 by Madelaine Brown NP) Morbid obesity due to excess calories HLD (hyperlipidemia) HTN (hypertension) Type 2 diabetes mellitus Depression Migraine with aura Fibromyalgia Insomnia Hx of papillary thyroid carcinoma Surgical History History of umbilical hernia repair Bilateral carpal tunnel syndrome Hx of cholecystectomy History of tubal ligation History of section History of thyroidectomy Family History Family History Father History of heart attack Mental health disorder Mother Hypothyroidism Sister Anxiety Migraine Low blood pressure Mental health disorder Son Epilepsy Daughter No problems noted. Maternal Grandmother Breast cancer Paternal Grandmother Breast cancer Social History Social History Housing: Apartment Alcohol intake: current Alcohol intake frequency: holidays/special occasions only Patient Tobacco Use Status: Never used Tobacco e-Cigarette/Vaping Use: Never Used Second Hand Smoke Exposure: Yes Advance Directives: No Advance Directives Information Provided: Yes Current occupational status: employed Cognitive needs: No Hearing needs: No Vision needs: Yes Physical Exam ED Vital Signs: Vital Signs - 24 hr 05/31/24 13:53 05/31/24 17:26 Temperature 97.1 F 97.1 F Pulse Rate 84 84 Respiratory Rate 18 18 Blood Pressure 169/73 H 169/73 H Pulse Oximetry 100 100 Oxygen Delivery Method Room Air Room Air BMI result Body Mass Index 41.4 Vital signs have been reviewed and appear to be correct. Blood pressure elevated. Heart rate normal. Respiratory rate normal. Temperature normal. Oxygen saturation normal. Const General: cooperative and no acute distress Nutritional Appearance: obese Orientation/consciousness: oriented to person, oriented to place, oriented to time and patient oriented x3 Limitations: no limitations HENMT Head: Yes normocephalic and Yes atraumatic Ears: external ears normal General nose exam: Normal external nose present Face and sinus: Yes face symmetric Mouth: oropharynx normal and moist mucous membranes Throat: Yes uvula midline Eyes Pupils: Equal, round and reactive pupils present Neck Neck: Yes normal visual inspection and Yes supple Resp Effort & Inspection: normal respiratory effort and able to speak in complete sentences Auscultation: clear to auscultation bilaterally Cardio Rate: regular rate Rhythm: regular rhythm Heart sounds: S1 normal heart sound present and S2 normal heart sound present GI Palpation (GI): Soft to palpation and nontender Auscultation: normoactive bowel sounds General: Yes no CVA tenderness Back/Spine/Pelvis Back: no CVA tenderness Skin General skin exam: elasticity normal and turgor normal Neuro General: oriented to person, oriented to place, oriented to time, patient oriented x3, moves all extremities, no focal motor deficits and CN's II-XI intact bilaterally Cranial nerves: Yes Equal, round and reactive pupils present Cognition (Neuro): normal cognition Extrem General: Yes full ROM, Yes no pedal edema and Yes no calf tenderness Left lower extremity: knee Details: normal to inspection, tenderness Location: of the pre-patellar area, abnormal ROM (limited due to pain) Details: pain with passive ROM Details: with extension and with flexion and knee ligament exam normal Details: anterior drawer test normal, posterior drawer test normal, valgus stress test normal and varus stress test normal; no swelling and no ecchymosis and foot Details: vascular exam Details: dorsalis pedis pulse present, posterior tibial pulse present and normal capillary refill Psych Mental Status: mental status grossly normal Affect: normal affect Thought process: Normal thought process present Course Course Course Narrative: This is a rapid medical exam performed by Ezekiel Brown NP: Additional HPI, ROS, PE not included below will be deferred to primary provider. Patient is a 34-year-old female with history of T2DM, morbid obesity, fibromyalgia, migraines presenting with complaint of left knee pain. States that she slipped on black ice this morning and twisted her knee, felt a pop. Did not take any OTC medications prior to arrival. Plan: xray Medical Decision Making Medical Decision Making MDM Narrative: Patient is a 34-year-old female with history of T2DM, morbid obesity, fibromyalgia, migraines presenting with complaint of left knee pain. On exam patient is awake, A+Ox3, VS WNL, afebrile, normal neurological exam without focal deficits, physical exam findings as above. Given reported symptoms and physical exam findings, initial differential includes but is not limited to knee strain, sprain, fracture, dislocation. X-ray notable for no acute fracture. My interpretation is in agreement with the radiologist's interpretation. Physical exam findings not consistent with ligamentous injury. Patient provided with Bhupinder wrap, advised to Tylenol, elevate, apply ice intermittently. Will refer to orthopedics for ongoing symptoms. Will refer to [facility] as well, as injury occurred at work. Return precautions discussed. Patient verbalized understanding of and agreement with plan. Differential Diagnosis Differential Diagnoses: The differential diagnosis associated with the presentation includes As per MDM Independent Interpretation I performed an independent interpretation of an: Plain X-Ray Interpretation: No acute fracture left knee Radiology Impression Discussion of test interpretation with radiology: I have reviewed the radiologist's reading. Radiologist Impression: XR/XR knee LT 4V IMPRESSION: No acute fracture or dislocation. External Record Review External record reviewed: Inpatient record, Office record and Outpatient record Discharge Plan Discharge Clinical Impression: Left knee sprain Patient Disposition: Home, Self-Care Instructions: Knee Sprain (DC), How to Use an Elastic Bandage (ED), R.I.C.E. Treatment (ED) Additional Instructions: You have been evaluated in the emergency department today for knee pain. Your evaluation did not find evidence of medical conditions requiring emergent intervention at this time. We have provided an BHUPINDER wrap for you to use while your knee heals. Please rest, ice, and elevate your knee, and resume normal activities as tolerated. We recommend you take 650mg Tylenol every 6 hours as needed for pain. Please schedule an appointment for follow-up with your primary care provider this week. Return to the emergency department if you experience worsening pain, numbness, tingling, change of color in your leg, or any other concerning symptoms. Follow up with orthopedics for ongoing symptoms. Follow up with [facility] as well. [facility] [address] [place] [address] Prescriptions: No Action (DME) blood-glucose meter [FreeStyle Lite Meter] Kit See Rx Instructions .Route Qty: 1 0RF Rx Instructions: TID testing (DME) FreeStyle Lite Strips Strip See Rx Instructions .Route Qty: 100 5RF Rx Instructions: TID testing (DME) lancets [FreeStyle Lancets] 28 gauge misc See Rx Instructions .Route Qty: 300 1RF Rx Instructions: TID testing kvpjssjnft-vipzmlgxlnkry-nrls 50-325-40 mg tablet 1 tab PO BID PRN (Reason: pain) 10 Days Qty: 20 1RF cyanocobalamin (vitamin B-12) 1,000 mcg/mL solution 1,000 mcg IM QWEEK 30 Days Qty: 5 2RF Rx Instructions: of the fenofibrate 54 mg tablet 54 mg PO DAILY Qty: 90 0RF clonazepam 1 mg tablet 1 mg PO BID PRN (Reason: anxiety) 30 Days Qty: 60 0RF carvedilol [Coreg] 3.125 mg tablet 3.125 mg PO BID 90 Days Qty: 180 1RF Rx Instructions: must administer with a meal/food levothyroxine 200 mcg tablet 200 mcg PO DAILY Qty: 90 1RF atorvastatin 10 mg tablet 10 mg PO BEDTIME Qty: 90 1RF epinephrine [EpiPen 2-Lee] 0.3 mg/0.3 mL auto-injector 0.3 mg IM Q4H PRN (Reason: anaphylaxis) Qty: 2 0RF albuterol sulfate [Ventolin HFA] 90 mcg/actuation HFA aerosol inhaler 2 puff INHALATION Q6H PRN (Reason: wheezing) prazosin 2 mg capsule 2 mg PO BEDTIME acetaminophen [Tylenol Extra Strength] 500 mg tablet 500 mg PO Q6H PRN (Reason: fever or pain) Qty: 14 0RF (DME) BD SafetyGlide Syringe 3 mL 23 x 1 syringe See Rx Instructions .Route Qty: 50 0RF Rx Instructions: As directed to injection B-12 weekly amitriptyline 50 mg tablet 50 mg PO BEDTIME 90 Days Qty: 90 0RF (DME) compr.stocking,knee,long,x-lrg Misc See Rx Instructions .Route Qty: 2 0RF Rx Instructions: KNEE HIGH EXTRA LARGE STOCKING X 2 20-30 MMHG Ozempic 0.25 mg or 0.5 mg (2 mg/3 mL) pen injector 0.25 mg subcut QWEEK Qty: 3 0RF Rx Instructions: for 4 weeks tizanidine 4 mg capsule 4 mg PO BID PRN (Reason: muscle spasticity) 30 Days Qty: 60 0RF Referrals: [facility] [Provider Group] Stand Alone Forms: Work/School Release Interventions: ED Discharge Assessment Last Done: 05/31/24 17:26 Discharge Date/Time: 05/31/24 17:27 Print Language: Andorran
[2024-05-31 17:26] VITALS: BP 169/73; PULSE 84; RESP 18; TEMP 36.2; O2SAT 100
== END 2024-05-31 17:27 | disposition home or self-care (01) ==
PROVIDERS: Emergency Provider Emergency Medicine; PCP Nurse Practitioner Family
DX: S83.92XA Sprain of unspecified site of left knee, initial encounter (principal); W00.2XXA Other fall from one level to another due to ice and snow, initial encounter; M25.562 Pain in left knee; I10 Essential (primary) hypertension; E11.9 Type 2 diabetes mellitus without complications; E78.5 Hyperlipidemia, unspecified; E66.01 Morbid (severe) obesity due to excess calories; Z68.41 Body mass index [BMI] 40.0-44.9, adult; Y93.9 Activity, unspecified; Y92.9 Unspecified place or not applicable; Y99.9 Unspecified external cause status
CPT/HCPCS: 73564; 99282; 99283

== ENCOUNTER → 2024-05-31 13:54 | Outpatient (BNV) | payer OTHER, SELFPAY | PROVIDERS: PCP Nurse Practitioner Family; Visit Provider Radiology Diagnostic Radiology | DX: M25.762 Osteophyte, left knee (principal); M25.562 Pain in left knee | CPT/HCPCS: 73564 ==

== ENCOUNTER → 2024-06-22 07:47 | Outpatient (BNV) | payer OTHER, SELFPAY | PROVIDERS: Visit Provider Radiology Diagnostic Radiology | DX: M25.562 Pain in left knee (principal) | CPT/HCPCS: 73560 ==

== ENCOUNTER 2024-06-22 08:35 | Outpatient (REF) | payer OTHER, SELFPAY ==
--- NOTE | ~2024-06-22 | XR_ITS ---
CLINICAL HISTORY: M25.569 - Pain in unspecified knee AP and sunrise views of the left knee. Comparison: May 31, 2024. Findings: Mild lateral tilting of the patella in relation to the trochlea on the sunrise view. On the standing AP view, there is mild lateral position of the patella in relation to the trochlea. Mild to moderate degenerative change of the medial compartment with mild degenerative change of the lateral compartment and patellofemoral joint. No fracture. Comparison images of the right knee demonstrate mild medial compartment DJD. Impression: Tricompartmental osteoarthritis as above with findings suggestive of patellofemoral stress syndrome. This document has been electronically signed by: Jamel Lopez MD on 06/22/2024 17:37:15
--- OUTSIDE RECORDS SUMMARY | 2024-06-25 08:46 | XMS_ITS | Clinical Summary ---
Author Organization [facility] it Address [address] [place] [address] Care Team Providers Care Stack Yield Engineer Name Role Phone Seb Arrington MD Primary Care Provider Unavail able Surgical History Surgery Date Site/Laterality Comments SECTION PROCEDURE: HISTORICAL DELIVERY Medical History Medical History Date Comments Nonorganic enuresis 01/28/2006 DX:Nonorgani c enuresis Displacement of cervical intervertebral disc without myelopathy 04/15/2006 DX:Displacement of cervical intervertebral disc without myelopathy Urinary tract infection, sit e not specified DX:Urinary tract infection, site not specified Vitiligo DX:Vitiligo Unspecified asthma(493.90) DX:Un specified asthma(493.90) Anxiety 04/23/2008 DX:Anxiety Bronchitis, not specified as acute or chronic DX:Bronchitis, not specified as acute or chronic; COMMENT: asthma Unspecified hypothyroidism 01/28/2006 DX:Un specified hypothyroidism Family History Medical History Relation Name Comments Other: Bipolar Father Diabetes Paternal Grandfather Other: Bipolar Sister 1 Blindness Neg Hx Cataracts Neg Hx Glaucoma Neg Hx Macular degeneration Neg Hx Strabismus Neg Hx Relation Name Status Comments Father Paternal Grandfather Sister 1 Sister 2 Social History Tobacco Use Types Packs/Day Years Used Date Smoking Tobacco: Never Smokeless Tobacco: Never Alcohol Use Standard Drinks/Week Comments No 0 (1 standard drink = 0.6 oz pur e alcohol) Sex and Gender Information Value Date Recorded Sex Assigned at Not on file Gender Identity Not on file Sexual Orientation Not on file Obstetrics History Plan of Treatment Health Maintenance Due Date Last Done Comments Pneumococcal Vaccine: Pediatrics (0 to 5 Years) and At-Risk Patients (6 to 64 Years) (1 of 2 - PCV) 01/22/1994 Cervical Cancer Screening: Pap Smear 01/22/2009 DTaP,Tdap,and Td Vaccines (8 - Td or Tdap) 02/15/2017 02/15/2007, 01/26/2000, 12/15/1992, Additional history exists COVID-19 Vaccine ( season) 2024 Influenza Vaccine (#1) 2024 02/26/2011, 2009 Cholesterol Screening (Lipid Panel) 03/25/2024 Depression Screening 03/25/2024 HIV Screening 03/25/2024 Hepatitis C Screening 03/25/2024 Social Influencers of Health Screening 03/25/2024 HIB Vaccines Completed 08/04/1989 IPV Vaccines Completed 12/15/1992, 08/21, 08/04/1989, Additional history exists Varicella Vaccines Aged Out 01/20/1998 No longer eligible based on patient's age to complete this topic Hepatitis B Vaccines Completed 07/10/1999, 02/17/1999, 01/20/1998 MMR Vaccines Completed 01/26/2000, 05/19/1989 HPV Vaccines Completed 11/08/2006, 06/24, 05/09/2006 Meningococcal ACWY Vaccine Aged Out 02/15/2007 N o longer eligible based on patient's age to complete this topic Hepatitis A Vaccines Aged Out No long er eligible based on patient's age to complete this topic RSV Immunization Patients Under 20 months Aged Out No longer eligible based on patient's age to complete this topic Care Teams Stack Yield Engineer Relationship Specialty Start Date End Date Seb Arrington MD PCP - General Internal Medicine 01/02/08
--- OUTSIDE RECORDS SUMMARY | 2024-06-25 08:46 | XMS_ITS | Data Portability ---
Author Organization [place] - [facility], Allergy Address [address] [place] [address] Care Team Providers Care Neonatal Intensive Care Nurse Name Role Phone BRIAN EDWARDS Primary Care Provider Assessment Encounter Date Assessment Date Assessment LastModified by Organization Details LastModified Time 06/22/2024 06/22/2024 Patient has a right neck mass that I recommend we obtain tissue sampling. Given its location I would like to have ultrasound-guid ed needle aspiration biopsy performed at a nearby radiology center. My office will assist in arranging for this procedure. We reviewed the potential risks not limited to bleeding, numbness, swelling and facial weakness. We discussed the potential diagnoses including malignancy, benign process, insufficient specimen or non-diagnostic. Typically pathology results will become available within the next two weeks. We may review results and develop a treatment plan with a telehealth [email or web address] Not available 06/22/2024 13:18:42 Plan of Treatment Reminders Order Date Submit Date Provider Last Modified By Organization Details Last Modified Time Details Appointments None recorded. Lab None recorded. Referral None recorded. Procedures fine needle aspiration ; with imaging guidance (PROC) - US Guided FNA, r/o malignancy , Radiology center 2024 025 [email or web address] Not available 13:18:42 Surgeries None recorded. Imaging None recorded. Medication Orders None recorded. Patient TargetsNo targets recorded. Patient InstructionsNo instructions recorded. Reason for Referral None Reported. 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 Procedures Surgical History Date Name Laterality Status Provider Name and Address Organization Details Recorded Time 06/22/2024 FOL_DP completed TITO PERAZA MD [address] [address], [place], [address], [facility] 06/21/2024 23:03:28 Imaging Results None recorded. Procedure Notes None recorded. Medical Equipment None Reported. Allergies Allergen ID Allergen Name Allergen Category Reaction Reaction Severity Criticality Documentation Date Start Date Code Code System Note Provider Name and Address Organization Details Recorded Time 918487 Non-stero idal anti-infl ammatory agent (product) medicatio n Not available Not available Not available 06/22/2024 82309 005 SNOMED Prisca hardy [facility] 12:53:41 911810 Product containin g penicilli n and antibioti c (product) medicatio n Not available Not available Not available 06/22/2024 59483 05 SNOMED Prisca hardy [facility] 12:53:48 854304 Ortho Tri-Cycle n (28) medicatio n Not available Not available Not available 06/22/2024 69749 UNK Prisca hardy [facility] 12:53:59 Medications Name Sig Start Date Stop Date Status Note LastModified by Organization Details LastModified Time vanishpoint syringe/3ml /23g x 1 23g x 1 3 ml misc 06/22 completed Not Available Not Available Not Available atorvastati n 10 mg tablet TAKE 1 TABLET BY MOUTH AT BEDTIME active Not Available Not Available No t Available prednisone 20 mg tablet TAKE 2 TABLETS BY MOUTH EVERY DAY 06/22 completed Not Available Not Available Not Available clonazepam 1 mg tablet TAKE 1 TABLET BY MOUTH TWICE A DAY NEEDED FOR ANXIETY active Not Available Not Available No t Available amitriptyli ne 50 mg tablet TAKE 1 TABLET BY MOUTH AT BEDTIME FOR 90 DAYS active Not Available Not Available No t Available butalbital- acetaminoph en-caffeine 50 mg-325 mg-40 mg tablet TAKE 1 TABLET ORALLY 2 TIMES A DAY NEEDED FOR PAIN FOR 10 DAYS 06/22 completed Not Available Not Available Not Available carvedilol 3.125 mg tablet TAKE 1 TABLET BY MOUTH TWICE A DAY WITH FOOD active Not Available Not Available No t Available cyanocobala min (vit B-12) 1,000 mcg/mL injection solution INTRAMUSC ULARLY EVERY WEEK FOR 1 MONTH OF THE active Not Available Not Available No t Available fluoxetine 20 mg tablet TAKE 1 TABLET BY MOUTH EVERY DAY 06/22 completed Not Available Not Available Not Available levothyroxi ne 200 mcg tablet TAKE 1 TABLET BY MOUTH DAILY active Not Available Not Available No t Available oxycodone 5 mg tablet PLEASE SEE ATTACHED FOR DETAILED DIRECTION S 06/22 completed Not Available Not Available Not Available VanishPoint Syringe 3 mL 23 x 1 USE DIRECTED TO INJECTION B-12 WEEKLY 06/22 completed Not Available Not Available Not Available tizanidine 4 mg capsule TAKE 1 CAPSULE ORALLY 2 TIMES A DAY NEEDED FOR MUSCLE SPASTICIT Y FOR 30 DAYS active Not Available Not Available No t Available fenofibrate 54 mg tablet TAKE 1 TABLET BY MOUTH EVERY DAY 06/22 completed Not Available Not Available Not Available UltiCare Safety Syringe 3 mL 23 gauge x 1 DIRECTED TO INJECTION B-12 WEEKLY active Not Available Not Available No t Available Ozempic 0.25 mg or 0.5 mg (2 mg/3 mL) subcutaneou s pen injector INJECT 0.25 MG SUBCUTANE OUSLY EVERY WEEK FOR 4 WEEKS active Not Available Not Available No t Available Vitals Date Recorded Body height Body mass index (BMI) Body weight Provider Name and Address Organization Details Last Updated DateTime 06/22/2024 152.4 cm 51.8 kg/m2 975742.98 g Prisca Downs [place] - [facility] 06/22/2024 12:53:33 Social History None recorded. Functional Status None recorded. Mental Status None recorded. Family History Nothing Reported. Medical History Condition Response Anemia Y Migraines Y Arthritis Y Thyroid Problems Y Asthma Y Gynecological HistoryNo gynecological history recorded. Obstetrics History GPAL:G 0 P 0 0 0 0 Past Encounters Encounter ID Performer Location Encounter Start Date Encounter Closed Date Diagnosis/Indication Diagnosis SNOMED-CT Code Diagnosis ICD10 Code Diagnosis Note [id number] TITO PERAZA MD [facility] [address] [address] 06/22/2024 12:36:54 06/22/2024 13:19:33 Papillary thyroid carcinoma 885655510 C73 right upper cervical LN needs tissue sampling to r/o recurrence . FOL was normal in office Hoarse 73560931 R49.0 Health Concerns Section Related Observation LastModified by Organization Detai ls LastModified Time None Recorded Concern Status LastModified by Organization Details LastModified Time None Recorded Advance Directives Directive None Recorded Payers Encounter Date Sequence Insurance Name Policy Number Policy Jeffery Covered Member ID Jeffery Member ID Guarantor Name 06/22/[address] [place] [address] [id number] Jing Guillory [id number] Jing Guillory Notes Date Note Type Note Provider Name and Address Organization Details Recorded Time 06/22/2024 text/html hoarse returned about 11/2023not associated with vocal use ba swallow - normal per her report thyroid ca and [id number] subtotal thyroidectomy for cancer in [id number] revision thyroid and parathyroid but nothing was removed [facility] [facility]2018 [place], [facility] 12/06/2023 ultrasound neck at [facility] the thyroid bed no residual lesionLeft submandibular region 9 x 9 x 6 mm reniform lymph node with normal architectural features. 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
--- OUTSIDE RECORDS SUMMARY | 2024-06-25 08:46 | XMS_ITS | Continuity of Care Document ---
Author Organization [place] - [facility], [facility] Address 100 [place] [address] Care Team Providers Care Teacher Of The Hearing Impaired Name Role Phone BRIAN EDWARDS Primary Care [...] Organization Details Recorded Time Papillary thyroid carcinoma 036663252 Active 025 TITO PERAZA MD [address], [address] , [place] - [facility] 13:15:38 Neoplasm of parotid gland 192972032 Active 025 TITO PERAZA MD [address] [address], [place], [address], [facility] 5 13:15:50 Hoarse 22745018 Active 025 TITO PERAZA MD [address] [address], [place], [address], [facility] 5 13:19:06 Problem Notes None recorded. Procedures Surgical History Date Name Laterality Status Provider Name and Address Organization Details Recorded Time 06/22/2024 FOL_DP completed TITO PERAZA MD [address] [address], [place], [address], [facility] 06/21/2024 23:03:28 Imaging Results None recorded. Procedure Notes None recorded. Medical Equipment None Reported. Allergies Allergen ID Allergen Name Allergen Category Reaction Reaction Severity Criticality Documentation Date Start Date Code Code System Note Provider Name and Address Organization Details Recorded Time 477268 Non-stero idal anti-infl ammatory agent (product) medicatio n Not available Not available Not available 06/22/2024 98886 [address] [facility] 12:53:41 617045 Product containin g penicilli n and antibioti c (product) medicatio n Not available Not available Not available 06/22/2024 [address] [facility] 12:53:48 632533 Ortho Tri-Cycle n (28) medicatio n Not available Not available Not available 06/22/[address] [facility] 12:53:59 Medications Name Sig Start Date [...] Updated DateTime 06/22/2024 152.4 cm 51.8 kg/m2 933735.98 g Prisca Downs [place] - [facility] 06/22/2024 12:53:33 Social History None recorded. [...] SNOMED-CT Code Diagnosis ICD10 Code Diagnosis Note [id number] TITO PERAZA MD [facility] [address] [address] 06/22/2024 12:36:54 06/22/2024 13:19:33 Papillary thyroid carcinoma 508072993 C[address] needs tissue sampling to r/o recurrence . FOL was normal in office Hoarse 48922713 R49.0 Health Concerns Section Related Observation LastModified by Organization Detai ls LastModified Time None Recorded Concern Status LastModified by Organization Details LastModified Time None Recorded Payers Encounter Date Sequence Insurance Name Policy Number Policy Jeffery Covered Member ID Jeffery Member ID Guarantor Name 06/22/[address] [place] [address] [id number] Jing Guillory [id number] Jing Guillory Notes Date Note Type Note Provider Name and Address Organization Details Recorded Time 06/22/2024 text/html hoarse returned about 11/2023not associated with vocal use ba swallow - normal per her report thyroid ca and [id number] subtotal thyroidectomy for cancer in [id number] revision thyroid and parathyroid but nothing was removed [facility]2017 completion thyroid [facility]2018 [place], [facility] 12/06/2023 ultrasound neck at [facility] the thyroid bed no residual lesionLeft submandibular region 9 x 9 x 6 mm reniform lymph node with normal architectural features. 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
== END 2024-06-22 08:36 | disposition home or self-care (01) ==
LOC: HO.HOSX 08:35
PROVIDERS: Visit Provider Physician Assistant
DX: M25.561 Pain in right knee (principal); M25.562 Pain in left knee; S83.012A Lateral subluxation of left patella, initial encounter; M17.12 Unilateral primary osteoarthritis, left knee
CPT/HCPCS: 73560; 99202

== ENCOUNTER 2024-09-24 07:22 | Outpatient (AMB) | payer OTHER, SELFPAY ==
--- OUTSIDE RECORDS SUMMARY | 2024-09-24 07:24 | XMS_ITS | Clinical Summary ---
Author Organization [facility] it Address [address] [place] [address] Care Team Providers Care Paradichlorobenzene Tender Name Role Phone Seb Arrington MD Primary [...] drink = 0.6 oz pur e alcohol) Comments Unknown Sex and Gender Information Value Date Recorded Sex Assigned at Not on file Legal Sex Female 8:34 AM EST Gender Identity Not on file Sexual Orientation Not on file Obstetrics History Plan of Treatment Health Maintenance Due Date Last Done Comments Pneumococcal Vaccine: Pediatrics (0 to 5 Years) and At-Risk Patients (6 to 64 Years) (1 of 2 - PCV) 01/22/2007 Cervical Cancer Screening: Pap Smear 01/22/2009 DTaP,Tdap,and Td Vaccines (8 - Td or Tdap) 02/15/2017 02/15/2007, 01/26/2000, 12/15/1992, Additional history exists COVID-19 Vaccine ( season) 2024 Cholesterol Screening (Lipid Panel) 03/25/2024 Depression Screening 03/25/2024 HIV Screening 03/25/2024 Hepatitis C Screening 03/25/2024 Social Influencers of Health Screening 03/25/2024 Influenza Vaccine (Season Ended) 2025 02/26/2011, 02/17/2010 HIB Vaccines Completed 08/04/1989 IPV Vaccines Completed [...] on patient's age to complete this topic Meningococcal B Vaccine Aged Out No l onger eligible based on patient's age to complete this topic RSV Immunization Patients Under 20 months Aged Out No longer eligible based on patient's age to complete this topic Care Teams Paradichlorobenzene Tender Relationship Specialty Start Date End Date Seb Arrington MD PCP - General Internal Medicine 01/02/08
--- OUTSIDE RECORDS SUMMARY | 2024-09-24 07:24 | XMS_ITS | Data Portability ---
Author Organization [place] - [facility], Allergy Address [address] [address] Care Team Providers Care Bookmobile Librarian Name Role Phone BRIAN EDWARDS Primary Care Provider [phone] Assessment Encounter Date Assessment Date Assessment LastModified [...] recorded. Referral None recorded. Procedures fine needle aspiratio n; with imaging guidance (PROC) - US Guided FNA, r/o malignanc y, Radiology center 2024 025 [facility], [address] [place] [address], [address], 10:05:21 Surgeries None recorded. Imaging None recorded. Medication Orders None recorded. Patient TargetsNo targets recorded. Patient InstructionsNo instructions recorded. Reason for Referral None Reported. Results Created Date Observation Date Name Description Value Unit Range Abnormal Flag Note LastModifiedBy Organization Detail LastModifiedTime Result Notes None recorded. Problems Name Problem SNOMED Code Status Onset Date Resolution Date Notes Provider Name and Address Organization Details Recorded Time Papillary thyroid carcinoma 981625611 Active 025 TITO PERAZA MD 100 [facility],[address] [address], [place], [address], [facility] - [facility] 13:15:38 Neoplasm of parotid gland 911420028 Active 025 TITO PERAZA MD [address] [address], [place], [address], [facility] 5 13:15:50 Hoarse 13792314 Active 025 TITO PERAZA MD [address] [facility],[address] [address], [place], [address], [facility] 5 13:19:06 Problem Notes None recorded. Procedures Surgical History Date Name Laterality Status Provider Name and Address Organization Details Recorded Time 06/22/2024 FOL_DP completed TITO PERAZA MD [address] [place] [address], [place], [address], [facility] 06/21/2024 23:03:28 Imaging Results None recorded. Procedure Notes None recorded. Medical Equipment None Reported. Allergies Allergen ID Allergen Name Allergen Category Reaction Reaction Severity Criticality Documentation Date Start Date Code Code System Note Provider Name and Address Organization Details Recorded Time 691673 Non-stero idal anti-infl ammatory agent (product) medicatio n Not available Not available Not available 06/22/2024 23200 005 SNOMED Prisca hardy [facility] 12:53:41 245820 Product containin g penicilli n (product) medicatio n Not available Not available Not available 06/22/2024 36493 8001 SNOMED Prisca hardy [place] - [facility] 5 12:53:48 683136 Ortho Tri-Cycle n (28) medicatio n Not available Not available Not available 06/22/2024 09223 UNK Prisca hardy [place] - [facility] 12:53:59 Medications Name Sig Start Date [...] Updated DateTime 06/22/2024 152.4 cm 51.8 kg/m2 445215.98 g Prisca Downs [place] - [facility] 06/22/2024 12:53:33 Social History None recorded. Functional Status None recorded. Mental Status None recorded. Family History Nothing Reported. Medical History Condition Response Migraines Y Thyroid Problems Y Anemia Y Arthritis Y Asthma Y Gynecological HistoryNo gynecological history recorded. Obstetrics History GPAL:G 0 P 0 0 0 0 Past Encounters Encounter ID Performer Location Encounter Start Date Encounter Closed Date Diagnosis/Indication Diagnosis SNOMED-CT Code Diagnosis ICD10 Code Diagnosis Note [id number] TITO PERAZA MD [facility] 100 [place] [address] 06/22/2024 12:36:54 06/22/2024 13:19:33 Papillary thyroid carcinoma 622424911 C[address] needs tissue sampling to r/o recurrence . FOL was normal in office Hoarse 00882872 R49.0 Health Concerns Section Related Observation LastModified by Organization Detai ls LastModified Time None Recorded Concern Status LastModified by Organization Details LastModified Time None Recorded Advance Directives Directive None Recorded Payers Encounter Date Sequence Insurance Name Policy Number Policy Jeffery Covered Member ID Jeffery Member ID Guarantor Name 06/22/[address] [place] [address] [id number] Jing Kahlil [id number] Jing Guillory Notes Date Note Type Note Provider Name and Address Organization Details Recorded Time 06/22/2024 text/html hoarse returned about 11/2023not associated with vocal use ba swallow - normal per her report thyroid ca and [id number] subtotal thyroidectomy for cancer in [id number] revision thyroid and parathyroid but nothing was removed [facility]2017 completion thyroid [place] [id number] FUENTES, [facility] 12/06/2023 ultrasound neck at [facility] the thyroid bed no residual lesionLeft submandibular region 9 x 9 x 6 mm reniform lymph node with normal architectural features. 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
--- NOTE | 2024-09-24 07:41 | MHC.PC.OV ---
Intake Visit Reasons: Discuss weight loss Allergies bee pollen [BEE STINGS] Allergy (Severe, Verified 06/22/24 08:00) ANAPHYLAXIS NSAIDS (Non-Steroidal Anti-Inflamma [NSAIDS (NON-STEROIDAL ANTI-INFLAMMA] Allergy (Intermediate, Verified 06/22/24 08:00) HIVES Penicillins Allergy (Intermediate, Verified 06/22/24 08:00) HIVES ibuprofen [From Motrin] Allergy (Unknown, Verified 06/22/24 08:00) Hives penicillin V Allergy (Unknown, Verified 06/22/24 08:00) unknown latex [LATEX] Adverse Reaction (Intermediate, Verified 06/22/24 08:00) RASH sulfamethoxazole [From Bactrim] Adverse Reaction (Verified 06/22/24 08:00) Hives trimethoprim [From Bactrim] Adverse Reaction (Verified 06/22/24 08:00) Hives From Ortho Tri-Cyclen (21) Adverse Reaction (Intermediate, Uncoded 06/22/24 08:00) DVT (BLOOD CLOT) Tobacco use date assessed: 03/23/24 Dental Screening Dental Screen Date: 06/08/23 HPI Discuss weight loss HPI Details History of Present Illness The patient is a 34-year-old female presenting for a follow-up regarding Type 2 Diabetes Mellitus. She is currently managed with semaglutide, noting significant glycemic control improvements, with her most recent A1c at 6.3%. In conjunction with weight loss, she appears to tolerate the medication well. The patient's medical history includes Vitamin B12 deficiency, necessitating continuous monitoring due to its neurological implications. She also possesses a history of elevated creatine phosphokinase levels, requiring careful attention to potential muscular implications. Additionally, she has fibromyalgia, which impacts her through chronic pain. Currently, the patient reports no chest pain, shortness of breath, or peripheral neuropathy, crucial negative findings for her diabetic management. Regular annual visual check-ups have been emphasized. Review of Systems - Endocrine: Reports good glycemic control with current medication. Denies symptoms of neuropathy. - Musculoskeletal: Denies muscle pain beyond fibromyalgia-related symptoms. - Respiratory: Denies shortness of breath. - Cardiovascular: Denies chest pain. - Neurological: Denies neuropathic pain. - Other: Reports weight loss since starting semaglutide. Plan 1. 5 mg to 1 mg to enhance glycemic control further. Given her good tolerance and the absence of adverse effects, this adjustment should aid in maintaining her current satisfactory A1c levels and support further weight management. Continuous evaluation of her Vitamin levels is planned, in addition to monitoring elevated CPK levels through periodic laboratory assessments. Addressing fibromyalgia remains part of the ongoing management strategy. I advised her of the importance of annual ophthalmological examinations to guard against diabetic retinopathy. Her next visit will be in person to allow for comprehensive follow-up on her current management strategies: . Discussion Notes During the telehealth session, I discussed in detail the patient?s current management plan of Type 2 Diabetes Mellitus using semaglutide, explaining the decision-making process behind increasing the dosage to 1 mg given her current excellent tolerance and improved glycemic control. I emphasized the importance of monitoring her Vitamin B12 deficiency to prevent neurological sequelae and the need for vigilance regarding her elevated CPK levels. Furthermore, her fibromyalgia management continues, focusing on symptom monitoring. I reiterated the significance of annual visual checks for diabetes-related eye complications. The patient agreed to the management plan and acknowledged understanding the importance of these measures. Patient Instructions - Continue using Ozempic, increasing to 1 mg. - Get annual eye screenings. - Monitor your B12 levels with upcoming labs. - Watch for any unusual muscle pain and report it. Cont to maintain hydrated - Follow up with me in the office soon. - Keep an eye on blood sugar levels as advised. [facility] Medical History (Updated 09/24/24 @ 07:37 by CARLOTA Harrell-KSENIA) Morbid obesity due to excess calories HLD (hyperlipidemia) HTN (hypertension) Type 2 diabetes mellitus Depression Migraine with aura Fibromyalgia Insomnia Hx of papillary thyroid carcinoma Surgical History History of umbilical hernia repair Bilateral carpal tunnel syndrome Hx of cholecystectomy History of tubal ligation History of section History of thyroidectomy Family History Father History of heart attack Mental health disorder Mother Hypothyroidism Sister Anxiety Migraine Low blood pressure Mental health disorder Son Epilepsy Daughter No problems noted. Maternal Grandmother Breast cancer Paternal Grandmother Breast cancer Social History (Updated 06/22/24 @ 08:01 by MIN Figueroa) Housing: Apartment Alcohol intake: current Alcohol intake frequency: holidays/special occasions only Patient Tobacco Use Status: Never used Tobacco e-Cigarette/Vaping Use: Never Used Second Hand Smoke Exposure: Yes Current occupational status: unemployed Current occupation: rt handed Cognitive needs: No Hearing needs: No Vision needs: Yes Questionnaire Thrive Questionnaire Date Thrive assessed: 03/23/24 LISSETH-7 AMB Questionnaire LISSETH-7 Date LISSETH - 7 assessed: 03/23/24 Source: Developed by Drs. Keven Salas, Christina Lake, Jeffrey Landis and colleagues, with an educational carlos from [employer]. Physical exam (Primary Care) Tobacco/Smoking Status: Tobacco use Status Tobacco use date assessed 03/23/24 05/08/24 09:25 Patient Tobacco Use Status Never used Tobacco 06/22/24 08:01 e-Cigarette/Vaping Use Never Used 06/22/24 08:01 Thrive Assessment: Date of Thrive Assessment Date Thrive assessed 03/23/24 06/19/24 09:43 Telehealth Telehealth Telehealth Platform: [facility] Location of provider rendering services: practice address Location of patient: address on file Patient Identification confirmed using: Name, : Yes Telehealth method: video Patient verbally consented to treatment: Yes Patient verbally consented to billing insurance company: Yes Patient informed of any privacy concerns related to visit: Yes Minutes spent on Phone/Video with Pt.: 12 Coding Level of Care Code Tele Est Pt Level 3 (68263) Diagnoses Diabetes E11.9 Elevated CPK R74.8 B12 deficiency E53.8 Assessment & Plan Assessment & Plan (1) Diabetes: Code(s): E11.9 - Type 2 diabetes mellitus without complications Category: Medical (2) Elevated CPK: Code(s): R74.8 - Abnormal levels of other serum enzymes Category: Medical (3) B12 deficiency: Code(s): E53.8 - Deficiency of other specified B group vitamins Category: Medical Plan . Orders: Orders Complete Blood Count Auto Diff Today E11.9 - Type 2 diabetes mellitus without complications Comprehensive [place]. Panel Fast Today E11.9 - Type 2 diabetes mellitus without complications TSH reflex Free T4 Today E11.9 - Type 2 diabetes mellitus without complications Microalbumin, Random (w Creat) Today E11.9 - Type 2 diabetes mellitus without complications UA CC w/rflx Micro + Cult Today E11.9 - Type 2 diabetes mellitus without complications Lipid Panel Today E11.9 - Type 2 diabetes mellitus without complications Vitamin B12 and Folate Today E53.8 - Deficiency of other specified B group vitamins Creatine Kinase Total Today R74.8 - Abnormal levels of other serum enzymes Medications: Changed From semaglutide (Ozempic) 1 mg (1.472 mL) subcut QWEEK 3 mL 0RF To semaglutide 1 mg (0.75 mL) subcut QWEEK 3 mL 0RF
== END 2024-09-24 08:49 | disposition home or self-care (01) ==
PROVIDERS: PCP Nurse Practitioner Family; Visit Provider Nurse Practitioner Family
DX: E11.9 Type 2 diabetes mellitus without complications (principal); R74.8 Abnormal levels of other serum enzymes; E53.8 Deficiency of other specified B group vitamins

== ENCOUNTER → 2024-09-24 07:22 | Outpatient (BNVA) | payer OTHER, SELFPAY | PROVIDERS: Visit Provider Nurse Practitioner Family ==

== ENCOUNTER 2024-09-29 13:27 | Emergency (ER) | payer OTHER, SELFPAY ==
--- NOTE | ~2024-09-29 | CT_ITS ---
CLINICAL HISTORY: Periumbilical pain vomiting subjective fever tende CT abdomen and pelvis with IV contrast. COMPARISON: None FINDINGS: Partially visualized lung bases are unremarkable. No focal hepatic lesion. Cholecystectomy. Normal spleen. Normal pancreas. Normal adrenal glands. Symmetric renal enhancement. No hydronephrosis. Diminutive appendix. No bowel obstruction. Multiple fluid-filled loops of nondilated large and small bowel. Multiple normal-sized mesenteric or retroperitoneal lymphadenopathy. Normal abdominal aorta. Normal appearance of the urinary bladder. Left ovarian cyst/follicle measuring up to 1.9 cm. Small fat containing umbilical hernia. No acute fracture or suspicious bone lesion. IMPRESSION: 1. No evidence of appendicitis or bowel obstruction. 2. Multiple fluid-filled loops of nondilated large and small bowel. Nonspecific finding can be associated with an enterocolitis. Recommend correlation clinically. 3. Dominant left ovarian cyst/follicle measuring up to 1.9 cm. This document has been electronically signed by: Orlando Ring MD on 09/29/2024 15:23:31
[2024-09-29 13:30] VITALS: BP 142/98; PULSE 127; RESP 20; TEMP 36.2; O2SAT 97; BMI 47.4
[2024-09-29 13:44] LABS: MANUAL DIFF FLAG NO
[2024-09-29 13:45] LABS: Basophils Percent Auto 0.2 % (0-2); Eosinophils Absolute Auto 0.6 X10*3/uL (0.0-0.4); Eosinophils Percent Auto 3.4 % (0-4); Hematocrit 48.5 % (37.0-47.0); Hemoglobin 16.7 g/dl (12.0-16.0); Imm Gran Abs Auto 0.06 X10*3/uL (0.00-0.03); Imm Gran Pct Auto 0.4 % (0.0-0.4); Lymphocytes Percent Auto 18.7 % (20-40); Mean Corpuscular HGB Conc 34.4 g/dl (31.0-35.0); Mean Corpuscular Hemoglobin 28.1 pg (27.0-33.0); Mean Corpuscular Volume 81.5 fL (80.0-98.0); Mean Platelet Volume 9.9 fL (9.4-12.3); Monocytes Absolute Auto 1.2 X10*3/uL (0.1-1.2); Monocytes Percent Auto 7.6 % (2-11); Neutrophils Absolute Auto 11.3 x10*3/uL (2.0-8.3); Neutrophils Percent Auto 69.7 % (45-73); Platelet Count 540 X10*3/uL (160-400); Red Blood Count 5.95 X10*6/uL (4.20-5.50); Red Cell Distribution Width 12.5 % (11.0-16.0); White Blood Count 16.3 X10*3/uL (4.8-10.8)
--- NOTE | 2024-09-29 13:56 | ED.NAVMDI ---
HPI - Nausea/Vomiting/Diarrhea General Chief complaint: Nausea/Vomiting/Diarrhea Stated complaint: vomiting x 3 days Time Seen by Provider: 09/29/24 13:55 History of Present Illness ED Provider: Guanaco Arita MD HPI Narrative: 34-year-old female with history of vitiligo, fibroids status post uterine ablation, fibromyalgia, thyroid cancer who reports 2-3 days of nausea vomiting nonbloody nonbilious 1 loose bowel movement and abdominal discomfort around the belly button. No appetite. Feels very dehydrated denies any sick contacts recent travel unusual foods Related Data Home Medications ?Medication ?Instructions ?Recorded ?Confirmed albuterol sulfate 90 mcg/actuation 2 puff inhalation Q6H PRN wheezing 08/02/23 05/08/24 aerosol inhaler (Ventolin HFA) Previous Rx's ?Medication ?Instructions ?Recorded FreeStyle Lite Meter #1 ea 01/19/23 (blood-glucose meter) epinephrine 0.3 mg/0.3 mL 0.3 mg (0.3 mL) IM Q4H PRN 02/05/23 injection, auto-injector (EpiPen anaphylaxis #2 ea 2-Lee) acetaminophen 500 mg tablet 500 mg PO Q6H PRN fever or pain 02/08/23 (Tylenol Extra Strength) #14 tabs FreeStyle Lite Strips (blood sugar #100 ea 02/16/23 diagnostic) FreeStyle Lancets 28 gauge #300 ea 04/06/23 (lancets) exjgabjlbt-lewdihwinbwwq-tagzhqxm 1 tab PO BID PRN pain 10 days #20 10/24/23 50 mg-325 mg-40 mg tablet tabs compr.stocking,knee,long,x-lrg #2 ea 03/23/24 carvedilol 3.125 mg tablet (Coreg) 3.125 mg PO BID 90 days #180 tabs 04/22/24 syringe with needle 3 mL 23 x 1 #50 ea 04/30/24 (BD SafetyGlide Syringe) atorvastatin 10 mg tablet 10 mg PO BEDTIME #90 tabs 05/22/24 levothyroxine 200 mcg tablet 200 mcg PO DAILY #90 tabs 05/22/24 fenofibrate 54 mg tablet 54 mg PO DAILY #90 tabs 07/09/24 amitriptyline 50 mg tablet 50 mg PO BEDTIME 90 days #90 tabs 07/30/24 tizanidine 4 mg capsule 4 mg PO BID PRN muscle spasticity 08/09/24 30 days #60 caps clonazepam 1 mg tablet 1 mg PO BID PRN anxiety 30 days 09/03/24 #60 tabs cyanocobalamin (vitamin B-12) 1,000 mcg IM QWEEK 1 month #5 mL 09/10/24 1,000 mcg/mL injection solution semaglutide 1 mg/dose (4 mg/3 mL) 1 mg (0.75 mL) subcut QWEEK #3 mL 09/24/24 subcutaneous pen injector dicyclomine 20 mg tablet 20 mg PO BID PRN abdominal pain 09/29/24 #10 tabs ondansetron 4 mg disintegrating 4 mg PO Q8H PRN nausea and 09/29/24 tablet vomiting #7 tabs Allergies Allergy/AdvReac Type Severity Reaction Status Date / Time bee pollen [BEE STINGS] Allergy Severe ANAPHYLAXIS Verified 09/29/24 13:33 NSAIDS (Non-Steroidal Allergy Intermediate HIVES Verified 09/29/24 13:33 Anti-Inflamma [NSAIDS (NON-STEROIDAL ANTI-INFLAMMA] Penicillins Allergy Intermediate HIVES Verified 09/29/24 13:33 ibuprofen [From Motrin] Allergy Unknown Hives Verified 09/29/24 13:33 penicillin V Allergy Unknown unknown Verified 09/29/24 13:33 latex [LATEX] AdvReac Intermediate RASH Verified 09/29/24 13:33 sulfamethoxazole AdvReac Hives Verified 09/29/24 13:33 [From Bactrim] trimethoprim [From Bactrim] AdvReac Hives Verified 09/29/24 13:33 From Ortho Tri-Cyclen (21) AdvReac Intermediate DVT (BLOOD Uncoded 09/29/24 13:33 CLOT) [facility] Past Medical History Medical History (Updated 09/30/24 @ 00:00 by Background Shivani) Morbid obesity due to excess calories HLD (hyperlipidemia) HTN (hypertension) Type 2 diabetes mellitus Depression Migraine with aura Fibromyalgia Insomnia Hx of papillary thyroid carcinoma Surgical History History of umbilical hernia repair Bilateral carpal tunnel syndrome Hx of cholecystectomy History of tubal ligation History of section History of thyroidectomy Family History Family History Father History of heart attack Mental health disorder Mother Hypothyroidism Sister Anxiety Migraine Low blood pressure Mental health disorder Son Epilepsy Daughter No problems noted. Maternal Grandmother Breast cancer Paternal Grandmother Breast cancer Social History Social History (Updated 06/22/24 @ 08:01 by MIN Figueroa) Housing: Apartment Alcohol intake: current Alcohol intake frequency: holidays/special occasions only Patient Tobacco Use Status: Never used Tobacco e-Cigarette/Vaping Use: Never Used Second Hand Smoke Exposure: Yes Current occupational status: unemployed Current occupation: rt handed Cognitive needs: No Hearing needs: No Vision needs: Yes Physical Exam Vital Signs: Vital Signs: Last Vital Signs Temp 97.3 F 09/29/24 16:20 Pulse 106 H 09/29/24 16:20 Resp 16 09/29/24 16:20 BP 134/94 H 09/29/24 16:20 Pulse Ox 96 09/29/24 16:20 O2 Del Method Room Air 09/29/24 16:20 BMI result Body Mass Index 47.4 Const: Other: EXAM: Gen: Alert, awake, well appearing, well hydrated. Overweight, vitiligo, sunburn to the upper chest Head: Atraumatic Eyes: Anicteric, Normal conjunctiva. ENT: Moist mucosa, no pallor. ? Neck: Supple. Respiratory: Breathing comfortably, No distress.Clear to auscultation bilaterally, symmetric chest expansion, No wheeze, rales, ronchi. Cardiovascular: Regular rate and rhythm. No murmurs or rub. Well perfused periphery, warm extremities. No edema. ? Abdominal: Soft, no objective distension. No palpable masses or obvious organomegaly. Moderate tenderness particularly around the belly button and right lower quadrant no guarding, no rebound tenderness or other peritoneal findings. : No flank tenderness. Neuro: Alert. Gross movement of all extremities intact. ? Vital signs: See flowsheet Medications Administered Discontinued Medications Generic Name Dose Route Start Last Admin Trade Name Freq PRN Reason Stop Dose Admin Lactated Ringer's 1,000 mls @ 999 mls/hr 09/29/24 14:30 09/29/24 14:48 Lr IV 09/29/24 15:30 999 mls/hr .Q1H1M SALVADOR Administration Iohexol 100 ml 09/29/24 14:46 09/29/24 14:47 Iohexol 350 Mg/Ml 100 Ml Infus..Btl IV 09/29/24 14:47 85 ml ONCE ONE Administration Morphine Sulfate 2 mg 09/29/24 14:52 09/29/24 15:01 Morphine Sulfate 2 Mg/Ml Cartridge IVPUSH 09/29/24 14:53 2 mg ONCE ONE Administration Protocol Ondansetron HCl 4 mg 09/29/24 14:22 09/29/24 14:32 Ondansetron Hcl 4 Mg/2 Ml Vial IVPUSH 09/29/24 14:23 4 mg ONCE ONE Administration Medical Decision Making Medical Decision Making MDM Narrative: 34-year-old female with nausea loose stool abdominal pain. CT shows signs of enteral colitis no appendicitis no free fluid. Left dominant follicle this is not the site of her pain and tenderness. Suspect likely enteritis as the etiology of the patient's symptoms could be food-borne illness. Pain reasonably well controlled we will DC with Zofran gentle diet escalation Bentyl and Pepto-Bismol Lab Data 09/29/24 13:40 09/29/24 13:40 Labs: Lab Results 09/29/24 Range/Units 13:40 WBC 16.3 H (4.8-10.8) X10*3/uL RBC 5.95 H D (4.20-5.50) X10*6/uL Hgb 16.7 H (12.0-16.0) g/dl Hct 48.5 H (37.0-47.0) % MCV 81.5 (80.0-98.0) fL MCH 28.1 (27.0-33.0) pg MCHC 34.4 (31.0-35.0) g/dl RDW 12.5 (11.0-16.0) % Plt Count 540 H D (160-400) X10*3/uL MPV 9.9 (9.4-12.3) fL Immature Gran % (Auto) 0.4 (0.0-0.4) % Neut % (Auto) 69.7 (45-73) % Lymph % (Auto) 18.7 L (20-40) % Cherry % (Auto) 7.6 (2-11) % Eos % (Auto) 3.4 (0-4) % Baso % (Auto) 0.2 (0-2) % Lymph # (Auto) 3.0 (1.2-4.9) X10*3/uL Cherry # (Auto) 1.2 (0.1-1.2) X10*3/uL Eos # (Auto) 0.6 H (0.0-0.4) X10*3/uL Baso # (Auto) 0.0 (0.0-0.2) X10*3/uL Abs Immat Gran (auto) 0.06 H (0.00-0.03) X10*3/uL Absolute Neuts (auto) 11.3 H (2.0-8.3) x10*3/uL Absolute Nucleated RBC 0.000 (0.0-0.012) X10*3/uL Nucleated RBC % (auto) 0.0 (0.0-0.2) /100WBC Sodium 139 (135-145) mmol/L Potassium 4.1 (3.3-5.1) mmol/L Chloride 105 (96-108) mmol/L Carbon Dioxide 21 L (22-29) mmol/L Anion Gap 17 (12-20) BUN 18 H (9-16) mg/dL Creatinine 0.79 (0.5-1.4) mg/dL Estim Creat Clear Calc 110.8 Estimated GFR > 60 Random Glucose 143 H (60-115) mg/dL Calcium 9.7 D (8.4-10.2) mg/dL Total Bilirubin 1.0 (0.0-1.0) mg/dL AST 35 H (5-31) U/L ALT 64 H (0-31) U/L Alkaline Phosphatase 92 (39-117) U/L Total Protein 7.8 (6.5-8.0) g/dL Albumin 4.9 (3.5-5.0) g/dL Radiology Impression Discussion of test interpretation with radiology: I have reviewed the radiologist's reading. Discharge Plan Discharge Clinical Impression: Enteritis Patient Disposition: Home, Self-Care Instructions: Enteritis (ED) Additional Instructions: DISCHARGE DIAGNOSES: Abdominal pain possibly from viral or food-borne illness with inflammation of the intestines HISTORY OF PRESENTATION: ?Vomiting and abdominal pain for 2-3 days EMERGENCY DEPARTMENT COURSE,TESTS, TREATMENTS: While in the ED today you had a CT of the abdomen and pelvis which only showed fluid-filled bowel loops suggesting inflammation or viral infection of the intestines. Your lab work was reassuring although so showed some signs of dehydration DISCHARGE MEDICATIONS: ?We have prescribed you Bentyl as well as Zofran for nausea. We recommend getting rmvd-atp-gjrifud Pepto-Bismol as well FOLLOW-UP: ?Call your primary or general physician soon as possible to discuss your symptoms, your ED visit and to discuss follow up plans Call your primary doctor thing Tuesday morning to follow up INSTRUCTIONS ?& RETURN PRECAUTIONS: If any symptoms change first call your primary physician, if it is after-hours your primary doctors office should have a provider denial resolution specialist you can speak with. If the symptoms are severe or very concerning to you then call 911 or return to the ED. Guanaco Arita MD Emergency Physician [facility] Prescriptions: New dicyclomine 20 mg tablet 20 mg PO BID PRN (Reason: abdominal pain) Qty: 10 0RF ondansetron 4 mg tablet,disintegrating 4 mg PO Q8H PRN (Reason: nausea and vomiting) Qty: 7 0RF No Action (DME) blood-glucose meter [FreeStyle Lite Meter] Kit See Rx Instructions .Route Qty: 1 0RF Rx Instructions: TID testing (DME) FreeStyle Lite Strips Strip See Rx Instructions .Route Qty: 100 5RF Rx Instructions: TID testing (DME) lancets [FreeStyle Lancets] 28 gauge misc See Rx Instructions .Route Qty: 300 1RF Rx Instructions: TID testing xhomnlhuhg-hpnwrtehlkydp-dvpn 50-325-40 mg tablet 1 tab PO BID PRN (Reason: pain) 10 Days Qty: 20 1RF carvedilol [Coreg] 3.125 mg tablet 3.125 mg PO BID 90 Days Qty: 180 1RF Rx Instructions: must administer with a meal/food levothyroxine 200 mcg tablet 200 mcg PO DAILY Qty: 90 1RF atorvastatin 10 mg tablet 10 mg PO BEDTIME Qty: 90 1RF fenofibrate 54 mg tablet 54 mg PO DAILY Qty: 90 1RF amitriptyline 50 mg tablet 50 mg PO BEDTIME 90 Days Qty: 90 0RF tizanidine 4 mg capsule 4 mg PO BID PRN (Reason: muscle spasticity) 30 Days Qty: 60 1RF clonazepam 1 mg tablet 1 mg PO BID PRN (Reason: anxiety) 30 Days Qty: 60 0RF cyanocobalamin (vitamin B-12) 1,000 mcg/mL solution 1,000 mcg IM QWEEK 30 Days Qty: 5 2RF Rx Instructions: of the epinephrine [EpiPen 2-Lee] 0.3 mg/0.3 mL auto-injector 0.3 mg IM Q4H PRN (Reason: anaphylaxis) Qty: 2 0RF albuterol sulfate [Ventolin HFA] 90 mcg/actuation HFA aerosol inhaler 2 puff INHALATION Q6H PRN (Reason: wheezing) acetaminophen [Tylenol Extra Strength] 500 mg tablet 500 mg PO Q6H PRN (Reason: fever or pain) Qty: 14 0RF (DME) BD SafetyGlide Syringe 3 mL 23 x 1 syringe See Rx Instructions .Route Qty: 50 0RF Rx Instructions: As directed to injection B-12 weekly semaglutide 1 mg/dose (4 mg/3 mL) pen injector 1 mg subcut QWEEK Qty: 3 0RF (DME) compr.stocking,knee,long,x-lrg Misc See Rx Instructions .Route Qty: 2 0RF Rx Instructions: KNEE HIGH EXTRA LARGE STOCKING X 2 20-30 MMHG Interventions: ED Discharge Assessment Last Done: 09/29/24 16:20 Discharge Date/Time: 09/29/24 16:23 Print Language: Malay
[2024-09-29 14:00] VITALS: BP 134/94; PULSE 106; RESP 16; TEMP 36.3; O2SAT 96
[2024-09-29 14:04] LABS: Alanine Aminotransferase 64 U/L (0-31); Albumin Level 4.9 g/dL (3.5-5.0); Alkaline Phosphatase 92 U/L (39-117); Anion Gap 17 (12-20); Aspartate Amino Transferase 35 U/L (5-31); Blood Urea Nitrogen 18 mg/dL (9-16); Calcium 9.7 mg/dL (8.4-10.2); Carbon Dioxide 21 mmol/L (22-29); Chloride 105 mmol/L (96-108); Creatinine Clr Calc Pharmacy 110.8; Estimated Glomerular Filt Rate > 60; Glucose Random 143 mg/dL (60-115); Potassium 4.1 mmol/L (3.3-5.1); Sodium 139 mmol/L (135-145); Total Protein 7.8 g/dL (6.5-8.0)
[2024-09-29] MEDS: ondansetron HCL 4 MG/2 ML VIAL IVPUSH (14:32)
[2024-09-29] MEDS: iohexoL 350 MG/ML 100 ML INFUS..BTL IV (14:47)
[2024-09-29] MEDS: Lactated Ringers 1,000 ML 999 ML IV (14:48)
[2024-09-29] MEDS: Morphine Sulfate 2 MG/ML CARTRIDGE IVPUSH (15:01)
[2024-09-29 16:20] VITALS: BP 134/94; PULSE 106; RESP 16; TEMP 36.3; O2SAT 96
== END 2024-09-29 16:23 | disposition home or self-care (01) ==
PROVIDERS: Emergency Provider Emergency Medicine; PCP Nurse Practitioner Family
DX: K52.9 Noninfective gastroenteritis and colitis, unspecified (principal); R11.2 Nausea with vomiting, unspecified; Z79.899 Other long term (current) drug therapy
CPT/HCPCS: 36415; 74177; 80053; 85025; 96374; 96375; 99284; 99285; J2270; J2405; J7120; Q9967

== ENCOUNTER → 2024-09-29 14:21 | Outpatient (BNV) | payer OTHER, SELFPAY | PROVIDERS: Emergency Provider Emergency Medicine; PCP Nurse Practitioner Family; Visit Provider Radiology Diagnostic Radiology | DX: R10.33 Periumbilical pain (principal); R11.10 Vomiting, unspecified | CPT/HCPCS: 74177 ==

== ENCOUNTER 2024-11-27 15:29 | Outpatient (AMB) | payer OTHER, SELFPAY ==
[2024-11-27 15:37] VITALS: BP 120/100; PULSE 84; TEMP 36.8; O2SAT 97; BMI 49.8
--- NOTE | 2024-11-27 15:37 | AM.OFFWIN_ITS ---
Intake Vital Signs 11/27/24 15:37 Height 5 ft Weight 255 lb BMI 49.8 BP 120/100 H Blood Pressure Location Rt brachial Position Sitting Pulse 84 Pulse Source Pulse Oximeter Temp 98.2 F Temp Source Oral Pulse Oximetry (%) 97 Oxygen Delivery Method Room Air Intake Visit Reasons: EP Numbness/tingling in lower arms Intake Note: presents with bilateral numbness and tingling from elbows to fingertips with bilateral hand weakness. Aslo c/o pain from both elbows upwards and around shoulders all the mary jo down to back for a week Patient Tobacco Use Status: Never used Tobacco Allergies bee pollen (BEE STINGS) Allergy (Severe, Verified 11/27/24 15:41) ANAPHYLAXIS NSAIDS (Non-Steroidal Anti-Inflamma (NSAIDS (NON-STEROIDAL ANTI-INFLAMMA) Allergy (Intermediate, Verified 11/27/24 15:41) HIVES Penicillins Allergy (Intermediate, Verified 11/27/24 15:41) HIVES ibuprofen (From Motrin) Allergy (Unknown, Verified 11/27/24 15:41) Hives penicillin V Allergy (Unknown, Verified 11/27/24 15:41) unknown latex (LATEX) Adverse Reaction (Intermediate, Verified 11/27/24 15:41) RASH sulfamethoxazole (From Bactrim) Adverse Reaction (Verified 11/27/24 15:41) Hives trimethoprim (From Bactrim) Adverse Reaction (Verified 11/27/24 15:41) Hives From Ortho Tri-Cyclen (21) Adverse Reaction (Intermediate, Uncoded 09/29/24 13:33) DVT (BLOOD CLOT) Do you need a note to return to daycare/school/sports/work: Yes Return to daycare/school/sports/work/other note: work HPI HPI Comments History of Present Illness Details History - The patient is a 34-year-old female pr esenting with numbness, tingling, and weakness in both arms from the elbow down. - Symptoms began approximately one week ago and have progressively worsened. - The patient experiences difficulty fee ling objects in her fingertips and requires effort to hold a pen. - She has a history of bilateral carpal tunnel syndrome with previous surgeries, but the current symptoms differ from past carpal tunnel experiences. - The patient engages in activities invo lving typing and writing, which vary day to day. Physical Exam General: Cooperative, healthy appearing, comfortable, no acute distress and well developed Orientation: Patient oriented x3 Limitations: No limitations Head: Normal to inspection Ears: Hearing grossly normal bilaterally Nose: Normal External nose present Face and sinus: Normal facial exam Eyes: Appearance normal, both eyes and all related structures Neck: Normal visual inspection and Yes full ROM Respiratory: Normal respiratory effort and able to speak in complete sentences. 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 strength 2/5 bilaterally,+ Phalens, negative Tinels [facility] Medical History (Updated 11/27/24 @ 15:54 by Cydney Iverson PA-C) Morbid obesity due to excess calories HLD (hyperlipidemia) HTN (hypertension) Type 2 diabetes mellitus Depression Migraine with aura Fibromyalgia Insomnia Hx of papillary thyroid carcinoma Surgical History History of umbilical hernia repair Bilateral carpal tunnel syndrome Hx of cholecystectomy History of tubal ligation History of section History of thyroidectomy Family History Father History of heart attack Mental health disorder Mother Hypothyroidism Sister Anxiety Migraine Low blood pressure Mental health disorder Son Epilepsy Daughter No problems noted. Maternal Grandmother Breast cancer Paternal Grandmother Breast cancer Social History (Updated 06/22/24 @ 08:01 by MIN Figueroa) Housing: Apartment Alcohol intake: current Alcohol intake frequency: holidays/special occasions only Patient Tobacco Use Status: Never used Tobacco e-Cigarette/Vaping Use: Never Used Second Hand Smoke Exposure: Yes Current occupational status: unemployed Current occupation: rt handed Cognitive needs: No Hearing needs: No Vision needs: Yes Review of Systems Const All systems reviewed & are unremarkable except as noted in HPI and below Physical Exam Vital Signs: Last Vital Signs Temp 98.2 F 11/27/24 15:37 Pulse 84 11/27/24 15:37 BP 120/100 H 11/27/24 15:37 Pulse Ox 97 11/27/24 15:37 Oxygen Delivery Method Room Air 11/27/24 15:37 BMI result Body Mass Index 49.8 Results Reviewed Results Reviewed: September 2021 MR/MR head/brain wo/w con IMPRESSION: No mass lesion, acute infarction, or abnormal intracranial enhancement. Assessment & Plan Assessment & Plan (1) Weakness of both hands: Code(s): R29.898 - Other symptoms and signs involving the musculoskeletal system Plan: Patient was informed and verbally consented to the use of an ambient scribe for clinic note documentation during this visit Numbness And Tingling In Both Arms From The Elbow Down - Plan to message PCP to order nerve conduction studies (EMG) to assess nerve function and identify potential neuropathy. - Current symptoms differ from previous carpal tunnel syndrome, suggesting a different etiology though carpal tunnel still a possibility. - MRI September 2021 normal Coding Level of Care Code Est Pt Level 3 (06524) Diagnoses Weakness of both hands R29.898
--- OUTSIDE RECORDS SUMMARY | 2024-11-27 15:56 | XMS_ITS | Clinical Summary ---
Author Organization [facility] it Address [address] [place] [address] Care Team Providers Care Manager Engagement Name Role Phone Seb Arrington MD Primary [...] 5 Years) and At-Risk Patients (6 to 49 Years) (1 of 2 - PCV) 01/22/2007 Cervical Cancer Screening: Pap Smear 01/22/2009 DTaP,Tdap,and Td Vaccines (8 - Td or Tdap) 02/15/2017 02/15/2007, 01/26/2000, 12/15/1992, Additional history exists COVID-19 Vaccine ( - season) 2024 Cholesterol Screening (Lipid Panel) 03/25/2024 Depression Screening 03/25/2024 HIV Screening 03/25/2024 Hepatitis C Screening 03/25/2024 Social Influencers of Health Screening 03/25/2024 Influenza Vaccine (#1) 2025 02/26/2011, 2009 HIB Vaccines Completed 08/04/1989 IPV Vaccines Completed [...] age to complete this topic Care Teams Manager Engagement Relationship Specialty Start Date End Date Seb Arrington MD PCP - General Internal Medicine 01/02/08
--- OUTSIDE RECORDS SUMMARY | 2024-11-27 15:56 | XMS_ITS | Data Portability ---
Author Organization [place] - [facility], Allergy Address [address] [address] Care Team Providers Care Dairy Clerk Name Role Phone BRIAN EDWARDS Primary Care [...] r/o malignanc y, Radiology center 2024 025 [facility], [address] [place], [address], 10:05:21 Surgeries None recorded. Imaging None recorded. 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 Procedures Surgical History Date Name Laterality Status Provider Name and Address Organization Details Recorded Time 06/22/2024 FOL_DP completed TITO PERAZA MD [address] [place] [address], [place], [address], [facility] 06/21/2024 23:03:28 Imaging Results None recorded. Procedure Notes None recorded. Medical Equipment None Reported. Allergies Allergen ID Allergen Name Allergen Category Reaction Reaction Severity Criticality Documentation Date Start Date Code Code System Note Provider Name and Address Organization Details Recorded Time 967456 Non-stero idal anti-infl ammatory agent (product) medicatio n Not available Not available Not available 06/22/2024 94547 005 SNOMED Prisca hardy [facility] 12:53:41 115304 Product containin g penicilli n (product) medicatio n Not available Not available Not available 06/22/2024 95145 8001 SNOMED Prisca hardy [place] - [facility] 12:53:48 642247 Ortho Tri-Cycle n (28) medicatio n Not available Not available Not available 06/22/2024 80457 UNK Prisca hardy [facility] 12:53:59 Medications Name Sig Start Date Stop [...] Updated DateTime 06/22/2024 152.4 cm 51.8 kg/m2 699050.98 g Prisca Downs [place] - [facility] 06/22/2024 12:53:33 Social History None recorded. Functional Status None recorded. Mental Status None recorded. Family History Nothing Reported. Medical History Condition Response Anemia Y Arthritis Y Migraines Y Thyroid Problems Y Asthma Y Gynecological HistoryNo gynecological history recorded. Obstetrics History GPAL:G 0 P 0 0 0 0 Past Encounters Encounter ID Performer Location Encounter Start Date Encounter Closed Date Diagnosis/Indication Diagnosis SNOMED-CT Code Diagnosis ICD10 Code Diagnosis Note [id number] TITO PERAZA MD [facility] [address] [place] [address] 06/22/2024 12:36:54 06/22/2024 13:19:33 Papillary thyroid carcinoma [id number] C[address] needs tissue sampling to r/o recurrence . FOL was normal in office Hoarse 54548224 R49.0 Health Concerns Section Related Observation LastModified by Organization Detai ls LastModified Time None Recorded Concern Status LastModified by Organization Details LastModified Time None Recorded Advance Directives Directive None Recorded Payers Insurance Date Sequence Insurance Name Policy Number Policy Jeffery Covered Member ID Jeffery Member ID Guarantor Name 07/20/[address] [place] [address] [id number] Jing Kahlil [id number] Jing Guillory Notes Date Note Type Note Provider Name and Address Organization Details Recorded Time 06/22/2024 text/html hoarse returned about 11/2023not associated with vocal use ba swallow - normal per her report thyroid ca and [id number] subtotal thyroidectomy for cancer in [id number] revision thyroid and parathyroid but nothing was removed [facility]2017 completion thyroid [place] [id number] FUENTES, [facility] 12/06/2023 ultrasound neck at [facility] the thyroid bed no residual lesionLeft submandibular region 9 x 9 x 6 mm reniform lymph node with normal architectural features. Mid left cervical 7 x 3 x 3 mm reniform lymph node with normal architectural features.Right upper cervical 17 x 6 x 9 mm reniform lymph node with normal architecture work - elderly onsite case manager TITO PERAZA MD [address] [place] [address], [place], [address], [facility] - [facility] 06/22/2024 13:19:29 OBGyn Episode No OBEpisode recorded.
== END 2024-11-27 16:39 | disposition home or self-care (01) ==
PROVIDERS: PCP Nurse Practitioner Family; Visit Provider Physician Assistant
DX: R29.898 Other symptoms and signs involving the musculoskeletal system (principal)

== ENCOUNTER 2024-11-28 13:07 | Emergency (ER) | payer OTHER, SELFPAY ==
--- NOTE | ~2024-11-28 | CT_ITS ---
EXAMINATION: CT ANGIOGRAM HEAD AND NECK CLINICAL INFORMATION: Headache and dizziness, new. Seizures. COMPARISON: CT head 08/11/2017. MR brain 09/25/2021. TECHNIQUE: Noncontrast axial imaging of the head was performed. This was followed by test bolus sequences and head and neck intravenous bolus administration 70 mL of Omnipaque 350. Helical imaging was performed in the axial plane from the aortic arch to the skull vertex. The data was processed at the blood bank technologist's workstation for generation of MIP sequences. Angled MIPs and volume rendered reformatted images were also generated at an offline 3D workstation. Stenoses are assessed in accordance with NASCET criteria unless otherwise indicated. This CT examination was performed using dose optimization techniques as appropriate, variously including the following: *Automated exposure control *Adjustment of mA and/or kV according to patient size (this includes techniques or standardized protocols for targeted exams where dose is matched to indication/reason for exam; i.e. extremities or head) *Use of iterative reconstruction technique FINDINGS: NONCONTRAST HEAD CT: There is no evidence of intracranial hemorrhage or extra-axial fluid collection. There is no mass effect, or edema. No CT evidence of acute territorial infarct. Ventricles, sulci, and cisterns are normal in size and configuration for patient age. No hydrocephalus. No midline shift. No significant white matter abnormalities. Globes and orbital contents image normally. No extracranial soft tissue abnormalities. The paranasal sinuses, mastoid air cells, and tympanic cavities are normally aerated. No suspicious bony abnormalities. NECK CTA: -AORTIC ARCH: Normal in caliber. Mild atheromatous calcification. 2-vessel branching pattern. -GREAT VESSEL ORIGINS: Widely patent. No stenosis. -RIGHT COMMON CAROTID ARTERY: Normal in course and caliber to the level of the bifurcation. -CERVICAL RIGHT INTERNAL CAROTID ARTERY: Normal opacification without focal stenosis or occlusion. -LEFT COMMON CAROTID ARTERY: Normal in course and caliber to the level of the bifurcation. -CERVICAL LEFT INTERNAL CAROTID ARTERY: Normal opacification without focal stenosis or occlusion. -CERVICAL RIGHT VERTEBRAL ARTERY: Codominant. Normal in course and caliber into the skull base. -CERVICAL LEFT VERTEBRAL ARTERY: Normal in course and caliber into the skull base. OTHER, SOFT TISSUES: -No lymphadenopathy or mass. No abnormal fluid collection or soft tissue swelling. -Thyroid is absent. -Imaged superior mediastinal structures normal. -Imaged lung apices clear. CTA OF THE BRAIN: -INTRACRANIAL INTERNAL CAROTID ARTERIES: No focal stenosis or occlusion. -RIGHT ANTERIOR CEREBRAL ARTERY: Normal A1 segment.. Normal arborization of the distal segments. -LEFT ANTERIOR CEREBRAL ARTERY: Normal A1 segment.. Normal arborization of the distal segments. -ANTERIOR COMMUNICATING ARTERY: Normal. -RIGHT MIDDLE CEREBRAL ARTERY: Normal M1 segment of the MCA without focal stenosis or occlusion. Normal bifurcation. Normal arborization of the distal segments. -LEFT MIDDLE CEREBRAL ARTERY: Normal M1 segment of the MCA without focal stenosis or occlusion. Normal bifurcation. Normal arborization of the distal segments. -RIGHT VERTEBRAL ARTERY V4: Normal in course and caliber. -LEFT VERTEBRAL ARTERY V4: Normal in course and caliber. -BASILAR ARTERY: Normal without focal stenosis or occlusion. Normal appearance of the proximal superior cerebellar arteries. Normal basilar tip. -RIGHT POSTERIOR CEREBRAL ARTERY: Normal P1 segment. Normal opacification of the distal AGRICULTURAL TECHNICIAN segments. -LEFT POSTERIOR CEREBRAL ARTERY: Normal P1 segment. Normal opacification of the distal AGRICULTURAL TECHNICIAN segments. -POSTERIOR COMMUNICATING ARTERIES: Small but patent bilaterally. Normal opacification of the superior sagittal, straight, transverse, and sigmoid sinuses. No venous thrombosis. No space-occupying hemorrhage or definite evolving infarct. CT/CT angio head neck IMPRESSION: Noncontrast head CT: 1. No evidence of intracranial hemorrhage or mass effect. No CT evidence of acute territorial infarct. CTA NECK: 1. No evidence of significant stenosis, occlusion, dissection, or aneurysm of the major cervical arterial vasculature. CTA HEAD: 1. No evidence of significant stenosis, occlusion, dissection, or aneurysm of the major intracranial arterial vasculature. 2. Patent major cortical and dural venous sinuses. Electronically signed by: Lionel Knight MD 11/28/2024 03:14 PM EDT
--- NOTE | ~2024-11-28 | XR_ITS ---
EXAMINATION: XR CHEST CLINICAL INFORMATION: chest pain COMPARISON: April 05, 2024. TECHNIQUE: 2 views of the chest were obtained. FINDINGS: No consolidation, pleural fissure pneumothorax. No hyperinflation. Cardiomediastinal silhouette size is normal. Mild multilevel thoracolumbar spondylosis. Mild degenerative changes in the acromioclavicular joints. Patient's large body habitus/obesity. XR/XR chest 2V IMPRESSION: No acute airspace disease. Stable chest. Electronically signed by: Roberto Carlos Lozada MD 11/28/2024 01:49 PM EDT
--- NOTE | 2024-11-28 13:10 | ECG_ITS ---
Test Reason : CP Blood Pressure : */* mmHG Vent. Rate : 78 BPM Atrial Rate : 78 BPM P-R Int : 150 ms QRS Dur : 84 ms QT Int : 426 ms P-R-T Axes : 58 20 -21 degrees QTcB Int : 485 ms Normal sinus rhythm Low voltage QRS Nonspecific T wave abnormality Abnormal ECG When compared with ECG of 30-Apr-2024 10:52, No significant change was found Referred By: Faiza Ness Electronically Signed By: Hero Borja
--- NOTE | 2024-11-28 13:10 | ED.GENADULT ---
HPI - General Adult General Chief complaint: General Medical Stated complaint: CP/DIZZINESS/NUMBNESS X1 WEEK Time Seen by Provider: 11/28/24 13:10 Source: patient and EMS Mode of arrival: EMS Limitations: no limitations History of Present Illness ED Provider: Faiza Ness PA-C HPI narrative: Patient is a 34 year old assigned female at with a history of DM, OA, fibromylagia, depression, migraine, and vitamin B12 deficiency for which she gets injections, presenting to the emergency department today with chest pressure, headache, and bilateral upper extremity numbness. 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 Patient denies any dizziness, lightheadedness, abdominal pain, nausea, vomiting, fever, chills, blurry vision, double vision, loss of vision, difficulty breathing, shortness of breath, back pain, night sweats, pain with urination, increased urinary frequency, increased urinary urgency, blood in her urine or stool, syncope or a near syncopal episode, recent trauma or falls, bowel incontinence, bladder incontinence, or any other complaints at this time. Onset (ago): day(s) (4) Relieving factors: none Exacerbating factors: none Associated symptoms: chest pain Treatments prior to arrival: none Related Data Home Medications ?Medication ?Instructions ?Recorded ?Confirmed albuterol sulfate 90 mcg/actuation 2 puff inhalation Q6H PRN wheezing 08/02/23 05/08/24 aerosol inhaler (Ventolin HFA) Previous Rx's ?Medication ?Instructions ?Recorded FreeStyle Lite Meter #1 ea 01/19/23 (blood-glucose meter) epinephrine 0.3 mg/0.3 mL 0.3 mg (0.3 mL) IM Q4H PRN 02/05/23 injection, auto-injector (EpiPen anaphylaxis #2 ea 2-Lee) acetaminophen 500 mg tablet 500 mg PO Q6H PRN fever or pain 02/08/23 (Tylenol Extra Strength) #14 tabs FreeStyle Lite Strips (blood sugar #100 ea 02/16/23 diagnostic) FreeStyle Lancets 28 gauge #300 ea 04/06/23 (lancets) apysilmjul-szjwcktkauooj-vhkdprzn 1 tab PO BID PRN pain 10 days #20 10/24/23 50 mg-325 mg-40 mg tablet tabs compr.stocking,knee,long,x-lrg #2 ea 03/23/24 carvedilol 3.125 mg tablet (Coreg) 3.125 mg PO BID 90 days #180 tabs 04/22/24 syringe with needle 3 mL 23 x 1 #50 ea 04/30/24 (BD SafetyGlide Syringe) atorvastatin 10 mg tablet 10 mg PO BEDTIME #90 tabs 05/22/24 levothyroxine 200 mcg tablet 200 mcg PO DAILY #90 tabs 05/22/24 fenofibrate 54 mg tablet 54 mg PO DAILY #90 tabs 07/09/24 amitriptyline 50 mg tablet 50 mg PO BEDTIME 90 days #90 tabs 07/30/24 cyanocobalamin (vitamin B-12) 1,000 mcg IM QWEEK 1 month #5 mL 09/10/24 1,000 mcg/mL injection solution ondansetron 4 mg disintegrating 4 mg PO Q8H PRN nausea and 09/29/24 tablet vomiting #7 tabs semaglutide 2 mg/dose (8 mg/3 mL) 2 mg (0.75 mL) subcut QWEEK #3 mL 10/22/24 subcutaneous pen injector tizanidine 4 mg capsule 4 mg PO BID PRN muscle spasticity 10/22/24 30 days #60 caps clonazepam 1 mg tablet 1 mg PO BID PRN anxiety 30 days 11/21/24 #60 tabs levothyroxine 25 mcg capsule 25 mcg PO DAILY #60 caps 11/28/24 Allergies Allergy/AdvReac Type Severity Reaction Status Date / Time bee pollen (BEE STINGS) Allergy Severe ANAPHYLAXIS Verified 11/28/24 13:17 NSAIDS (Non-Steroidal Allergy Intermediate HIVES Verified 11/27/24 15:41 Anti-Inflamma (NSAIDS (NON-STEROIDAL ANTI-INFLAMMA) Penicillins Allergy Intermediate HIVES Verified 11/27/24 15:41 ibuprofen (From Motrin) Allergy Unknown Hives Verified 11/27/24 15:41 penicillin V Allergy Unknown unknown Verified 11/27/24 15:41 latex (LATEX) AdvReac Intermediate RASH Verified 11/27/24 15:41 sulfamethoxazole (From AdvReac Hives Verified 11/27/24 15:41 Bactrim) trimethoprim (From Bactrim) AdvReac Hives Verified 11/27/24 15:41 From Ortho Tri-Cyclen (21) AdvReac Intermediate DVT (BLOOD Uncoded 09/29/24 13:33 CLOT) Review of Systems Constitutional: Constitutional: Reports no additional constitutional complaints, Denies chills, Denies fever(s), Reports headache(s) and Denies night sweats Eyes: Eyes: Reports no additional eye complaints, Denies blurry vision, Denies change in vision, Denies diplopia, Denies eye discharge, Denies loss of vision and Denies eye pain ENT: Denies dizziness and Reports headache(s) Cardiovascular: Cardiovascular: Reports no additional cardiovascular complaints, Reports chest pain, Denies lightheadedness, Denies Loss of Consciousness and Denies dyspnea Respiratory: Respiratory: Reports no additional respiratory complaints and Denies dyspnea Gastrointestinal: Gastrointestinal: Reports no additional gastrointestinal complaints, Denies abdominal pain, Denies melena, Denies hematochezia, Denies change in bowel habits and Denies change in stool character Genitourinary: Genitourinary: Denies hematuria, Denies urinary frequency, Denies dysuria, Denies urinary incontinence, Denies urinary hesitancy and Denies urinary urgency Musculoskeletal: Musculoskeletal: Reports no additional musculoskeletal complaints Comments: bilateral upper extremity numbness / tingling from elbows down Neurologic: Denies dizziness, Reports headache(s) and Denies loss of vision Psychiatric: Psychiatric: Reports no additional psychiatric complaints Endocrine: Endocrine: Reports no additional endocrine complaints Hematologic/Lymphatic: Hematologic/Lymphatic: Reports no additional hematologic/lymphatic complaints Allergic/Immunologic: Allergic/Immunologic: Reports no additional allergic/immunologic complaints [facility] Past Medical History Attestation statement: The following information was validated with the patient. Source: old records reviewed and nursing notes reviewed Medical History Morbid obesity due to excess calories HLD (hyperlipidemia) HTN (hypertension) Type 2 diabetes mellitus Depression Migraine with aura Fibromyalgia Insomnia Hx of papillary thyroid carcinoma Surgical History History of umbilical hernia repair Bilateral carpal tunnel syndrome Hx of cholecystectomy History of tubal ligation History of section History of thyroidectomy Family History Family History Father History of heart attack Mental health disorder Mother Hypothyroidism Sister Anxiety Migraine Low blood pressure Mental health disorder Son Epilepsy Daughter No problems noted. Maternal Grandmother Breast cancer Paternal Grandmother Breast cancer Social History Social History Housing: Apartment Alcohol intake: current Alcohol intake frequency: holidays/special occasions only Patient Tobacco Use Status: Never used Tobacco Smoked in Last 30 Days: No e-Cigarette/Vaping Use: Never Used Second Hand Smoke Exposure: Yes Use of substances other than those prescribed or required for medical reasons: No Advance Directives: No Advance Directives Information Provided: Yes Patient : No Current occupational status: unemployed Current occupation: rt handed Cognitive needs: No Hearing needs: No Vision needs: Yes Physical Exam ED Vital Signs: Vital Signs - 24 hr 11/28/24 13:15 11/28/24 14:18 11/28/24 16:25 Temperature 98.5 F 98.1 F 97.6 F Pulse Rate 79 74 73 Respiratory Rate 12 16 15 Blood Pressure 116/78 97/67 108/59 L Pulse Oximetry 98 96 98 Oxygen Delivery Method Room Air Room Air Room Air BMI result Body Mass Index 51.0 Const General: cooperative, no acute distress, alert and awake Nutritional Appearance: well nourished Orientation/consciousness: patient oriented x3 HENMT Head: Yes normal to inspection and Yes atraumatic Ears: hearing grossly normal bilaterally and external ears normal General nose exam: Normal external nose present, no nasal discharge noted and no epistaxis Face and sinus: Yes normal facial exam, No abrasion and No laceration Mouth: Normal oral and palatal mucosa present, no drooling and no muffled voice Eyes General: appearance normal, both eyes and all related structures Periorbital: periorbital findings normal Eyelids: Yes eyelids normal Conjunctivae: conjunctivae normal Pupils: Equal, round and reactive pupils present EOM: EOMs intact bilaterally Neck Neck: Yes normal visual inspection, Yes full ROM and Yes no lymphadenopathy Resp Effort & Inspection: normal respiratory effort and able to speak in complete sentences Neuro General: patient oriented x3, moves all extremities and CN's II-XI intact bilaterally Cranial nerves: Yes Equal, round and reactive pupils present Cognition (Neuro): normal cognition Extrem General: Yes normal to inspection, Yes full ROM and Yes capillary refill normal Psych Appearance: grossly normal Mental Status: mental status grossly normal Affect: normal affect Attitude: cooperative Thought process: Normal thought process present Thought content: Normal thought content present Insight: Good insight present (Psych) Medications Administered Discontinued Medications Generic Name Dose Route Start Last Admin Trade Name Bernadette PRN Reason Stop Dose Admin Diphenhydramine HCl 25 mg 11/28/24 15:15 11/28/24 15:33 Diphenhydramine Hcl 50 Mg/Ml Vial IVPUSH 11/28/24 15:16 25 mg ONCE ONE Administration Hydromorphone HCl 0.5 mg 11/28/24 15:14 11/28/24 15:34 Hydromorphone Hcl 0.5 Mg/0.5 Ml Syringe IVPUSH 11/28/24 15:15 0.5 mg ONCE ONE Administration Protocol Sodium Chloride 1,000 mls @ 999 mls/hr 11/28/24 15:00 11/28/24 15:05 Ns IV 11/28/24 16:00 999 mls/hr .Q1H1M SALVADOR Administration Iohexol 100 ml 11/28/24 14:48 11/28/24 14:49 Iohexol 350 Mg/Ml 100 Ml Infus..Btl IV 11/28/24 14:49 70 ml ONCE ONE Administration Metoclopramide HCl 10 mg 11/28/24 15:14 11/28/24 15:34 Metoclopramide Hcl 10 Mg/2 Ml Vial IVPUSH 11/28/24 15:15 10 mg ONCE ONE Administration Morphine Sulfate 4 mg 11/28/24 13:24 11/28/24 13:57 Morphine Sulfate 4 Mg/Ml Cartridge IVPUSH 11/28/24 13:25 4 mg ONCE ONE Administration Protocol Ondansetron HCl 4 mg 11/28/24 13:24 11/28/24 13:57 Ondansetron Hcl 4 Mg/2 Ml Vial IVPUSH 11/28/24 13:25 4 mg ONCE ONE Administration Medical Decision Making Medical Decision Making MDM Narrative: Patient is a 34 year old assigned female at with a history of DM, OA, fibromylagia, depression, migraine, and vitamin B12 deficiency for which she gets injections, presenting to the emergency department today with chest pressure, headache, and bilateral upper extremity numbness. Patient's physical exam was unremarkable. Patient's blood work showed a TSH of >100 and Free T4 of <0.42 but were otherwise unremarkable. Patient's EKG was unremarkable. Patient's chest x-ray showed no acute process. Patient's CTA of the head and neck showed no acute process. I called and spoke with the patient's PCP who recommended increasing her dose of levothyroxine to 225mcg daily and having repeat labs drawn in 6 weeks. He stated he would order the repeat labs. I explained my physical exam findings as well as all test results to the patient. I answered all questions asked by the patient. Patient received IV Morphine + dilaudid + reglan + benadryl for her headache and 2 liters of IV NS which, upon re-evaluation, she stated it helped her symptoms some what. I stressed the importance of the patient taking her medication as directed (either prescribed or as the over the counter packaging recommends). I stressed the importance of the patient following up with her primary care provider. I stressed the importance of the patient returning to the emergency department immediately if her symptoms were to worsen or if she were to develop any dizziness, shortness of breath, difficulty breathing, chest pain, blurry vision, loss of vision, nausea, vomiting, abdominal pain, fever, chills, back pain, or any other complaints. Patient verbalized agreement and understanding with this treatment plan and discharge. Differential Diagnosis Differential Diagnoses: The differential diagnosis associated with the presentation includes Paresthesias Hypothyroidism Migraine Complex migraine Admission/Observation Consideration of admission/observation: Escalation of care including admission/observation considered Patient would have been admitted to the hospital had her work up had any findings where hospital admission was appropriate and her clinical presentation warranted hospital admission. Consult Healthcare Provider Management of the patient was discussed with: Measurement Department Chief Clerk (consulted with the patient's PCP as noted in the MDM Rationale portion of this note. ) Lab Data [facility] Lab Attestation statement: I reviewed the patient's lab results. My interpretation of these results are in the MDM Rationale portion of this note. 11/28/24 13:31 11/28/24 13:31 Labs: Lab Results 11/28/24 11/28/24 Range/Units 13:31 13:40 WBC 7.3 (4.8-10.8) X10*3/uL RBC 5.20 (4.20-5.50) X10*6/uL Hgb 15.0 (12.0-16.0) g/dl Hct 44.5 (37.0-47.0) % MCV 85.6 (80.0-98.0) fL MCH 28.8 (27.0-33.0) pg MCHC 33.7 (31.0-35.0) g/dl RDW 13.5 (11.0-16.0) % Plt Count 346 D (160-400) X10*3/uL MPV 10.1 (9.4-12.3) fL Immature Gran % (Auto) 0.4 (0.0-0.4) % Neut % (Auto) 58.8 (45-73) % Lymph % (Auto) 31.5 (20-40) % [place] % (Auto) 6.1 (2-11) % Eos % (Auto) 2.5 (0-4) % Baso % (Auto) 0.7 (0-2) % Lymph # (Auto) 2.3 (1.2-4.9) X10*3/uL [place] # (Auto) 0.5 (0.1-1.2) X10*3/uL Eos # (Auto) 0.2 (0.0-0.4) X10*3/uL Baso # (Auto) 0.1 (0.0-0.2) X10*3/uL Abs Immat Gran (auto) 0.03 (0.00-0.03) X10*3/uL Absolute Neuts (auto) 4.3 (2.0-8.3) x10*3/uL Absolute Nucleated RBC 0.000 (0.0-0.012) X10*3/uL Nucleated RBC % (auto) 0.0 (0.0-0.2) /100WBC Sodium 140 (135-145) mmol/L Potassium 3.7 (3.3-5.1) mmol/L Chloride 105 (96-108) mmol/L Carbon Dioxide 26 (22-29) mmol/L Anion Gap 13 (12-20) BUN 10 (9-16) mg/dL Creatinine 1.13 (0.5-1.4) mg/dL Estim Creat Clear Calc 81.1 Estimated GFR 54 Random Glucose 119 H (60-115) mg/dL Calcium 8.5 D (8.4-10.2) mg/dL Magnesium 2.2 (1.6-2.6) mg/dL Total Bilirubin 0.3 (0.0-1.0) mg/dL AST 34 H (5-31) U/L ALT 34 H (0-31) U/L Alkaline Phosphatase 91 (39-117) U/L Troponin I High Sens < 2.7 (<3.5-17.0) ng/L B-Natriuretic Peptide < 10 (<100) pg/mL Total Protein 7.1 (6.5-8.0) g/dL Albumin 4.8 (3.5-5.0) g/dL Vitamin B12 1738 H (200-900) pg/mL Folate 7.0 (> or = 4.0) ng/mL TSH > 100.00 H (0.32-4.0) uIU/mL Free T4 < 0.42 L (0.71-1.85) ng/dL Influenza Type A (PCR) NEGATIVE (Negative) Influenza Type B (PCR) NEGATIVE (Negative) RSV RNA Qual (PCR) NEGATIVE (Negative) SARS-CoV-2 RNA (RT-PCR) NEGATIVE (Negative) Independent Interpretation I performed an independent interpretation of an: EKG, Plain X-Ray and CT Scan Interpretation: My interpretation is in agreement with the radiologist's impression of these imaging studies. Report Number: [id number]: Total DLP = 1451.00 mGy-cm EXAMINATION: CT ANGIOGRAM HEAD AND NECK CLINICAL INFORMATION: Headache and dizziness, new. Seizures. COMPARISON: CT head 08/11/2017. MR brain 09/25/2021. TECHNIQUE: Noncontrast axial imaging of the head was performed. This was followed by test bolus sequences and head and neck intravenous bolus administration 70 mL of Omnipaque 350. Helical imaging was performed in the axial plane from the aortic arch to the skull vertex. The data was processed at the agricultural research technologist's workstation for generation of MIP sequences. Angled MIPs and volume rendered reformatted images were also generated at an offline 3D workstation. Stenoses are assessed in accordance with NASCET criteria unless otherwise indicated. This CT examination was performed using dose optimization techniques as appropriate, variously including the following: *Automated exposure control *Adjustment of mA and/or kV according to patient size (this includes techniques or standardized protocols for targeted exams where dose is matched to indication/reason for exam; i.e. extremities or head) *Use of iterative reconstruction technique FINDINGS: NONCONTRAST HEAD CT: There is no evidence of intracranial hemorrhage or extra-axial fluid collection. There is no mass effect, or edema. No CT evidence of acute territorial infarct. Ventricles, sulci, and cisterns are normal in size and configuration for patient age. No hydrocephalus. No midline shift. No significant white matter abnormalities. Globes and orbital contents image normally. No extracranial soft tissue abnormalities. The paranasal sinuses, mastoid air cells, and tympanic cavities are normally aerated. No suspicious bony abnormalities. NECK CTA: -AORTIC ARCH: Normal in caliber. Mild atheromatous calcification. 2-vessel branching pattern. -GREAT VESSEL ORIGINS: Widely patent. No stenosis. -RIGHT COMMON CAROTID ARTERY: Normal in course and caliber to the level of the bifurcation. -CERVICAL RIGHT INTERNAL CAROTID ARTERY: Normal opacification without focal stenosis or occlusion. -LEFT COMMON CAROTID ARTERY: Normal in course and caliber to the level of the bifurcation. -CERVICAL LEFT INTERNAL CAROTID ARTERY: Normal opacification without focal stenosis or occlusion. -CERVICAL RIGHT VERTEBRAL ARTERY: Codominant. Normal in course and caliber into the skull base. -CERVICAL LEFT VERTEBRAL ARTERY: Normal in course and caliber into the skull base. OTHER, SOFT TISSUES: -No lymphadenopathy or mass. No abnormal fluid collection or soft tissue swelling. -Thyroid is absent. -Imaged superior mediastinal structures normal. -Imaged lung apices clear. CTA OF THE BRAIN: -INTRACRANIAL INTERNAL CAROTID ARTERIES: No focal stenosis or occlusion. -RIGHT ANTERIOR CEREBRAL ARTERY: Normal A1 segment.. Normal arborization of the distal segments. -LEFT ANTERIOR CEREBRAL ARTERY: Normal A1 segment.. Normal arborization of the distal segments. -ANTERIOR COMMUNICATING ARTERY: Normal. -RIGHT MIDDLE CEREBRAL ARTERY: Normal M1 segment of the MCA without focal stenosis or occlusion. Normal bifurcation. Normal arborization of the distal segments. -LEFT MIDDLE CEREBRAL ARTERY: Normal M1 segment of the MCA without focal stenosis or occlusion. Normal bifurcation. Normal arborization of the distal segments. -RIGHT VERTEBRAL ARTERY V4: Normal in course and caliber. -LEFT VERTEBRAL ARTERY V4: Normal in course and caliber. -BASILAR ARTERY: Normal without focal stenosis or occlusion. Normal appearance of the proximal superior cerebellar arteries. Normal basilar tip. -RIGHT POSTERIOR CEREBRAL ARTERY: Normal P1 segment. Normal opacification of the distal ENTRY LEVEL PROJECT ENGINEER segments. -LEFT POSTERIOR CEREBRAL ARTERY: Normal P1 segment. Normal opacification of the distal ENTRY LEVEL PROJECT ENGINEER segments. -POSTERIOR COMMUNICATING ARTERIES: Small but patent bilaterally. Normal opacification of the superior sagittal, straight, transverse, and sigmoid sinuses. No venous thrombosis. No space-occupying hemorrhage or definite evolving infarct. CT/CT angio head neck IMPRESSION: Noncontrast head CT: 1. No evidence of intracranial hemorrhage or mass effect. No CT evidence of acute territorial infarct. CTA NECK: 1. No evidence of significant stenosis, occlusion, dissection, or aneurysm of the major cervical arterial vasculature. CTA HEAD: 1. No evidence of significant stenosis, occlusion, dissection, or aneurysm of the major intracranial arterial vasculature. 2. Patent major cortical and dural venous sinuses. Electronically signed by: Lionel Knight MD 11/28/2024 03:14 PM EDT Dictated By: Lionel Knight MD Signed By: Electronically signed by Lionel Knight MD 11/28/24 1514 EXAMINATION: XR CHEST CLINICAL INFORMATION: chest pain COMPARISON: April 05, 2024. TECHNIQUE: 2 views of the chest were obtained. FINDINGS: No consolidation, pleural fissure pneumothorax. No hyperinflation. Cardiomediastinal silhouette size is normal. Mild multilevel thoracolumbar spondylosis. Mild degenerative changes in the acromioclavicular joints. Patient's large body habitus/obesity. XR/XR chest 2V IMPRESSION: No acute airspace disease. Stable chest. Electronically signed by: Roberto Carlos Lozada MD 11/28/2024 01:49 PM EDT RP Dictated By: Roberto Carlos Travis MD Signed By: Electronically signed by Roberto Carlos Guerrier MD 11/28/24 1342 I independently interpreted this EKG and am in agreement with the below findings: Vent. Rate: 78 BPM Atrial Rate: 78 BPM P-R Int: 150 ms QRS Dur: 84 ms QT Int: 426 ms P-R-T Axes: 58 20 -21 degrees QTcB Int: 485 ms Normal sinus rhythm Low voltage QRS Nonspecific T wave abnormality When compared with ECG of 30-Apr-2024 10:52, No significant change was found DD/ 1314 Radiology Impression Discussion of test interpretation with radiology: I have reviewed the radiologist's reading. Critical Care Time Critical Care Time Critical Care Time: Yes Total Critical Care Time: 36 Attestation: I spent 36 minutes of Critical Care Time with this patient. This does not include time spent on separately reported billable procedures. Discharge Plan Discharge Clinical Impression: Paresthesias, Hypothyroidism Patient Disposition: Home, Self-Care Instructions: Hypothyroidism (ED), Paresthesia (ED) Additional Instructions: We have increased your levothyroxine from 200mcg to 225mcg daily. Your PCP has requested this change and is aware of it. He would like repeat TSH testing in 6 weeks. Follow up with a primary care provider. Return to the emergency department immediately if your symptoms worsen or if you develop any numbness, tingling, dizziness, shortness of breath, difficulty breathing, chest pain, blurry vision, loss of vision, nausea, vomiting, abdominal pain, fever, chills, back pain, or any other complaints. If you do not have a primary care provider - call any of the below numbers to establish and follow up with a primary care provider. [facility] [place]) [phone] [place] [address], [address] [facility] ([address] [place]) [phone] [place] [address], [address] [facility], [address] [facility] ([address] [place]) [phone] [place] [address], [address] [facility], [address] [facility] ([place]) [phone] [place] [address] 2 [facility], [address] [facility] [phone] [place] [address], [address] Please see the information below about our Patient Portal. If you are not yet enrolled in the [facility] Patient Portal, you will receive an enrollment email invitation following your visit to any [facility] setting. You may also self-enroll in the Patient Portal by visiting our website: [email or web address] The following information is required to access the Patient Portal: - Your [facility] Medical Record Number - Your personal home email address (must match what is in your electronic medical record, Registration staff can assist with this) - Name - Date of Capabilities of the Patient Portal: - Message some providers - View upcoming appointments - Access your health summary, medical history, and visit history - View current conditions and allergies - View procedure and lab results - View your medications, including guidelines, side effects, and precautions - Complete pre-appointment questionnaires requested by your provider - Ready summary reports of your office visits and procedures To access the Patient Portal Mobile Marielle, follow these directions: - Search [employer]Side in the Marielle Store or [employer] Store - Download the Marielle - Search for [facility] - Enter your login/password Prescriptions: New levothyroxine 25 mcg capsule 25 mcg PO DAILY Qty: 60 0RF No Action (DME) blood-glucose meter [FreeStyle Lite Meter] Kit See Rx Instructions .Route Qty: 1 0RF Rx Instructions: TID testing (DME) FreeStyle Lite Strips Strip See Rx Instructions .Route Qty: 100 5RF Rx Instructions: TID testing (DME) lancets [FreeStyle Lancets] 28 gauge misc See Rx Instructions .Route Qty: 300 1RF Rx Instructions: TID testing wguufsbmfx-rhacswspcrudt-zdca 50-325-40 mg tablet 1 tab PO BID PRN (Reason: pain) 10 Days Qty: 20 1RF carvedilol [Coreg] 3.125 mg tablet 3.125 mg PO BID 90 Days Qty: 180 1RF Rx Instructions: must administer with a meal/food levothyroxine 200 mcg tablet 200 mcg PO DAILY Qty: 90 1RF atorvastatin 10 mg tablet 10 mg PO BEDTIME Qty: 90 1RF fenofibrate 54 mg tablet 54 mg PO DAILY Qty: 90 1RF amitriptyline 50 mg tablet 50 mg PO BEDTIME 90 Days Qty: 90 0RF cyanocobalamin (vitamin B-12) 1,000 mcg/mL solution 1,000 mcg IM QWEEK 30 Days Qty: 5 2RF Rx Instructions: the semaglutide 2 mg/dose (8 mg/3 mL) pen injector 2 mg subcut QWEEK Qty: 3 0RF tizanidine 4 mg capsule 4 mg PO BID PRN (Reason: muscle spasticity) 30 Days Qty: 60 1RF clonazepam 1 mg tablet 1 mg PO BID PRN (Reason: anxiety) 30 Days Qty: 60 0RF epinephrine [EpiPen 2-Lee] 0.3 mg/0.3 mL auto-injector 0.3 mg IM Q4H PRN (Reason: anaphylaxis) Qty: 2 0RF albuterol sulfate [Ventolin HFA] 90 mcg/actuation HFA aerosol inhaler 2 puff INHALATION Q6H PRN (Reason: wheezing) acetaminophen [Tylenol Extra Strength] 500 mg tablet 500 mg PO Q6H PRN (Reason: fever or pain) Qty: 14 0RF ondansetron 4 mg tablet,disintegrating 4 mg PO Q8H PRN (Reason: nausea and vomiting) Qty: 7 0RF (DME) BD SafetyGlide Syringe 3 mL 23 x 1 syringe See Rx Instructions .Route Qty: 50 0RF Rx Instructions: As directed to injection B-12 weekly (DME) compr.stocking,knee,long,x-lrg Misc See Rx Instructions .Route Qty: 2 0RF Rx Instructions: KNEE HIGH EXTRA LARGE STOCKING X 2 20-30 MMHG Referrals: Elan Terry, WORK AND FAMILY LIFE CONSULTANT-BC [Primary Care Provider, Internal Medicine] Print Language: Romanian
[2024-11-28 13:15] VITALS: BP 116/78; BP 124/80; PULSE 79; PULSE 80; RESP 12; TEMP 36.9; O2SAT 98; O2SAT 99; BMI 51.0
[2024-11-28 13:37] LABS: MANUAL DIFF FLAG NO
[2024-11-28 13:39] LABS: Hematocrit 44.5 % (37.0-47.0); Hemoglobin 15.0 g/dl (12.0-16.0); Imm Gran Abs Auto 0.03 X10*3/uL (0.00-0.03); Imm Gran Pct Auto 0.4 % (0.0-0.4); Lymphocytes Absolute Auto 2.3 X10*3/uL (1.2-4.9); Mean Corpuscular HGB Conc 33.7 g/dl (31.0-35.0); Mean Corpuscular Hemoglobin 28.8 pg (27.0-33.0); Mean Corpuscular Volume 85.6 fL (80.0-98.0); NRBC Abs Auto 0.000 X10*3/uL (0.0-0.012); NRBC Pct Auto 0.0 /100WBC (0.0-0.2); Platelet Count 346 X10*3/uL (160-400); Red Blood Count 5.20 X10*6/uL (4.20-5.50); White Blood Count 7.3 X10*3/uL (4.8-10.8)
[2024-11-28 13:59] LABS: Alanine Aminotransferase 34 U/L (0-31); Albumin Level 4.8 g/dL (3.5-5.0); Alkaline Phosphatase 91 U/L (39-117); Anion Gap 13 (12-20); Aspartate Amino Transferase 34 U/L (5-31); Blood Urea Nitrogen 10 mg/dL (9-16); Calcium 8.5 mg/dL (8.4-10.2); Carbon Dioxide 26 mmol/L (22-29); Chloride 105 mmol/L (96-108); Creatinine Clr Calc Pharmacy 81.1; Estimated Glomerular Filt Rate 54; Magnesium 2.2 mg/dL (1.6-2.6); Potassium 3.7 mmol/L (3.3-5.1); Sodium 140 mmol/L (135-145); Total Protein 7.1 g/dL (6.5-8.0)
[2024-11-28 14:02] LABS: B Type Natriuretic Peptide < 10 pg/mL (<100)
[2024-11-28 14:05] LABS: Troponin-I High Sensitivity < 2.7 ng/L (<3.5-17.0)
[2024-11-28 14:18] VITALS: BP 97/67; PULSE 74; RESP 16; TEMP 36.7; O2SAT 96
[2024-11-28 14:25] LABS: Resp Syncy Virus RNA Qual PCR NEGATIVE (Negative); SARS COV2 PCR INHOUSE NEGATIVE (Negative)
[2024-11-28 14:31] LABS: Folate 7.0 ng/mL (> or = 4.0); Vitamin B12 1738 pg/mL (200-900)
[2024-11-28] MEDS: iohexoL 350 MG/ML 100 ML INFUS..BTL IV (14:49)
--- OUTSIDE RECORDS SUMMARY | 2024-11-28 14:52 | XMS_ITS | Clinical Summary ---
Author Organization [facility] it Address [address] [place] [address] Care Team Providers Care Bessemer Bottom Maker Name Role Phone Seb Arrington MD Primary [...] age to complete this topic Care Teams Bessemer Bottom Maker Relationship Specialty Start Date End Date Seb Arrington MD PCP - General Internal Medicine 01/02/08
[2024-11-28 15:27] LABS: Free T4 (Free Thyroxine) < 0.42 ng/dL (0.71-1.85)
--- NOTE | 2024-11-28 15:47 | PC.NURSE ---
pt states that morphine did not help her headache. Pa notified, meds given as ordered
--- NOTE | 2024-11-28 16:03 | MHC.EDTECH ---
pt ambulated to bathroom with a steady gait. no complaints were made.
[2024-11-28 16:25] VITALS: BP 108/59; PULSE 73; RESP 15; TEMP 36.4; O2SAT 98
[2024-11-28 17:00] VITALS: BP 104/69
[2024-11-28 17:49] VITALS: BP 104/69; PULSE 73; RESP 16; TEMP 36.6; O2SAT 99
[2024-11-29 09:34] LABS: Lyme Abs Screen <0.90 index
[2024-11-29 23:54] LABS: A. Phagocytphilium DNA,RT-PCR NOT DETECTED (NOT DETECTED); Babesia Microti DNA, RT-PCR NOT DETECTED (NOT DETECTED); Borrelia Miyamotoi,DNA RT-PCR NOT DETECTED (NOT DETECTED); E.Chaffeensis DNA RT-PCR NOT DETECTED (NOT DETECTED); Lyme(Borrelia ssp)DNA RT-PCR NOT DETECTED (NOT DETECTED)
== END 2024-11-28 17:50 | disposition home or self-care (01) ==
PROVIDERS: Physician Assistant Medical; Emergency Provider Emergency Medicine; PCP Nurse Practitioner Family
DX: R07.89 Other chest pain (principal); R42 Dizziness and giddiness; R20.0 Anesthesia of skin; R51.9 Headache, unspecified; E03.9 Hypothyroidism, unspecified; R06.02 Shortness of breath; Z79.899 Other long term (current) drug therapy; Z03.818 Encounter for observation for suspected exposure to other biological agents ruled out
CPT/HCPCS: 36415; 70496; 70498; 71046; 80053; 82607; 82746; 83735; 83880; 84439; 84443; 84484; 85025; 86617; 86618; 87468; 87469; 87478; 87484; 87637; 87798; 93005; 96361; 96374; 96375; 99284; 99291; J1171; J1200; J2270; J2405; J2765; Q9967

== ENCOUNTER → 2024-11-28 13:10 | Outpatient (BNV) | payer OTHER, SELFPAY | PROVIDERS: PCP Nurse Practitioner Family; Visit Provider Radiology Diagnostic Radiology | DX: R42 Dizziness and giddiness (principal); R56.9 Unspecified convulsions; R51.9 Headache, unspecified; R07.9 Chest pain, unspecified | CPT/HCPCS: 70496; 70498; 71046 ==

== ENCOUNTER → 2024-11-28 13:10 | Outpatient (BNV) | payer OTHER, SELFPAY | PROVIDERS: Emergency Provider Emergency Medicine; PCP Nurse Practitioner Family; Visit Provider Internal Medicine Cardiovascular Disease | DX: R07.89 Other chest pain (principal) | CPT/HCPCS: 93010 ==

== ENCOUNTER 2025-02-21 14:41 | Outpatient (AMB) | payer OTHER, SELFPAY ==
[2025-02-21 14:50] VITALS: BP 102/70; PULSE 93; RESP 16; TEMP 36.9; O2SAT 98; BMI 48.2
--- NOTE | 2025-02-21 14:50 | A.OFFPC_ITS ---
Vital Signs 02/21/25 14:50 Height 5 ft Weight 247 lb BMI 48.2 BP 102/70 Blood Pressure Location Rt brachial Position Sitting Respiration 16 Pulse 93 Pulse Source Pulse Oximeter Temp 98.5 F Temp Source Oral Pulse Oximetry (%) 98 Oxygen Delivery Method Room Air Intake Visit Reasons: Lump Assistant Speech Language Pathologist Required: No Accompanied by: Self / Same As Patient Allergies bee pollen (BEE STINGS) Allergy (Severe, Verified 02/21/25 16:04) ANAPHYLAXIS NSAIDS (Non-Steroidal Anti-Inflamma (NSAIDS (NON-STEROIDAL ANTI-INFLAMMA) Allergy (Intermediate, Verified 02/21/25 16:04) HIVES Penicillins Allergy (Intermediate, Verified 02/21/25 16:04) HIVES ibuprofen (From Motrin) Allergy (Unknown, Verified 02/21/25 16:04) Hives penicillin V Allergy (Unknown, Verified 02/21/25 16:04) unknown latex (LATEX) Adverse Reaction (Intermediate, Verified 02/21/25 16:04) RASH sulfamethoxazole (From Bactrim) Adverse Reaction (Verified 02/21/25 16:04) Hives trimethoprim (From Bactrim) Adverse Reaction (Verified 02/21/25 16:04) Hives From Ortho Tri-Cyclen (21) Adverse Reaction (Intermediate, Uncoded 02/21/25 16:04) DVT (BLOOD CLOT) Medication List - Last Reconciled 02/21/25 by Elan Terry, RN FIELD- acetaminophen (Tylenol Extra Strength) 500 mg PO Q6H PRN albuterol sulfate 90 mcg/actuation (Ventolin HFA) 2 puffs inhalation Q6H PRN amitriptyline 50 mg PO BEDTIME 90 days atorvastatin 10 mg PO BEDTIME fynirphjua-vjdiokrdoeorw-rxdh 50-325-40 mg 1 tab PO BID PRN 10 days carvedilol (Coreg) 3.125 mg PO BID 90 days clonazepam 1 mg PO BID PRN 30 days compr.stocking,knee,long,x-lrg KNEE HIGH EXTRA LARGE STOCKING X 2 20-30 MMHG cyanocobalamin (vitamin B-12) 1,000 mcg IM QWEEK 1 month epinephrine (EpiPen 2-Lee) 0.3 mg (0.3 mL) IM Q4H PRN fenofibrate 54 mg PO DAILY FreeStyle Lancets (lancets) TID testing NS FreeStyle Lite Meter (blood-glucose meter) TID testing NS FreeStyle Lite Strips (blood sugar diagnostic) TID testing NS levothyroxine 25 mcg PO DAILY levothyroxine 200 mcg PO DAILY levothyroxine (Synthroid) 25 mcg PO DAILY 90 days ondansetron 4 mg PO Q8H PRN semaglutide 0.25 mg (0.368 mL) subcut QWEEK syringe with needle (BD SafetyGlide Syringe) As directed to injection B-12 weekly tizanidine 4 mg PO BID PRN 30 days triamcinolone acetonide 0.1% 1 appl topical DAILY Tobacco use date assessed: 02/21/25 Dental Screening Dental Screen Date: 02/21/25 Did you have a dental visit in the last 12 months?: No Did you have a dental problem in the last 6 months where you did not have access to dental care?: No Was dental information given to patient?: Patient has dentist HPI Lump HPI Details Chief Complaint The patient presents with a lump on the left anterior neck. History of Present Illness The patient is a 35-year-old female presenting with a lump on the left anterior neck. The lump is not tender to touch and is described as a cystic lesion without surrounding lymphadenopathy. A referral to general surgery for possible lancing or further evaluation is planned. The patient has a history of diabetes mellitus, with an HbA1c of 5.5% noted today, indicating good glycemic control. She was previously on a higher dose of semaglutide but had to discontinue due to insurance changes; this medication will be restarted now that insurance issues are resolved. The patient reports fatigue, which may be related to her thyroid condition or other factors. She is currently on levothyroxine, taking 200 mcg daily instead of the prescribed 225 mcg due to running out of the 25 mcg tablets. The plan is to resume the full dose and repeat thyroid function tests in two months. The patient also presents with an erythematous macular rash on the left foot, noted on both the distal dorsal and posterior aspects, with some peeling. Triamcinolone and ammonium lactate have been recommended for topical application. Social History Health Maintenance - Eye exam recommended for diabetes can jenkins Review of Systems - Endocrine: Reports fatigue - Dermatological: Reports erythematous m acular rash on left foot Physical Exam General: Cooperative, healthy appearing, comfortable, no acute distress and well developed, obese Orientation: Patient oriented x3 Limitations: No limitations Head: Normal to inspection Ears: Hearing grossly normal bilaterally Nose: Normal external nose present Face and sinus: Normal facial exam Eyes: Appearance normal, both eyes and all related structures Neck: Lump present on the left anterior neck, feels like a cystic lesion, no surrounding lymphadenopathy noted Respiratory: Normal respiratory effort and able to speak in complete sentences. Clear to auscultation bilaterally Cardiovascular: Regular rate and rhythm. Normal S1 and S2 GI: Normal to inspection. Soft to palpation and nontender Skin: Erythematous macular rash noted on the distal dorsal aspect of the left foot and medial/plantar aspect of the left foot with faint erythema and peeling Neuro: Patient oriented x3 Extremities: Normal to inspection except for the left foot as noted in the skin section Results - Labs: HbA1c 5.5% plan 1. Lump On Left Anterior Neck The patient will be referred to general surgery for evaluation and possible lancing of the cystic lesion on the left anterior neck. 2. Diabetes Mellitus The patient's diabetes is well-controlled with an HbA1c of 5.5%. Semaglutide will be restarted now that insurance coverage is resolved. 3. Fatigue Fatigue may be related to thyroid function or other factors; a sleep study and further lab evaluations are planned. 4. Erythematous Macular Rash On Left Mando t The patient will apply Triamcinolone and ammonium lactate to the affected areas on the left foot. 5. Hypothyroidism The patient will resume the full dose of levothyroxine at 225 mcg daily, with repeat thyroid function tests in two months. Discussion Notes I discussed with the patient the management of her neck lump, including the referral to general surgery for further evaluation and possible lancing. We reviewed her diabetes management, noting her excellent HbA1c level, and the plan to restart semaglutide now that insurance issues are resolved. We also addressed her fatigue, considering thyroid function and the need for a sleep study. For her foot rash, I recommended topical treatment with Triamcinolone and ammonium lactate. We discussed the importance of resuming her full dose of levothyroxine and the plan to repeat thyroid labs in two months. I advised her to schedule an eye exam as part of her diabetes management. Patient Instructions - Follow up with general surgery for nec k lump evaluation. - Restart semaglutide as prescribed. - Apply Triamcinolone and ammonium lacta te to the left foot rash. - Resume full dose of levothyroxine at 2 25 mcg daily. - Schedule an eye exam for diabetes can jenkins. - Plan for a sleep study to evaluate fat igue. [facility] Medical History Morbid obesity due to excess calories HLD (hyperlipidemia) HTN (hypertension) Type 2 diabetes mellitus Depression Migraine with aura Fibromyalgia Insomnia Hx of papillary thyroid carcinoma Surgical History History of umbilical hernia repair Bilateral carpal tunnel syndrome Hx of cholecystectomy History of tubal ligation History of section History of thyroidectomy Family History Father History of heart attack Mental health disorder Mother Hypothyroidism Sister Anxiety Migraine Low blood pressure Mental health disorder Son Epilepsy Daughter No problems noted. Maternal Grandmother Breast cancer Paternal Grandmother Breast cancer Social History Housing: Apartment Alcohol intake: current Alcohol intake frequency: holidays/special occasions only Patient Tobacco Use Status: Never used Tobacco e-Cigarette/Vaping Use: Never Used Second Hand Smoke Exposure: Yes Current occupational status: unemployed Current occupation: rt handed Cognitive needs: No Hearing needs: No Vision needs: Yes Questionnaire PHQ-9 Over the last 2 weeks, how often have you been bothered by any of the following problems? 1. Little interest or pleasure in doing things: several days 2. Feeling down, depressed, or hopeless: several days 3. Trouble falling or staying asleep, or sleeping too much: several days 4. Feeling tired or having little energy: several days 5. Poor appetite or overeating: not at all 6. Feeling bad about yourself - or that you are a failure or have let yourself or your family down: not at all 7. Trouble concentrating on things, such as reading the newspaper or watching television: not at all 8. Moving or speaking so slowly that other people could have noticed. Or the opposite - being so fidgety or restless that you have been moving around a lot more than usual: not at all 9. Thoughts that you would be better off or of hurting yourself in some way: not at all Total score: 4 Depression Screening Interpretation: Negative Depression Screening Done: Yes 45099 - PHQ-9 Billing: Yes Source: Developed by Drs. Keven Salas, Christina Lake, Jeffrey Landis and colleagues, with an educational carlos from [employer]. Thrive Questionnaire Date Thrive assessed: 03/23/24 I am a: Patient What is your living situation today?: I have a steady place to live Within the past 12 months, did the food you bought not last and you didn't have the money to get more?: Never true Within the past 12 months, did you worry whether your food would run out before you got money to buy more?: I choose not to answer this question Do you have trouble paying for medicines?: I choose not to answer this question Do you have trouble getting transportation to medical appointments?: Yes Do you have trouble paying your heating and electricity bill?: I choose not to answer this question Do you have trouble taking care of your child, family member or friend?: No Do you have trouble with day-to-day activities such as bathing, preparing meals, shopping, managing finances, etc.?: No Are you currently unemployed and looking for a job?: No Are you interested in more education?: No Please select the resources that you would like help with: None Currently or been in a relationship where the following occur: No concerns reported THRIVE Score: 1 AUDIT C Alcohol Use Questionnaire (AUDIT-C) 1. How often do you have a drink containing alcohol?: Never Total Score: 0 LISSETH-7 AMB Questionnaire LISSETH-7 Date LISSETH - 7 assessed: 02/21/25 Feeling nervous, anxious, or on edge: 0 = Not at all Not being able to stop or control worryin = Not at all Worrying too much about different things: 0 = Not at all Trouble relaxin = Not at all Being so restless that it is hard to sit still: 0 = Not at all Becoming easily annoyed or irritable: 0 = Not at all Feeling afraid as if something awful might happen: 0 = Not at all Total LISSETH-7 score (0-4 normal; 5-9 mild; 10-14 moderate; 15-21 severe): 0 Source: Developed by Drs. Keven Salas, Christina Lake, Jeffrey Landis and colleagues, with an educational carlos from [employer]. LISSETH-7 Assessment Billing LISSETH-7 Assessment Tool: LISSETH-7 Assessment 35894 Physical exam (Primary Care) Vital Signs: Last Vital Signs Temp 98.5 F 02/21/25 14:50 Pulse 93 02/21/25 14:50 Resp 16 02/21/25 14:50 BP 102/70 02/21/25 14:50 Pulse Ox 98 02/21/25 14:50 Oxygen Delivery Method Room Air 02/21/25 14:50 BMI result Body Mass Index 48.2 Tobacco/Smoking Status: Tobacco use Status Tobacco use date assessed 02/21/25 02/21/25 14:56 Patient Tobacco Use Status Never used Tobacco 02/21/25 14:56 e-Cigarette/Vaping Use Never Used 02/21/25 14:56 PHQ-9: PHQ-9 Score PHQ-9: Total score 4 02/21/25 14:56 Depression Screening Interpretation: Negative Thrive Assessment: Date of Thrive Assessment Date Thrive assessed 03/23/24 02/21/25 14:56 Currently or been in a relationship where the following occur: No concerns reported Results AMB Hemoglobin A1c AMB Hemoglobin A1c 5.5 % Last Edit by Alexandria Vernon MA on 02/21/25 15:59 Coding Level of Care Code Est Pt Level 4 (30852) Diagnoses Cyst of skin L72.9 Type 2 diabetes mellitus E11.9 Snoring R06.83 Fatigue R53.83 Additional Codes LISSETH-7 Assessment Billing - LISSETH-7 Assessment Tool: LISSETH-7 Assessment 06282 ([id number]) PHQ-9 - 95603 - PHQ-9 Billing: Yes ([id number]) Assessment & Plan Assessment & Plan (1) Cyst of skin: Code(s): L72.9 - Follicular cyst of the skin and subcutaneous tissue, unspecified Category: Medical (2) Type 2 diabetes mellitus: Code(s): E11.9 - Type 2 diabetes mellitus without complications Category: Medical (3) Snoring: Comment: w/ excessive daytime sleepiness, fatigue, ESS 12 Code(s): R06.83 - Snoring Category: Medical (4) Fatigue: Code(s): R53.83 - Other fatigue Category: Medical Plan . Orders: Orders Comprehensive [place]. Panel Fast Today E11.9 - Type 2 diabetes mellitus without complications UA CC w/rflx Micro + Cult Today E11.9 - Type 2 diabetes mellitus without complications Microalbumin, Random (w Creat) Today E11.9 - Type 2 diabetes mellitus without complications Complete Blood Count Auto Diff Today E11.9 - Type 2 diabetes mellitus without complications TSH reflex Free T4 Today E11.9 - Type 2 diabetes mellitus without complications Lipid Panel Today E11.9 - Type 2 diabetes mellitus without complications AMB Hemoglobin A1c Today Z13.9 - Encounter for screening, unspecified Referrals General Surgery Referral L72.9 - Follicular cyst of the skin and subcutaneous tissue, unspecified Sleep Medicine Referral R06.83 - Snoring, R53.83 - Other fatigue Medications: New triamcinolone acetonide 0.1% 1 appl topical DAILY 30 grams 0RF Changed From levothyroxine (Synthroid) 25 mcg PO DAILY 60 tabs 0RF To levothyroxine (Synthroid) 25 mcg PO DAILY 90 tabs 1RF 90 days From semaglutide 2 mg (0.75 mL) subcut QWEEK 3 mL 0RF To semaglutide 0.25 mg (0.368 mL) subcut QWEEK 3 mL 0RF Refilled levothyroxine 200 mcg PO DAILY 90 tabs 1RF
--- OUTSIDE RECORDS SUMMARY | 2025-02-21 16:13 | XMS_ITS | Clinical Summary ---
Author Organization [address] Address [address] [place] [phone] Phone Care Team Providers Care School Psychometrist Name Role Phone Seb Arrington MD Primary [...] 02/15/2017 02/15/2007, 01/26/2000, 12/15/1992, Additional history exists Cholesterol Screening (Lipid Panel) 03/25/2024 HIV Screening 03/25/2024 Hepatitis C Screening 03/25/2024 Social Influencers of Health Screening 03/25/2024 Depression Screening 05/23/2024 COVID-19 Vaccine ( season) 2025 Influenza Vaccine (#1) 2025 02/26/2011, 2009 RSV Immunization Adult Patients (1 - 1-dose 75+ series) 01/22/2063 HIB Vaccines Completed 08/04/1989 IPV Vaccines Completed [...] age to complete this topic Care Teams School Psychometrist Relationship Specialty Start Date End Date Seb Arrington MD PCP - General Internal Medicine 01/02/08
--- OUTSIDE RECORDS SUMMARY | 2025-02-21 16:13 | XMS_ITS | Clinical Summary ---
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 Active gabapentin (NEURONTIN) 100 MG capsule Take 300 mg by mouth nightly. Active levothyroxine (TIROSINT) 112 mcg Cap 300 mcg daily. Activ e metaxalone (SKELAXIN) 800 MG tablet Take 800 mg by mouth as needed. Active cholecalciferol (VITAMIN D3) 5,000 unit capsule Take 5,000 Units by mouth daily. Active cyclobenzaprine (FLEXERIL) 10 MG tablet Take 1 tablet (10 mg total) by mouth daily. 30 tablet 1 9 Active Additional Information Patient not taking.Reported on 06/26/2020 erenumab-aooe (AIMOVIG AUTOINJECTOR) 70 mg/mL AtIn Inject 140 mg under the skin every 28 days. Active LORazepam (ATIVAN) 1 MG tablet Take 1 mg by mouth nightly. Active acetaminophen (TYLENOL) 650 MG CR tablet Take 1 tablet (650 mg total) by mouth every 8 (eight) hours as needed for pain (specific location in comments). 90 tablet 2 9 Active DULoxetine (CYMBALTA) 30 MG capsule TAKE 1 CAPSULE BY MOUTH EVERY DAY 30 capsule 3 9 Active Additional Information Patient not taking.Reported on 03/23/2019 atorvastatin (LIPITOR) 10 MG tablet Take 10 mg by mouth daily. Active milnacipran (SAVELLA) 12.5 mg (5)-25 mg(8)-50 mg(42) DsPk Take medication according to dose sejal instructions. 55 tablet 0 Active Additional Information Patient not taking.Reported on 06/26/2020 meloxicam (MOBIC) 15 MG tablet TAKE 1 TABLET BY MOUTH EVERY DAY 30 tablet 2 0 Active pregabalin (LYRICA) 75 MG capsuleIndicati ons:Fibromyalgi a Take 1 capsule (75 mg total) by mouth 2 (two) times a day. 60 capsule 2 1 Active tiZANidine (ZANAFLEX) 4 MG tablet Take 1 tablet (4 mg total) by mouth daily. 30 tablet 3 1 Active Active Problems Problem Noted Date Diagnosed Date Closed displaced fracture of head of left radius with routine healing 11/02/2019 Degenerative disc disease, lumbar 06/23/2018 Assessment & Plan (06/26/2020 1:07 PM EST): Trial of Lyrica 75 mg Take one pill PO BID for DDD back relif. Continue Tizanidine 4 mg qhs for additional back pain relief. Fibromyalgia 05/26/2018 Assessment & Plan (06/26/2020 1:06 PM EST): Continue Tizanidine 4 mg qhs, Amitriptyline 75 mg qhs for sleep aid for Fibromyalgia. Trial of Lyrica 75 mg Take one pill PO BID for Fibromyalgia muscle tenderness, joint tenderness therapy. Bilateral low back pain 05/26/2018 Pain in both hands 05/26/2018 Assessment & Plan (06/26/2020 1:07 PM EST): Trial of Lyrica 75 mg Take one pill PO BID for hand pain relief. Family History Medical History Relation Comments Fibromyalgia Brother Fibromyalgia Maternal Aunt Arthritis Mother Arthritis Sister Relation Status Comments Brother Maternal Aunt Mother Sister Social History Tobacco Use Types Packs/Day Years Used Date Smoking Tobacco: Never Smokeless Tobacco: Never Alcohol Use Standard Drinks/Week Comments Yes 0 (1 standard drink = 0.6 oz pur e alcohol) Occasionally Education Answer Date Recorded Are you interested in more education? Not on niecy e 09/17/2022 Are you concerned about learning? Not on file 09/17/2022 No 09/17/2022 No 09/17/2022 Digital Access Answer Date Recorded No 10/16/2022 No 10/16/2022 No 10/16/2022 Reliable internet access at home? Not on file 10/16/2022 Device with a working camera? Not on file Comments Unknown Sex and Gender Information Value Date Recorded Sex Assigned at Not on file Legal Sex Female 11:55 AM EST Gender Identity Not on file Sexual Orientation Not on file Last Filed Vital Signs Vital Sign Reading Time Taken Comments Blood Pressure 124/70 11/02/2019 3:40 PM EDT Pulse - - Temperature - - Respiratory Rate - - Oxygen Saturation - - Inhaled Oxygen Concentration - - Weight 114.3 kg (252 lb) 06/26/2020 8:00 AM EST per patient Height 152.4 cm (5') 06/26/2020 8:00 AM EST Body Mass Index 49.22 06/26/2020 8:00 AM EST Plan of Treatment Health Maintenance Due Date Last Done Comments DEPRESSION SCREENING 2000 HEPATITIS C SCREENING 01/22/2006 HIV ONE-TIME SCREENING (18-6 5 YEARS) 01/22/2006 PAP SMEAR 01/22/2009 Adult Td,Tdap Booster 02/15/2017 02/15/2007 , 01/26/2000 TSH LEVEL 06/26/2021 06/26/2020, 03/23/2019 INFLUENZA VACCINE (#1) 2024 1, 02/17/2010 COVID-19 VACCINE (2024-2 6 season) 2025 09/08/2020 HIB VACCINES Completed 08/04/1989 MENINGOCOCCAL VACCINES (ACWY) Aged Out 02/15/2007 No longer eligible based on patient's age to complete this topic SMOKING STATUS SCREENING (On ce After 26 Yrs) Completed 06/26/2020 HEPATITIS A VACCINES Aged Out No long er eligible based on patient's age to complete this topic MENINGOCOCCAL VACCINES (B) Aged Out N o longer eligible based on patient's age to complete this topic PNEUMOCOCCAL VACCINES (0-49 years) Aged Out No longer eligible b ased on patient's age to complete this topic Medical Devices Not on file Procedures Procedure Name Priority Date/Time Associated Diagnosis Comments TSH Routine 06/26/2020 3:37 PM EST H/O thyroidectomy from Last 3 Months or Most Recently Relevant to Health Maintenance Results * (ABNORMAL) TSH (06/26/2020 3:37 PM EST) TSH 0.03(L) 0.27 - 4.20 uIU/mL [facility] Blood 06/26/2020 3:37 PM EST 06/26/2020 3:42 PM EST Rafael LEVY LAB BLOOD ORDERABLES Fi nal Result Performing Organization Address City/State/[facility] Co de Phone Number [address] [address] from Last 3 Months or Most Recently Relevant to Health Maintenance Insurance [employer] Member Subscriber Plan / Payer (Ef fective 2018-Present) Name:Jing Guillory Relation to Subscriber:Self Name:Jing Guillory Payer ID:[id number] Group ID:[id number] Type:Medicaid Address: [place] [id number] HMO [employer] [address] HMO [employer] Member Subscriber Plan / Payer (Ef fective 2018-Present) Name:Jing Guillory Relation to Subscriber:Self Name:Jing Guillory Payer ID:[id number] Group ID:[id number] Type:Medicaid Address: [address] HMO [employer] [facility] [employer] Member Subscriber Plan / Payer (Ef fective 2018-Present) Name:Jing Guillory Relation to Subscriber:Self Name:Jing Guillory Payer ID:[id number] Group ID:[id number] Type:Medicaid Address: [address] [place] [address] [employer] Member Subscriber Plan / Payer (Ef fective 2018-Present) Name:Jing Guillory Relation to Subscriber:Self Name:Jing Guillory Payer ID:[id number] Group ID:[id number] Type:Medicaid Address: [place] [id number] HMO Care Teams Leather Cutter Relationship Specialty Start Date End Date Elan Terry NP [address] [address] PCP - General Family Medicine 05/05/18 Additional Source Comments The information contained in this document represents components of the legal health record. It is not the complete legal health record.[facility]
== END 2025-02-21 16:31 | disposition home or self-care (01) ==
PROVIDERS: PCP Nurse Practitioner Family; Visit Provider Nurse Practitioner Family
DX: L72.9 Follicular cyst of the skin and subcutaneous tissue, unspecified (principal); E11.9 Type 2 diabetes mellitus without complications; R06.83 Snoring; R53.83 Other fatigue; Z13.9 Encounter for screening, unspecified

== ENCOUNTER → 2025-02-21 14:41 | Outpatient (BNVA) | payer SELFPAY | PROVIDERS: PCP Nurse Practitioner Family; Visit Provider Nurse Practitioner Family | DX: E11.9 Type 2 diabetes mellitus without complications (principal); R53.83 Other fatigue; R21 Rash and other nonspecific skin eruption; E03.9 Hypothyroidism, unspecified; R22.1 Localized swelling, mass and lump, neck; L72.9 Follicular cyst of the skin and subcutaneous tissue, unspecified; R06.83 Snoring | CPT/HCPCS: 83036; 96127 ==

== ENCOUNTER 2025-02-27 12:23 | Emergency (ER) | payer OTHER, SELFPAY ==
--- NOTE | ~2025-02-27 | XR_ITS ---
CLINICAL HISTORY: shortness of breath 2 view chest x-ray Comparison: CR/SR - XR CHEST 2 VIEWS - 11/28/24 13:44 EDT Findings: No consolidation or effusion. Heart size is normal. No acute fracture. IMPRESSION: 1. No acute findings. This document has been electronically signed by: Julian Branch MD on 02/27/2025 17:38:34
--- NOTE | ~2025-02-27 | US_ITS ---
CLINICAL HISTORY: right submandibular lump Ultrasound of the soft tissues of the chin COMPARISON: CT angiogram head and neck dated 11/28/24 at 14:20 EDT FINDINGS: Dedicated ultrasound imaging was performed in the region of the right submandibular gland. In the region of concern in the subcutaneous soft tissues there is a mildly heterogeneous hypoechoic lesion measuring 1.0 x 0.7 x 0.9 cm, similar in size to prior imaging when accounting for differences in technique. No internal vascularity. There is increased through transmission. IMPRESSION: 1. Hypoechoic avascular lesion within the subcutaneous soft tissues measuring up to 1.0 cm. Appearance is most suggestive of a sebaceous cyst. Lesion appears similar in size to prior imaging performed 12/18/2024 when accounting for differences in technique. This document has been electronically signed by: Orlando Ring MD on 02/27/2025 17:57:36
[2025-02-27 12:26] VITALS: BP 119/69; PULSE 89; RESP 18; TEMP 36.4; O2SAT 99; BMI 47.5
--- NOTE | 2025-02-27 12:26 | ED_ITS ---
HPI - General Adult General Chief complaint: General Medical Stated complaint: lump under chin that hurts Time Seen by Provider: 02/27/25 16:44 Related Data Home Medications ?Medication ?Instructions ?Recorded ?Confirmed albuterol sulfate 90 mcg/actuation 2 puff inhalation Q 6H PRN wheezing 08/02/23 02/21/25 aerosol inhaler (Ventolin HFA) Previous Rx's ?Medication ?Instructions ?Recorded FreeStyle Lite Meter #1 ea 01/19/23 (blood-glucose meter) epinephrine 0.3 mg/0.3 mL 0.3 mg (0.3 mL) IM Q4H PRN 0 02/05/23 injection, auto-injector (EpiPen anaphylaxis #2 ea 2-Lee) acetaminophen 500 mg tablet 500 mg PO Q6H PRN fever or pain 02/08/23 (Tylenol Extra Strength) #14 tabs FreeStyle Lite Strips (blood sugar #100 ea 02/16/23 diagnostic) FreeStyle Lancets 28 gauge #300 ea 04/06/23 (lancets) compr.stocking,knee,long,x-lrg #2 ea 03/23/24 syringe with needle 3 mL 23 x 1 #50 ea 04/30/24 (BD SafetyGlide Syringe) fenofibrate 54 mg tablet 54 mg PO DAILY #90 tabs 06/23 12/14 cyanocobalamin (vitamin B-12) 1,000 mcg IM QWEEK Tue #5 mL 09/10/24 1,000 mcg/mL injection solution ondansetron 4 mg disintegrating 4 mg PO Q8H PRN nausea and 09/29/24 tablet vomiting #7 tabs levothyroxine 25 mcg capsule 25 mcg PO DAILY #60 caps 11/28/24 atorvastatin 10 mg tablet 10 mg PO BEDTIME #90 tabs carvedilol 3.125 mg tablet (Coreg) 3.125 mg PO BID 90 days #180 tabs 12/02/24 ngdsfqcfld-lcxpttycpzhyy-izhkbhwu 1 tab PO BID PRN miguel n 10 days #20 01/07/25 50 mg-325 mg-40 mg tablet tabs clonazepam 1 mg tablet 1 mg PO BID PRN anxiety 30 d ays 01/07/25 #60 tabs amitriptyline 50 mg tablet 50 mg PO BEDTIME 90 days #9 0 tabs 02/21/25 levothyroxine 200 mcg tablet 200 mcg PO DAILY #90 tabs 02/21/25 levothyroxine 25 mcg tablet 25 mcg PO DAILY 90 days #9 0 tabs 02/21/25 (Synthroid) semaglutide 0.25 mg or 0.5 mg (2 0.25 mg (0.368 mL) hawkins bcut QWEEK #3 02/21/25 mg/3 mL) subcutaneous pen injector mL triamcinolone acetonide 0.1 % 1 appl topical DAILY #30 grams 02/21/25 topical cream tizanidine 4 mg capsule 4 mg PO BID PRN muscle spast icity 02/27/25 30 days #60 caps Allergies Allergy/AdvReac Type Severity Reaction Status Date / Time bee pollen (BEE STINGS) Allergy Severe ANAPHYLAXIS Verified 02/27/25 12:30 NSAIDS (Non-Steroidal Allergy Intermediate HIVES Verified 02/27/25 12:30 Anti-Inflamma (NSAIDS (NON-STEROIDAL ANTI-INFLAMMA) Penicillins Allergy Intermediate HIVES Verified 02/27/25 12:30 ibuprofen (From Motrin) Allergy Unknown Hives Verified 02/27/25 12:30 penicillin V Allergy Unknown unknown Verified 02/27/25 12:30 latex (LATEX) AdvReac Intermediate RASH Verified 02/27/25 12:30 sulfamethoxazole (From AdvReac Hives Verified 02/27/25 12:30 Bactrim) trimethoprim (From Bactrim) AdvReac Hives Verified 02/27/25 12:30 From Ortho Tri-Cyclen (21) AdvReac Intermediate DVT (BLOOD Uncoded 02/21/25 16:04 CLOT) PMFSH Past Medical History Medical History Morbid obesity due to excess calories HLD (hyperlipidemia) HTN (hypertension) Type 2 diabetes mellitus Depression Migraine with aura Fibromyalgia Insomnia Hx of papillary thyroid carcinoma Surgical History History of umbilical hernia repair Bilateral carpal tunnel syndrome Hx of cholecystectomy History of tubal ligation History of section History of thyroidectomy Family History Family History Father History of heart attack Mental health disorder Mother Hypothyroidism Sister Anxiety Migraine Low blood pressure Mental health disorder Son Epilepsy Daughter No problems noted. Maternal Grandmother Breast cancer Paternal Grandmother Breast cancer Social History Social History Housing: Apartment Alcohol intake: current Alcohol intake frequency: holidays/special occasions only Patient Tobacco Use Status: Never used Tobacco Smoked in Last 30 Days: No e-Cigarette/Vaping Use: Never Used Second Hand Smoke Exposure: Yes Use of substances other than those prescribed or required for medical reasons: No Advance Directives: No Advance Directives Information Provided: No Patient : No Current occupational status: unemployed Current occupation: rt handed Cognitive needs: No Hearing needs: No Vision needs: Yes Physical Exam ED Vital Signs: Vital Signs - 24 hr 02/27/25 12:26 Temperature 97.5 F Pulse Rate 89 Respiratory Rate 18 Blood Pressure 119/69 Pulse Oximetry 99 Oxygen Delivery Method Room Air BMI result Body Mass Index 47.5 Course Course Course Narrative: This is a rapid medical exam performed by Ezekiel Brown NP: Additional HPI, ROS, PE not included below will be deferred to primary provider. Patient is a 35y/o F with history of thyroid CA and subsequent thyroidectomy, has had 3 surgeries last in 2017, presenting with complaint of painful swelling to right submandibular area for months. Saw PCP who referred to gen surg. Has been trying to see general surgery but can't get appt. She called their office today and they referred her here. Painful swallowing. Patient managing secretions without difficulty in triage. Plan: labs to start, likely needs CT Medical Decision Making Lab Data 02/27/25 12:40 02/27/25 12:40 Labs: Lab Results 02/27/25 Range/Units 12:40 WBC 8.5 (4.8-10.8) X10*3/uL RBC 5.17 (4.20-5.50) X10*6/uL Hgb 14.9 (12.0-16.0) g/dl Hct 42.5 (37.0-47.0) % MCV 82.2 (80.0-98.0) fL MCH 28.8 (27.0-33.0) pg MCHC 35.1 H (31.0-35.0) g/dl RDW 11.6 (11.0-16.0) % Plt Count 350 (160-400) X10*3/uL MPV 9.8 (9.4-12.3) fL Immature Gran % (Auto) 0.4 (0.0-0.4) % Neut % (Auto) 57.9 (45-73) % Lymph % (Auto) 32.0 (20-40) % Mckenzie % (Auto) 7.1 (2-11) % Eos % (Auto) 2.1 (0-4) % Baso % (Auto) 0.5 (0-2) % Lymph # (Auto) 2.7 (1.2-4.9) X10*3/uL Mckenzie # (Auto) 0.6 (0.1-1.2) X10*3/uL Eos # (Auto) 0.2 (0.0-0.4) X10*3/uL Baso # (Auto) 0.0 (0.0-0.2) X10*3/uL Abs Immat Gran (auto) 0.03 (0.00-0.03) X10*3/uL Absolute Neuts (auto) 4.9 (2.0-8.3) x10*3/uL Absolute Nucleated RBC 0.000 (0.0-0.012) X10*3/uL Nucleated RBC % (auto) 0.0 (0.0-0.2) /100WBC Sodium 139 (135-145) mmol/L Potassium 4.1 (3.3-5.1) mmol/L Chloride 106 (96-108) mmol/L Carbon Dioxide 28 (22-29) mmol/L Anion Gap 9 L (12-20) BUN 12 (9-16) mg/dL Creatinine 0.73 (0.5-1.4) mg/dL Estim Creat Clear Calc 118.9 Estimated GFR > 60 Random Glucose 102 (60-115) mg/dL Calcium 9.1 D (8.4-10.2) mg/dL Total Bilirubin 0.4 (0.0-1.0) mg/dL AST 26 (5-31) U/L ALT 43 H (0-31) U/L Alkaline Phosphatase 91 (39-117) U/L Total Protein 7.0 (6.5-8.0) g/dL Albumin 4.7 (3.5-5.0) g/dL Discharge Plan Discharge Prescriptions: No Action (DME) blood-glucose meter [FreeStyle Lite Meter] Kit See Rx Instructions .Route Qty: 1 0RF Rx Instructions: TID testing (DME) FreeStyle Lite Strips Strip See Rx Instructions .Route Qty: 100 5RF Rx Instructions: TID testing (DME) lancets [FreeStyle Lancets] 28 gauge misc See Rx Instructions .Route Qty: 300 1RF Rx Instructions: TID testing fenofibrate 54 mg tablet 54 mg PO DAILY Qty: 90 1RF cyanocobalamin (vitamin B-12) 1,000 mcg/mL solution 1,000 mcg IM QWEEK 30 Days Qty: 5 2RF Rx Instructions: of the atorvastatin 10 mg tablet 10 mg PO BEDTIME Qty: 90 1RF carvedilol [Coreg] 3.125 mg tablet 3.125 mg PO BID 90 Days Qty: 180 1RF Rx Instructions: must administer with a meal/food clonazepam 1 mg tablet 1 mg PO BID PRN (Reason: anxiety) 30 Days Qty: 60 0RF rkxvmrffwp-etpreaodnsgco-uwul 50-325-40 mg tablet 1 tab PO BID PRN (Reason: pain) 10 Days Qty: 20 1RF amitriptyline 50 mg tablet 50 mg PO BEDTIME 90 Days Qty: 90 0RF tizanidine 4 mg capsule 4 mg PO BID PRN (Reason: muscle spasticity) 30 Days Qty: 60 1RF epinephrine [EpiPen 2-Lee] 0.3 mg/0.3 mL auto-injector 0.3 mg IM Q4H PRN (Reason: anaphylaxis) Qty: 2 0RF albuterol sulfate [Ventolin HFA] 90 mcg/actuation HFA aerosol inhaler 2 puff INHALATION Q6H PRN (Reason: wheezing) acetaminophen [Tylenol Extra Strength] 500 mg tablet 500 mg PO Q6H PRN (Reason: fever or pain) Qty: 14 0RF ondansetron 4 mg tablet,disintegrating 4 mg PO Q8H PRN (Reason: nausea and vomiting) Qty: 7 0RF levothyroxine 25 mcg capsule 25 mcg PO DAILY Qty: 60 0RF (DME) BD SafetyGlide Syringe 3 mL 23 x 1 syringe See Rx Instructions .Route Qty: 50 0RF Rx Instructions: As directed to injection B-12 weekly levothyroxine 200 mcg tablet 200 mcg PO DAILY Qty: 90 1RF levothyroxine [Synthroid] 25 mcg tablet 25 mcg PO DAILY 90 Days Qty: 90 1RF triamcinolone acetonide 0.1 % cream 1 appl topical DAILY Qty: 30 0RF semaglutide 0.25 mg or 0.5 mg (2 mg/3 mL) pen injector 0.25 mg subcut QWEEK Qty: 3 0RF (DME) compr.stocking,knee,long,x-lrg Misc See Rx Instructions .Route Qty: 2 0RF Rx Instructions: KNEE HIGH EXTRA LARGE STOCKING X 2 20-30 MMHG Print Language: Mohawk
[2025-02-27 12:43] LABS: MANUAL DIFF FLAG NO
[2025-02-27 12:45] LABS: Hematocrit 42.5 % (37.0-47.0); Hemoglobin 14.9 g/dl (12.0-16.0); Imm Gran Abs Auto 0.03 X10*3/uL (0.00-0.03); Imm Gran Pct Auto 0.4 % (0.0-0.4); Lymphocytes Absolute Auto 2.7 X10*3/uL (1.2-4.9); Mean Corpuscular HGB Conc 35.1 g/dl (31.0-35.0); Mean Corpuscular Hemoglobin 28.8 pg (27.0-33.0); Mean Corpuscular Volume 82.2 fL (80.0-98.0); NRBC Abs Auto 0.000 X10*3/uL (0.0-0.012); NRBC Pct Auto 0.0 /100WBC (0.0-0.2); Platelet Count 350 X10*3/uL (160-400); Red Blood Count 5.17 X10*6/uL (4.20-5.50); White Blood Count 8.5 X10*3/uL (4.8-10.8)
[2025-02-27 13:03] LABS: Alanine Aminotransferase 43 U/L (0-31); Albumin Level 4.7 g/dL (3.5-5.0); Alkaline Phosphatase 91 U/L (39-117); Anion Gap 9 (12-20); Aspartate Amino Transferase 26 U/L (5-31); Blood Urea Nitrogen 12 mg/dL (9-16); Calcium 9.1 mg/dL (8.4-10.2); Carbon Dioxide 28 mmol/L (22-29); Chloride 106 mmol/L (96-108); Creatinine Clr Calc Pharmacy 118.9; Estimated Glomerular Filt Rate > 60; Potassium 4.1 mmol/L (3.3-5.1); Sodium 139 mmol/L (135-145); Total Protein 7.0 g/dL (6.5-8.0)
--- NOTE | 2025-02-27 17:12 | ED.GENADULT ---
HPI - General Adult General Chief complaint: General Medical Stated complaint: lump under chin that hurts Time Seen by Provider: 02/27/25 16:44 Source: patient Mode of arrival: ambulatory Limitations: no limitations History of Present Illness ED Provider: Keli BREAUX narrative: 35 year old female presents for evaluation of a lump under her chin. She has a history of papillary thyroid cancer s/p total thyroidectomy, radiation, and 2 additional surgeries (most recently in 2017). She first noticed the lump in December, it started off very small, the size of a pencil tip. It then grew over the past 2 months and doubled in size over the last week. She did see her PCP for it recently, who referred her to general surgery, whom she has an appointment with on March 21. She comes for evaluation today because it has grown notably over the last week and is now painful, rating the pain as 8/10. She denies any pus/drainage from the lump. She denies any difficulty swallowing though reports her throat feels irritated. She denies any change to her voice. She has not had any fever, cough, or chills. She also reports night sweats over the last month as well as faitgue and SOB with minimal exertion. Onset (ago): month(s) Location: face (right submandibular) Radiation: non-radiation Severity scale (1-10): 8 Quality: constant Pain Consistency: constant Relieving factors: none Exacerbating factors: none Associated symptoms: malaise and shortness of breath Treatments prior to arrival: none Related Data Home Medications ?Medication ?Instructions ?Recorded ?Confirmed albuterol sulfate 90 mcg/actuation 2 puff inhalation Q6H PRN wheezing 08/02/23 02/21/25 aerosol inhaler (Ventolin HFA) Previous Rx's ?Medication ?Instructions ?Recorded FreeStyle Lite Meter #1 ea 01/19/23 (blood-glucose meter) epinephrine 0.3 mg/0.3 mL 0.3 mg (0.3 mL) IM Q4H PRN 02/05/23 injection, auto-injector (EpiPen anaphylaxis #2 ea 2-Lee) acetaminophen 500 mg tablet 500 mg PO Q6H PRN fever or pain 02/08/23 (Tylenol Extra Strength) #14 tabs FreeStyle Lite Strips (blood sugar #100 ea 02/16/23 diagnostic) FreeStyle Lancets 28 gauge #300 ea 04/06/23 (lancets) compr.stocking,knee,long,x-lrg #2 ea 03/23/24 syringe with needle 3 mL 23 x 1 #50 ea 04/30/24 (BD SafetyGlide Syringe) fenofibrate 54 mg tablet 54 mg PO DAILY #90 tabs 07/09/24 cyanocobalamin (vitamin B-12) 1,000 mcg IM QWEEK 1 month #5 mL 09/10/24 1,000 mcg/mL injection solution ondansetron 4 mg disintegrating 4 mg PO Q8H PRN nausea and 09/29/24 tablet vomiting #7 tabs levothyroxine 25 mcg capsule 25 mcg PO DAILY #60 caps 11/28/24 atorvastatin 10 mg tablet 10 mg PO BEDTIME #90 tabs 12/02/24 carvedilol 3.125 mg tablet (Coreg) 3.125 mg PO BID 90 days #180 tabs 12/02/24 xuxtczwxdv-bhrnfwvzstxlk-zefzfxgr 1 tab PO BID PRN pain 10 days #20 01/07/25 50 mg-325 mg-40 mg tablet tabs clonazepam 1 mg tablet 1 mg PO BID PRN anxiety 30 days 01/07/25 #60 tabs amitriptyline 50 mg tablet 50 mg PO BEDTIME 90 days #90 tabs 02/21/25 levothyroxine 200 mcg tablet 200 mcg PO DAILY #90 tabs 02/21/25 levothyroxine 25 mcg tablet 25 mcg PO DAILY 90 days #90 tabs 02/21/25 (Synthroid) semaglutide 0.25 mg or 0.5 mg (2 0.25 mg (0.368 mL) subcut QWEEK #3 02/21/25 mg/3 mL) subcutaneous pen injector mL triamcinolone acetonide 0.1 % 1 appl topical DAILY #30 grams 02/21/25 topical cream tizanidine 4 mg capsule 4 mg PO BID PRN muscle spasticity 02/27/25 30 days #60 caps Allergies Allergy/AdvReac Type Severity Reaction Status Date / Time bee pollen (BEE STINGS) Allergy Severe ANAPHYLAXIS Verified 02/27/25 12:30 NSAIDS (Non-Steroidal Allergy Intermediate HIVES Verified 02/27/25 12:30 Anti-Inflamma (NSAIDS (NON-STEROIDAL ANTI-INFLAMMA) Penicillins Allergy Intermediate HIVES Verified 02/27/25 12:30 ibuprofen (From Motrin) Allergy Unknown Hives Verified 02/27/25 12:30 penicillin V Allergy Unknown unknown Verified 02/27/25 12:30 latex (LATEX) AdvReac Intermediate RASH Verified 02/27/25 12:30 sulfamethoxazole (From AdvReac Hives Verified 02/27/25 12:30 Bactrim) trimethoprim (From Bactrim) AdvReac Hives Verified 02/27/25 12:30 From Ortho Tri-Cyclen (21) AdvReac Intermediate DVT (BLOOD Uncoded 02/21/25 16:04 CLOT) Review of Systems Constitutional: Constitutional: Reports fatigue and Reports night sweats Comments: patient reports fatigue and night sweats for the past one month Eyes: Eyes: Reports no additional eye complaints ENT: Reports as per HPI Cardiovascular: Cardiovascular: Reports no additional cardiovascular complaints and Reports dyspnea on exertion Respiratory: Respiratory: Reports dyspnea on exertion Comments: reports shortness of breath with minimal activity over the last month Genitourinary: Genitourinary: Reports no additional female genitourinary complaints Musculoskeletal: Musculoskeletal: Reports no additional musculoskeletal complaints Integumentary/Breasts: Skin/Breast: Reports system reviewed and no additional complaints, except as docu Neurologic: Reports system reviewed and no additional complaints, except as documented Psychiatric: Psychiatric: Reports anxiety Endocrine: Endocrine: Reports fatigue Hematologic/Lymphatic: Hematologic/Lymphatic: Reports no additional hematologic/lymphatic complaints Allergic/Immunologic: Allergic/Immunologic: Reports no additional allergic/immunologic complaints PMFSH Past Medical History Medical History Morbid obesity due to excess calories HLD (hyperlipidemia) HTN (hypertension) Type 2 diabetes mellitus Depression Migraine with aura Fibromyalgia Insomnia Hx of papillary thyroid carcinoma Surgical History History of umbilical hernia repair Bilateral carpal tunnel syndrome Hx of cholecystectomy History of tubal ligation History of section History of thyroidectomy Family History Family History Father History of heart attack Mental health disorder Mother Hypothyroidism Sister Anxiety Migraine Low blood pressure Mental health disorder Son Epilepsy Daughter No problems noted. Maternal Grandmother Breast cancer Paternal Grandmother Breast cancer Social History Social History Housing: Apartment Alcohol intake: current Alcohol intake frequency: holidays/special occasions only Patient Tobacco Use Status: Never used Tobacco Smoked in Last 30 Days: No e-Cigarette/Vaping Use: Never Used Second Hand Smoke Exposure: Yes Use of substances other than those prescribed or required for medical reasons: No Advance Directives: No Advance Directives Information Provided: No Patient : No Current occupational status: unemployed Current occupation: rt handed Cognitive needs: No Hearing needs: No Vision needs: Yes Physical Exam ED Vital Signs: Vital Signs - 24 hr 02/27/25 12:26 Temperature 97.5 F Pulse Rate 89 Respiratory Rate 18 Blood Pressure 119/69 Pulse Oximetry 99 Oxygen Delivery Method Room Air BMI result Body Mass Index 47.5 VSS Const General: healthy appearing, comfortable, no acute distress, alert and awake Nutritional Appearance: well nourished Orientation/consciousness: patient oriented x3 HENMT Face and sinus: No abrasion, No ecchymosis, No erythema, No fluctuance, Yes Facial tenderness on exam of face and sinuses and Yes other Face images:  1. 1 cm hard, non fluctuant flesh colored mobile lesion Teeth and gingiva: dentition normal and gingiva normal Throat: Yes posterior oropharynx normal Eyes Eyelids: Yes eyelids normal Conjunctivae: conjunctivae normal Sclerae: sclerae normal Corneas: corneas normal Pupils: Equal, round and reactive pupils present Resp Effort & Inspection: normal respiratory effort, able to speak in complete sentences, no audible wheezes and not labored Skin General skin exam: elasticity normal Rashes: no rashes Neuro General: patient oriented x3 Cranial nerves: Yes Equal, round and reactive pupils present Extrem General: Yes full ROM Course Course Course Narrative: This is a rapid medical exam performed by Ezekiel Brown NP: Additional HPI, ROS, PE not included below will be deferred to primary provider. Patient is a 35y/o F with history of thyroid CA and subsequent thyroidectomy, has had 3 surgeries last in 2017, presenting with complaint of painful swelling to right submandibular area for months. Saw PCP who referred to gen surg. Has been trying to see general surgery but can't get appt. She called their office today and they referred her here. Painful swallowing. Patient managing secretions without difficulty in triage. Plan: labs to start, likely needs CT Medical Decision Making Medical Decision Making [facility] Narrative: 35 year old female with history of papillary thyroid cancer s/p total thyroidectomy and radiation presents with a 1 cm lesion in the right submandibular area that appeared 2 months ago and has been increasing in size, most notably in the last week. It is hard, not erythematous or fluctuant. The patient had a CT angiography of the head and neck in November of this year, 3 months ago that was unremarkable did not show any findings in the area. There was no evidence of infectious process. The areas seems pretty superficial and localized to the skin, unable to palpate anything underneath it. We will obtain an ultrasound to better evaluate. Differential Diagnosis Differential Diagnoses: The differential diagnosis associated with the presentation includes cyst lipoma thryoglossal duct cyst boil abscess Lab Data [facility] Lab Attestation statement: I reviewed the patient's lab results. No leukocytosis or significant anemia. Normal platelet count. No significant electrolyte abnormalities warranting intervention 02/27/25 12:40 02/27/25 12:40 Labs: Lab Results 02/27/25 Range/Units 12:40 WBC 8.5 (4.8-10.8) X10*3/uL RBC 5.17 (4.20-5.50) X10*6/uL Hgb 14.9 (12.0-16.0) g/dl Hct 42.5 (37.0-47.0) % MCV 82.2 (80.0-98.0) fL MCH 28.8 (27.0-33.0) pg MCHC 35.1 H (31.0-35.0) g/dl RDW 11.6 (11.0-16.0) % Plt Count 350 (160-400) X10*3/uL MPV 9.8 (9.4-12.3) fL Immature Gran % (Auto) 0.4 (0.0-0.4) % Neut % (Auto) 57.9 (45-73) % Lymph % (Auto) 32.0 (20-40) % Warrick % (Auto) 7.1 (2-11) % Eos % (Auto) 2.1 (0-4) % Baso % (Auto) 0.5 (0-2) % Lymph # (Auto) 2.7 (1.2-4.9) X10*3/uL Warrick # (Auto) 0.6 (0.1-1.2) X10*3/uL Eos # (Auto) 0.2 (0.0-0.4) X10*3/uL Baso # (Auto) 0.0 (0.0-0.2) X10*3/uL Abs Immat Gran (auto) 0.03 (0.00-0.03) X10*3/uL Absolute Neuts (auto) 4.9 (2.0-8.3) x10*3/uL Absolute Nucleated RBC 0.000 (0.0-0.012) X10*3/uL Nucleated RBC % (auto) 0.0 (0.0-0.2) /100WBC Sodium 139 (135-145) mmol/L Potassium 4.1 (3.3-5.1) mmol/L Chloride 106 (96-108) mmol/L Carbon Dioxide 28 (22-29) mmol/L Anion Gap 9 L (12-20) BUN 12 (9-16) mg/dL Creatinine 0.73 (0.5-1.4) mg/dL Estim Creat Clear Calc 118.9 Estimated GFR > 60 Random Glucose 102 (60-115) mg/dL Calcium 9.1 D (8.4-10.2) mg/dL Total Bilirubin 0.4 (0.0-1.0) mg/dL AST 26 (5-31) U/L ALT 43 H (0-31) U/L Alkaline Phosphatase 91 (39-117) U/L Total Protein 7.0 (6.5-8.0) g/dL Albumin 4.7 (3.5-5.0) g/dL Radiology Impression Discussion of test interpretation with radiology: I have reviewed the radiologist's reading. Radiologist Impression: FINDINGS: Dedicated ultrasound imaging was performed in the region of the right submandibular gland. In the region of concern in the subcutaneous soft tissues there is a mildly heterogeneous hypoechoic lesion measuring 1.0 x 0.7 x 0.9 cm, similar in size to prior imaging when accounting for differences in technique. No internal vascularity. There is increased through transmission. IMPRESSION: 1. Hypoechoic avascular lesion within the subcutaneous soft tissues measuring up to 1.0 cm. Appearance is most suggestive of a sebaceous cyst. Lesion appears similar in size to prior imaging performed 12/18/2024 when accounting for differences in technique. This document has been electronically signed by: Orlando Ring MD on 02/27/2025 17:57:36 Discharge Plan Discharge Clinical Impression: Mass of soft tissue Patient Disposition: Home, Self-Care Instructions: Cyst (ED) Additional Instructions: The lump under your chin is most consistent with a sebaceous cyst. The ultrasound does not show any connecting vasculature which is reassuring. I recommend that you use ibuprofen Tylenol for pain and follow up with general surgery as planned FINDINGS: Dedicated ultrasound imaging was performed in the region of the right submandibular gland. In the region of concern in the subcutaneous soft tissues there is a mildly heterogeneous hypoechoic lesion measuring 1.0 x 0.7 x 0.9 cm, similar in size to prior imaging when accounting for differences in technique. No internal vascularity. There is increased through transmission. IMPRESSION: 1. Hypoechoic avascular lesion within the subcutaneous soft tissues measuring up to 1.0 cm. Appearance is most suggestive of a sebaceous cyst. Lesion appears similar in size to prior imaging performed 12/18/2024 when accounting for differences in technique. This document has been electronically signed by: Orlando Ring MD on 02/27/2025 17:57:36 Prescriptions: No Action (DME) blood-glucose meter [FreeStyle Lite Meter] Kit See Rx Instructions .Route Qty: 1 0RF Rx Instructions: TID testing (DME) FreeStyle Lite Strips Strip See Rx Instructions .Route Qty: 100 5RF Rx Instructions: TID testing (DME) lancets [FreeStyle Lancets] 28 gauge misc See Rx Instructions .Route Qty: 300 1RF Rx Instructions: TID testing fenofibrate 54 mg tablet 54 mg PO DAILY Qty: 90 1RF cyanocobalamin (vitamin B-12) 1,000 mcg/mL solution 1,000 mcg IM QWEEK 30 Days Qty: 5 2RF Rx Instructions: 28th of the month atorvastatin 10 mg tablet 10 mg PO BEDTIME Qty: 90 1RF carvedilol [Coreg] 3.125 mg tablet 3.125 mg PO BID 90 Days Qty: 180 1RF Rx Instructions: must administer with a meal/food clonazepam 1 mg tablet 1 mg PO BID PRN (Reason: anxiety) 30 Days Qty: 60 0RF joovzsrghs-uekotfekoqceg-xeyd 50-325-40 mg tablet 1 tab PO BID PRN (Reason: pain) 10 Days Qty: 20 1RF amitriptyline 50 mg tablet 50 mg PO BEDTIME 90 Days Qty: 90 0RF tizanidine 4 mg capsule 4 mg PO BID PRN (Reason: muscle spasticity) 30 Days Qty: 60 1RF epinephrine [EpiPen 2-Lee] 0.3 mg/0.3 mL auto-injector 0.3 mg IM Q4H PRN (Reason: anaphylaxis) Qty: 2 0RF albuterol sulfate [Ventolin HFA] 90 mcg/actuation HFA aerosol inhaler 2 puff INHALATION Q6H PRN (Reason: wheezing) acetaminophen [Tylenol Extra Strength] 500 mg tablet 500 mg PO Q6H PRN (Reason: fever or pain) Qty: 14 0RF ondansetron 4 mg tablet,disintegrating 4 mg PO Q8H PRN (Reason: nausea and vomiting) Qty: 7 0RF levothyroxine 25 mcg capsule 25 mcg PO DAILY Qty: 60 0RF (DME) BD SafetyGlide Syringe 3 mL 23 x 1 syringe See Rx Instructions .Route Qty: 50 0RF Rx Instructions: As directed to injection B-12 weekly levothyroxine 200 mcg tablet 200 mcg PO DAILY Qty: 90 1RF levothyroxine [Synthroid] 25 mcg tablet 25 mcg PO DAILY 90 Days Qty: 90 1RF triamcinolone acetonide 0.1 % cream 1 appl topical DAILY Qty: 30 0RF semaglutide 0.25 mg or 0.5 mg (2 mg/3 mL) pen injector 0.25 mg subcut QWEEK Qty: 3 0RF (DME) compr.stocking,knee,long,x-lrg Misc See Rx Instructions .Route Qty: 2 0RF Rx Instructions: KNEE HIGH EXTRA LARGE STOCKING X 2 20-30 MMHG Print Language: Khmer
[2025-02-27 18:21] VITALS: BP 133/90; PULSE 94; RESP 16; TEMP 36.6; O2SAT 98
== END 2025-02-27 18:22 | disposition home or self-care (01) ==
PROVIDERS: Registered Nurse Emergency; Emergency Provider Emergency Medicine; PCP Nurse Practitioner Family
DX: R22.0 Localized swelling, mass and lump, head (principal); R06.02 Shortness of breath; R53.1 Weakness; Z79.899 Other long term (current) drug therapy
CPT/HCPCS: 36415; 71046; 76536; 80053; 85025; 99284

== ENCOUNTER → 2025-02-27 17:08 | Outpatient (BNV) | payer OTHER, SELFPAY | PROVIDERS: Emergency Provider Emergency Medicine; PCP Nurse Practitioner Family; Visit Provider Nuclear Medicine | DX: R22.0 Localized swelling, mass and lump, head (principal); R06.02 Shortness of breath | CPT/HCPCS: 71046; 76536 ==

== ENCOUNTER 2025-03-08 07:26 | Emergency (ER) | payer OTHER, SELFPAY ==
--- NOTE | ~2025-03-08 | CT_ITS ---
EXAMINATION: CT ABDOMEN PELVIS WITH IV CONTRAST HISTORY: LLQ pain, diarrhea, vomiting COMPARISON: Comparison is made with the prior examination dated 09/29/2024. TECHNIQUE: CT scan of the abdomen and pelvis was performed following administration of 85 mL Omnipaque 350 using standard departmental protocol. Coronal and sagittal reformatted images were generated and reviewed. Oral contrast material was not administered at the request of the referring physician. This CT exam was performed with one or more of the following dose reduction techniques: automated exposure control, adjustment of the mA and/or kV according to patient size, use of iterative reconstruction technique. DLP: 05/23/2002 mGy-cm FINDINGS: LOWER CHEST: The visualized lung bases are clear. There is no pleural effusion. CARDIOVASCULATURE: The heart is normal in size. There is no pericardial effusion. LIVER: The liver is normal in size and contour. No liver mass is identified. The hepatic and portal veins are patent. GALLBLADDER / BILE DUCTS: The gallbladder is surgically absent. There is no intra or extrahepatic biliary ductal dilatation. SPLEEN: The spleen is normal in size. No focal splenic lesion is identified. PANCREAS: The pancreas is unremarkable in appearance. ADRENAL GLANDS: Within normal limits. KIDNEYS/RETROPERITONEUM: No renal calculi are identified. There is no hydronephrosis. No renal masses are identified. LYMPH NODES: No abdominal or pelvic lymphadenopathy. VASCULATURE: The abdominal aorta is normal in caliber. MESENTERY/PERITONEUM: There is trace free fluid in the cul-de-sac. No masses. There is no free intraperitoneal gas. STOMACH: The stomach is unremarkable. SMALL BOWEL: The small bowel is normal in caliber. COLON: The colon is unremarkable. APPENDIX: Normal. URINARY BLADDER/PELVIC ORGANS: The urinary bladder is unremarkable. There is an involuting right ovarian follicle. The uterus and left ovary are unremarkable. BONES / SOFT TISSUES: No suspicious bony or soft tissue abnormalities. CT/CT abdomen pelvis w IV con IMPRESSION: Unremarkable contrast-enhanced CT of the abdomen and pelvis. Electronically signed by: Keven Hardy MD 03/08/2025 10:19 AM EDT
[2025-03-08 07:50] VITALS: BP 155/95; PULSE 113; RESP 16; TEMP 36.9; O2SAT 98; BMI 47.3
--- NOTE | 2025-03-08 08:02 | ED_ITS ---
HPI - Abdominal Pain General Chief Complaint: Abdominal Pain Stated Complaint: vomitting Time Seen by Provider: 03/08/25 07:39 Source: patient and old records reviewed Mode of arrival: ambulatory Limitations: no limitations History of Present Illness ED Provider: DEMI HPI narrative: 35 yo female with PMH of qt prolongation, DM2, HLD, obesity, migraines, here with c/o abrupt onset vomiting at 3am with no sick contacts, no travel, no food exposures. She then started with LLQ pain. She is having a hard time urinating. She has no diarrhea. She states she cannot stop vomiting now has abdominal pain and a headache. No recent abx reported. MD elicited complaint: abdominal pain (n/v) Pertinent past history: none Onset (ago): hour(s) (3am) Pain Consistency: constant Location: LLQ Severity: moderate Quality: aching Radiation: none Migration to: no migration Exacerbating factors: vomiting Relieving factors: nothing Associated symptoms: nausea and vomiting Related Data Home Medications ?Medication ?Instructions ?Recorded ?Confirmed albuterol sulfate 90 mcg/actuation 2 puff inhalation Q 6H PRN wheezing 08/02/23 02/21/25 aerosol inhaler (Ventolin HFA) Previous Rx's ?Medication ?Instructions ?Recorded FreeStyle Lite Meter #1 ea 01/19/23 (blood-glucose meter) epinephrine 0.3 mg/0.3 mL 0.3 mg (0.3 mL) IM Q4H PRN 0 02/05/23 injection, auto-injector (EpiPen anaphylaxis #2 ea 2-Lee) acetaminophen 500 mg tablet 500 mg PO Q6H PRN fever or pain 02/08/23 (Tylenol Extra Strength) #14 tabs compr.stocking,knee,long,x-lrg #2 ea 03/23/24 syringe with needle 3 mL 23 x 1 #50 ea 04/30/24 (BD SafetyGlide Syringe) fenofibrate 54 mg tablet 54 mg PO DAILY #90 tabs 06/23 12/14 cyanocobalamin (vitamin B-12) 1,000 mcg IM QWEEK Tue #5 mL 09/10/24 1,000 mcg/mL injection solution ondansetron 4 mg disintegrating 4 mg PO Q8H PRN nausea and 09/29/24 tablet vomiting #7 tabs levothyroxine 25 mcg capsule 25 mcg PO DAILY #60 caps 11/28/24 atorvastatin 10 mg tablet 10 mg PO BEDTIME #90 tabs carvedilol 3.125 mg tablet (Coreg) 3.125 mg PO BID 90 days #180 tabs 12/02/24 wpcjrllqyk-nvdqwibjtfonu-ndmxkyve 1 tab PO BID PRN miguel n 10 days #20 01/07/25 50 mg-325 mg-40 mg tablet tabs clonazepam 1 mg tablet 1 mg PO BID PRN anxiety 30 d ays 01/07/25 #60 tabs amitriptyline 50 mg tablet 50 mg PO BEDTIME 90 days #9 0 tabs 02/21/25 levothyroxine 200 mcg tablet 200 mcg PO DAILY #90 tabs 02/21/25 levothyroxine 25 mcg tablet 25 mcg PO DAILY 90 days #9 0 tabs 02/21/25 (Synthroid) semaglutide 0.25 mg or 0.5 mg (2 0.25 mg (0.368 mL) hawkins bcut QWEEK #3 02/21/25 mg/3 mL) subcutaneous pen injector mL triamcinolone acetonide 0.1 % 1 appl topical DAILY #30 grams 02/21/25 topical cream tizanidine 4 mg capsule 4 mg PO BID PRN muscle spast icity 02/27/25 30 days #60 caps FreeStyle Lancets 28 gauge #300 ea 03/04/25 (lancets) FreeStyle Lite Strips (blood sugar #100 ea 03/04/25 diagnostic) Allergies Allergy/AdvReac Type Severity Reaction Status Date / Time bee pollen (BEE STINGS) Allergy Severe ANAPHYLAXIS Verified 03/08/25 07:53 NSAIDS (Non-Steroidal Allergy Intermediate HIVES Verified 03/08/25 07:53 Anti-Inflamma (NSAIDS (NON-STEROIDAL ANTI-INFLAMMA) Penicillins Allergy Intermediate HIVES Verified 03/08/25 07:53 ibuprofen (From Motrin) Allergy Unknown Hives Verified 03/08/25 07:53 penicillin V Allergy Unknown unknown Verified 03/08/25 07:53 latex (LATEX) AdvReac Intermediate RASH Verified 03/08/25 07:53 sulfamethoxazole (From AdvReac Hives Verified 03/08/25 07:53 Bactrim) trimethoprim (From Bactrim) AdvReac Hives Verified 03/08/25 07:53 From Ortho Tri-Cyclen (21) AdvReac Intermediate DVT (BLOOD Uncoded 03/08/25 07:53 CLOT) Review of Systems Review of Systems Constitutional : No Weight loss, No Fever, No Chills Cardiovascular : No Chest Pain, No SOB, NoEdema Respiratory : No Cough, No Sputum, No Wheezing Gastrointestinal : Positive Nausea, Positive Vomiting, no Diarrhea, positive abdominal Pain, No Hematochezia, No Melena Genitourinary : No Dysuria, No Urinary Frequency Skin : No Skin Lesions, No rash Neuro : No Weakness, No Numbness, No Dizziness, No Headache All other systems reviewed and are negative. Yes all other systems are reviewed and are negative [facility] Past Medical History Attestation statement: The following information was validated with the patient. Source: old records reviewed Medical History Morbid obesity due to excess calories HLD (hyperlipidemia) HTN (hypertension) Type 2 diabetes mellitus Depression Migraine with aura Fibromyalgia Insomnia Hx of papillary thyroid carcinoma Surgical History History of umbilical hernia repair Bilateral carpal tunnel syndrome Hx of cholecystectomy History of tubal ligation History of section History of thyroidectomy Family History Family History Father History of heart attack Mental health disorder Mother Hypothyroidism Sister Anxiety Migraine Low blood pressure Mental health disorder Son Epilepsy Daughter No problems noted. Maternal Grandmother Breast cancer Paternal Grandmother Breast cancer Social History Social History Housing: Apartment Alcohol intake: current Alcohol intake frequency: holidays/special occasions only Patient Tobacco Use Status: Never used Tobacco e-Cigarette/Vaping Use: Never Used Second Hand Smoke Exposure: Yes Advance Directives: No Advance Directives Information Provided: Yes Current occupational status: unemployed Current occupation: rt handed Cognitive needs: No Hearing needs: No Vision needs: Yes Physical Exam ED Vital Signs: Vital Signs - 24 hr 03/08/25 07:50 03/08/25 08:53 03/08/25 09:19 Temperature 98.4 F Pulse Rate 113 H 96 96 Respiratory Rate 16 16 16 Blood Pressure 155/95 H 126/92 H 130/97 H Pulse Oximetry 98 95 98 Oxygen Delivery Method Room Air Room Air Room Air BMI result Body Mass Index 47.3 Appearance: Alert. Oriented X3. No acute distress. Eyes: Pupils equal, round and reactive to light. ENT: Pharynx normal. Neck: Normal inspection. Neck supple. CVS: Normal heart rate and rhythm. Pulses normal. Respiratory: No respiratory distress. Breath sounds normal. Abdomen: Soft and obese with moderate ttp in LLQ no rebound or guarding Skin: Skin warm and dry. Normal skin color. Normal skin turgor. Extremities: No lower extremity edema. Neuro: Oriented X 3. No motor deficit. No sensory deficit. Medical Decision Making Medical Decision Making [facility] Narrative: 35 yo female with PMH of qt prolongation, DM2, HLD, obesity, migraines, here with c/o abrupt onset n/v at 3am denies travel/exposures. She has LLQ pain but no diarrhea. At this time will obtain labs, IVF, pain control and CT scan for diverticular ds/renal colic. She has no signs of acute abdomen on exam and no chest pain to suggest ACS Differential Diagnosis Differential Diagnoses: The differential diagnosis associated with the presentation includes viral syndrome/diverticular ds/renal colic. Admission/Observation Consideration of admission/observation: Escalation of care including admission/observation considered negative work up stable for DC no vomiting here at this time Lab Data [facility] Lab Attestation statement: I reviewed the patient's lab results. 03/08/25 08:57 03/08/25 08:57 Labs: Lab Results 03/08/25 Range/Units 08:57 WBC 13.4 H (4.8-10.8) X10*3/uL RBC 5.12 (4.20-5.50) X10*6/uL Hgb 14.5 (12.0-16.0) g/dl Hct 42.2 (37.0-47.0) % MCV 82.4 (80.0-98.0) fL MCH 28.3 (27.0-33.0) pg MCHC 34.4 (31.0-35.0) g/dl RDW 11.9 (11.0-16.0) % Plt Count 347 (160-400) X10*3/uL MPV 10.1 (9.4-12.3) fL Immature Gran % (Auto) 0.3 (0.0-0.4) % Neut % (Auto) 82.9 H (45-73) % Lymph % (Auto) 10.5 L (20-40) % [place] % (Auto) 5.8 (2-11) % Eos % (Auto) 0.2 (0-4) % Baso % (Auto) 0.3 (0-2) % Lymph # (Auto) 1.4 (1.2-4.9) X10*3/uL [place] # (Auto) 0.8 (0.1-1.2) X10*3/uL Eos # (Auto) 0.0 (0.0-0.4) X10*3/uL Baso # (Auto) 0.0 (0.0-0.2) X10*3/uL Abs Immat Gran (auto) 0.04 H (0.00-0.03) X10*3/uL Absolute Neuts (auto) 11.1 H (2.0-8.3) x10*3/uL Absolute Nucleated RBC 0.000 (0.0-0.012) X10*3/uL Nucleated RBC % (auto) 0.0 (0.0-0.2) /100WBC Sodium 136 (135-145) mmol/L Potassium 4.3 (3.3-5.1) mmol/L Chloride 106 (96-108) mmol/L Carbon Dioxide 22 (22-29) mmol/L Anion Gap 12 (12-20) BUN 10 (9-16) mg/dL Creatinine 0.71 (0.5-1.4) mg/dL Estim Creat Clear Calc 121.9 Estimated GFR > 60 Random Glucose 123 H (60-115) mg/dL Calcium 8.9 (8.4-10.2) mg/dL Magnesium 1.9 (1.6-2.6) mg/dL Total Bilirubin 0.6 (0.0-1.0) mg/dL Direct Bilirubin 0.2 (0.0-0.5) mg/dL AST 25 (5-31) U/L ALT 40 H (0-31) U/L Alkaline Phosphatase 89 (39-117) U/L Total Protein 6.8 (6.5-8.0) g/dL Albumin 4.6 (3.5-5.0) g/dL Lipase 19 (8-78) U/L Beta HCG, Quant < 2 mIU/mL Independent Interpretation I performed an independent interpretation of an: EKG and CT Scan (no acute findings) Interpretation: Rate: 100 Rhythm: NSR [place]: normal Normal P waves. Normal SHARON. Normal QRS complex. ST T wave : no BREN, flat t waves throughout, t wave inversions inf leads/ant leads qTC: 479 prior studies: no changes from priors The study has been interpreted contemporaneously by me. . Radiology Impression Discussion of test interpretation with radiology: I have reviewed the radiologist's reading. External Record Review External record reviewed: Inpatient record and Outpatient record Prescription Management I considered prescription management with: Other Medications Administered Discontinued Medications Generic Name Dose Route Start Last Admin Trade Name Freq PRN Reason Stop Dose Admin Diazepam 2.5 mg 03/08/25 08:19 03/08/25 08:33 Diazepam 10 Mg/2 Ml Cartridge IVPUSH 03/08/25 08:20 2.5 mg STAT STA Administration Lactated Ringer's 1,000 mls @ 999 mls/hr 03/08/25 08:19 03/08/25 08:33 Lr IV 03/08/25 09:19 999 mls/hr .Q1H1M ONE Administration Iohexol 100 ml 03/08/25 09:54 03/08/25 09:54 Iohexol 350 Mg/Ml 100 Ml Infus..Btl IV 03/08/25 09:55 85 ml ONCE ONE Administration Morphine Sulfate 4 mg 03/08/25 07:56 03/08/25 08:21 Morphine Sulfate 4 Mg/Ml Cartridge IVPUSH 03/08/25 07:57 4 mg ONCE ONE Administration Protocol Discharge Plan Discharge Clinical Impression: Abdominal pain Qualifiers: Abdominal location: left lower quadrant Qualified Code(s): R10.32 - Left lower quadrant pain Nausea & vomiting Qualifiers: Vomiting type: unspecified Qualified Code(s): R11.2 - Nausea with vomiting, unspecified Patient Disposition: Home, Self-Care Instructions: Acute Nausea and Vomiting (ED), Abdominal Pain (ED) Additional Instructions: your labs are reassuring your urine was normal your CT scan shows no acute cause of your pain return for worsening pain, fevers, unable to eat or drink or any other concerns bland diet for 48 hours Prescriptions: No Action (DME) blood-glucose meter [FreeStyle Lite Meter] Kit See Rx Instructions .Route Qty: 1 0RF Rx Instructions: TID testing fenofibrate 54 mg tablet 54 mg PO DAILY Qty: 90 1RF cyanocobalamin (vitamin B-12) 1,000 mcg/mL solution 1,000 mcg IM QWEEK 30 Days Qty: 5 2RF Rx Instructions: of the atorvastatin 10 mg tablet 10 mg PO BEDTIME Qty: 90 1RF carvedilol [Coreg] 3.125 mg tablet 3.125 mg PO BID 90 Days Qty: 180 1RF Rx Instructions: must administer with a meal/food clonazepam 1 mg tablet 1 mg PO BID PRN (Reason: anxiety) 30 Days Qty: 60 0RF pscxxqcina-vnezwgacmqvfa-mwny 50-325-40 mg tablet 1 tab PO BID PRN (Reason: pain) 10 Days Qty: 20 1RF amitriptyline 50 mg tablet 50 mg PO BEDTIME 90 Days Qty: 90 0RF tizanidine 4 mg capsule 4 mg PO BID PRN (Reason: muscle spasticity) 30 Days Qty: 60 1RF (DME) FreeStyle Lite Strips Strip See Rx Instructions .Route Qty: 100 5RF Rx Instructions: TID testing (DME) lancets [FreeStyle Lancets] 28 gauge misc See Rx Instructions .Route Qty: 300 1RF Rx Instructions: TID testing epinephrine [EpiPen 2-Lee] 0.3 mg/0.3 mL auto-injector 0.3 mg IM Q4H PRN (Reason: anaphylaxis) Qty: 2 0RF albuterol sulfate [Ventolin HFA] 90 mcg/actuation HFA aerosol inhaler 2 puff INHALATION Q6H PRN (Reason: wheezing) acetaminophen [Tylenol Extra Strength] 500 mg tablet 500 mg PO Q6H PRN (Reason: fever or pain) Qty: 14 0RF ondansetron 4 mg tablet,disintegrating 4 mg PO Q8H PRN (Reason: nausea and vomiting) Qty: 7 0RF levothyroxine 25 mcg capsule 25 mcg PO DAILY Qty: 60 0RF (DME) BD SafetyGlide Syringe 3 mL 23 x 1 syringe See Rx Instructions .Route Qty: 50 0RF Rx Instructions: As directed to injection B-12 weekly levothyroxine 200 mcg tablet 200 mcg PO DAILY Qty: 90 1RF levothyroxine [Synthroid] 25 mcg tablet 25 mcg PO DAILY 90 Days Qty: 90 1RF triamcinolone acetonide 0.1 % cream 1 appl topical DAILY Qty: 30 0RF semaglutide 0.25 mg or 0.5 mg (2 mg/3 mL) pen injector 0.25 mg subcut QWEEK Qty: 3 0RF (DME) compr.stocking,knee,long,x-lrg Misc See Rx Instructions .Route Qty: 2 0RF Rx Instructions: KNEE HIGH EXTRA LARGE STOCKING X 2 20-30 MMHG Print Language: Armenian
--- NOTE | 2025-03-08 08:03 | ECG_ITS ---
Test Reason : abd pain Blood Pressure : */* mmHG Vent. Rate : 100 BPM Atrial Rate : 100 BPM P-R Int : 144 ms QRS Dur : 78 ms QT Int : 372 ms P-R-T Axes : 56 28 -6 degrees QTcB Int : 479 ms Normal sinus rhythm Possible Left atrial enlargement Low voltage QRS Nonspecific T wave abnormality Prolonged QT Abnormal ECG When compared with ECG of 28-Nov-2024 13:14, No significant change was found Referred By: Jud Washburn Electronically Signed By: Hero Borja
[2025-03-08] MEDS: diazePAM 10 MG/2 ML CARTRIDGE 2.5 MG IVPUSH (08:33)
[2025-03-08] MEDS: Lactated Ringers 1,000 ML 999 ML IV (08:33)
[2025-03-08 08:53] VITALS: BP 126/92; PULSE 96; RESP 16; O2SAT 95
[2025-03-08 09:00] LABS: MANUAL DIFF FLAG NO
[2025-03-08 09:05] LABS: Hematocrit 42.2 % (37.0-47.0); Hemoglobin 14.5 g/dl (12.0-16.0); Imm Gran Abs Auto 0.04 X10*3/uL (0.00-0.03); Imm Gran Pct Auto 0.3 % (0.0-0.4); Lymphocytes Absolute Auto 1.4 X10*3/uL (1.2-4.9); Mean Corpuscular HGB Conc 34.4 g/dl (31.0-35.0); Mean Corpuscular Hemoglobin 28.3 pg (27.0-33.0); Mean Corpuscular Volume 82.4 fL (80.0-98.0); NRBC Abs Auto 0.000 X10*3/uL (0.0-0.012); NRBC Pct Auto 0.0 /100WBC (0.0-0.2); Platelet Count 347 X10*3/uL (160-400); Red Blood Count 5.12 X10*6/uL (4.20-5.50); White Blood Count 13.4 X10*3/uL (4.8-10.8)
[2025-03-08 09:19] VITALS: BP 130/97; PULSE 96; RESP 16; O2SAT 98
[2025-03-08 09:27] LABS: Alanine Aminotransferase 40 U/L (0-31); Albumin Level 4.6 g/dL (3.5-5.0); Alkaline Phosphatase 89 U/L (39-117); Anion Gap 12 (12-20); Aspartate Amino Transferase 25 U/L (5-31); Blood Urea Nitrogen 10 mg/dL (9-16); Calcium 8.9 mg/dL (8.4-10.2); Carbon Dioxide 22 mmol/L (22-29); Chloride 106 mmol/L (96-108); Creatinine Clr Calc Pharmacy 121.9; Estimated Glomerular Filt Rate > 60; Lipase 19 U/L (8-78); Magnesium 1.9 mg/dL (1.6-2.6); Potassium 4.3 mmol/L (3.3-5.1); Sodium 136 mmol/L (135-145); Total Protein 6.8 g/dL (6.5-8.0)
[2025-03-08] MEDS: iohexoL 350 MG/ML 100 ML INFUS..BTL IV (09:54)
[2025-03-08 10:56] LABS: Appearance Urine Clear; Glucose Urine UA Negative (Negative); PH 8.0 (5.0-9.0); Specific Gravity - Urine >= 1.030 (1.005-1.025)
[2025-03-08 11:28] VITALS: BP 125/79; PULSE 105; RESP 16; TEMP 36.8; O2SAT 95
== END 2025-03-08 11:28 | disposition home or self-care (01) ==
PROVIDERS: Emergency Provider Emergency Medicine; PCP Nurse Practitioner Family
DX: R10.32 Left lower quadrant pain (principal); E11.9 Type 2 diabetes mellitus without complications; R11.2 Nausea with vomiting, unspecified; R10.22 Pelvic and perineal pain left side; Z79.85 Long-term (current) use of injectable non-insulin antidiabetic drugs; Z79.899 Other long term (current) drug therapy
CPT/HCPCS: 36415; 74177; 80048; 80076; 81003; 83690; 83735; 84702; 85025; 93005; 96361; 96374; 96375; 99284; 99285; J1200; J2270; J2765; J3360; J7120; Q9967

== ENCOUNTER → 2025-03-08 07:56 | Outpatient (BNV) | payer OTHER, SELFPAY | PROVIDERS: Emergency Provider Emergency Medicine; PCP Nurse Practitioner Family; Visit Provider Radiology Diagnostic Radiology | DX: R10.32 Left lower quadrant pain (principal); R19.7 Diarrhea, unspecified; R11.10 Vomiting, unspecified | CPT/HCPCS: 74177 ==

== ENCOUNTER → 2025-03-08 08:03 | Outpatient (BNV) | payer OTHER, SELFPAY | PROVIDERS: Emergency Provider Emergency Medicine; PCP Nurse Practitioner Family; Visit Provider Internal Medicine Cardiovascular Disease | DX: R94.31 Abnormal electrocardiogram [ECG] [EKG] (principal); R10.32 Left lower quadrant pain | CPT/HCPCS: 93010 ==

== ENCOUNTER 2025-03-21 08:05 | Outpatient (AMB) | payer OTHER, SELFPAY ==
[2025-03-21 08:09] VITALS: BP 111/56; PULSE 92; BMI 46.9
--- NOTE | 2025-03-21 08:09 | MHC.OFFVIS ---
Vital Signs 03/21/25 08:09 Height 5 ft Weight 240 lb BMI 46.9 BP 111/56 L Blood Pressure Location Rt brachial Position Sitting Pulse 92 Intake Visit Reasons: Follicular cyst of the skin Intake Note: This patient was referred by Dr. Terry for an assessment for Follicular cyst of the skin. Pt c/o; lesion right chin, reports she noticed this during the summer, increased in size, reports it started of as a zit but has grown. 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: No Accompanied by: Self / Same As Patient Allergies bee pollen (BEE STINGS) Allergy (Severe, Verified 03/21/25 08:20) ANAPHYLAXIS NSAIDS (Non-Steroidal Anti-Inflamma (NSAIDS (NON-STEROIDAL ANTI-INFLAMMA) Allergy (Intermediate, Verified 03/21/25 08:20) HIVES Penicillins Allergy (Intermediate, Verified 03/21/25 08:20) HIVES ibuprofen (From Motrin) Allergy (Unknown, Verified 03/21/25 08:20) Hives penicillin V Allergy (Unknown, Verified 03/21/25 08:20) unknown latex (LATEX) Adverse Reaction (Intermediate, Verified 03/21/25 08:20) RASH sulfamethoxazole (From Bactrim) Adverse Reaction (Verified 03/21/25 08:20) Hives trimethoprim (From Bactrim) Adverse Reaction (Verified 03/21/25 08:20) Hives From Ortho Tri-Cyclen (21) Adverse Reaction (Intermediate, Uncoded 03/21/25 08:20) DVT (BLOOD CLOT) Medication List - Last Reconciled 03/21/25 by Fabricio Brannon MD acetaminophen (Tylenol Extra Strength) 500 mg PO Q6H PRN albuterol sulfate 90 mcg/actuation (Ventolin HFA) 2 puffs inhalation Q6H PRN amitriptyline 50 mg PO BEDTIME 90 days atorvastatin 10 mg PO BEDTIME dvlhoojmnh-zmxhidvfpjroy-fwny 50-325-40 mg 1 tab PO BID PRN 10 days carvedilol (Coreg) 3.125 mg PO BID 90 days clonazepam 1 mg PO BID PRN 30 days compr.stocking,knee,long,x-lrg KNEE HIGH EXTRA LARGE STOCKING X 2 20-30 MMHG cyanocobalamin (vitamin B-12) 1,000 mcg IM QWEEK 1 month epinephrine (EpiPen 2-Lee) 0.3 mg (0.3 mL) IM Q4H PRN fenofibrate 54 mg PO DAILY FreeStyle Lancets (lancets) TID testing NS FreeStyle Lite Meter (blood-glucose meter) TID testing NS FreeStyle Lite Strips (blood sugar diagnostic) TID testing NS levothyroxine 25 mcg PO DAILY levothyroxine 200 mcg PO DAILY levothyroxine (Synthroid) 25 mcg PO DAILY 90 days ondansetron 4 mg PO Q8H PRN semaglutide 0.25 mg (0.368 mL) subcut QWEEK syringe with needle (BD SafetyGlide Syringe) As directed to injection B-12 weekly tizanidine 4 mg PO BID PRN 30 days triamcinolone acetonide 0.1% 1 appl topical DAILY HPI HPI Follicular cyst of the skin: Details: 35 year old female referred for a cyst on the neck. She says that she has noticed this small lump on the anterior neck for about 3-4 months. She has thought that this was just a pimple before but this has persisted. She denies any swelling but she thinks that this has increased in size. She wants this removed. She is a diabetic. She says she also being followed by the city controller because of some shortness of breath with exertion. [facility] Medical History (Updated 03/21/25 @ 08:37 by Fabricio Brannon MD) Epidermal inclusion cyst Morbid obesity due to excess calories HLD (hyperlipidemia) HTN (hypertension) Type 2 diabetes mellitus Depression Migraine with aura Fibromyalgia Insomnia Hx of papillary thyroid carcinoma Surgical History History of umbilical hernia repair Bilateral carpal tunnel syndrome Hx of cholecystectomy History of tubal ligation History of section History of thyroidectomy Family History Father History of heart attack Mental health disorder Mother Hypothyroidism Sister Anxiety Migraine Low blood pressure Mental health disorder Son Epilepsy Daughter No problems noted. Maternal Grandmother Breast cancer Paternal Grandmother Breast cancer Social History Housing: Apartment Alcohol intake: current Alcohol intake frequency: holidays/special occasions only Patient Tobacco Use Status: Never used Tobacco e-Cigarette/Vaping Use: Never Used Second Hand Smoke Exposure: Yes Current occupational status: unemployed Current occupation: rt handed Cognitive needs: No Hearing needs: No Vision needs: Yes Review of Systems Const Denies chills and Denies fever(s) Card Denies chest pain, Denies dyspnea and Reports dyspnea on exertion Resp Denies cough, Denies dyspnea and Reports dyspnea on exertion GI Denies hematochezia and Denies change in bowel habits Denies hematuria Musc Denies back pain and Denies limited range of motion Neuro Denies focal weakness and Denies convulsions Psych Denies depression and Denies mood swings Physical Exam Vital Signs: Last Vital Signs Pulse 92 03/21/25 08:09 BP 111/56 L 03/21/25 08:09 BMI result Body Mass Index 46.9 Const Other: Morbidly obese General: comfortable and no acute distress Orientation/consciousness: patient oriented x3 Neck Other: On the anterior neck is note of a cystic induration, about 1 cm in size, noninflamed, well-defined and mobile Neck: Yes no lymphadenopathy Resp Auscultation: clear to auscultation bilaterally Cardio Rhythm: regular rhythm GI Palpation (GI): Soft to palpation, nontender and no guarding Neuro General: patient oriented x3 Assessment & Plan Assessment & Plan (1) Epidermal inclusion cyst: Code(s): L72.0 - Epidermal cyst Category: Medical Plan: She has what appears to be an epidermal inclusion cyst in the anterior neck as described above. She wants this excised. I explained the technique of excision under local anesthesia. I reviewed the risks including but not limited to bleeding and infections, as well as the benefits and alternatives. She understands and wants to proceed. This will be done in the office under local anesthesia on her next visit Coding Level of Care Code New Pt Level 3 (65308) Diagnoses Epidermal inclusion cyst L72.0
--- OUTSIDE RECORDS SUMMARY | 2025-03-21 08:26 | XMS_ITS | Clinical Summary ---
Author Organization [address] Address [address] [place] [phone] Phone Care Team Providers Care Commercial Analyst Name Role Phone Seb Arrington MD Primary [...] age to complete this topic Care Teams Commercial Analyst Relationship Specialty Start Date End Date Seb Arrington MD PCP - General Internal Medicine 01/02/08
== END 2025-03-21 08:40 | disposition home or self-care (01) ==
LOC: HO.HGS 08:06
PROVIDERS: PCP Nurse Practitioner Family; Visit Provider Surgery
DX: L72.0 Epidermal cyst (principal)
CPT/HCPCS: 99203

== ENCOUNTER 2025-03-26 07:55 | Outpatient (AMB) | payer OTHER, SELFPAY ==
--- OUTSIDE RECORDS SUMMARY | 2025-03-26 07:57 | XMS_ITS | Data Portability ---
Author Organization [place] - [facility], Allergy Address [address] [address] Care Team Providers Care Taper Operator Name Role Phone BRIAN EDWARDS Primary Care [...] malignanc y, Radiology center 2024 025 pgustavson [facility], [address] [place], [address], 10:05:21 Surgeries None recorded. Imaging None recorded. 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 Procedures Surgical History Date Name Laterality Status Provider Name and Address Organization Details Recorded Time 06/22/2024 FOL_DP completed TITO PERAZA MD [address] [place] [place] [address], [place], [address], [facility] 06/21/2024 23:03:28 Imaging Results None recorded. Procedure Notes None recorded. Medical Equipment None Reported. Allergies Allergen ID Allergen Name Allergen Category Reaction Reaction Severity Criticality Documentation Date Start Date Code Code System Note Provider Name and Address Organization Details Recorded Time 022245 Non-stero idal anti-infl ammatory agent (substanc e) medicatio n Not available Not available Not available 06/22/2024 04762 5008 SNOMED Prisca hardy [facility] 12:53:41 020940 Product containin g penicilli n (product) medicatio n Not available Not available Not available 06/22/2024 92518 8001 SNOMED Prisca hardy [facility] 12:53:48 368179 Ortho Tri-Cycle n (28) medicatio n Not available Not available Not available 06/22/2024 Prisca hardy [facility] 12:53:59 Medications Name Sig Start Date [...] Updated DateTime 06/22/2024 152.4 cm 51.8 kg/m2 009492.98 g Prisca Downs [place] - [facility] 06/22/2024 12:53:33 Social History None recorded. [...] Diagnosis SNOMED-CT Code Diagnosis ICD10 Code Diagnosis IMO Codes Diagnosis Note [id number] TITO PERAZA MD [facility] [address] [address] 06/22/2024 12:36:54 06/22/2024 13:19:33 Papillary thyroid carcinoma [id number] C73 right [address] needs tissue sampling to r/o recurrence . FOL was normal in office Hoarse 32609530 R49.0 Health Concerns Section Related Observation LastModified by Organization Detai ls LastModified Time None Recorded Concern Status LastModified by Organization Details LastModified Time None Recorded Advance Directives Directive None Recorded Payers Insurance Date Sequence Insurance Name Policy Number Policy Jeffery Covered Member ID Jeffery Member ID Guarantor Name 07/20/[address] [place] [address] [id number] Jing Kahlil [id number] Jing Guillory Notes Date Note Type Note Provider Name and Address Organization Details Recorded Time 06/22/2024 text/html ROS as noted in the HPI hoarse returned about 11/2023not associated with vocal use ba swallow - normal per her report thyroid ca and [id number] subtotal thyroidectomy for cancer in [id number] revision thyroid and parathyroid but nothing was removed [facility]2017 completion thyroid [place] [id number] FU[place], [facility] 12/06/2023 ultrasound neck at [facility] the thyroid bed no residual lesionLeft submandibular region 9 x 9 x 6 mm reniform lymph node with normal architectural features. 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
--- OUTSIDE RECORDS SUMMARY | 2025-03-26 07:57 | XMS_ITS | Clinical Summary ---
Author Organization [facility] Address [address] [address] Phone Care Team Providers Care Cap And Stud Machine Operator Name Role Phone Elan Terry NP Primary [...] Procedure Name Priority Date/Time Associated Diagnosis Comments THYROID STIMULATING HORMONE (TSH) Routine 06/26/2020 3:37 PM EST H/O thyroidectomy from Last 3 Months or Most Recently Relevant to Health Maintenance Results * (ABNORMAL) TSH (06/26/2020 3:37 PM EST) TSH 0.03(L) 0.27 - 4.20 uIU/mL [facility] Blood 06/26/2020 3:37 PM EST 06/26/2020 3:42 PM EST us Rafael Garza PA LAB BLOOD BKR ORDERABLE S Final Result Performing Organization Address City/State/[facility] Co de Phone Number [address] [address] from Last 3 Months or Most Recently Relevant to Health Maintenance Insurance [facility] A[facility] Member Subscriber Plan / Payer (Ef fective 2018-Present) Name:Jing Guillory Relation to Subscriber:Self Name:Jing Guillory Payer ID:[id number] Group ID:[id number] Type:Medicaid Address: [place] [id number] [place] [address] [facility] [place] [address] [address] [address] ACO [facility] A[employer] Member Subscriber Plan / Payer (Ef fective 2018-Present) Name:Jing Guillory Relation to Subscriber:Self Name:Jing Guillory Payer ID:[id number] Group ID:[id number] Type:Medicaid [address] [facility] ACO [facility] ACO [address] [place], [place] [address] [facility] ACO [address] [place], [place] [address] JENNIFFER HARRIS [id number] [facility] ACO [address] HMO Care Teams Cap And Stud Machine Operator Relationship Specialty Start Date End Date Elan Terry NP [address] [place] [address] PCP - General Family Medicine 05/05/18 Additional Source Comments The information contained in this document represents components of the legal health record. It is not the complete legal health record.[facility]
--- OUTSIDE RECORDS SUMMARY | 2025-03-26 07:57 | XMS_ITS | Clinical Summary ---
Author Organization [address] Address [address] [place] [phone] Phone Care Team Providers Care Numerical Control Operator Name Role Phone Seb Arrington MD Primary [...] age to complete this topic Care Teams Numerical Control Operator Relationship Specialty Start Date End Date Seb Arrington MD PCP - General Internal Medicine 01/02/08
--- NOTE | 2025-03-26 07:59 | A.OFFVIS_ITS ---
Vital Signs 03/26/25 08:00 Height 5 ft Weight 240 lb 8 oz BMI 47.0 BP 116/78 Blood Pressure Location Rt brachial Position Sitting Pulse 95 Pulse Source Pulse Oximeter Pulse Oximetry (%) 97 Oxygen Delivery Method Room Air Intake Visit Reasons: INP-Snoring / Fatigue Intake Note: Patient presents [employer] SAL[employer] REPRESENT[employer]IVE Snoring. Snoring w/ excessive daytime sleepiness, fatigue. Hard time staying asleep. No witnessed apnea/gasping. Goes to bed at 8-10pm wakes up at 6am. Wakes up a lot during the night. Headaches upon waking up that last through out the day. Naps 1hr on weekends if not working. Not sure when last sleep study was but was years ago . Accompanied by: Self / Same As Patient Allergies bee pollen (BEE STINGS) Allergy (Severe, Verified 03/26/25 08:06) ANAPHYLAXIS NSAIDS (Non-Steroidal Anti-Inflamma (NSAIDS (NON-STEROIDAL ANTI-INFLAMMA) Allergy (Intermediate, Verified 03/26/25 08:06) HIVES Penicillins Allergy (Intermediate, Verified 03/26/25 08:06) HIVES ibuprofen (From Motrin) Allergy (Unknown, Verified 03/26/25 08:06) Hives penicillin V Allergy (Unknown, Verified 03/26/25 08:06) unknown latex (LATEX) Adverse Reaction (Intermediate, Verified 03/26/25 08:06) RASH sulfamethoxazole (From Bactrim) Adverse Reaction (Verified 03/26/25 08:06) Hives trimethoprim (From Bactrim) Adverse Reaction (Verified 03/26/25 08:06) Hives From Ortho Tri-Cyclen (21) Adverse Reaction (Intermediate, Uncoded 03/21/25 08:20) DVT (BLOOD CLOT) HPI Comments Details: 35 year old female with Addisons Disease presents for an evaluation of ANTONIA. She has been chronically fatigued for the last 2 years. She started weekly subcut injections of b12 1000mcg and still exhausted. She goes to bed at 10pm and never feels rested upon waking. She has multiple arousals at night and paces around the room. She snores loudly, gasps for air and kicks her feet at night per her . She has morning headaches bi temporally which can last hours to days with a 7/10 throbbing pain and takes fiorcet along with tylenol arthritis which helps with headaches. She has an uncomfortable sensation bilaterally in lower extremities, and a jumpy sensation with pins needles, and tingling. Her memory is poor, she is foggy in the mornings, forgets dates, appts and must write down all tasks. Her diet is improved since discontinuing ozempic, though has lost 20lbs since Apr 2024, monitors her blood sugars, eats a clean diet, avoids sugary and night time snacks, also has increased her water intake. Her mood fluctuates and she can be snippy, denies antidepressants and anxiety. She had a partial thyroidectomy in 2014, 2015, 2016 and parathyroidectomy in 2016. She has a 1cm s uperficial nodule, r. side of the neck, surgical resection planned Apr 29, 2025. She denies parasomnias, h/o gerd. She denies alcohol, smoking and MJ/edible use. [facility] Medical History Epidermal inclusion cyst Morbid obesity due to excess calories HLD (hyperlipidemia) HTN (hypertension) Type 2 diabetes mellitus Depression Migraine with aura Fibromyalgia Insomnia Hx of papillary thyroid carcinoma Surgical History History of umbilical hernia repair Bilateral carpal tunnel syndrome Hx of cholecystectomy History of tubal ligation History of section History of thyroidectomy Family History Father History of heart attack Mental health disorder Mother Hypothyroidism Sister Anxiety Migraine Low blood pressure Mental health disorder Son Epilepsy Daughter No problems noted. Maternal Grandmother Breast cancer Paternal Grandmother Breast cancer Social History Housing: Apartment Alcohol intake: current Alcohol intake frequency: holidays/special occasions only Patient Tobacco Use Status: Never used Tobacco e-Cigarette/Vaping Use: Never Used Second Hand Smoke Exposure: Yes Current occupational status: unemployed Current occupation: rt handed Cognitive needs: No Hearing needs: No Vision needs: Yes Physical Exam Vital Signs: Last Vital Signs Pulse 95 03/26/25 08:00 BP 116/78 03/26/25 08:00 Pulse Ox 97 03/26/25 08:00 Oxygen Delivery Method Room Air 03/26/25 08:00 BMI result Body Mass Index 47.0 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 Const General: cooperative, comfortable and no acute distress Nutritional Appearance: obese Orientation/consciousness: patient oriented x3 HEENT Face and sinus: Yes face symmetric Teeth and gingiva: other (mallampti score is 3) Eyes Pupils: Equal, round and reactive pupils present Neck Neck: Yes full ROM Resp Effort & Inspection: normal respiratory effort and able to speak in complete sentences Skin Other: 1cm nodule superficial r. side of neck. Neuro General: patient oriented x3 and moves all extremities Cranial nerves: Yes Equal, round and reactive pupils present, Yes Normal accommodation reflex present, Yes Nystagmus not present, Yes Normal facial strength present, Yes Ability to bilaterally rotate head present and Yes Ability to bilaterally elevate shoulders present Cognition (Neuro): normal cognition Gait exam (Neuro): Normal gait present Motor exam (neuro): 5/5 motor strength present throughout, Normal motor muscle tone present throughout and Motor abnormalities not present Sensory Exam: Upper extremity sensory exam abnormal and Abnormal lower extremity sensory exam Deep tendon reflexes (DTR's): Right triceps reflex intensity grade: 2+, Left triceps reflex intensity grade: 2+, Rt Biceps (C5, C6): 2+, Left biceps reflex intensity grade: 2+, Right brachioradialis reflex intensity grade: 2+, Left brachioradialis reflex intensity grade: 2+, Right patellar reflex intensity grade: 3+, Left patellar reflex intensity grade: 3+, Right ankle reflex intensity grade: 0 and Left ankle reflex intensity grade: 0 Psych Appearance: grossly normal Mental Status: mental status grossly normal Thought process: Normal thought process present Thought content: Normal thought content present Results Reviewed Results Reviewed: 06/2024 [facility] Labs reviewed with pt. Assessment & Plan Assessment & Plan (1) Excessive daytime sleepiness: Code(s): G47.19 - Other hypersomnia Category: Medical (2) Chronic fatigue: Code(s): R53.82 - Chronic fatigue, unspecified Category: Medical (3) RLS (restless legs syndrome): Code(s): G25.81 - Restless legs syndrome Category: Medical Plan HST r/o ANTONIA Labs r/o fatigue RLS will monitor magnesium 200mg po at bedtime. f/u in 3 months Orders: Orders Methylmalonic Acid Today G47.19 - Other hypersomnia, G47.9 - Sleep disorder, unspecified, R53.82 - Chronic fatigue, unspecified, R53.83 - Other fatigue Homocysteine Today G47.19 - Other hypersomnia, G47.9 - Sleep disorder, unspecified, R53.82 - Chronic fatigue, unspecified, R53.83 - Other fatigue RT home sleep study Today G47.19 - Other hypersomnia Ferritin Today G47.19 - Other hypersomnia, R53.82 - Chronic fatigue, unspecified Vitamin D 25-OH Total Today G47.19 - Other hypersomnia, R53.82 - Chronic fatigue, unspecified Vitamin B12 and Folate Today G47.19 - Other hypersomnia, R53.82 - Chronic fatigue, unspecified TSH reflex Free T4 Today G47.19 - Other hypersomnia, R53.82 - Chronic fatigue, unspecified Medications: New magnesium 200 mg PO DAILY 90 tabs 0RF 3 months MDD 200 G25.81 - Restless legs syndrome Patient Instructions: Please complete the following fasting labs to rule out deficiencies. CBC/CMP/ B12/ Vit D/ TSH/ Homocysteine and MMA/ Ferritin. Sleep Hygiene provided: set a scheduled bedtime and wake time to help regulate the circadian rhythm and balance the release of pituitary hormones. Sleep in a dark room, temperatures below 68 degrees, and no devices n bed. Limit caffeinated products 6 hours prior to bed, and limit fluids 2-4 hours prior to bed. Gentle night yoga, diffusing essential oils, and playing soft music can be relaxing. Coding Level of Care Code New Pt Level 4 (24778) Diagnoses Excessive daytime sleepiness G47.19 Chronic fatigue R53.82 RLS (restless legs syndrome) G25.81
[2025-03-26 08:00] VITALS: BP 116/78; PULSE 95; O2SAT 97; BMI 47.0
== END 2025-03-26 08:42 | disposition home or self-care (01) ==
LOC: HO.HSMS 07:55
PROVIDERS: PCP Nurse Practitioner Family; Visit Provider Physician Assistant Medical
DX: G47.19 Other hypersomnia (principal); R53.82 Chronic fatigue, unspecified; G25.81 Restless legs syndrome
CPT/HCPCS: 99204

== ENCOUNTER 2025-03-27 13:10 | Emergency (ER) | payer OTHER, SELFPAY ==
--- NOTE | 2025-03-27 | ECG_ITS ---
Test Reason : cp Blood Pressure : */* mmHG Vent. Rate : 86 BPM Atrial Rate : 86 BPM P-R Int : 144 ms QRS Dur : 80 ms QT Int : 378 ms P-R-T Axes : 26 13 5 degrees QTcB Int : 452 ms Normal sinus rhythm Low voltage QRS Borderline ECG When compared with ECG of 08-Mar-2025 08:16, Nonspecific T wave abnormality no longer evident in Lateral leads Referred By: Generic ED Physician Electronically Signed By: Hero Borja
--- NOTE | ~2025-03-27 | XR_ITS ---
EXAMINATION: XR CHEST 2 VIEWS HISTORY: chest pain COMPARISON: Comparison is made with the prior examination dated 02/27/2025. FINDINGS: PA and lateral views of the chest are submitted. The lungs are expanded and clear. There is no pleural effusion, pneumothorax, or pulmonary vascular congestion. The heart is normal in size. The bones are intact. XR/XR chest 2V IMPRESSION: No acute cardiopulmonary abnormality. Electronically signed by: Keven Hardy MD 03/27/2025 02:44 PM [facility]
[2025-03-27 13:14] VITALS: BP 154/98; PULSE 91; O2SAT 99
[2025-03-27 13:22] VITALS: BP 119/75; PULSE 86; RESP 16; O2SAT 99; BMI 46.9
--- NOTE | 2025-03-27 13:45 | ED.CHESTPAIN ---
HPI - Chest Pain General Chief Complaint: Chest Pain Stated Complaint: CHEST PAIN 8/10 PAIN PER EMS Time Seen by Provider: 03/27/25 13:45 Source: patient and EMS Mode of arrival: EMS Limitations: no limitations History of Present Illness ED Provider: HPI narrative: 35-year-old woman presenting with chest pain midsternal somewhat reproducible was radiating to her left shoulder, nonsmoker nondrinker no history of ACS, not on blood thinners, has had chest pains in the past, reports seeing waste oil pumper in the past. MD complaint: chest pain Related Data Home Medications ?Medication ?Instructions ?Recorded ?Confirmed albuterol sulfate 90 mcg/actuation 2 puff inhalation Q6H PRN wheezing 08/02/23 03/21/25 aerosol inhaler (Ventolin HFA) Previous Rx's ?Medication ?Instructions ?Recorded FreeStyle Lite Meter #1 ea 01/19/23 (blood-glucose meter) epinephrine 0.3 mg/0.3 mL 0.3 mg (0.3 mL) IM Q4H PRN 02/05/23 injection, auto-injector (EpiPen anaphylaxis #2 ea 2-Lee) acetaminophen 500 mg tablet 500 mg PO Q6H PRN fever or pain 02/08/23 (Tylenol Extra Strength) #14 tabs compr.stocking,knee,long,x-lrg #2 ea 03/23/24 syringe with needle 3 mL 23 x 1 #50 ea 04/30/24 (BD SafetyGlide Syringe) fenofibrate 54 mg tablet 54 mg PO DAILY #90 tabs 07/09/24 cyanocobalamin (vitamin B-12) 1,000 mcg IM QWEEK 1 month #5 mL 09/10/24 1,000 mcg/mL injection solution ondansetron 4 mg disintegrating 4 mg PO Q8H PRN nausea and 09/29/24 tablet vomiting #7 tabs levothyroxine 25 mcg capsule 25 mcg PO DAILY #60 caps 11/28/24 atorvastatin 10 mg tablet 10 mg PO BEDTIME #90 tabs 12/02/24 carvedilol 3.125 mg tablet (Coreg) 3.125 mg PO BID 90 days #180 tabs 12/02/24 gyitodtypi-lbovxgdbnjcif-fmxxqzdy 1 tab PO BID PRN pain 10 days #20 01/07/25 50 mg-325 mg-40 mg tablet tabs clonazepam 1 mg tablet 1 mg PO BID PRN anxiety 30 days 01/07/25 #60 tabs amitriptyline 50 mg tablet 50 mg PO BEDTIME 90 days #90 tabs 02/21/25 levothyroxine 200 mcg tablet 200 mcg PO DAILY #90 tabs 02/21/25 levothyroxine 25 mcg tablet 25 mcg PO DAILY 90 days #90 tabs 02/21/25 (Synthroid) semaglutide 0.25 mg or 0.5 mg (2 0.25 mg (0.368 mL) subcut QWEEK #3 02/21/25 mg/3 mL) subcutaneous pen injector mL triamcinolone acetonide 0.1 % 1 appl topical DAILY #30 grams 02/21/25 topical cream tizanidine 4 mg capsule 4 mg PO BID PRN muscle spasticity 02/27/25 30 days #60 caps FreeStyle Lancets 28 gauge #300 ea 03/04/25 (lancets) FreeStyle Lite Strips (blood sugar #100 ea 03/04/25 diagnostic) magnesium 200 mg tablet 200 mg PO DAILY 3 months #90 tabs 03/26/25 Allergies Allergy/AdvReac Type Severity Reaction Status Date / Time bee pollen (BEE STINGS) Allergy Severe ANAPHYLAXIS Verified 03/27/25 13:24 NSAIDS (Non-Steroidal Allergy Intermediate HIVES Verified 03/27/25 13:24 Anti-Inflamma (NSAIDS (NON-STEROIDAL ANTI-INFLAMMA) Penicillins Allergy Intermediate HIVES Verified 03/27/25 13:24 ibuprofen (From Motrin) Allergy Unknown Hives Verified 03/27/25 13:24 penicillin V Allergy Unknown unknown Verified 03/27/25 13:24 latex (LATEX) AdvReac Intermediate RASH Verified 03/27/25 13:24 sulfamethoxazole (From AdvReac Hives Verified 03/27/25 13:24 Bactrim) trimethoprim (From Bactrim) AdvReac Hives Verified 03/27/25 13:24 From Ortho Tri-Cyclen (21) AdvReac Intermediate DVT (BLOOD Uncoded 03/27/25 13:24 CLOT) Review of Systems Constitutional: Constitutional: Reports as per [facility] Past Medical History Medical History Epidermal inclusion cyst Morbid obesity due to excess calories HLD (hyperlipidemia) HTN (hypertension) Type 2 diabetes mellitus Depression Migraine with aura Fibromyalgia Insomnia Hx of papillary thyroid carcinoma Surgical History History of umbilical hernia repair Bilateral carpal tunnel syndrome Hx of cholecystectomy History of tubal ligation History of section History of thyroidectomy Family History Family History Father History of heart attack Mental health disorder Mother Hypothyroidism Sister Anxiety Migraine Low blood pressure Mental health disorder Son Epilepsy Daughter No problems noted. Maternal Grandmother Breast cancer Paternal Grandmother Breast cancer Social History Social History Housing: Apartment Alcohol intake: current Alcohol intake frequency: holidays/special occasions only Patient Tobacco Use Status: Never used Tobacco Smoked in Last 30 Days: No e-Cigarette/Vaping Use: Never Used Second Hand Smoke Exposure: Yes Use of substances other than those prescribed or required for medical reasons: No Advance Directives: No Advance Directives Information Provided: Yes Current occupational status: unemployed Current occupation: rt handed Cognitive needs: No Hearing needs: No Vision needs: Yes Physical Exam Exam: Exam: General: ?Appears of stated age ? ?PERRLA, EOMI, MMM, ? Neck: Supple, no LAD ? ?CV: RRR, no obvious murmurs appreciated, reproducible chest wall pain radial pulses +2 bilaterally ? ?Resp: ?No wheezing rales rhonchi no stridor moving air well ? Abd: ?Bowel sounds are present, no tenderness no rebound no rigidity ? ?MSK: FROM, strength 5/5 all extremities ? Skin: Warm, dry, intact, ? ?Neuro: ?Alert and oriented x3, moving upper and lower extremities symmetrically, no obvious facial asymmetry noted, cranial nerves 2-12 intact Vital Signs: Vital Signs: Last Vital Signs Temp 97.7 F 03/27/25 14:31 Pulse 87 03/27/25 14:31 Resp 14 03/27/25 14:31 BP 127/72 03/27/25 14:31 Pulse Ox 100 03/27/25 14:31 O2 Del Method Room Air 03/27/25 14:31 BMI result Body Mass Index 46.9 Medications Administered Discontinued Medications Generic Name Dose Route Start Last Admin Trade Name Bernadette PRN Reason Stop Dose Admin Morphine Sulfate 4 mg 03/27/25 14:22 03/27/25 14:35 Morphine Sulfate 4 Mg/Ml Cartridge IVPUSH 03/27/25 14:23 4 mg ONCE ONE Administration Protocol Medical Decision Making Medical Decision Making [facility] Narrative: 2:32 PM 03/27/2025 (Dr. Herbie De La Torre): ECG does not reveal any evidence for underlying dysrhythmia or ACS, no hypoxia tachycardic to suspect PE, chest x-ray to evaluate for pneumothorax, mediastinal widening, unlikely that this is due to aortic dissection or Boerhaave syndrome. Patient has multiple allergies see your medications, will receive morphine for pain control Differential Diagnosis Differential Diagnoses: The differential diagnosis associated with the presentation includes (ACS, pneumothorax, aortic dissection, PE, Boerhaave syndrome) Admission/Observation Consideration of admission/observation: Escalation of care including admission/observation considered Lab Data [facility] Lab Attestation statement: I reviewed the patient's lab results. 03/27/25 14:16 03/27/25 14:16 Labs: Lab Results 03/27/25 Range/Units 14:16 WBC 7.7 (4.8-10.8) X10*3/uL RBC 4.90 (4.20-5.50) X10*6/uL Hgb 13.7 (12.0-16.0) g/dl Hct 40.7 (37.0-47.0) % MCV 83.1 (80.0-98.0) fL MCH 28.0 (27.0-33.0) pg MCHC 33.7 (31.0-35.0) g/dl RDW 11.9 (11.0-16.0) % Plt Count 336 (160-400) X10*3/uL MPV 10.1 (9.4-12.3) fL Immature Gran % (Auto) 0.3 (0.0-0.4) % Neut % (Auto) 63.9 (45-73) % Lymph % (Auto) 23.8 (20-40) % Cass % (Auto) 10.0 (2-11) % Eos % (Auto) 1.4 (0-4) % Baso % (Auto) 0.6 (0-2) % Lymph # (Auto) 1.8 (1.2-4.9) X10*3/uL Cass # (Auto) 0.8 (0.1-1.2) X10*3/uL Eos # (Auto) 0.1 (0.0-0.4) X10*3/uL Baso # (Auto) 0.1 (0.0-0.2) X10*3/uL Abs Immat Gran (auto) 0.02 (0.00-0.03) X10*3/uL Absolute Neuts (auto) 4.9 (2.0-8.3) x10*3/uL Absolute Nucleated RBC 0.000 (0.0-0.012) X10*3/uL Nucleated RBC % (auto) 0.0 (0.0-0.2) /100WBC PT 11.9 (11.2-13.5) SEC INR 1.0 (0.9-1.1) Sodium 139 (135-145) mmol/L Potassium 4.0 (3.3-5.1) mmol/L Chloride 105 (96-108) mmol/L Carbon Dioxide 28 (22-29) mmol/L Anion Gap 10 L (12-20) BUN 14 (9-16) mg/dL Creatinine 0.71 (0.5-1.4) mg/dL Estim Creat Clear Calc 121.3 Estimated GFR > 60 Random Glucose 106 (60-115) mg/dL Calcium 8.9 (8.4-10.2) mg/dL Magnesium 2.2 (1.6-2.6) mg/dL Troponin I High Sens < 2.7 (<3.5-17.0) ng/L NT-Pro-B Natriuret Pep 18.7 (<300) pg/mL Independent Interpretation I performed an independent interpretation of an: EKG (86 bpm, otherwise normal ECG without dysrhythmia, AV lorenzo blocks or ST-T changes to suspect underlying ACS, my independent interpretation) and Plain X-Ray (My independent chest xray interpretation: Lungs: Lungs are clear bilaterally without evidence of focal consolidation, pleural effusion, or pneumothorax. Cardiac silhouette is unremarkable, no obvious mediastinal widening, no obvious bony abnormalities such as fractures. Impression: Normal chest X-r) Radiology Impression Discussion of test interpretation with radiology: I have reviewed the radiologist's reading. Independent Historian Clinical information obtained from an independent historian. History obtained from or confirmed by: EMS Critical Care Time Critical Care Time Critical Care Time: Yes Total Critical Care Time: 32 Attestation: Time is exclusive of separately billable procedures. Time includes: direct patient care, patient reassessment, coordination of patient care, interpretation of data (laboratory data, pulse oximetry, arterial blood gases and chest xrays), review of patient's medical records, medical consultation and documentation of patient care. Procedures excluded from critical care time: central intravenous line placement and electrocardiography. Discharge Plan Discharge Clinical Impression: Chest pain, precordial Instructions: Chest Pain (ED) Additional Instructions: Diagnosis and Initial Evaluation: You have been evaluated in the Emergency Department (ED) for chest pain. Based on your clinical assessment, electrocardiogram (ECG), and high-sensitivity cardiac troponin (hs-cTn) levels, you have been classified as low-risk for acute coronary syndrome (ACS) and myocardial infarction (KS). This means that your likelihood of having a heart attack or other serious heart condition in the next 30 days is very low. Follow-Up Care: ? Primary Care Provider (PCP) or Software Installer: It is important to follow up with your primary care provider or waste oil pumper within the next 14 to 30 days. This follow-up is crucial to ensure that any underlying conditions are managed appropriately and to discuss any further testing that may be needed. ? Notification: If you have an established PCP or waste oil pumper, they have been notified of your ED visit to facilitate continuity of care. Self-Care and Monitoring: ? Medications: Continue taking any prescribed medications as directed. If you have been given new medications, ensure you understand how and when to take them. ? Activity: Resume normal activities as tolerated. Avoid strenuous activities until you have discussed them with your healthcare provider. ? Diet: Maintain a heart-healthy diet, low in saturated fats, cholesterol, and sodium. Red Flags: Seek immediate medical attention if you experience any of the following: ? New or worsening chest pain ? Shortness of breath ? Dizziness or fainting ? Pain radiating to your arm, neck, or jaw ? Sweating, nausea, or vomiting Additional Testing: In some cases, outpatient testing such as a stress test or imaging may be recommended to further evaluate your heart health. Your follow-up provider will discuss this with you if necessary. Mental Health: Anxiety and stress can contribute to chest pain. Consider discussing any concerns with your healthcare provider, who may recommend screening for anxiety or depression and appropriate management strategies. Contact Information: If you have any questions or concerns before your follow-up appointment, please contact your healthcare provider or the ED where you were evaluated. Summary: You have been discharged from the ED with a low risk of serious heart conditions. Follow the instructions above, attend your follow-up appointments, and seek immediate care if you experience any red flags. Prescriptions: No Action (DME) blood-glucose meter [FreeStyle Lite Meter] Kit See Rx Instructions .Route Qty: 1 0RF Rx Instructions: TID testing fenofibrate 54 mg tablet 54 mg PO DAILY Qty: 90 1RF cyanocobalamin (vitamin B-12) 1,000 mcg/mL solution 1,000 mcg IM QWEEK 30 Days Qty: 5 2RF Rx Instructions: of the atorvastatin 10 mg tablet 10 mg PO BEDTIME Qty: 90 1RF carvedilol [Coreg] 3.125 mg tablet 3.125 mg PO BID 90 Days Qty: 180 1RF Rx Instructions: must administer with a meal/food clonazepam 1 mg tablet 1 mg PO BID PRN (Reason: anxiety) 30 Days Qty: 60 0RF regkijzqck-xgcudiqwbbfcz-dubq 50-325-40 mg tablet 1 tab PO BID PRN (Reason: pain) 10 Days Qty: 20 1RF amitriptyline 50 mg tablet 50 mg PO BEDTIME 90 Days Qty: 90 0RF tizanidine 4 mg capsule 4 mg PO BID PRN (Reason: muscle spasticity) 30 Days Qty: 60 1RF (DME) FreeStyle Lite Strips Strip See Rx Instructions .Route Qty: 100 5RF Rx Instructions: TID testing (DME) lancets [FreeStyle Lancets] 28 gauge misc See Rx Instructions .Route Qty: 300 1RF Rx Instructions: TID testing epinephrine [EpiPen 2-Lee] 0.3 mg/0.3 mL auto-injector 0.3 mg IM Q4H PRN (Reason: anaphylaxis) Qty: 2 0RF albuterol sulfate [Ventolin HFA] 90 mcg/actuation HFA aerosol inhaler 2 puff INHALATION Q6H PRN (Reason: wheezing) acetaminophen [Tylenol Extra Strength] 500 mg tablet 500 mg PO Q6H PRN (Reason: fever or pain) Qty: 14 0RF ondansetron 4 mg tablet,disintegrating 4 mg PO Q8H PRN (Reason: nausea and vomiting) Qty: 7 0RF levothyroxine 25 mcg capsule 25 mcg PO DAILY Qty: 60 0RF (DME) BD SafetyGlide Syringe 3 mL 23 x 1 syringe See Rx Instructions .Route Qty: 50 0RF Rx Instructions: As directed to injection B-12 weekly levothyroxine 200 mcg tablet 200 mcg PO DAILY Qty: 90 1RF levothyroxine [Synthroid] 25 mcg tablet 25 mcg PO DAILY 90 Days Qty: 90 1RF triamcinolone acetonide 0.1 % cream 1 appl topical DAILY Qty: 30 0RF semaglutide 0.25 mg or 0.5 mg (2 mg/3 mL) pen injector 0.25 mg subcut QWEEK Qty: 3 0RF magnesium 200 mg tablet 200 mg PO DAILY MDD 200 90 Days Qty: 90 0RF (DME) compr.stocking,knee,long,x-lrg Misc See Rx Instructions .Route Qty: 2 0RF Rx Instructions: KNEE HIGH EXTRA LARGE STOCKING X 2 20-30 [facility] Referrals: Elan Terry, RECOVERY ANALYST-BC [Primary Care Provider, Internal Medicine] - 2 weeks Clinical Impression: Chest pain, precordial Print Language: Mongolian
[2025-03-27 13:50] VITALS: PULSE 86
[2025-03-27 14:23] LABS: MANUAL DIFF FLAG NO
[2025-03-27 14:25] LABS: Hematocrit 40.7 % (37.0-47.0); Hemoglobin 13.7 g/dl (12.0-16.0); Imm Gran Abs Auto 0.02 X10*3/uL (0.00-0.03); Imm Gran Pct Auto 0.3 % (0.0-0.4); Lymphocytes Absolute Auto 1.8 X10*3/uL (1.2-4.9); Mean Corpuscular HGB Conc 33.7 g/dl (31.0-35.0); Mean Corpuscular Hemoglobin 28.0 pg (27.0-33.0); Mean Corpuscular Volume 83.1 fL (80.0-98.0); NRBC Abs Auto 0.000 X10*3/uL (0.0-0.012); NRBC Pct Auto 0.0 /100WBC (0.0-0.2); Platelet Count 336 X10*3/uL (160-400); Red Blood Count 4.90 X10*6/uL (4.20-5.50); White Blood Count 7.7 X10*3/uL (4.8-10.8)
[2025-03-27 14:30] LABS: INTERNATIONAL NORM RATIO 1.0 (0.9-1.1); Prothrombin Time 11.9 SEC (11.2-13.5)
[2025-03-27 14:31] VITALS: BP 127/72; PULSE 87; RESP 14; TEMP 36.5; O2SAT 100
[2025-03-27 14:46] LABS: NT Pro B Type Natriuretic Pept 18.7 pg/mL (<300)
[2025-03-27 14:48] LABS: Anion Gap 10 (12-20); Blood Urea Nitrogen 14 mg/dL (9-16); Calcium 8.9 mg/dL (8.4-10.2); Carbon Dioxide 28 mmol/L (22-29); Chloride 105 mmol/L (96-108); Creatinine Clr Calc Pharmacy 121.3; Estimated Glomerular Filt Rate > 60; Magnesium 2.2 mg/dL (1.6-2.6); Potassium 4.0 mmol/L (3.3-5.1); Sodium 139 mmol/L (135-145)
[2025-03-27 14:50] LABS: Troponin-I High Sensitivity < 2.7 ng/L (<3.5-17.0)
[2025-03-27 14:55] LABS: Appearance Urine Clear; Glucose Urine UA Negative (Negative); PH 6.5 (5.0-9.0); Specific Gravity - Urine 1.010 (1.005-1.025); UMIC TRIGGER UA YES
[2025-03-27 15:00] LABS: Thyroid Stimulating Hormone 0.24 uIU/mL (0.32-4.0)
[2025-03-27 15:46] VITALS: BP 127/72; PULSE 87; RESP 14; TEMP 36.5; O2SAT 100
--- OUTSIDE RECORDS SUMMARY | 2025-03-27 16:41 | XMS_ITS | Clinical Summary ---
Author Organization [facility] Address [address] [address] Phone Care Team Providers Care Pet Food Deboner Name Role Phone Elan Terry NP Primary [...] EST) TSH 0.03(L) 0.27 - 4.20 uIU/mL [facility] Blood 06/26/2020 3:37 PM EST 06/26/2020 3:42 PM EST us Rafael Garza PA LAB BLOOD BKR ORDERABLE S Final Result Performing Organization Address City/State/[facility] Co de Phone Number [address] [address] from Last 3 Months or Most Recently Relevant to Health Maintenance Insurance [facility] Member Subscriber Plan / Payer (Ef fective 2018-Present) Name:Jing Guillory Relation to Subscriber:Self Name:Jing Guillory Payer ID:[id number] Group ID:[id number] Type:Medicaid Address: [place] [id number] [address] [place] [address] [address] HMO [facility] [place] [address] [place] [address] ACO [facility] Member Subscriber Plan / Payer (Ef fective 2018-Present) Name:Jing Guillory Relation to Subscriber:Self Name:Jing Guillory Payer ID:[id number] Group ID:[id number] Type:Medicaid Address: [address] [facility] [place] [address] [place] [address]O [facility] [address] [place], [place] [address]O JENNIFFER HARRIS [id number] [facility] [address] HMO Care Teams Pet Food Deboner Relationship Specialty Start Date End Date Elan Terry NP [address] [facility] [place] [address] PCP - General Family Medicine 05/05/18 Additional Source Comments The information contained in this document represents components of the legal health record. It is not the complete legal health record.[facility]
--- OUTSIDE RECORDS SUMMARY | 2025-03-27 16:41 | XMS_ITS | Clinical Summary ---
Author Organization [address] Address [address] [place] [phone] Phone Care Team Providers Care Services Executive Name Role Phone eSb Arrington MD Primary Care Provider Unavail able [...] age to complete this topic Care Teams Services Executive Relationship Specialty Start Date End Date Seb Arrington MD PCP - General Internal Medicine 01/02/08
== END 2025-03-27 15:58 | disposition home or self-care (01) ==
PROVIDERS: Emergency Provider Emergency Medicine; PCP Nurse Practitioner Family
DX: R07.2 Precordial pain (principal); R42 Dizziness and giddiness; I10 Essential (primary) hypertension; E78.5 Hyperlipidemia, unspecified; E11.9 Type 2 diabetes mellitus without complications
CPT/HCPCS: 36415; 71046; 80048; 81001; 83735; 83880; 84443; 84484; 85025; 85610; 93005; 99284; 99285; J2270

== ENCOUNTER → 2025-03-27 13:38 | Outpatient (BNV) | payer OTHER, SELFPAY | PROVIDERS: Emergency Provider Emergency Medicine; PCP Nurse Practitioner Family; Visit Provider Internal Medicine Cardiovascular Disease | DX: R07.9 Chest pain, unspecified (principal) | CPT/HCPCS: 93010 ==

== ENCOUNTER → 2025-03-27 14:27 | Outpatient (BNV) | payer OTHER, SELFPAY | PROVIDERS: Emergency Provider Emergency Medicine; PCP Nurse Practitioner Family; Visit Provider Radiology Diagnostic Radiology | DX: R07.9 Chest pain, unspecified (principal) | CPT/HCPCS: 71046 ==

== ENCOUNTER 2025-04-01 06:41 | Outpatient (AMB) | payer OTHER, SELFPAY ==
--- OUTSIDE RECORDS SUMMARY | 2025-04-01 06:44 | XMS_ITS | Data Portability ---
Author Organization [place] [facility], [facility] Address [address] [address] Care Team Providers Care Rn Peritoneal Dialysis Name Role Phone BRIAN EDWARDS Primary Care [...] malignanc y, Radiology center 2024 025 pgustavson [facility], [address] [place], [address], 10:05:21 Surgeries None recorded. Imaging None recorded. 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 Procedures Surgical History Date Name Laterality Status Provider Name and Address Organization Details Recorded Time 06/22/2024 FOL_DP completed TITO PERAZA MD [address] [place] [address], [place], [phone], [facility] 06/21/2024 23:03:28 Imaging Results None recorded. Procedure Notes None recorded. Medical Equipment None Reported. Allergies Allergen ID Allergen Name Allergen Category Reaction Reaction Severity Criticality Documentation Date Start Date Code Code System Note Provider Name and Address Organization Details Recorded Time [id number] Non-stero idal anti-infl ammatory agent (substanc e) medicatio n Not available Not available Not available 06/22/2024 23501 5008 SNOMED Prisca hardy [facility] 12:53:41 834602 Product containin g penicilli n (product) medicatio n Not available Not available Not available 06/22/2024 15020 8001 SNOMED Prisca hardy [facility] 12:53:48 258812 Ortho Tri-Cycle n (28) medicatio n Not available Not available Not available 06/22/2024 Prisca hardy [facility] 12:53:59 Medications Name Sig Start Date Stop [...] Updated DateTime 06/22/2024 152.4 cm 51.8 kg/m2 702052.98 g Prisca Downs [place] - [facility] 06/22/2024 12:53:33 Social History None recorded. Functional [...] ICD10 Code Diagnosis IMO Codes Diagnosis Note 15200 TITO PERAZA MD [facility] [address] [address] 06/22/2024 12:36:54 06/22/2024 13:19:33 Papillary thyroid carcinoma [id number] C[address] needs tissue sampling to r/o recurrence . FOL was normal in office Hoarse 84798113 R49.0 Health Concerns Section Related Observation LastModified by Organization Detai ls LastModified Time None Recorded Concern Status LastModified by Organization Details LastModified Time None Recorded Advance Directives Directive None Recorded Payers Insurance Date Sequence Insurance Name Policy Number Policy Jeffery Covered Member ID Jeffery Member ID Guarantor Name 07/20/[address] [place] [address] [id number] Jing Kahlil [id number] Jing Guillory Notes Date Note Type Note Provider Name and Address Organization Details Recorded Time 06/22/2024 text/html ROS as noted in the HPI hoarse returned about 11/2023not associated with vocal use ba swallow - normal per her report thyroid ca and [id number] subtotal thyroidectomy for cancer in [id number] revision thyroid and parathyroid but nothing was removed [facility]2017 completion thyroid [place] [id number] FUENTES, [facility] 12/06/2023 ultrasound neck at [facility] the thyroid bed no residual lesionLeft submandibular region 9 x 9 x 6 mm reniform lymph node with normal architectural features. Mid left cervical 7 x 3 x 3 mm reniform lymph node with normal architectural features.Right upper cervical 17 x 6 x 9 mm reniform lymph node with normal architecture work - elderly case specialist TITO PERAZA MD [address] [place] [address], [place], [address], [place] - [facility] 06/22/2024 13:19:29 OBGyn Episode No OBEpisode recorded.
--- OUTSIDE RECORDS SUMMARY | 2025-04-01 06:44 | XMS_ITS | Clinical Summary ---
Author Organization [facility] Address [address] [address] Phone Care Team Providers Care Advertising Production Manager Name Role Phone Elan Terry NP Primary [...] EST) TSH 0.03(L) 0.27 - 4.20 uIU/mL [facility] Blood 06/26/2020 3:37 PM EST 06/26/2020 3:42 PM EST us Rafael Garza PA LAB BLOOD BKR ORDERABLE S Final Result Performing Organization Address City/State/[facility] Co de Phone Number [address] [address] from Last 3 Months or Most Recently Relevant to Health Maintenance Insurance [facility] Member Subscriber Plan / Payer (Ef fective 2018-Present) Name:Jing Guillory Relation to Subscriber:Self Name:Jing Guillory Payer ID:[id number] Group ID:[id number] Type:Medicaid Address: [place] [id number] [place] [address] [facility] [place] [address] ACO [facility] Member Subscriber Plan / Payer (Ef fective 2018-Present) Name:Jing Guillory Relation to Subscriber:Self Name:Jing Guillory Payer ID:[id number] Group ID:[id number] Type:Medicaid Address: [address] [facility] [address] [place] [address]O [facility] [address] [place], [place] [address]O JENNIFFER HARRIS [id number] [facility] [address] HMO Care Teams Advertising Production Manager Relationship Specialty Start Date End Date Elan Terry NP [address] [facility] [place] [address] PCP - General Family Medicine 05/05/18 Additional Source Comments The information contained in this document represents components of the legal health record. It is not the complete legal health record.[facility]
--- OUTSIDE RECORDS SUMMARY | 2025-04-01 06:44 | XMS_ITS | Clinical Summary ---
Author Organization [address] Address [address] [place] [phone] Phone Care Team Providers Care Press Assistant And Feeder Name Role Phone Seb Arrington MD Primary [...] age to complete this topic Care Teams Press Assistant And Feeder Relationship Specialty Start Date End Date Seb Arrington MD PCP - General Internal Medicine 01/02/08
--- NOTE | 2025-04-01 07:24 | A.OFFPC_ITS ---
Intake Visit Reasons: forms Allergies bee pollen (BEE STINGS) Allergy (Severe, Verified 03/27/25 13:24) ANAPHYLAXIS NSAIDS (Non-Steroidal Anti-Inflamma (NSAIDS (NON-STEROIDAL ANTI-INFLAMMA) Allergy (Intermediate, Verified 03/27/25 13:24) HIVES Penicillins Allergy (Intermediate, Verified 03/27/25 13:24) HIVES ibuprofen (From Motrin) Allergy (Unknown, Verified 03/27/25 13:24) Hives penicillin V Allergy (Unknown, Verified 03/27/25 13:24) unknown latex (LATEX) Adverse Reaction (Intermediate, Verified 03/27/25 13:24) RASH sulfamethoxazole (From Bactrim) Adverse Reaction (Verified 03/27/25 13:24) Hives trimethoprim (From Bactrim) Adverse Reaction (Verified 03/27/25 13:24) Hives From Ortho Tri-Cyclen (21) Adverse Reaction (Intermediate, Uncoded 03/27/25 13:24) DVT (BLOOD CLOT) Tobacco use date assessed: 02/21/25 Dental Screening Dental Screen Date: 02/21/25 HPI forms HPI Details History of Present Illness The patient is a 35-year-old female presenting for a hospital discharge follow- up. She was seen in the hospital on 03/27/2025 for chest discomfort, which was somewhat reproducible and radiated to her left shoulder, after being sent via EMS from her workplace. She reported similar episodes occurring recently, one of which improved after taking an anti-anxiety medication, and another resolved a fter she went to bed. Hospital workup included an EKG that revealed no evidence of underlying dysrhythmia or acute coronary syndrome, and she was not tachycardic. A pulmonary embolism was not suspected, and the chest x-ray was negative. The patient's history includes seeing a engineering operator and having several Holter monitors in the past. She reports chronic fatigue, for which she is currently being evaluated by sleep medicine and neurology, and she has seen rheumatology in the past. She is a nonsmoker, nondrinker, and is not taking blood thinners. Review of Systems - Cardiovascular: Reports chest discomfo rt. - Respiratory: Denies shortness of breat h. - Constitutional: Reports chronic fatigu e; denies fevers or chills. Plan 1. Chest Discomfort The patient's chest discomfort is considered most likely related to anxiety, given the negative hospital workup which included an EKG and chest x-ray, and a report of a prior episode improving with anti-anxiety medication. The plan is to continue monitoring her symptoms. She has an echocardiogram scheduled for the end of the month, and the results will be reviewed when they become available. 2. Chronic Fatigue The patient continues to experience chronic fatigue and is undergoing an ongoing workup with sleep medicine and neurology. No changes to the current management plan were made during this visit. Discussion Notes I discussed with the patient that her presentation for chest discomfort was evaluated in the hospital and did not show evidence of a cardiac or pulmonary cause, with a negative EKG and chest x-ray. I explained that I suspect an anxiety component is the more likely cause of her symptoms, especially since a recent episode improved with an anti-anxiety medication. We agreed to continue monitoring her chest discomfort. I informed her that we will review the results of her echocardiogram, scheduled for the end of this month, once they are available. Patient Instructions - We believe your chest discomfort is mo st likely related to anxiety, as your heart and lung tests in the hospital were normal. - Please continue to monitor your sympto ms. - Please proceed with your scheduled ech ocardiogram (heart ultrasound) at the end of this month. - We will review the results of your ech ocardiogram once they are available. -any worsening symptoms, ER please [facility]LY [facility] Medical History (Updated 04/01/25 @ 07:25 by Elan Terry, [facility]) Epidermal inclusion cyst Morbid obesity due to excess calories HLD (hyperlipidemia) HTN (hypertension) Type 2 diabetes mellitus Depression Migraine with aura Fibromyalgia Insomnia Hx of papillary thyroid carcinoma Surgical History History of umbilical hernia repair Bilateral carpal tunnel syndrome Hx of cholecystectomy History of tubal ligation History of section History of thyroidectomy Family History Father History of heart attack Mental health disorder Mother Hypothyroidism Sister Anxiety Migraine Low blood pressure Mental health disorder Son Epilepsy Daughter No problems noted. Maternal Grandmother Breast cancer Paternal Grandmother Breast cancer Social History Housing: Apartment Alcohol intake: current Alcohol intake frequency: holidays/special occasions only Patient Tobacco Use Status: Never used Tobacco e-Cigarette/Vaping Use: Never Used Second Hand Smoke Exposure: Yes Current occupational status: unemployed Current occupation: rt handed Cognitive needs: No Hearing needs: No Vision needs: Yes Questionnaire Thrive Questionnaire Date Thrive assessed: 02/21/25 I am a: Patient What is your living situation today?: I have a steady place to live Within the past 12 months, did the food you bought not last and you didn't have the money to get more?: Never true Within the past 12 months, did you worry whether your food would run out before you got money to buy more?: I choose not to answer this question Do you have trouble paying for medicines?: I choose not to answer this question Do you have trouble getting transportation to medical appointments?: Yes Do you have trouble paying your heating and electricity bill?: I choose not to answer this question Do you have trouble taking care of your child, family member or friend?: No Do you have trouble with day-to-day activities such as bathing, preparing meals, shopping, managing finances, etc.?: No Are you currently unemployed and looking for a job?: No Are you interested in more education?: No Please select the resources that you would like help with: None Currently or been in a relationship where the following occur: No concerns reported THRIVE Score: 1 LISSETH-7 AMB Questionnaire LISSETH-7 Date LISSETH - 7 assessed: 02/21/25 Source: Developed by Drs. Keven Salas, Christina Lake, Jeffrey Landis and colleagues, with an educational carlos from [employer]. Physical exam (Primary Care) Tobacco/Smoking Status: Tobacco use Status Tobacco use date assessed 02/21/25 02/22/25 10:54 Patient Tobacco Use Status Never used Tobacco 02/22/25 10:54 e-Cigarette/Vaping Use Never Used 02/22/25 10:54 Thrive Assessment: Date of Thrive Assessment Date Thrive assessed 02/21/25 03/14/25 17:25 Currently or been in a relationship where the following occur: No concerns reported Telehealth Telehealth Telehealth Platform: [facility] Location of provider rendering services: practice address Location of patient: address on file Patient Identification confirmed using: Name, : Yes Telehealth method: video Patient verbally consented to treatment: Yes Patient verbally consented to billing insurance company: Yes Patient informed of any privacy concerns related to visit: Yes Minutes spent on Phone/Video with Pt.: 13 Coding Level of Care Code Tele Est Pt Level 3 (84881) Diagnoses Chest discomfort R07.89 Assessment & Plan Assessment & Plan (1) Chest discomfort: Code(s): R07.89 - Other chest pain Category: Medical Plan .
== END 2025-04-01 10:10 | disposition home or self-care (01) ==
LOC: HO.HMCC 06:42
PROVIDERS: PCP Nurse Practitioner Family; Visit Provider Nurse Practitioner Family
DX: R07.89 Other chest pain (principal)

== ENCOUNTER → 2025-04-11 07:37 | Outpatient (REF) | payer OTHER, SELFPAY ==
--- NOTE | 2025-04-11 07:40 | CA_ITS ---
Transthoracic Echocardiogram Patient (Last, First, Middle): Jing Guillory, Gender: Female Date of : 1990 Age: 35 Procedure Date: 04/11/2025 Procedure Type: Transthoracic Echocardiogram Location: OP Height: 152.4 cm Weight: 112.04 kg BSA: 2.04 m2 Heart Rate: 81 bpm BP: 102 / 70 mmHg Ingot Header: SB Referring MD: Elan Terry [facility] Symptoms: R94.31 - Abnormal [ECG], prolonged QT, Edema Study Quality: Adequate w contrast ECG Rhythm: Sinus Conclusions: - The left ventricular systolic function is normal. The calculated ejection fraction is 68% by biplane method. - No obvious valvular pathology seen on this study. Findings Procedure Information Contrast agent, definity, is being given per protocol without apparent complications. Left Ventricle Normal left ventricular cavity size. There is mildly increased left ventricular wall thickness. The left ventricular systolic function is normal. The calculated ejection fraction is 68% by biplane method. There is no evidence of regional wall motion abnormalities. Diastolic function is normal for age. Right Ventricle Normal right ventricular cavity size and systolic function. Atria Both atria are normal in size. Aortic Valve The aortic valve was not well visualized. There is no aortic valve stenosis. There is no aortic valve regurgitation. Mitral Valve The mitral valve appears normal. There is no mitral valve regurgitation. There is no mitral valve stenosis. Pulmonic Valve The pulmonic valve is likely normal. Tricuspid Valve There is no tricuspid valve regurgitation. There is no evidence of pulmonary hypertension. Great Vessels The asc aorta is normal in size. Venous The inferior vena cava is normal in size and collapses greater than 50% with inspiration. Pericardium/Pleural There is no evidence of pericardial effusion. Prior Study Comparison No prior study available for comparison. Recommendations, Care & Conclusions No obvious valvular pathology seen on this study. Measurements 2D Linear Measurements IVSd: 1.09 0.6-0.9/0.6-1.0 cm LVIDd: 4.49 3.9-5.3/4.2-5.9 cm LVIDd Index: 2.20 2.4-3.2/2.2-3.1 cm/m2 LVIDs: 3.00 2.0-3.6 cm LVPWd: 1.09 0.7-1.1 cm LA Diam: 3.10 2.7-3.8/3.0-4.0 cm LAIDs Index: 1.52 1.5-2.3 cm/m2 LV Mass: 214.47 67-162/88-224 g LV Mass Index: 105.13 43-95/49-115 g/m2 LVOT Diam: 2.00 3.0+(-)1.3 cm 2D Systolic Function EF 4C: 73.40 >55% EF 2C: 62.60 >55% EF BiP: 68.20 >55% Mitral Valve MV Pk E: 0.89 MV PK A: 0.97 MV Decel Time: 258.00 E/A: 0.90 E'Lateral: 9.57 E'Medial: 7.94 E/E' Med: 11.20 E/E' Lat: 9.30 PHT: 76.00 MVA PHT: 2.89 Decel [place]: 3.44 Aortic Valve AoV Pk Davy: 1.27 AoV Pk Grad: 6.00 ISAI: 2.81 LVOT LVOT Pk Davy: 1.21 LVOT Mn Davy: 0.89 LVOT VTI: 0.26 LVOT Pk Grad: 6.00 LVOT Mn Grad: 4.00 LVOT Diam: 2.00 LVOT Area: 3.14 Diastolic Function MV Pk E: 0.89 MV Pk A: 0.97 E/A: 0.90 E'Medial: 7.94 E/E' Med: 11.20 E' Laterial: 9.57 E/E' Lat: 9.30 Right Ventricle TAPSE (mm): 15.80 TVS' Davy: 13.00 Tricuspid Valve RA Press: 8.00 Great Vessels Aorta Sinus of Valsalva: 2.40 2.0-3.5 cm Ao Asc: 2.80 2.1-3.4 cm Ao Arch: 2.50 Ao Desc: 1.50 Pulmonary Veins Pulm Vein S/D 1.00 Pulmonary Valve PV Pk Davy: 0.83 Peak PV Grad: 3.00 Updated in Other Vendor System with Status of Final Martin Marcos MD electronically signed on 04/13/2025 10:14:47 AM with status of Final
--- OUTSIDE RECORDS SUMMARY | 2025-04-11 07:40 | XMS_ITS | Data Portability ---
Author Organization [place] - [facility], Allergy Address [address] [address] Care Team Providers Care Custom Applicator Name Role Phone BRIAN EDWARDS Primary Care [...] malignanc y, Radiology center 2024 025 pgustavson [facility], [address] [place], [address], 10:05:21 Surgeries None recorded. Imaging None recorded. 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 Procedures Surgical History Date Name Laterality Status Provider Name and Address Organization Details Recorded Time 06/22/2024 FOL_DP completed TITO PERAZA MD [address] [place] [address], [place], [address], [facility] 06/21/2024 23:03:28 Imaging Results None recorded. Procedure Notes None recorded. Medical Equipment None Reported. Allergies Allergen ID Allergen Name Allergen Category Reaction Reaction Severity Criticality Documentation Date Start Date Code Code System Note Provider Name and Address Organization Details Recorded Time 843694 Non-stero idal anti-infl ammatory agent (substanc e) medicatio n Not available Not available Not available 06/22/2024 07369 5008 SNOMED Prisca hardy [facility] 12:53:41 578601 Product containin g penicilli n (product) medicatio n Not available Not available Not available 06/22/2024 40336 8001 SNOMED Prisca ahrdy [facility] 12:53:48 484247 Ortho Tri-Cycle n (28) medicatio n Not available Not available Not available 06/22/2024 Prisca hardy [facility] 12:53:59 Medications Name Sig Start Date [...] Updated DateTime 06/22/2024 152.4 cm 51.8 kg/m2 957044.98 g Prisca Downs [place] - [facility] 06/22/2024 12:53:33 Social History None recorded. Functional Status None recorded. Mental Status None recorded. Family History Nothing Reported. Medical History Condition Response Arthritis Y Migraines Y Thyroid Problems Y Asthma Y Anemia Y Gynecological HistoryNo gynecological history recorded. Obstetrics History GPAL:G 0 P 0 0 0 0 Past Encounters Encounter ID Performer Location Encounter Start Date Encounter Closed Date Diagnosis/Indication Diagnosis SNOMED-CT Code Diagnosis ICD10 Code Diagnosis IMO Codes Diagnosis Note [id number] TITO PERAZA MD [facility] [address] [address] 06/22/2024 12:36:54 06/22/2024 13:19:33 Papillary thyroid carcinoma 670218806 C73 right upper cervical [address] needs tissue sampling to r/o recurrence . FOL was normal in office Hoarse 40186014 R49.0 Health Concerns Section Related Observation LastModified by Organization Detai ls LastModified Time None Recorded Concern Status LastModified by Organization Details LastModified Time None Recorded Advance Directives Directive None Recorded Payers Insurance Date Sequence Insurance Name Policy Number Policy Jeffery Covered Member ID Jeffery Member ID Guarantor Name 07/20/[address] [place] [address] [id number] Jing Kahlil [id number] Jing Guillory Notes Date Note Type Note Provider Name and Address Organization Details Recorded Time 06/22/2024 text/html ROS as noted in the HPI hoarse returned about 11/2023not associated with vocal use ba swallow - normal per her report thyroid ca and [id number] subtotal thyroidectomy for cancer in [id number] revision thyroid and parathyroid but nothing was removed [facility]2017 completion thyroid [place] [id number] FUENTES, [facility] 12/06/2023 ultrasound neck at [facility] the thyroid bed no residual lesionLeft submandibular region 9 x 9 x 6 mm reniform lymph node with normal architectural features. 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
--- OUTSIDE RECORDS SUMMARY | 2025-04-11 07:40 | XMS_ITS | Clinical Summary ---
Author Organization [facility] Address [address] [address] Phone Care Team Providers Care Automotive Starter Repairer Name Role Phone Elan Terry NP Primary [...] EST) TSH 0.03(L) 0.27 - 4.20 uIU/mL [facility] Blood 06/26/2020 3:37 PM EST 06/26/2020 3:42 PM EST us Rafael Garza PA LAB BLOOD BKR ORDERABLE S Final Result Performing Organization Address City/State/[facility] Co de Phone Number [address] [address] from Last 3 Months or Most Recently Relevant to Health Maintenance Insurance [facility] Member Subscriber Plan / Payer (Ef fective 2018-Present) Name:Jing Guillory Relation to Subscriber:Self Name:Jing Guillory Payer ID:[id number] Group ID:[id number] Type:Medicaid Address: [place] [id number] [place] [address] HMO [facility] [place] [address] [address] [place] [address] ACO [facility] Member Subscriber Plan / Payer (Ef fective 2018-Present) Name:Jing Guillory Relation to Subscriber:Self Name:Jing Guillory Payer ID:[id number] Group ID:[id number] Type:Medicaid Address[address] [facility] ACO [facility] [address] [place], [place] [address] [facility] [address] [address] [place], [place] [address] JENNIFFER HARRIS [id number] [facility] [address] HMO Care Teams Automotive Starter Repairer Relationship Specialty Start Date End Date Elan Terry NP [address] [place] [address] PCP - General Family Medicine 05/05/18 Additional Source Comments The information contained in this document represents components of the legal health record. It is not the complete legal health record.[facility]
== END ==
LOC: HO.CARD 07:37
PROVIDERS: PCP Nurse Practitioner Family; Visit Provider Nurse Practitioner Family
DX: R94.31 Abnormal electrocardiogram [ECG] [EKG] (principal); R60.9 Edema, unspecified
CPT/HCPCS: 93306; Q9957

== ENCOUNTER → 2025-04-11 07:40 | Outpatient (BNV) | payer OTHER, SELFPAY | PROVIDERS: PCP Nurse Practitioner Family; Visit Provider Internal Medicine | DX: R94.31 Abnormal electrocardiogram [ECG] [EKG] (principal); R60.9 Edema, unspecified | CPT/HCPCS: 93306 ==

== ENCOUNTER 2025-05-09 13:25 | Outpatient (AMB) | payer OTHER, SELFPAY ==
--- NOTE | 2025-05-09 13:28 | MHC.OFFVIS ---
Intake Visit Reasons: excision Follicular cyst of the skin Sign Erector Required: No Accompanied by: Self / Same As Patient Allergies bee pollen (BEE STINGS) Allergy (Severe, Verified 05/09/25 13:33) ANAPHYLAXIS NSAIDS (Non-Steroidal Anti-Inflamma (NSAIDS (NON-STEROIDAL ANTI-INFLAMMA) Allergy (Intermediate, Verified 05/09/25 13:33) HIVES Penicillins Allergy (Intermediate, Verified 05/09/25 13:33) HIVES ibuprofen (From Motrin) Allergy (Unknown, Verified 05/09/25 13:33) Hives penicillin V Allergy (Unknown, Verified 05/09/25 13:33) unknown latex (LATEX) Adverse Reaction (Intermediate, Verified 05/09/25 13:33) RASH sulfamethoxazole (From Bactrim) Adverse Reaction (Verified 05/09/25 13:33) Hives trimethoprim (From Bactrim) Adverse Reaction (Verified 05/09/25 13:33) Hives From Ortho Tri-Cyclen (21) Adverse Reaction (Intermediate, Uncoded 05/09/25 13:33) DVT (BLOOD CLOT) HPI HPI excision Follicular cyst of the skin: Details: She is here for excision of an epidermal inclusion cyst from the anterior neck. [facility] Medical History Epidermal inclusion cyst Morbid obesity due to excess calories HLD (hyperlipidemia) HTN (hypertension) Type 2 diabetes mellitus Depression Migraine with aura Fibromyalgia Insomnia Hx of papillary thyroid carcinoma Surgical History History of umbilical hernia repair Bilateral carpal tunnel syndrome Hx of cholecystectomy History of tubal ligation History of section History of thyroidectomy Family History Father History of heart attack Mental health disorder Mother Hypothyroidism Sister Anxiety Migraine Low blood pressure Mental health disorder Son Epilepsy Daughter No problems noted. Maternal Grandmother Breast cancer Paternal Grandmother Breast cancer Social History Housing: Apartment Alcohol intake: current Alcohol intake frequency: holidays/special occasions only Patient Tobacco Use Status: Never used Tobacco e-Cigarette/Vaping Use: Never Used Second Hand Smoke Exposure: Yes Current occupational status: unemployed Current occupation: rt handed Cognitive needs: No Hearing needs: No Vision needs: Yes Office Procedures Excision Details: She was in supine position. The area of the cyst on the anterior neck was prepped and draped. Lidocaine 1% was used for local anesthesia. I made an elliptical incision in the skin overlying this cyst with a blade 15. This carried down through the full-thickness of the skin and subcutaneous fat with the same blade. Incised the cyst circumferentially with the capsule intact. This was sent as a specimen. The cyst measured about 1.5 cm in diameter I closed the incision with full-thickness nylon 3-0 simple interrupted sutures. Dressings were applied. The procedure was completed. She tolerated procedure well. There were no immediate complications. There was minimal blood loss. 07619-Usuvpsph scalp/neck/hands/feet/genitalia 1.1cm-2cm Procedure code (CPT) selection complete Assessment & Plan Assessment & Plan (1) Epidermal inclusion cyst: Code(s): L72.0 - Epidermal cyst Category: Medical Plan Excision was done in the office. She tolerated procedure well. She was given wound care instructions. She can take Tylenol and ibuprofen p.r.n. for pain. I will see her for removal of sutures in about 2 weeks Orders: Orders AMB Excision Today L72.0 - Epidermal cyst Medications: New lidocaine-epinephrine 1 %-1:100,000 10 mL Infiltration ONCE 10 mL 0RF L72.0 - Epidermal cyst Coding Level of Care Code Procedure Only Diagnoses Epidermal inclusion cyst L72.0 CPT Codes Scalp/Neck/Hands/Feet/Genetalia - CPT: 76461-Dfokvvcw scalp/neck/hands/feet/genitalia 1.1cm-2cm ([id number])
--- OUTSIDE RECORDS SUMMARY | 2025-05-09 17:32 | XMS_ITS | Data Portability ---
Author Organization [place] - [facility], Allergy Address [address] [address] Care Team Providers Care Solutions Consultant Name Role Phone BRIAN EDWARDS Primary Care [...] malignanc y, Radiology center 2024 025 pgustavson [facility], [address] [place], [address], 10:05:21 Surgeries None recorded. Imaging None recorded. [...] Organization Details Recorded Time Papillary thyroid carcinoma 511185901 Active 025 TITO PERAZA MD [address] [address], [place], [address], [facility] 13:15:38 Neoplasm of parotid gland 261676080 Active 025 TITO PERAZA MD [address] [address], [place], [address], [facility] 5 13:15:50 Hoarse 43802438 Active 025 TITO PERAZA MD [address] [address], [place], [address], [facility] 5 13:19:06 Problem Notes None recorded. Procedures Surgical History Date Name Laterality Status Provider Name and Address Organization Details Recorded Time 06/22/2024 FOL_DP completed TITO PERAZA MD [address] [place] [address], [place], [address], [facility] 06/21/2024 23:03:28 Imaging Results None recorded. Procedure Notes None recorded. Medical Equipment None Reported. Allergies Allergen ID Allergen Name Allergen Category Reaction Reaction Severity Criticality Documentation Date Start Date Code Code System Note Provider Name and Address Organization Details Recorded Time 257128 Non-stero idal anti-infl ammatory agent (substanc e) medicatio n Not available Not available Not available 06/22/2024 07256 5008 SNOMED Prisca hardy [facility] 12:53:41 223433 Product containin g penicilli n (product) medicatio n Not available Not available Not available 06/22/2024 90768 8001 SNOMED Prisca hardy [facility] 12:53:48 834005 Ortho Tri-Cycle n (28) medicatio n Not available Not available Not available 06/22/2024 Prisca hardy [facility] 12:53:59 Medications Name Sig Start Date [...] Updated DateTime 06/22/2024 152.4 cm 51.8 kg/m2 346552.98 g Prisca Downs [place] - [facility] 06/22/2024 12:53:33 Social History None recorded. [...] ICD10 Code Diagnosis IMO Codes Diagnosis Note [id number] TITO PERAZA MD [facility] [address] [address] 06/22/2024 12:36:54 06/22/2024 13:19:33 Papillary thyroid carcinoma 994990198 C[address] needs tissue sampling to r/o recurrence . FOL was normal in office Hoarse 11353587 R49.0 Health Concerns Section Related Observation LastModified by Organization Detai ls LastModified Time None Recorded Concern Status LastModified by Organization Details LastModified Time None Recorded Advance Directives Directive None Recorded Payers Insurance Date Sequence Insurance Name Policy Number Policy Jeffery Covered Member ID Jeffery Member ID Guarantor Name 07/20/[address] [place] [address] [id number] Jing Kahlil [id number] Jing Guillory Notes Date Note Type Note Provider Name and Address Organization Details Recorded Time 06/22/2024 text/html ROS as noted in the HPI hoarse returned about 11/2023not associated with vocal use ba swallow - normal per her report thyroid ca and [id number] subtotal thyroidectomy for cancer in [id number] revision thyroid and parathyroid but nothing was removed [facility]2017 completion thyroid [place] [id number] [facility], [facility] 12/06/2023 ultrasound neck at [facility] the thyroid bed no residual lesionLeft submandibular region 9 x 9 x 6 mm reniform lymph node with normal architectural features. 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 06/22/2024 13:19:29 OBGyn Episode No OBEpisode recorded.
== END 2025-05-09 13:50 | disposition home or self-care (01) ==
LOC: HO.HGS 13:26
PROVIDERS: PCP Nurse Practitioner Family; Visit Provider Surgery
DX: L72.0 Epidermal cyst (principal)
CPT/HCPCS: 11422

== ENCOUNTER 2025-05-09 13:25 | Outpatient (REF) | payer OTHER, SELFPAY ==
--- OUTSIDE RECORDS SUMMARY | 2025-05-09 18:14 | XMS_ITS | Clinical Summary ---
Author Organization [facility] Address [address] [address] Phone Care Team Providers Care Asset Analyst Name Role Phone Elan Terry NP Primary [...] EST) TSH 0.03(L) 0.27 - 4.20 uIU/mL [facility] Blood 06/26/2020 3:37 PM EST 06/26/2020 3:42 PM EST us Rafael Garza PA LAB BLOOD BKR ORDERABLE S Final Result Performing Organization Address City/State/[facility] Co de Phone Number [address] [address] from Last 3 Months or Most Recently Relevant to Health Maintenance Insurance [facility] A[facility] Member Subscriber Plan / Payer (Ef fective 2018-Present) Name:Jing Guillory Relation to Subscriber:Self Name:Jing Guillory Payer ID:[id number] Group ID:[id number] Type:Medicaid Address: [place] [id number] [place] [address] [facility] [place] [address] [place] [address] ACO [facility] ACO Member Subscriber Plan / Payer (Ef fective 2018-Present) Name:Jing Guillory Relation to Subscriber:Self Name:Jing Guillory Payer ID:[id number] Group ID:[id number] Type:Medicaid [address] [facility] ACO [facility] [address] [place], [place] [address] [facility] A[facility] [address] [place], [place] [address] JENNIFFER HARRIS [id number] [facility] ACO [address] HMO Care Teams Asset Analyst Relationship Specialty Start Date End Date Elan Terry NP [address] [place] [address] PCP - General Family Medicine 05/05/18 Additional Source Comments The information contained in this document represents components of the legal health record. It is not the complete legal health record.[facility]
--- OUTSIDE RECORDS SUMMARY | 2025-05-09 18:14 | XMS_ITS | Clinical Summary ---
Author Organization [address] Address [address] [place] [phone] Phone Care Team Providers Care Framework Developer Name Role Phone Seb Arrington MD Primary [...] on file Sexual Orientation Not on file Plan of Treatment Health Maintenance Due Date [...] 03/25/2024 Depression Screening 05/23/2024 COVID-19 Vaccine ( - season) 2025 Influenza Vaccine (#1) 2025 02/26/2011, [...] age to complete this topic Care Teams Framework Developer Relationship Specialty Start Date End Date Seb Arrington MD PCP - General Internal Medicine 01/02/08
== END 2025-05-09 13:26 | disposition home or self-care (01) ==
LOC: HO.LNP 13:25
PROVIDERS: PCP Nurse Practitioner Family; Visit Provider Surgery
DX: L72.0 Epidermal cyst (principal)
CPT/HCPCS: 11422; 88304

== ENCOUNTER 2025-05-20 15:06 | Outpatient (AMB) | payer OTHER, SELFPAY ==
--- NOTE | 2025-05-20 15:22 | MHC.OFFVIS ---
Vital Signs 05/20/25 15:26 Height 5 ft Weight 239 lb 15.994 oz BMI 46.9 Intake Visit Reasons: s/p excision cyst 05/09 Intake Note: Patient presents for suture removal status post excision epidermal cyst anterior neck. Pt c/o; she developed a skin reaction where the bandage dressing was placed because of the adhesive, the incision was occasionally bleeding the first few days with certain neck movement but this has resolved. Chemical Reclamation Equipment Operator Required: No Accompanied by: Family/Other Allergies bee pollen (BEE STINGS) Allergy (Severe, Verified 05/20/25 15:28) ANAPHYLAXIS NSAIDS (Non-Steroidal Anti-Inflamma (NSAIDS (NON-STEROIDAL ANTI-INFLAMMA) Allergy (Intermediate, Verified 05/20/25 15:28) HIVES Penicillins Allergy (Intermediate, Verified 05/20/25 15:28) HIVES ibuprofen (From Motrin) Allergy (Unknown, Verified 05/20/25 15:28) Hives penicillin V Allergy (Unknown, Verified 05/20/25 15:28) unknown latex (LATEX) Adverse Reaction (Intermediate, Verified 05/20/25 15:28) RASH sulfamethoxazole (From Bactrim) Adverse Reaction (Verified 05/20/25 15:28) Hives trimethoprim (From Bactrim) Adverse Reaction (Verified 05/20/25 15:28) Hives From Ortho Tri-Cyclen (21) Adverse Reaction (Intermediate, Uncoded 05/20/25 15:28) DVT (BLOOD CLOT) HPI HPI s/p excision cyst 05/09: Details: She underwent excision of a cyst from the anterior neck under local anesthesia last May 09. She denies any problems currently. She feels well overall. [facility] Medical History Epidermal inclusion cyst Morbid obesity due to excess calories HLD (hyperlipidemia) HTN (hypertension) Type 2 diabetes mellitus Depression Migraine with aura Fibromyalgia Insomnia Hx of papillary thyroid carcinoma Surgical History History of umbilical hernia repair Bilateral carpal tunnel syndrome Hx of cholecystectomy History of tubal ligation History of section History of thyroidectomy Family History Father History of heart attack Mental health disorder Mother Hypothyroidism Sister Anxiety Migraine Low blood pressure Mental health disorder Son Epilepsy Daughter No problems noted. Maternal Grandmother Breast cancer Paternal Grandmother Breast cancer Social History Housing: Apartment Alcohol intake: current Alcohol intake frequency: holidays/special occasions only Patient Tobacco Use Status: Never used Tobacco e-Cigarette/Vaping Use: Never Used Second Hand Smoke Exposure: Yes Current occupational status: unemployed Current occupation: rt handed Cognitive needs: No Hearing needs: No Vision needs: Yes Review of Systems Const Denies chills and Denies fever(s) Physical Exam Vital Signs: BMI result Body Mass Index 46.9 Const General: comfortable and no acute distress Neck Other: Excision site well healed, sutures intact, no evidence of infection Assessment & Plan Assessment & Plan (1) Cyst of skin: Code(s): L72.9 - Follicular cyst of the skin and subcutaneous tissue, unspecified Category: Medical Plan: Status post excision. She is doing very well. Her site is well healed. I removed her sutures. She can follow up on a PRN basis. The path report shows an epidermal cyst. Coding Level of Care Code Global (36501) Diagnoses Cyst of skin L72.9
[2025-05-20 15:26] VITALS: BMI 46.9
--- OUTSIDE RECORDS SUMMARY | 2025-05-20 17:21 | XMS_ITS | Data Portability ---
Author Organization [place] - [facility], Allergy Address [address] [address] Care Team Providers Care Bean Picker Name Role Phone BRIAN EDWARDS Primary Care [...] malignanc y, Radiology center 2024 025 pgustavson [facility], [address] [place], [address], 10:05:21 Surgeries None recorded. Imaging None recorded. 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 Procedures Surgical History Date Name Laterality Status Provider Name and Address Organization Details Recorded Time 06/22/2024 FOL_DP completed TITO PERAZA MD [address] [place] [address], [place], [address], [facility] 06/21/2024 23:03:28 Imaging Results None recorded. Procedure Notes None recorded. Medical Equipment None Reported. Allergies Allergen ID Allergen Name Allergen Category Reaction Reaction Severity Criticality Documentation Date Start Date Code Code System Note Provider Name and Address Organization Details Recorded Time 618692 Non-stero idal anti-infl ammatory agent (substanc e) medicatio n Not available Not available Not available 06/22/2024 45630 5008 SNOMED Prisca hardy [facility] 12:53:41 081461 Product containin g penicilli n (product) medicatio n Not available Not available Not available 06/22/2024 22138 8001 SNOMED Prisca hardy [facility] 12:53:48 915858 Ortho Tri-Cycle n (28) medicatio n Not available Not available Not available 06/22/2024 Prisca hardy [facility] 12:53:59 Medications Name Sig Start Date [...] Updated DateTime 06/22/2024 152.4 cm 51.8 kg/m2 516532.98 g Prisca Downs [place] - [facility] 06/22/2024 12:53:33 Social History None recorded. [...] ICD10 Code Diagnosis IMO Codes Diagnosis Note [id number] TITO PERAZA MD [facility] [address] [address] 06/22/2024 12:36:54 06/22/2024 13:19:33 Papillary thyroid carcinoma 073131273 C[address] needs tissue sampling to r/o recurrence . FOL was normal in office Hoarse 06667753 R49.0 Health Concerns Section Related Observation LastModified by Organization Detai ls LastModified Time None Recorded Concern Status LastModified by Organization Details LastModified Time None Recorded Advance Directives Directive None Recorded Payers Insurance Date Sequence Insurance Name Policy Number Policy Jeffery Covered Member ID Jeffery Member ID Guarantor Name 07/20/[address] [place] [address] [id number] Jing Kahlil [id number] Jing Guillory Notes Date Note Type Note Provider Name and Address Organization Details Recorded Time 06/22/2024 text/html ROS as noted in the HPI hoarse returned about 11/2023not associated with vocal use ba swallow - normal per her report thyroid ca and [id number] subtotal thyroidectomy for cancer in Jxirapsv1375 revision thyroid and parathyroid but nothing was removed [facility]2017 completion thyroid [place] [id number] [facility], [facility] 12/06/2023 ultrasound neck at [facility] the thyroid bed no residual lesionLeft submandibular region 9 x 9 x 6 mm reniform lymph node with normal architectural features. 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
--- OUTSIDE RECORDS SUMMARY | 2025-05-20 17:21 | XMS_ITS | Clinical Summary ---
Author Organization [address] Address [address] [place] [phone] Phone Care Team Providers Care Manager Ui Name Role Phone Seb Arrington MD Primary [...] to complete this topic Care Teams Manager Ui Relationship Specialty Start Date End Date Seb Arrington MD PCP - General Internal Medicine 01/02/08
== END 2025-05-20 15:35 | disposition home or self-care (01) ==
LOC: HO.HGS 15:06
PROVIDERS: PCP Nurse Practitioner Family; Visit Provider Surgery
DX: L72.9 Follicular cyst of the skin and subcutaneous tissue, unspecified (principal)
CPT/HCPCS: 99024